=== PATIENT | male | born 1965 | race Caucasian/White ===

== ENCOUNTER 2023-02-08 09:32 | Outpatient (OUT) | payer OTHER, SELFPAY ==
[2023-02-08 10:13] LABS: Basophils Absolute Auto 0.1 10^3/uL (0.0-0.1); Basophils Percent Auto 1.1 % (0.2-2.0); Eosinophils Absolute Auto 0.4 10^3/uL (0.0-0.7); Eosinophils Percent Auto 5.1 % (0.9-7.0); Hematocrit 48.2 % (42.0-54.0); Hemoglobin 16.1 g/dL (14.0-18.0); Immature Granulocytes Abs Auto 0.03 10^3/uL (0.00-0.03); Immature Granulocytes Pct Auto 0.4 % (0.0-0.5); Lymphocytes Absolute Auto 1.8 10^3/uL (1.2-3.8); Lymphocytes Percent Auto 22.8 % (20.5-60.0); Mean Corpuscular HGB Conc 33.4 g/dL (29.9-35.2); Mean Corpuscular Hemoglobin 29.5 pg (25.9-34.0); Mean Corpuscular Volume 88.3 fL (80.0-94.0); Mean Platelet Volume 8.8 fL (9.5-13.5); Monocytes Absolute Auto 0.6 10^3/uL (0.3-0.8); Monocytes Percent Auto 7.8 % (1.7-12.0); Neutrophils Absolute Auto 5.1 10^3/uL (1.4-6.5); Neutrophils Percent Auto 62.8 % (43.0-75.0); Platelet Count 269 10^3/uL (150-450); Red Blood Count 5.46 10^6/uL (4.70-6.10); Red Cell Distribution Width 13.2 % (11.0-15.0)
[2023-02-08 10:45] LABS: Estimated Average Glucose 174 mg/dL; Glycohemoglobin A1C 7.7 % (4.5-6.2)
[2023-02-08 11:35] LABS: Alanine Aminotransferase 37 U/L (16-63); Albumin Level 3.7 g/dL (3.4-5.0); Alkaline Phosphatase 51 U/L (46-116); Anion Gap 13.5; Aspartate Amino Transferase 14 U/L (15-37); BUN Creatinine Ratio 25.3; Bilirubin Total 0.7 mg/dL (0.2-1.0); Calcium 9.2 mg/dL (8.5-10.1); Carbon Dioxide 26.9 mmol/L (21.0-32.0); Chloride 103 mmol/L (98-107); Estimated GFR (African America >60 (>=60); Estimated GFR (Non-African Ame >60 (>=60); Globulin 3.7 g/dL; Glucose 172 mg/dL (74-106); Potassium 4.4 mmol/L (3.5-5.1); Sodium 139 mmol/L (136-145); Total Protein 7.4 g/dL (6.4-8.2)
== END 2023-02-08 09:33 ==
LOC: LAB 09:36
PROVIDERS: PCP Family Medicine; Visit Provider Family Medicine
DX: R42 Dizziness and giddiness (principal); R11.0 Nausea; E11.9 Type 2 diabetes mellitus without complications
CPT/HCPCS: 36415; 80053; 83036; 85025

== ENCOUNTER 2023-03-06 14:02 | Outpatient (OUT) | payer OTHER, SELFPAY ==
--- NOTE | 2023-03-06 14:45 | CT_ITS ---
[address] [address] Patient Name: EVARISTO LOWERY MRN: [id number] date: 1965 Sex: M Assigned Patient Location: CT Current Patient Location: Accession/Order Number: [id number] Exam Date: 03/06/2023 14:20 Report Date: 03/07/2023 07:54 At the request of: JOSEPH JNAG Procedure: CT abdomen pelvis wo/w con EXAMINATION: CT abdomen pelvis wo/w con HISTORY: Kidney Mass N28.89 COMPARISON: 10/01/2022 TECHNIQUE: Axial, Coronal, and Sagittal images were created without and with non-ionic intravenous contrast material. Dose reduction techniques were achieved by using automated exposure control and/or adjustment of mA and/or kV according to patient size and/or use of iterative reconstruction technique. FINDINGS: LUNG BASES: No visible pulmonary or pleural disease. LIVER: No enlargement, atrophy, abnormal density, or significant focal lesion. BILIARY: No dilatation or calcification. PANCREAS: No lesion, fluid collection, ductal dilatation, or atrophy. SPLEEN: No enlargement or focal lesion. ADRENALS: No mass or enlargement. KIDNEYS: Normal right. Left parapelvic and cortical hypodensities measuring up to 3.9 cm inferior e pole, all of the lesions demonstrate fluid density without postcontrast enhancement with the exception of a upper pole lesion with peripheral calcification measuring 3.3 x 2.4 cm axial image #41 with a density of 24-27 Hounsfield units on pre and postcontrast imaging BOWEL/MESENTERY: Colonic diverticulosis without evidence of acute diverticulitis. Nonobstructive bowel gas pattern AORTA/VASCULAR: No aortic aneurysm. Atherosclerosis RETROPERITONEUM: No mass or adenopathy. LYMPH NODES: No adenopathy. URINARY BLADDER: No visible focal wall thickening, lesion, or calculus. PELVIC ORGANS: No visible mass. Pelvic organs appropriate for patient age. ABDOMINAL WALL: No mass or hernia. BONES: No bony lesion or fracture. OTHER: Negative. CT/CT abdomen pelvis wo/w con IMPRESSION: Stable nonenhancing hyperdense 3.3 cm left renal lesion with peripheral calcification. I favor hyperdense or proteinaceous cyst Electronically authenticated by: BHASKAR ANTUNEZ Date: 03/07/2023 07:54
== END 2023-03-06 14:03 | disposition home or self-care (01) ==
LOC: CT 14:05
PROVIDERS: PCP Family Medicine; Visit Provider Urology
DX: N28.89 Other specified disorders of kidney and ureter (principal)
CPT/HCPCS: 74178; Q9967

== ENCOUNTER 2023-05-27 09:54 | Outpatient (OUT) | payer OTHER, SELFPAY ==
[2023-05-27 10:29] LABS: Basophils Absolute Auto 0.1 10^3/uL (0.0-0.1); Basophils Percent Auto 1.2 % (0.2-2.0); Eosinophils Absolute Auto 0.3 10^3/uL (0.0-0.7); Eosinophils Percent Auto 3.2 % (0.9-7.0); Hematocrit 48.7 % (42.0-54.0); Hemoglobin 15.9 g/dL (14.0-18.0); Immature Granulocytes Abs Auto 0.02 10^3/uL (0.00-0.03); Immature Granulocytes Pct Auto 0.2 % (0.0-0.5); Lymphocytes Percent Auto 24.7 % (20.5-60.0); Mean Corpuscular HGB Conc 32.6 g/dL (29.9-35.2); Mean Corpuscular Hemoglobin 29.1 pg (25.9-34.0); Mean Corpuscular Volume 89.2 fL (80.0-94.0); Monocytes Absolute Auto 0.6 10^3/uL (0.3-0.8); Monocytes Percent Auto 7.9 % (1.7-12.0); Neutrophils Percent Auto 62.8 % (43.0-75.0); Platelet Count 267 10^3/uL (150-450); Red Blood Count 5.46 10^6/uL (4.70-6.10); Red Cell Distribution Width 12.8 % (11.0-15.0)
[2023-05-27 10:36] LABS: Estimated Average Glucose 203 mg/dL; Glycohemoglobin A1C 8.7 % (4.5-6.2)
[2023-05-27 10:40] LABS: Alanine Aminotransferase 36 U/L (16-63); Albumin Globulin Ratio 1.2; Albumin Level 4.1 g/dL (3.4-5.0); Alkaline Phosphatase 39 U/L (46-116); Anion Gap 13.2; Aspartate Amino Transferase 16 U/L (15-37); BUN Creatinine Ratio 29.3; Bilirubin Total 0.7 mg/dL (0.2-1.0); Calcium 9.8 mg/dL (8.5-10.1); Carbon Dioxide 28.5 mmol/L (21.0-32.0); Chloride 101 mmol/L (98-107); Chol HDL Ratio 2.9; Cholesterol 111 mg/dL (<=200); Estimated GFR (African America >60 (>=60); Estimated GFR (Non-African Ame >60 (>=60); Globulin 3.5 g/dL; Glucose 152 mg/dL (74-106); HDL Cholesterol 38 mg/dL (40-60); Potassium 4.7 mmol/L (3.5-5.1); Sodium 138 mmol/L (136-145); Total Protein 7.6 g/dL (6.4-8.2); Triglycerides 110 mg/dL (<=150)
== END 2023-05-27 09:55 | disposition home or self-care (01) ==
PROVIDERS: PCP Internal Medicine; Visit Provider Internal Medicine
DX: E11.9 Type 2 diabetes mellitus without complications (principal); E78.5 Hyperlipidemia, unspecified
CPT/HCPCS: 36415; 80053; 80061; 83036; 85025

== ENCOUNTER 2023-07-03 16:33 | Outpatient (OUT) | payer OTHER, SELFPAY ==
--- NOTE | 2023-07-03 | XR_ITS ---
The [address] [address] Patient Name: EVARISTO LOWERY MRN: [id number] date: 1965 Sex: M Assigned Patient Location: [facility] Current Patient Location: [facility] Accession/Order Number: [id number] Exam Date: 07/03/2023 17:05 Report Date: 07/03/2023 17:44 At the request of: SHAIKH MARY ALICE Procedure: XR chest 2V EXAM: XR chest 2V HISTORY: respiratory illness COMPARISON: 06/23/2022 TECHNIQUE: Upright PA and lateral chest x-ray FINDINGS: The heart is not enlarged and the vasculature is not distended. A left-sided pacemaker remains in place. No acute infiltrate, effusion or pneumothorax is identified. Mild flattening of the hemidiaphragms suggest COPD. The osseous structures are grossly intact. XR/XR chest 2V IMPRESSION: No acute infiltrate or evidence of cardiac decompensation. Mild chronic changes are present, and the overall appearance of the chest is unchanged. Electronically authenticated by: TYREE DARNELL Date: 07/03/2023 17:44
== END 2023-07-03 16:34 | disposition home or self-care (01) ==
PROVIDERS: PCP Internal Medicine; Visit Provider Internal Medicine
DX: J98.9 Respiratory disorder, unspecified (principal)
CPT/HCPCS: 71046

== ENCOUNTER 2023-09-23 10:41 | Outpatient (OUT) | payer OTHER, SELFPAY ==
--- OUTSIDE RECORDS SUMMARY | 2023-09-23 10:44 | XMS_ITS | CCD ---
Author Name Unknown Address [address] [place] [address] Organization [facility] Care Team Providers Care Oim Consultant Name Role Phone Justin Smallwood Attending Unavailab kendra Smallwood, Justin Quiroz Admitting Unavailab kendra Wilson, Tony Ponce Primary Care Physician [phone] NEWCASTLE, DR MACDONALD Attending Unavailable NEWCASTLE, DR MACDONALD Consulting Unavailable NEWCASTLE, DR MACDONALD Primary Care Unavailable NEWCASTLE, DR MACDONALD Admitting Unavailable LARRY, ISIAH Consulting Unavailable NEWCASTLE, DR MACDONALD Primary Care Unavailable [facility] [place] PATRICK Admitting Unavailable MISC, DR PATRICK Attending Unavailable MISC, DR PATRICK Consulting Unavailable NEWCASTLE, DR MACDONALD Primary Care Unavailable QUINTON, SAIMA Admitting Unavailable QUINTON, SAIMA Attending Unavailable QUINTON, SAIMA Consulting Unavailable TELEPHONE, DR BHASKAR Zarate Consulting Unavailable NADERER, DR RUBEN Schwarz Admitting Unavailable NEWCASTLE, DR MACDONALD Primary Care Unavailable NADERER, DR RUBEN Schwarz Attending Unavailable SRIEREWilton, DR RUBEN Schwarz Consulting Unavailable SHANNY ., ROQUE AYALA Consulting UnavailJT Galvez Consulting Unavailable NEWCASTLE, DR MACDONALD Consulting Unavailable NEWCASTLE, DR MACDONALD Primary Care Unavailable NEWCASTLE, DR MACDONALD Admitting Unavailable NEWCASTLE, DR MACDONALD Attending Unavailable NEWCASTLE, DR MACDONALD Attending Unavailable NEWCASTLE, DR MACDONALD Consulting Unavailable NEWCASTLE, DR MACDONALD Primary Care Unavailable NEWCASTLE, DR MACDONALD Admitting Unavailable CHUYEBER, DR BLAYNE Núñez Consulting Unavailable MERRY LAIRD Attending Unavailable AHSAN NEWMAN Referring Unavailable MARCY, DARIAN Attending Unavailable PATYAHSAN BOBO Referring Unavailable OJEDA, Cabrera Núñez Attending Unavailable OJEDA, Cabrera Núñez Attending Unavailable House, Tony Ponce Referring Unavailable Allergies Allergy Classification Reported Allergen(s) Allergy Type Date of Onset Reaction(s) Facility (1 source) No Known Medication Allergies; 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: [No Known Medication Allergies] Propensity to adverse reactions (disorder) [facility] Repository Medications Current Medications Medication Drug Class(es) Dates Sig (Normalized) Sig (Original) Aspirin (1 source) Platelet Aggregation Inhibitor, Nonsteroidal Anti-inflammatory Drug Start: 11-14-2022 aspirin Refills(s) 0 Start Date: 11/14/22 Status: Ordered atorvastatin 80 mg oral tablet (1 source) HMG-CoA Reductase Inhibitor Start: 11-14-2022 atorvastatin 80 mg Tab Refills(s) 0 Start Date: 11/14/22 Status: Ordered carvedilol 25 mg oral tablet (1 source) alpha-Adrenergic Sada, beta-Adrenergic Sada Start: 11-14-2022 carvedilol 25 mg Tab Refills(s) 0 Start Date: 11/14/22 Status: Ordered empagliflozin 10 mg oral tablet (1 source) Sodium-Glucose Cotransporter 2 Inhibitor Start: 11-14-2022 Jardiance 10 mg oral tablet Refills(s) 0 Start Date: 11/14/22 Status: Ordered ezetimibe 10 mg oral tablet (1 source) Dietary Cholesterol Absorption Inhibitor Start: 11-14-2022 ezetimibe 10 mg Tab Refills(s) 0 Start Date: 11/14/22 Status: Ordered metFORMIN hydrochloride 500 mg oral tablet (1 source) Biguanide Start: 11-14-2022 metformin 500 mg Tab Refills(s) 0 Start Date: 11/14/22 Status: Ordered sacubitril 24 mg / valsartan 26 mg oral tablet (1 source) Angiotensin 2 Receptor Sada Start: 11-14-2022 take 1 tablet by mouth twice daily Entresto 24 mg-26 mg oral tablet tab(s), Oral, BID, Refill(s) 0 Start Date: 11/14/22 Status: Ordered spironolactone 25 mg oral tablet (1 source) Aldosterone Antagonist Start: 11-14-2022 spironolactone 25 mg Tab Refills(s) 0 Start Date: 11/14/22 Status: Ordered Problems Active Problems Problem Classification Problem Date Documented Date Episodic/Chronic Conduction disorders (2 sources) Encounter for adjustment and management of automatic implantable cardiac defibrillator; 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: [Encounter for adjustment and management of automatic implantable cardiac defibrillator] Onset: 09-20-2022 Chronic Congestive heart failure; nonhypertensive (2 sources) Chronic systolic (congestive) heart failure; 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: [Chronic systolic (congestive) heart failure] Onset: 07-27-2022 Chronic Coronary atherosclerosis and other heart disease (8 sources) Atherosclerotic heart disease of [place] coronary artery without angina pectoris; 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: [Old myocardial infarction] Onset: 02-16-2022 Chronic Diabetes mellitus with complications (1 source) Type 2 diabetes mellitus with hyperglycemia; 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: [TYPE 2 DM W/HYPERGLYCEMIA] Onset: 07-04-2022 Chronic Diabetes mellitus without complication (5 sources) Type 2 diabetes mellitus; 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: [Type 2 diabetes mellitus without complications] Onset: 03-21-2022 11-10-2022 Chronic Disorders of lipid metabolism (3 sources) Mixed hyperlipidemia; 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: [Mixed hyperlipidemia] Onset: 07-26-2022 11-10-2022 Chronic Diverticulosis and diverticulitis (1 source) Diverticulosis of large intestine without perforation or abscess without bleeding; 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: [DVRTCLOS LG INT NO PERF/ABSC W/O BL] Onset: 10-07-2022 Chronic Essential hypertension (4 sources) Essential hypertension; 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: [Essential (primary) hypertension] Onset: 03-25-2022 11-10-2022 Chronic Headache; including migraine (1 source) Headache; including migraine; 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: [HEADACHE UNSPECIFIED] Onset: 07-04-2022 Hyperplasia of prostate (2 sources) Benign prostatic hyperplasia; 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: [Benign prostatic hyperplasia without lower urinary tract symptoms] Onset: 03-25-2022 11-10-2022 Chronic Other diseases of kidney and ureters (1 source) Disorder of kidney and/or ureter; 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: [Other specified disorders of kidney and ureter] Onset: 11-14-2022 Chronic Other diseases of kidney and ureters (1 source) Renal mass 11-14-2022 Chronic Other diseases of kidney and ureters (4 sources) Other specified disorders of kidney and ureter; 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: [OTHER SPEC DISORDERS KIDNEY URETER] Onset: 10-01-2022 Chronic Other diseases of kidney and ureters (1 source) Cyst of kidney, acquired; 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: [CYST OF KIDNEY ACQUIRED] Onset: 10-07-2022 Episodic Other liver diseases (1 source) Other specified diseases of liver; 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: [OTHER SPECIFIED DISEASES OF LIVER] Onset: 10-07-2022 Chronic Other screening for suspected conditions (not mental disorders or infectious disease) (1 source) Encounter for screening for malignant neoplasm of prostate; 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: [Screening for malignant neoplasm done] Onset: 11-14-2022 Episodic Madelyn-; endo-; and myocarditis; cardiomyopathy (except that caused by tuberculosis or sexually transmitted disease) (3 sources) Cardiomyopathy; 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: [Cardiomyopathy, unspecified] Onset: 07-26-2022 11-10-2022 Chronic Unclassified (1 source) Patient encounter status 11-14-2022 Unclassified (1 source) CONTACT W/AND (SUSP) EXPOS COVID-19; 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: [CONTACT W/AND (SUSP) EXPOS COVID-19] Onset: 07-04-2022 Past or Other Problems Problem Classification Problem Date Documented Da te Episodic/Chronic Abdominal pain (4 sources) Unspecified abdominal pain; 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: [UNSPECIFIED ABDOMINAL PAIN] Onset: 09-14-2022 Episodic Conditions associated with dizziness or vertigo (1 source) Dizziness and giddiness; 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: [DIZZINESS AND GIDDINESS] Onset: 07-04-2022 Episodic Coronary atherosclerosis and other heart disease (1 source) Presence of coronary angioplasty implant and graft; 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: [PRESENCE COR ANGPLSTY IMPLANT AND GRAFT] Onset: 07-04-2022 Episodic Fluid and electrolyte disorders (1 source) Dehydration; 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: [DEHYDRATION] Onset: 07-04-2022 Episodic Nonspecific chest pain (4 sources) Chest pain, unspecified; 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: [CHEST PAIN UNSPECIFIED] Onset: 06-23-2022 Episodic Other aftercare (1 source) [employer] (current) use of aspirin; 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: [JEWELRY APPRAISER CURRENT USE OF ASPIRIN] Onset: 07-04-2022 Episodic Other aftercare (1 source) jail (current) use of oral hypoglycemic drugs; 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: [JEWELRY APPRAISER USE ORAL HYPOGLYCEMIC DX] Onset: 07-04-2022 Episodic Other aftercare (1 source) Other skilled nursing (current) drug therapy; 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: [OTH JEWELRY APPRAISER CURRENT DRUG THERAPY] Onset: 07-04-2022 Episodic Other upper respiratory infections (1 source) Acute sinusitis, unspecified; 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: [ACUTE SINUSITIS UNSPECIFIED] Onset: 07-04-2022 Episodic Screening and history of mental health and substance abuse codes (1 source) Personal history of nicotine dependence; 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: [PERSONAL HISTORY OF NICOTINE DEPEND] Onset: 07-04-2022 Episodic Results Test Name Value Interpretation Reference Range Facility Pre-Certification Formon Pre-Certification Form [id number] .00CD:127 Normal [facility] RAD - CT Reporton 03-07-2023 RAD - CT Report [id number] .[id number]:127 Normal [facility] Telephoneon 01-05-2023 Telephone [id number] Evaristo Lowery 1965 M Date Provider Department Center 01/05/2023 ValentínMIRTHA ORR CARD [facility] Family History Problem Relation Age of Onset Diabetes Maternal Grandmother Heart attack Maternal Grandfather Diabetes Paternal Grandmother Heart disease Paternal Grandfather Family Status - Relation Status Age at Maternal Grandmother Maternal Grandfather Paternal Grandmother Paternal Grandfather Normal [facility] ECHOCARDIO M/2D COMPLETEon 0 01-03-2023 ECHOCARDIO M/2D COMPLETE Patient: EVARISTO LOWERY. 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 DESCRIPTION: COMPLETE ECHOCARDIOGRAM Real-time transthoracic echocardiography with 2D, M-mode, spectral and color flow Doppler performed. QUALITY: Technical quality was good. LEFT VENTRICLE: Mild dilatation. Normal left ventricular wall thickness. Left ventricular systolic function is severely reduced with segmental wall motion abnormalities. There is thinning and akinesis of the anterior septum, mid and distal anterior wall and apex. LV EF: Visual estimation of left ventricular ejection fraction is 25%. DIASTOLIC: ATRIAL SEPTUM: LEFT ATRIUM: Mild dilatation. RIGHT ATRIUM: Normal chamber size. RIGHT VENTRICLE: Normal chamber size. Normal right ventricular systolic function. Pacer wire present. TRICUSPID VALVE: Normal mobility and thickness. No stenosis with trivial regurgitation. Unable to assess right-sided pressures due to lack of measurable tricuspid regurgitation. MITRAL VALVE: Normal mobility and thickness. No evidence of mitral valve stenosis. There is no mitral annular calcification. Trivial mitral regurgitation. AORTIC VALVE: Normal trileaflet appearance. No visible sclerosis. Normal leaflet mobility. No evidence of aortic valve stenosis. No aortic regurgitation. AORTIC ROOT: Normal diameter and appearance. PULMONIC VALVE: Normal thickness and mobility. No stenosis. No regurgitation. PERICARDIUM: No evidence of pericardial effusion. IVC: Collapses with inspirations. Normal size PLEURA: CONCLUSION: 1. Ventricle is mildly dilated with severely reduced systolic function. Segmental wall motion abnormalities present. LVEF is 25%. 2. Normal right ventricular size and systolic function. 3. No significant valvular dysfunction. 4. Unable to assess right-sided pressures due to lack of measurable tricuspid regurgitation. 5. No pericardial effusion. Adult Echocardiography Procedure Report Left Ventricle LVEDD (3.7 - 5.6 cm): 5.47 cm LVESD (2.2 - 4.0 cm): 4.68 cm LVIVS thickness (0.6 - 1.2 cm): 0.85 cm LVPW thickness (0.5 - 1.0 cm): 0.93 cm e': 0.07 m/s E - e': 10.31 LVOT Max Gradient: 2.99 mm[Hg] Peak Velocity (LVOT): 0.86 m/s Mean Velocity (LVOT): 0.66 m/s LVOT Diameter 2.33 cm Left Ventricular Ejection Fraction: 25 % Left Atrium LA Volume Index (2D A2C): 66.41 ml, 66.41 ml Left Atrium Systolic Dimension: 3.41 cm Mitral Valve MV E to A Ratio: 0.75 Mitral Valve A-Wave Peak Velocity: 0.90 m/s Mitral Valve E-Wave Peak Velocity: 0.68 m/s Right Ventricle RV Internal Diastolic Dimension: 3.47 cm Aorta AO Root Diam: 3.23 cm Ascending Ao Diam: 2.93 cm Aortic Valve AoV Area (Peak Allan): 3.11 cm2, 3.17 cm2 AoV Area (VTI): 2.95 cm2, 3.01 cm2 Peak Velocity(Antegrade Flow): 1.17 m/s, 1.21 m/s Peak Gradient(Antegrade Flow): 5.44 mm[Hg], 5.86 mm[Hg] Mean Velocity(Antegrade Flow): 0.85 m/s, 0.89 m/s Mean Gradient(Antegrade Flow): 3.26 mm[Hg], 3.50 mm[Hg] Velocity Time Integral: 24.68 cm, 25.79 cm Tricuspid Valve Peak Velocity (Regurgitant Flow): 2.16 m/s, 1.81 m/s, 1.84 m/s Peak Velocity: 0.56 m/s Pulmonic Valve Mean Gradient: 1.83 mm[Hg], 1.84 mm[Hg], 1.94 mm[Hg], 2.09 mm[Hg] Mean Velocity: 0.63 m/s, 0.63 m/s, 0.65 m/s, 0.67 m/s Peak Velocity: 0.90 m/s, 0.90 m/s, 1.01 m/s, 1.01 m/s Peak Gradient: 3.21 mm[Hg], 3.21 mm[Hg], 4.10 mm[Hg], 4.10 mm[Hg] Right Atrium Right Atrium Systolic Pressure: 28.32 ml, 28.32 ml Dictated by: Foreign Rodriguez M.D. on 01/03/2023 at 20:26 Approved by: Foreign Rodriguez M.D. on 01/03/2023 at 20:32 Normal [facility] Office Visiton 12-19-2022 Follow-up visit [id number] Evaristo Lowery 1965 [facility] Department [place] 12/19/2022 [id number] LAIRD [facility] Family History Problem Relation Age of Onset Diabetes Maternal Grandmother Heart attack Maternal Grandfather Diabetes Paternal Grandmother Heart disease Paternal Grandfather Family Status - Relation Status Age at Maternal Grandmother Maternal Grandfather Paternal Grandmother Paternal Grandfather Level of Service:60788 UT OFFICE/OUTPATIENT ESTABLISHED MOD MDM 30-39 MIN Reason for Visit and Comments: Follow-up [932410] - 3 month follow up Normal [facility] Physician Referralon 023 Physician Referral [id number] .[id number]:127 Normal [facility] Physician Referral [id number] .[id number]:127 Normal [facility] Ambulatory Visit Summaryon 0 11-14-2022 Ambulatory Visit Summary EVARISTO LOWERY :1965 Visit Date:11/14/2022 Ambulatory Visit Instructions Your Diagnosis Kidney mass Prostate cancer screening Tests Performed Urnls Dip Stick Auto w/o Microscopy POC 280[address] CT Abdomen/Pelvis w/ + w/o Contrast -- Results Pending -- Please visit your patient portal for your results or contact your primary care physician. Your Care Team Attending Physician - Cabrera OJEDA MD Primary Care Physician - Tony Wilson DO Referring Physician - Tony Wilson DO This Is Your Medications List Contact prescribing physician if questions or concerns aspirin atorvastatin (atorvastatin 80 mg Tab) carvedilol (carvedilol 25 mg Tab) empagliflozin (Jardiance 10 mg oral tablet) ezetimibe (ezetimibe 10 mg Tab) metformin (metformin 500 mg Tab) sacubitril-valsartan (Entresto 24 mg-26 mg oral tablet) spironolactone (spironolactone 25 mg Tab) Procedures Performed Aortic stent, Defibrillator, Knee, Shoulder. Discharge Vitals Height 159 cm Height 63 in Weight 95 kg Weight 209 lb BMI 37.58 What to do next Scheduled Follow-Up Appointments Monday 2:30 PM EDT With: Cabrera OJEDA MD Where: [facility] Patient Educationon 11-15-19 23 Patient Education Urology Renal Mass A renal mass is a growth in the kidney. A renal mass may be found while performing an MRI, CT scan, or ultrasound for other problems of the abdomen. Certain types of cancers, infections, or injuries can cause a renal mass. A renal mass that is cancerous (malignant) may grow or spread quickly. Others are harmless (benign). What are common types of renal masses? Renal masses include: ? Tumors. These may be cancerous (malignant) or noncancerous (benign). ? The most common type of kidney cancer is renal cell carcinoma. ? The most common benign tumors of the kidney include renal adenomas, oncocytomas, and angiomyolipoma (AML). ? Cysts. These are fluid-filled sacs that form on or in the kidney. ? It is not always known what causes a cyst to develop in or on the kidney. ? Most kidney cysts do not cause symptoms and do not need to be treated. What type of testing might I need? Your health care provider may recommend that you have tests to diagnose the cause of your renal mass. The following tests may be done if a renal mass is found: ? Physical exam. ? Blood tests. ? Urine tests. ? Imaging tests, such as ultrasound, CT scan, or MRI. ? Biopsy. This is a small sample that is removed from the renal mass and tested in a lab. The exact tests and how often they are done will depend on: ? The size and appearance of the renal mass. ? Risk factors or medical conditions that increase your risk for problems. ? Any symptoms associated with the renal mass, or concerns that you have about it. Tests and physical exams may be done once, or they may be done regularly for a period of time. Tests and exams that are done regularly will help monitor whether the mass is growing and beginning to cause problems. What are common treatments for renal masses? Treatment is not always needed for this condition. Your health care provider may recommend careful monitoring (watchful waiting) and regular tests and exams. Treatment will depend on the cause of the mass. Follow these instructions at home: What you need to do at home will depend on the cause of the mass. Follow the instructions that your health care provider gives to you. In general: ? Take tlei-itt-cjohipz and prescription medicines only as told by your health care provider. ? If you are prescribed an antibiotic medicine, take it as told by your health care provider. Do not stop taking the antibiotic even if you start to feel better. ? Follow any restrictions that are given to you by your health care provider. ? Keep all follow-up visits as told by your health care provider. This is important. ? You may need to see your health care provider once or twice a year to have CT scans and ultrasounds done. These tests will show if your renal mass has changed or grown bigger. Contact a health care provider if you: ? Have pain in the side or back (flank pain). ? Have a fever. ? Feel full soon after eating. ? Have pain or swelling in the abdomen. ? Lose weight. Get help right away if: ? Your pain gets worse. ? There is blood in your urine. ? You cannot urinate. ? You have chest pain. ? You have trouble breathing. Summary ? A renal mass is a growth in the kidney. It may be cancerous (malignant) and grow or spread quickly, or it may be harmless (benign). ? Renal masses may be found while performing an MRI, CT scan, or ultrasound for other problems of the abdomen. ? Your health care provider may recommend that you have tests to diagnose the cause of your renal mass. This may include a physical exam, blood tests, urine tests, imaging, or a biopsy. ? Treatment is not always needed for this condition. Careful monitoring (watchful waiting) may be recommended. This information is not intended to replace advice given to you by your health care provider. Make sure you discuss any questions you have with your health care provider. Document Released: 03/04/2015 Document Revised: 09/13/2018 Document Reviewed: 09/13/2018 [email or web address] Patient Education ? 2019 [employer]. [facility] XR knee LT 4V*on 10-19-2022 XR knee LT 4V* [facility] [place] [address] [place] [address] XRay Report Signed Patient: Evaristo Lowery MR#: [id number] : 1965 Acct:[id number] Age/Sex: 57 / M ADM Date: 10/19/22 Loc: XDCLY Room: Type: [facility] Attending Dr: Justin Smallwood PHOTOLETTERING MACHINE OPERATOR-C Copies to: Justin Smallwood CNP Ordering Provider: Justin Smallwood CNP Date of Service: 10/19/22 XR/XR knee LT 4V*: LEFT KNEE PAIN ([id number]) XR/XR elbow LT min 3V*: LEFT ELBOW PAIN CLINICAL HISTORY: Patient slipped and fell at work yesterday. Pain at the posterior left knee and posterior elbow radiating up the arm. LEFT ELBOW - 4 VIEWS COMPARISON: None AP, lateral and both oblique views were obtained. There is no evidence of fracture or dislocation. There is a small enthesophyte at the insertion of the triceps tendon. There are no significant soft tissue abnormalities. There is no elbow effusion. XR/XR elbow LT min 3V* IMPRESSION: NO ACUTE BONY INJURY. LEFT KNEE - 4 views COMPARISON: None AP, lateral and both oblique views were obtained. There is no acute fracture or dislocation. There is mild narrowing of the medial tibiofemoral joint compartment. There is tricompartment marginal spurring. A knee effusion is present. IMPRESSION: DEGENERATIVE CHANGES. NO ACUTE BONY INJURY. Impression dictated by: Cheri Castaneda M.D.10/19/2022 10:21 AM Dictation Location: [place] [address] Transcribed By: [facility] 10/19/22 1021 Dictated By: Cheri Castaneda MD 10/19/22 1012 Signed By: 10/19/22 1021 [facility] CREATININEon 10-01-2022 Creatinine [Mass/Vol] 0.75 mg/dL Normal 0.70-1.30 [facility] Comment on above: Performed By: #### C MP #### [facility] [address] [place] [address] Dr. Mily Parra EGFR-AF BRITISH >60 Normal >=60 [facility] Comment on above: Performed By: #### C MP #### [facility] [address] [place] [address] Dr. Mily Parra EGFR-NON AF BRITISH >60 Normal >=60 [facility] Comment on above: Performed By: #### C MP #### [facility] [address] [place] [address] ABDOMEN WO/W CONon 2022 CT ABDOMEN WO/W CON CLINICAL HISTORY: Disorder of kidney and/or ureter. EXAMINATION: Unenhanced, enhanced CT scan of the abdomen: 10/01/2022. COMPARISON: Unenhanced CT scan of the abdomen and pelvis: 09/14/2022. TECHNIQUE: 3 mm axial images from lung bases through iliac crests without and following administration of intravenous contrast were obtained. Postcontrast images were performed in the hepatic venous phase of contrast administration. No oral contrast was utilized. Sagittal and coronal reconstructions were performed. Dose reduction techniques were achieved by using automated exposure control and/or adjustment of mA and/or kV according to patient size and/or use of iterative reconstruction technique. FINDINGS: There is a pacemaker lead in the right ventricle. The heart size seems normal without filling defects in the cardiac chambers postcontrast. The lung bases otherwise are normal. CT ABDOMEN: There is a tiny low-density lesion in the periphery of the right hepatic lobe in the hepatic dome measuring 6 mm without postcontrast enhancement. The liver overall has density suggestive of at least mild fatty infiltration. There are no other lesions in the liver. The gallbladder, adrenal glands, pancreas, spleen appears normal with a few punctate calcified granulomas within the spleen. RIGHT KIDNEY: On the noncontrast images there is no hydronephrosis, nephro or ureterolithiasis of the visualized right ureter. Postcontrast there are no suspiciously enhancing lesions in the right kidney. LEFT KIDNEY: The lesion in question in the upper pole posterolaterally which has thick calcification in its posterior wall, has isointensity with respect to the renal parenchyma or slightly hyperintense, with precontrast Hounsfield units of 35. Postcontrast the Hounsfield units for this lesion are approximately 37 therefore no significant enhancement. The lesion overall measures approximately 1.9 x 2.3 cm. On the noncontrast images there is another lobulated, low-density lesion in the lower pole partially parapelvic, image 57 sequence 3 measures approximately 2.7 x 3.6 cm, precontrast Hounsfield units of 3. This has some septations which are seen on the postcontrast images without significant enhancement. These septations are less than 3 mm. Postcontrast the Hounsfield units for this lesion are 6. On the precontrast images there is no hydronephrosis or nephrolithiasis or ureterolithiasis. The abdominal aorta has normal caliber. There is no retroperitoneal or mesenteric adenopathy. The bowel loops are of normal caliber with a normal-appearing appendix which is partially visualized. There is no retroperitoneal adenopathy. No discrete focal fluid collections are seen. The visualized osseous structures seem normal. IMPRESSION: 1. Lesion in question in the upper pole lateral aspect of the left kidney partially exophytic has calcification in its lower aspect however there is no significant enhancement of this lesion. This could be secondary to a proteinaceous cyst or hemorrhagic cyst however papillary type of renal cell carcinoma would be difficult to exclude. This will not resolve with respect to papillary cell tumor on the MRI examination as well. 2. There is a Bosniak type II cyst in the lower pole of the left kidney. 3. No definite nephrolithiasis or ureterolithiasis of the visualized kidneys or the ureters on the noncontrast phase of this study. 4. Tiny cyst in the liver, which does not demonstrate enhancement. 5. Mild diverticulosis of the visualized colon without diverticulitis. 6. Normal appendix. Electronically authenticated by: ISIAH JUAREZ Date: 2022-10-01 11:[address] [facility] [address] ABD/PELVIS WO CONon 09-14 CT ABD/PELVIS WO CON EXAMINATION: CT ABD/PELVIS WO CON HISTORY: Right flank pain COMPARISON: CT abdomen pelvis 11/11/2016 TECHNIQUE: Axial, Coronal, and Sagittal images were obtained without and/or with IV contrast as indicated by examination type. Dose reduction techniques were achieved by using automated exposure control and/or adjustment of mA and/or kV according to patient size and/or use of iterative reconstruction technique. FINDINGS: LUNG BASES: No visible pulmonary or pleural disease. LIVER: No enlargement, atrophy, suspicious density, or significant focal lesion. BILIARY: No dilatation or calcification. PANCREAS: No lesion, fluid collection, or abnormal duct dilatation. SPLEEN: No enlargement or focal lesion. ADRENALS: No mass or enlargement. KIDNEYS: 2.7 cm complex cyst versus mass with rim calcification projecting from superior pole of left kidney; benign-appearing cysts within lower pole. Unremarkable right kidney and bilateral ureters. BOWEL/MESENTERY: No visible mass, obstruction, or bowel wall thickening. Normal appendix. AORTA/VASCULAR: No aneurysm or dissection. RETROPERITONEUM: No mass or adenopathy. LYMPH NODES: No adenopathy. URINARY BLADDER: No visible focal wall thickening, lesion, or calculus. PELVIC ORGANS: No visible mass. Pelvic organs appropriate for patient age. ABDOMINAL WALL: No mass or hernia. BONES: L5-S1 degenerative disc disease. No bone lesion or fracture. OTHER: Negative. IMPRESSION: 1. No abnormal or suspicious findings to account for patient's right flank pain. 2.Complex cyst versus mass projecting from superior pole of left kidney. Follow-up CT abdomen without and with IV contrast is recommended to evaluate enhancement characteristics. Electronically authenticated by: BLAYNE CHEN Date: 2022-09-14 15:18 Normal [facility] Office Visiton 07-27-2022 Follow-up visit [id number] Evaristo Lowery 1965 M Date Provider Department Center 07/27/2022 DARIAN LAWRENCE [facility] Family History Problem Relation Age of Onset Diabetes Maternal Grandmother Heart attack Maternal Grandfather Diabetes Paternal Grandmother Heart disease Paternal Grandfather Family Status - Relation Status Age at Maternal Grandmother Maternal Grandfather Paternal Grandmother Paternal Grandfather Level of Service:11098 [place] OFFICE/OUTPATIENT ESTABLISHED MOD MDM 30-39 MIN Normal [facility] CBC AUTO DIFFon 06-24-2022 BASO # 0.1 103/ul Normal 0.0-0.1 [facility] Comment on above: Performed By: #### C BC #### [facility] [address] [address] [address] Mily Parra Basophils/100 WBC (Bld) 0.9 % Normal 0.2-2.0 [facility] Comment on above: Performed By: #### C BC #### [facility] [address] [address] [address] Mily Parra EO # 0.6 103/ul Normal 0.0-0.7 [facility] Comment on above: Performed By: #### C BC #### [facility] [address] [address] [address] Mily Parra Eosinophils/100 WBC (Bld) 6.0 % Normal 0.9-7.0 [facility] Comment on above: Performed By: #### C BC #### [facility] [address] [address] [address] Mily Parra Erythrocyte distribution width (RBC) [Ratio] 13.4 % Normal 11.0-15.0 [facility] Comment on above: Performed By: #### C BC #### [facility] [address] [place] [address] Dr. Mily Parra Hematocrit (Bld) [Volume fraction] 46.7 % Normal 42.0-54.0 [facility] Comment on above: Performed By: #### C BC #### [facility] [address] [address] [address] Mily Parra Hemoglobin (Bld) [Mass/Vol] 15.6 g/dL Normal 14.0-18.0 [facility] Comment on above: Performed By: #### C BC #### [facility] [address] [place] [address] Dr. Mily Parra IG # 0.03 10e3/ul Normal 0.00-0.03 [facility] Comment on above: Performed By: #### C BC #### [facility] [address] [place] [address] Dr. Mily Parra IG % 0.3 % Normal 0.0-0.5 [facility] Comment on above: Performed By: #### C BC #### [facility] [address] [place] [address] Dr. Mily Parra LYMPH # 3.0 103/ul Normal 1.2-3.8 [facility] Comment on above: Performed By: #### C BC #### [facility] [address] [place] [address] Dr. Mily Parra Lymphocytes/100 WBC (Bld) 28.1 % Normal 20.5-60.0 [facility] Comment on above: Performed By: #### C BC #### [facility] [address] [place] [address] Dr. Mily Parra MANUAL DIFF REQ NO Normal [facility] Comment on above: Performed By: #### C BC #### [facility] [address] [place] [address] Dr. Mily Parra MCH (RBC) [Entitic mass] 29.5 pg Normal 25.9-34.0 [facility] Comment on above: Performed By: #### C BC #### [facility] [address] [place] [address] Dr. Mily Parra MCHC (RBC) [Mass/Vol] 33.4 g/dL Normal 29.9-35.2 [facility] Comment on above: Performed By: #### C BC #### [facility] [address] [place] [address] Dr. Mily Parra MCV (RBC) [Entitic vol] 88.4 fL Normal 80.0-94.0 [facility] Comment on above: Performed By: #### C BC #### [facility] [address] [place] [address] Dr. Mily Parra MONO # 0.8 103/ul Normal 0.3-0.8 [facility] Comment on above: Performed By: #### C BC #### [facility] [address] [place] [address] Dr. Mily Parra Monocytes/100 WBC (Bld) 7.8 % Normal 1.7-12.0 [facility] Comment on above: Performed By: #### C BC #### [facility] [address] [place] [address] Dr. Mily Parra NEUT # 6.0 103/ul Normal 1.4-6.5 [facility] Comment on above: Performed By: #### C BC #### [facility] [address] [place] [address] Dr. Mily Parra Neutrophils/100 WBC (Bld) 56.9 % Normal 43.0-75.0 [facility] Comment on above: Performed By: #### C BC #### [facility] [address] [place] [address] Dr. Mily Parra Platelet mean volume (Bld) [Entitic vol] 8.8 fL Critically low 9.5-13.5 [facility] Comment on above: Performed By: #### C BC #### [facility] [address] [place] [address] Dr. Mily Parra PLT 233 103/ul Normal 150-450 [facility] Comment on above: Performed By: #### C BC #### [facility] [address] [place] [address] Dr. Mily Parra RBC 5.28 106/ul Normal 4.70-6.10 [facility] Comment on above: Performed By: #### C BC #### [facility] [address] [place] [address] Dr. Mily Parra WBC 10.5 103/ul Normal 4.0-11.0 [facility] Comment on above: Performed By: #### C BC #### [facility] [address] [place] [address] Dr. Mily Parra PROF CHEM 8 (BAS METB)on Anion gap [Moles/Vol] 8.9 mmol/L Normal [facility] Comment on above: Performed By: #### L IPID #### [facility] [address] [place] [address] Dr. Mily Parra Calcium [Mass/Vol] 8.6 mg/dL Normal 8.5-10.1 [facility] Comment on above: Performed By: #### L IPID #### [facility] [address] [address] [address] Mily Parra Chloride [Moles/Vol] 107 mmol/L Normal 98-107 [facility] Comment on above: Performed By: #### L IPID #### [facility] [address] [place] [address] Dr. Mily Parra CO2 [Moles/Vol] 27.2 mmol/L Normal 21.0-32.0 [facility] Comment on above: Performed By: #### L IPID #### [facility] [address] [place] [address] Dr. Mily Parra Creatinine [Mass/Vol] 0.76 mg/dL Normal 0.70-1.30 [facility] Comment on above: Performed By: #### L IPID #### [facility] [address] [place] [address] Dr. Mily Parra EGFR-AF BRITISH >60 Normal >=60 [facility] Comment on above: Performed By: #### L IPID #### [facility] [address] [place] [address] Dr. Mily Parra EGFR-NON AF BRITISH >60 Normal >=60 [facility] Comment on above: Performed By: #### L IPID #### [facility] [address] [place] [address] Dr. Mily Parra Glucose [Mass/Vol] 118 mg/dL Critically high 74-106 [facility] Comment on above: Performed By: #### L IPID #### [facility] [address] [place] [address] Dr. Mily Parra Potassium [Moles/Vol] 4.1 mmol/L Normal 3.5-5.1 [facility] Comment on above: Performed By: #### L IPID #### [facility] [address] [address] [address] Mily Parra Sodium [Moles/Vol] 139 mmol/L Normal 136-145 [facility] Comment on above: Performed By: #### L IPID #### [facility] [address] [place] [address] Dr. Mily Parra Urea nitrogen [Mass/Vol] 20.0 mg/dL Critically high 7.0-18.0 [facility] Comment on above: Performed By: #### L IPID #### [facility] [address] [place] [address] Dr. Mily Parra Urea nitrogen/Creatinine [Mass ratio] 26.3 mg/mg Normal [facility] Comment on above: Performed By: #### L IPID #### [facility] [address] [place] [address] Dr. Mily Parra ACETONE SERUMon 06-23-2022 ACETONE Negative Normal NEGATIVE [facility] Comment on above: Performed By: #### A CETON #### [facility] [address] [place] [address] Dr. Mily Parra BNPon 06-23-2022 Natriuretic peptide B (Bld) [Mass/Vol] 129.0 pg/mL Normal <=900.0 [facility] Comment on above: Performed By: #### L IPID #### [facility] [address] [place] [address] Dr. Mily Parra CARDIAC CARLOS 3-6on 2 CK [Catalytic activity/Vol] 52 U/L Normal 39-308 [facility] Comment on above: Performed By: #### C MREP #### [facility] [address] [place] [address] Dr. Mily Parra CK.MB [Mass/Vol] 0.69 ng/mL Normal <=3.60 [facility] Comment on above: Performed By: #### C MREP #### [facility] [address] [place] [address] Dr. Mily Parra HSTROP 11.6 pg/mL Normal 4.0-76.1 [facility] Comment on above: Result Comment: CUT- OFF POINTS HAVE BEEN ESTABLISHED BASED ON THE FOURTH UNIVERSAL DEFINITIONS OF MYOCARDIAL INFARCTION. THE UPPER REFERENCE LIMIT (URL) OF TROPONIN, DEFINED THE 99TH PERCENTILE OF cTnI DISTRIBUTION IN A REFERENCE POPULATION, HAS BEEN CONFIRMED THE DECISION THRESHOLD FOR IN DIAGNOSIS. Performed By: #### C MREP #### [facility] [address] [place] [address] Dr. Mily Parra CK [Catalytic activity/Vol] 48 U/L Normal 39-308 [facility] Comment on above: Performed By: #### C MREP #### [facility] [address] [place] [address] Dr. Mily Parra CK.MB [Mass/Vol] 0.58 ng/mL Normal <=3.60 [facility] Comment on above: Performed By: #### C MREP #### [facility] [address] [place] [address] Dr. Mily Parra HSTROP 6.1 pg/mL Normal 4.0-76.1 [facility] Comment on above: Result Comment: CUT- OFF POINTS HAVE BEEN ESTABLISHED BASED ON THE FOURTH UNIVERSAL DEFINITIONS OF MYOCARDIAL INFARCTION. THE UPPER REFERENCE LIMIT (URL) OF TROPONIN, DEFINED THE 99TH PERCENTILE OF cTnI DISTRIBUTION IN A REFERENCE POPULATION, HAS BEEN CONFIRMED THE DECISION THRESHOLD FOR IN DIAGNOSIS. Performed By: #### C MREP #### [facility] [address] [place] [address] Dr. Mily Parra CBC AUTO DIFFon 06-23-2022 BASO # 0.1 103/ul Normal 0.0-0.1 [facility] Comment on above: Performed By: #### C BC #### [facility] [address] [place] [address] Dr. Mily Parra Basophils/100 WBC (Bld) 0.7 % Normal 0.2-2.0 [facility] Comment on above: Performed By: #### C BC #### [facility] [address] [place] [address] Dr. Mily Parra EO # 0.5 103/ul Normal 0.0-0.7 [facility] Comment on above: Performed By: #### C BC #### [facility] [address] [place] [address] Dr. iMly Parra Eosinophils/100 WBC (Bld) 3.6 % Normal 0.9-7.0 [facility] Comment on above: Performed By: #### C BC #### [facility] [address] [place] [address] Dr. Mily Parra Erythrocyte distribution width (RBC) [Ratio] 13.4 % Normal 11.0-15.0 [facility] Comment on above: Performed By: #### C BC #### [facility] [address] [place] [address] Dr. Mily Parra Hematocrit (Bld) [Volume fraction] 51.6 % Normal 42.0-54.0 [facility] Comment on above: Performed By: #### C BC #### [facility] [address] [place] [address] Dr. Mily Parra Hemoglobin (Bld) [Mass/Vol] 17.4 g/dL Normal 14.0-18.0 [facility] Comment on above: Performed By: #### C BC #### [facility] [address] [place] [address] Dr. Mily Parra IG # 0.06 10e3/ul Critically high 0.00-0.03 [facility] Comment on above: Performed By: #### C BC #### [facility] [address] [place] [address] Dr. Mily Parra IG % 0.4 % Normal 0.0-0.5 [facility] Comment on above: Performed By: #### C BC #### [facility] [address] [place] [address] Dr. Mily Parra LYMPH # 2.7 103/ul Normal 1.2-3.8 [facility] Comment on above: Performed By: #### C BC #### [facility] [address] [place] [address] Dr. Mily Parra Lymphocytes/100 WBC (Bld) 18.3 % Critically low 20.5-60.0 [facility] Comment on above: Performed By: #### C BC #### [facility] [address] [place] [address] Dr. Mily Parra MANUAL DIFF REQ NO Normal [facility] Comment on above: Performed By: #### C BC #### [facility] [address] [place] [address] Dr. Mily Parra MCH (RBC) [Entitic mass] 29.7 pg Normal 25.9-34.0 [facility] Comment on above: Performed By: #### C BC #### [facility] [address] [place] [address] Dr. Mily Parra MCHC (RBC) [Mass/Vol] 33.7 g/dL Normal 29.9-35.2 [facility] Comment on above: Performed By: #### C BC #### [facility] [address] [place] [address] Dr. Mily Parra MCV (RBC) [Entitic vol] 88.1 fL Normal 80.0-94.0 [facility] Comment on above: Performed By: #### C BC #### [facility] [address] [place] [address] Dr. Mily Parra MONO # 0.9 103/ul Critically high 0.3-0.8 [facility] Comment on above: Performed By: #### C BC #### [facility] [address] [place] [address] Dr. Mily Parra Monocytes/100 WBC (Bld) 6.2 % Normal 1.7-12.0 [facility] Comment on above: Performed By: #### C BC #### [facility] [address] [place] [address] Dr. Mily Parra NEUT # 10.3 103/ul Critically high 1.4-6.5 [facility] Comment on above: Performed By: #### C BC #### [facility] [address] [place] [address] Dr. Mily Parra Neutrophils/100 WBC (Bld) 70.8 % Normal 43.0-75.0 [facility] Comment on above: Performed By: #### C BC #### [facility] [address] [address] [address] Mily Parra Platelet mean volume (Bld) [Entitic vol] 9.0 fL Critically low 9.5-13.5 [facility] Comment on above: Performed By: #### C BC #### [facility] [address] [address] [address] Mily Parra PLT 278 103/ul Normal 150-450 [facility] Comment on above: Performed By: #### C BC #### [facility] [address] [address] [address] Mily Parra RBC 5.86 106/ul Normal 4.70-6.10 [facility] Comment on above: Performed By: #### C BC #### [facility] [address] [place] [address] Dr. Mily Parra WBC 14.6 103/ul Critically high 4.0-11.0 [facility] Comment on above: Performed By: #### C BC #### [facility] [address] [place] [address] HEAD WO CONon 06-23-2022 CT HEAD WO CON EXAMINATION: CT HEAD WO CON, 06/23/2022 1:34 PM EDT HISTORY: BENIGN PAROXYSMAL VERTIGO, UNSPECIFIED EAR COMPARISON: None. TECHNIQUE: CT scan of the head was performed without IV contrast. CT dose reduction technique was used, including Automated Exposure Control. FINDINGS: BRAIN: No edema, hemorrhage, mass, acute infarction, or inappropriate atrophy. CSF SPACES: 4.4 mm hyperdensity is identified at the foramen of Monro axial image 21 no ventricular enlargement or intraventricular hemorrhage. Choroid plexus calcifications. Pineal calcifications. SKULL: No fracture, mass, or other significant visible lesion. SINUSES: No significant mucosal thickening or fluid on the limited views. ORBITS: No appreciable abnormality on the limited views. OTHER: Negative IMPRESSION: 4.2 mm hyperdensity at the foramen of [place]. The differential diagnosis includes aneurysm versus cyst versus malignancy. Consider CT exam with contrast for further evaluation Electronically authenticated by: BHASKAR ANTUNEZ Date: 2022-06-23 14:21 Normal [facility] CTA NECK WO W CONon 06-23-20 22 CTA NECK WO W CON CTA HEAD/NECK. HISTORY: Radiology result abnormal COMPARISON: None. TECHNIQUE: CT angiogram of the head and neck obtained after administration of 75 mL of nonionic intravenous contrast material, Isovue-300. Multiplanar and volume rendered 3-D reformats were created. NASCET criteria was used for evaluation of luminal stenosis. Approximately 100 ml Omnipaque 350 was administered intravenously. 3-D vascular images were constructed on a separate workstation. FINDINGS: THORACIC AORTA: Normal. There is a normal anatomy at the origin of the great vessels. RIGHT COMMON CAROTID ARTERY: No significant stenosis. RIGHT EXTERNAL CAROTID ARTERY: No significant stenosis. RIGHT INTERNAL CAROTID ARTERY: No significant stenosis. LEFT COMMON CAROTID ARTERY: No significant stenosis. LEFT EXTERNAL CAROTID ARTERY: No significant stenosis. LEFT INTERNAL CAROTID ARTERY: No significant stenosis. There is approximately 5% stenosis of the origin of the ICA secondary to calcified atherosclerotic plaque. RIGHT VERTEBRAL ARTERY: No significant stenosis. LEFT VERTEBRAL ARTERY: No significant stenosis. [place]I [place]: The bilateral intracranial internal carotid arteries, anterior cerebral arteries, middle cerebral arteries and anterior and posterior communicating arteries are normal. POSTERIOR INTRACRANIAL CIRCULATION: The basilar artery and posterior cerebral arteries are patent, without stenosis or occlusion. DURAL SINUSES: Patent. No intracranial aneurysm measuring least 2 mm identified. No intracranial AVM. LUNG APICES: The lung apices are clear. SOFT TISSUES: The prevertebral soft tissues are normal. No soft tissue inflammation. There is a 1.4 x 1.3 x 1.5 cm solid nodule arising from the superior aspect of the left lower lobe with peripheral calcification. OSSEOUS STRUCTURES: No acute osseous abnormality throughout the imaged axial skeleton and skull base. IMPRESSION: 1. No high-grade or hemodynamically flow-limiting stenosis of the major arteries of the head and neck. 2. No evidence of intracranial aneurysm. 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 No hydrocephalus. Recommend MRI brain with and without IV contrast for further evaluation. 3. Solid 1.5 cm nodule arising from the superior aspect of the left thyroid gland. Recommend thyroid ultrasound correlation. Electronically authenticated by: JT MIMS Date: 2022-06-23 15:58 Normal [facility] CULTURE BLOODon 06-23-2022 Microscopic examination of blood, culture Culture Observations: NO GROWTH AT 5 DAYS. Normal [facility] Comment on above: Performed By: #### C BC #### [facility] [address] [place] [address] Dr. Mily Parra Microscopic examination of blood, culture Culture Observations: NO GROWTH AT 5 DAYS. Normal [facility] Comment on above: Performed By: #### C BC #### [facility] [address] [place] [address] Dr. Mily Parra Covid-19 PCR ([facility])on SARS-CoV-2 (COVID-19) RNA RUBY+probe Ql (Unsp spec) Not detected Normal NOT DETECTED [facility] Comment on above: Result Comment: When diagnostic testing is negative, the possibility of a false negative should be considered in the context of a patient's recent exposures and the presence of clinical signs and symptoms consistent with SARS-CoV-2. This test is not yet approved or cleared by the [place] FDA. When there are no FDA-approved or cleared tests available, and other criteria are met, FDA can make tests available under an emergency access mechanism called an Emergency Use Authorization (EUA). The EUA for this test is supported by the [place] of Health and Human Service's declaration that circumstances exist to justify the emergency use of in vitro diagnostics for the detection and/or diagnosis of the virus that causes COVID-19. This EUA will remain in effect for the duration of the COVID-19 declaration justifying emergency of IVDs, unless it is terminated or revoked by the FDA (after which the test may no longer be used). Performed By: #### C BC #### [facility] [address] [place] [id number] Mily Parra D-DIMERon 06-23-2022 D-DIMER 0.31 mg/L FEU Normal <=0.59 [facility] Comment on above: Performed By: #### C MP #### [facility] [address] [place] [id number] Mily Parra D-DIMER COMMENTS SEE BELOW Normal [facility] Comment on above: Result Comment: Incr eases in D-Dimer concentration observed with thromboembolic events can be variable due to localization, size, and age of the thrombus. Therefore, a thromboembolic event cannot be diagnosed with certainty on the basis of the reference range. D-Dimers may also be elevated for a variety of disorders including: advanced age, , coronary disease, cancer, liver disease, infection, inflammation, hematoma, DIC, trauma, post-surgery, diabetes, thrombolytic or anticoagulant therapy, stress, and generalized hospitalization. Performed By: #### C MP #### [facility] [address] [place] [address] Dr. Mily Parra ER URINE PROFILEon 2 Bilirubin Ql (U) Negative Normal NEGATIVE [facility] Comment on above: Performed By: #### E RUR #### [facility] [address] [place] [address] Dr. Mily Parra Clarity (U) CLEAR Normal CLEAR [facility] Comment on above: Performed By: #### E RUR #### [facility] [address] [place] [address] Dr. Mily Parra Color (U) LT. YELLOW Normal YELLOW [facility] Comment on above: Performed By: #### E RUR #### [facility] [address] [place] [address] Dr. Mily MENON A micrscopic examination will be performed if indicated. Normal [facility] Comment on above: Performed By: #### E RUR #### [facility] [address] [place] [address] Dr. Mily Parra Glucose Ql (U) >1000 Abnormal NEGATIVE [facility] Comment on above: Performed By: #### E RUR #### [facility] [address] [place] [address] Dr. Mily Parra Hemoglobin Ql (U) Negative Normal NEGATIVE [facility] Comment on above: Performed By: #### E RUR #### [facility] [address] [place] [address] Dr. Mily Parra Ketones Ql (U) TRACE Abnormal NEGATIVE [facility] Comment on above: Performed By: #### E RUR #### [facility] [address] [place] [address] Dr. Mily Parra LEUKOCYTES Negative Normal NEGATIVE [facility] Comment on above: Performed By: #### E RUR #### [facility] [address] [place] [address] Dr. Mily Parra Nitrite Ql (U) Negative Normal NEGATIVE [facility] Comment on above: Performed By: #### E RUR #### [facility] [address] [place] [address] Dr. Mily Parra pH (U) 6.0 [pH] Normal 5-9 [facility] Comment on above: Performed By: #### E RUR #### [facility] [address] [place] [address] Dr. Mily Parra SPEC GRAVITY 1.020 Normal 1.005-<=1.025 [facility] Comment on above: Performed By: #### E RUR #### [facility] [address] [place] [address] Dr. Mily Parra UA PROTEIN Negative Normal NEGATIVE/ TRACE [facility] Comment on above: Performed By: #### E RUR #### [facility] [address] [place] [address] Dr. Mily Parra UR MICRO IND NOT INDICATED Normal [facility] Comment on above: Performed By: #### E RUR #### [facility] [address] [place] [address] Dr. Mily Parra Urobilinogen Qn (U) 0.2 {[place]'U}/dL Normal 0.2 - 1. 0 [facility] Comment on above: Performed By: #### E RUR #### [facility] [address] [place] [address] Dr. Mily Parra LACTATE/LACTIC ACIDon 2021 Lactate [Moles/Vol] 1.2 mmol/L Normal 0.4-1.9 [facility] Comment on above: Performed By: #### C BC #### [facility] [address] [place] [address] Dr. Mily Parra Lactate [Moles/Vol] 2.9 mmol/L Critically high 0.4-1.9 [facility] Comment on above: Performed By: #### C MP #### [facility] [address] [address] [address] Mily Parra PH VENOUS BLOODon 06-23-2022 PCO2 VENOUS 36.9 mmHg Critically low 40.0-52.0 [facility] Comment on above: Performed By: #### C MP #### [facility] [address] [address] [address] Mily Parra pH VENOUS 7.399 Normal 7.330-7.430 [facility] Comment on above: Performed By: #### C MP #### [facility] [address] [address] [address] Mily Parra PROF 14(COMP METB)on 022 Albumin [Mass/Vol] 4.1 g/dL Normal 3.4-5.0 [facility] Comment on above: Performed By: #### C MP #### [facility] [address] [address] [address] Mily Parra Albumin/Globulin [Mass ratio] 1.1 {ratio} Normal [facility] Comment on above: Performed By: #### C MP #### [facility] [address] [place] [address] Dr. Mily Parra ALP [Catalytic activity/Vol] 56 U/L Normal 46-116 [facility] Comment on above: Performed By: #### C MP #### [facility] [address] [place] [address] Dr. Mily Parra ALT [Catalytic activity/Vol] 35 U/L Normal 16-63 [facility] Comment on above: Performed By: #### C MP #### [facility] [address] [address] [address] Mily Parra Anion gap [Moles/Vol] 11.1 mmol/L Normal [facility] Comment on above: Performed By: #### C MP #### [facility] [address] [place] [address] Dr. Mily Parra AST [Catalytic activity/Vol] 16 U/L Normal 15-37 [facility] Comment on above: Performed By: #### C MP #### [facility] [address] [address] [address] Mily Parra Bilirubin [Mass/Vol] 0.5 mg/dL Normal 0.2-1.0 [facility] Comment on above: Performed By: #### C MP #### [facility] [address] [address] [address] Mily Parra Calcium [Mass/Vol] 9.8 mg/dL Normal 8.5-10.1 [facility] Comment on above: Performed By: #### C MP #### [facility] [address] [address] [address] Mily Parra Chloride [Moles/Vol] 102 mmol/L Normal 98-107 [facility] Comment on above: Performed By: #### C MP #### [facility] [address] [place] [address] Dr. Mily Parra CO2 [Moles/Vol] 27.3 mmol/L Normal 21.0-32.0 [facility] Comment on above: Performed By: #### C MP #### [facility] [address] [address] [address] Mily Parra Creatinine [Mass/Vol] 0.86 mg/dL Normal 0.70-1.30 [facility] Comment on above: Performed By: #### C MP #### [facility] [address] [address] [address] Mily Parra EGFR-AF BRITISH >60 Normal >=60 [facility] Comment on above: Performed By: #### C MP #### [facility] [address] [address] [address] Mily Parra EGFR-NON AF BRITISH >60 Normal >=60 [facility] Comment on above: Performed By: #### C MP #### [facility] [address] [place] [address] Dr. Mily Parra Globulin (S) [Mass/Vol] 3.6 g/dL Normal [facility] Comment on above: Performed By: #### C MP #### [facility] [address] [address] [address] Mily Parra Glucose [Mass/Vol] 148 mg/dL Critically high 74-106 [facility] Comment on above: Performed By: #### C MP #### [facility] [address] [address] [address] Mily Parra Potassium [Moles/Vol] 4.4 mmol/L Normal 3.5-5.1 [facility] Comment on above: Performed By: #### C MP #### [facility] [address] [address] [address] Mily Parra Protein [Mass/Vol] 7.7 g/dL Normal 6.4-8.2 [facility] Comment on above: Performed By: #### C MP #### [facility] [address] [address] [address] Mily Parra Sodium [Moles/Vol] 136 mmol/L Normal 136-145 [facility] Comment on above: Performed By: #### C MP #### [facility] [address] [address] [address] Mily Parra Urea nitrogen [Mass/Vol] 25.0 mg/dL Critically high 7.0-18.0 [facility] Comment on above: Performed By: #### C MP #### [facility] [address] [address] [address] Mily Parra Urea nitrogen/Creatinine [Mass ratio] 29.1 mg/mg Normal [facility] Comment on above: Performed By: #### C MP #### [facility] [address] [address] [address] Mily Parra PROTIMEon 06-23-2022 INR Coag (PPP) [Relative time] 0.97 {INR} Normal [facility] Comment on above: Performed By: #### C MP #### [facility] [address] [address] [address] Mily Parra INR GUIDELINES SEE BELOW Normal [facility] Comment on above: Result Comment: MARIA RED INR: 2.0 - 3.0 CONDITIONS NOT LISTED BELOW 2.5 - 3.5 FOR PROSTHETIC HEART VALVE REPLACEMENT 2.5 - 3.5 RECURRENT THROMBOSIS Performed By: #### C MP #### [facility] [address] [address] [address] Mily Parra PT Coag (PPP) [Time] 10.5 s Normal 9.0-11.6 [facility] Comment on above: Performed By: #### C MP #### [facility] [address] [place] [address] Dr. Mily Parra PTTon 06-23-2022 aPTT Coag (Bld) [Time] 26.7 s Normal 22.3-36.2 [facility] Comment on above: Performed By: #### C MP #### [facility] [address] [place] [address] Dr. Mily Parra TROPONIN, HIGH SENSITIVITYon 06-23-2022 HSTROP 12.1 pg/mL Normal 4.0-76.1 [facility] Comment on above: Result Comment: CUT- OFF POINTS HAVE BEEN ESTABLISHED BASED ON THE FOURTH UNIVERSAL DEFINITIONS OF MYOCARDIAL INFARCTION. THE UPPER REFERENCE LIMIT (URL) OF TROPONIN, DEFINED THE 99TH PERCENTILE OF cTnI DISTRIBUTION IN A REFERENCE POPULATION, HAS BEEN CONFIRMED THE DECISION THRESHOLD FOR IN DIAGNOSIS. Performed By: #### C MP #### [facility] [address] [place] [address] Dr. Mily Parra HSTROP 5.5 pg/mL Normal 4.0-76.1 [facility] Comment on above: Result Comment: CUT- OFF POINTS HAVE BEEN ESTABLISHED BASED ON THE FOURTH UNIVERSAL DEFINITIONS OF MYOCARDIAL INFARCTION. THE UPPER REFERENCE LIMIT (URL) OF TROPONIN, DEFINED THE 99TH PERCENTILE OF cTnI DISTRIBUTION IN A REFERENCE POPULATION, HAS BEEN CONFIRMED THE DECISION THRESHOLD FOR IN DIAGNOSIS. Performed By: #### L IPID #### [facility] [address] [place] [address] Dr. Mily Parra TSHon 06-23-2022 TSH 0.875 uIU/mL Normal 0.358-3.740 [facility] [place] Comment on above: Performed By: #### L IPID #### [facility] [address] [place] [address] Dr. Mily Parra XR CHEST 1 Von 06-23-2022 XR CHEST 1 V EXAMINATION: XR CHES T 1 V HISTORY: CHEST PAIN, UNSPECIFIED COMPARISON: 05/25/2020 TECHNIQUE: AP portable FINDINGS: LUNGS: No significant pulmonary parenchymal abnormalities. VASCULATURE: No increased pulmonary vasculature. PLEURA: No pneumothorax, effusion, or pleural thickening. CARDIAC: No cardiomegaly or cardiac silhouette abnormality. MEDIASTINUM: No visible mass or adenopathy. Left pacemaker/AICD BONES: No fracture or visible bone lesion. OTHER: Negative. IMPRESSION: No acute disease. Electronically authenticated by: BHASKAR ANTUNEZ Date: 2022-06-23 14:07 Normal [facility] CBC AUTO DIFFon 03-21-2022 BASO # 0.1 103/ul Normal 0.0-0.1 [facility] Comment on above: Performed By: #### C BC #### [facility] [address] [place] [address] Dr. Mily Parra Basophils/100 WBC (Bld) 0.8 % Normal 0.2-2.0 [facility] Comment on above: Performed By: #### C BC #### [facility] [address] [place] [address] Dr. Mily Parra EO # 0.3 103/ul Normal 0.0-0.7 [facility] Comment on above: Performed By: #### C BC #### [facility] [address] [place] [address] Dr. Mily Parra Eosinophils/100 WBC (Bld) 2.8 % Normal 0.9-7.0 [facility] Comment on above: Performed By: #### C BC #### [facility] [address] [address] [address] Mily Parra Erythrocyte distribution width (RBC) [Ratio] 13.8 % Normal 11.0-15.0 [facility] Comment on above: Performed By: #### C BC #### [facility] [address] [place] [address] Dr. Mily Parra Hematocrit (Bld) [Volume fraction] 49.4 % Normal 42.0-54.0 [facility] Comment on above: Performed By: #### C BC #### [facility] [address] [place] [address] Dr. Mily Parra Hemoglobin (Bld) [Mass/Vol] 16.2 g/dL Normal 14.0-18.0 [facility] Comment on above: Performed By: #### C BC #### [facility] [address] [place] [address] Dr. Mily Parra IG # 0.03 10e3/ul Normal 0.00-0.03 [facility] Comment on above: Performed By: #### C BC #### [facility] [address] [place] [address] Dr. Mily Parra IG % 0.3 % Normal 0.0-0.5 [facility] Comment on above: Performed By: #### C BC #### [facility] [address] [place] [address] Dr. Mily Parra LYMPH # 2.0 103/ul Normal 1.2-3.8 [facility] Comment on above: Performed By: #### C BC #### [facility] [address] [place] [address] Dr. Mily Parra Lymphocytes/100 WBC (Bld) 20.3 % Critically low 20.5-60.0 [facility] Comment on above: Performed By: #### C BC #### [facility] [address] [place] [address] Dr. Mily Parra MANUAL DIFF REQ NO Normal [facility] Comment on above: Performed By: #### C BC #### [facility] [address] [place] [address] Dr. Mily Parra MCH (RBC) [Entitic mass] 29.0 pg Normal 25.9-34.0 [facility] Comment on above: Performed By: #### C BC #### [facility] [address] [place] [address] Dr. Mily Parra MCHC (RBC) [Mass/Vol] 32.8 g/dL Normal 29.9-35.2 [facility] Comment on above: Performed By: #### C BC #### [facility] [address] [place] [address] Dr. Mily Parra MCV (RBC) [Entitic vol] 88.4 fL Normal 80.0-94.0 [facility] Comment on above: Performed By: #### C BC #### [facility] [address] [address] [address] Mily Parra MONO # 0.7 103/ul Normal 0.3-0.8 [facility] Comment on above: Performed By: #### C BC #### [facility] [address] [place] [address] Dr. Mily Parra Monocytes/100 WBC (Bld) 7.2 % Normal 1.7-12.0 [facility] Comment on above: Performed By: #### C BC #### [facility] [address] [place] [address] Dr. Mily Parra NEUT # 6.6 103/ul Critically high 1.4-6.5 [facility] Comment on above: Performed By: #### C BC #### [facility] [address] [place] [address] Dr. Mily Parra Neutrophils/100 WBC (Bld) 68.6 % Normal 43.0-75.0 [facility] Comment on above: Performed By: #### C BC #### [facility] [address] [place] [address] Dr. Mily Parra Platelet mean volume (Bld) [Entitic vol] 8.6 fL Critically low 9.5-13.5 [facility] Comment on above: Performed By: #### C BC #### [facility] [address] [place] [address] Dr. Mily Parra PLT 289 103/ul Normal 150-450 [facility] Comment on above: Performed By: #### C BC #### [facility] [address] [place] [address] Dr. Mily Parra RBC 5.59 106/ul Normal 4.70-6.10 [facility] Comment on above: Performed By: #### C BC #### [facility] [address] [place] [address] Dr. Mily Parra WBC 9.6 103/ul Normal 4.0-11.0 [facility] Comment on above: Performed By: #### C BC #### [facility] [address] [place] [address] Dr. Mily Parra GLYCOHEMOGLOBIN A1Con 2021 ADA RECOMMENDATION SEE BELOW Normal [facility] Comment on above: Result Comment: ADA RECOMMENDED LIMIT 4.0 - 6.0 ADA THERAPEUTIC TARGET < 7.0 ACTION SUGGESTED > 7.0 Performed By: #### A 1C #### [facility] [address] [place] [address] Dr. Mily Parra Glucose [Mass/Vol] 171 mg/dL Normal [facility] Comment on above: Performed By: #### A 1C #### [facility] [address] [place] [address] Dr. Mily Parra HbA1c (Bld) [Mass fraction] 7.6 % Critically high 4.5-6.2 [facility] Comment on above: Performed By: #### A 1C #### [facility] [address] [place] [address] Dr. Mily Parra PROF 14(COMP METB)on 022 Albumin [Mass/Vol] 4.0 g/dL Normal 3.4-5.0 [facility] Comment on above: Performed By: #### C MP #### [facility] [address] [place] [address] Dr. Mily Parra Albumin/Globulin [Mass ratio] 1.1 {ratio} Normal [facility] Comment on above: Performed By: #### C MP #### [facility] [address] [place] [address] Dr. Mily Parra ALP [Catalytic activity/Vol] 53 U/L Normal 46-116 [facility] Comment on above: Performed By: #### C MP #### [facility] [address] [place] [address] Dr. Mily Parra ALT [Catalytic activity/Vol] 32 U/L Normal 16-63 [facility] Comment on above: Performed By: #### C MP #### [facility] [address] [place] [address] Dr. Mily Parra Anion gap [Moles/Vol] 16.4 mmol/L Normal [facility] Comment on above: Performed By: #### C MP #### [facility] [address] [address] [address] Mily Parra AST [Catalytic activity/Vol] 21 U/L Normal 15-37 [facility] Comment on above: Performed By: #### C MP #### [facility] [address] [address] [address] Mily Parra Bilirubin [Mass/Vol] 0.9 mg/dL Normal 0.2-1.0 [facility] Comment on above: Performed By: #### C MP #### [facility] [address] [address] [address] Mily Parra Calcium [Mass/Vol] 9.2 mg/dL Normal 8.5-10.1 [facility] Comment on above: Performed By: #### C MP #### [facility] [address] [address] [address] Mily Parra Chloride [Moles/Vol] 101 mmol/L Normal 98-107 [facility] Comment on above: Performed By: #### C MP #### [facility] [address] [address] [address] Mily Parra CO2 [Moles/Vol] 26.2 mmol/L Normal 21.0-32.0 [facility] Comment on above: Performed By: #### C MP #### [facility] [address] [address] [address] Mily Parra Creatinine [Mass/Vol] 0.74 mg/dL Normal 0.70-1.30 [facility] Comment on above: Performed By: #### C MP #### [facility] [address] [address] [address] Mily Parra EGFR-AF BRITISH >60 Normal >=60 [facility] Comment on above: Performed By: #### C MP #### [facility] [address] [address] [address] Mily Parra EGFR-NON AF BRITISH >60 Normal >=60 [facility] Comment on above: Performed By: #### C MP #### [facility] [address] [address] [address] Mily Parra Globulin (S) [Mass/Vol] 3.5 g/dL Normal [facility] Comment on above: Performed By: #### C MP #### [facility] [address] [address] [address] Mily Parra Glucose [Mass/Vol] 135 mg/dL Critically high 74-106 [facility] Comment on above: Performed By: #### C MP #### [facility] [address] [address] [address] Mily Parra Potassium [Moles/Vol] 4.6 mmol/L Normal 3.5-5.1 [facility] Comment on above: Performed By: #### C MP #### [facility] [address] [address] [address] Mily Parra Protein [Mass/Vol] 7.5 g/dL Normal 6.4-8.2 [facility] Comment on above: Performed By: #### C MP #### [facility] [address] [address] [address] Mily Parra Sodium [Moles/Vol] 139 mmol/L Normal 136-145 [facility] Comment on above: Performed By: #### C MP #### [facility] [address] [address] [address] Mily Parra Urea nitrogen [Mass/Vol] 16.0 mg/dL Normal 7.0-18.0 [facility] Comment on above: Performed By: #### C MP #### [facility] [address] [address] [address] Mily Parra Urea nitrogen/Creatinine [Mass ratio] 21.6 mg/mg Normal [facility] Comment on above: Performed By: #### C MP #### [facility] [address] [address] [address] Mily Parra LIPID PROFILEon 02-16-2022 CHOL-HDL RATIO NORM SEE BELOW Normal [facility] Comment on above: Result Comment: 3.3 - 4.4 LOW RISK 4.4 - 7.1 AVERAGE RISK 7.1 - 11.0 MODERATE RISK >11.0 HIGH RISK Performed By: #### L IPID #### [facility] [address] [address] [address] Mily Parra Cholesterol [Mass/Vol] 91 mg/dL Normal <=200 [facility] Comment on above: Performed By: #### L IPID #### [facility] [address] [address] [address] Mily Parra Cholesterol in HDL [Mass/Vol] 27 mg/dL Critically low 40-60 [facility] Comment on above: Performed By: #### L IPID #### [facility] [address] [place] [address] Dr. Mily Parra Cholesterol in LDL [Mass/Vol] 40.6 mg/dL Normal [facility] Comment on above: Performed By: #### L IPID #### [facility] [address] [address] [address] Mily Parra Cholesterol.total/Ch olesterol in HDL [Mass ratio] 3.4 {ratio} Normal [facility] Comment on above: Performed By: #### L IPID #### [facility] [address] [place] [address] Dr. Mily Parra HDL NORMAL > or = 60 mg/dl - LO W CARDIOVASCULAR RISK <40 mg/dl - HIGH CARDIOVASCULAR RISK Normal [facility] Comment on above: Performed By: #### L IPID #### [facility] [address] [place] [address] Dr. Mily Parra LDL CALC NORMAL SEE BELOW Normal [facility] Comment on above: Result Comment: <100 mg/dl OPTIMAL 100 - 129 mg/dl NEAR OR ABOVE OPTIMAL 130 - 159 mg/dl BORDERLINE HIGH 160 - 189 mg/dl HIGH >190 mg/dl VERY HIGH Performed By: #### L IPID #### [facility] [address] [place] [address] Dr. Mily Parra Triglyceride [Mass/Vol] 117 mg/dL Normal <=150 [facility] Comment on above: Performed By: #### L IPID #### [facility] [address] [address] [address] Mily Parra VLDL CALC 23.4 mg/dL Normal [facility] Comment on above: Performed By: #### L IPID #### [facility] [address] [place], [place] [address] Dr. Mily Parra Encounters Encounter Date Encounter Type Care Provider Facility Start: 03-13-2023 ambulatory Cabrera OJEDA Facili ty:[facility] [place] Start: 02-22-2023 End: 02-22-2023 ambulatory [facility] Start: 01-03-2023 End: 01-04-[address] TONY WILSON Facility:[facility] Start: 12-19-2022 End: 12-19-2022 ambulatory [facility] Start: 11-14-2022 End: 11-15-2022 ambulatory Cabrera OJEDA Facility:[facility] Start: 11-14-2022 End: 11-14-2022 Patient encounter procedure Cabrera OJEDA [facility] Start: 10-19-2022 End: 10-19-2022 ambulatory Justin Smallwood Facility:[facility] Start: 10-11-2022 ambulatory Cabrera OJEDA Facility :[facility] Start: 10-01-2022 End: 10-02-[address] TONY WILSON Facility:[facility] Start: 09-20-2022 End: 09[facility]20[facility] Start: 09-14-2022 End: 09-15-[address] TONY WILSON Facility:[facility] Start: 07-27-2022 End: 07-27-2022 ambulatory DARIAN VIDAL [facility] Start: 06-23-2022 End: 06-24-[address] BHASKAR ANTUNEZ Facility:[facility] Start: 03-21-2022 End: 03-22-[address] TONY WILSON Facility:[facility] Start: 02-16-2022 End: 02-17-[address] TONY WILSON Facility:[facility] Procedures Date Procedure Procedure Detail Performing Clinician Start: 03-21-[address] EDNA WILSON Comment on above: Performed By: #### C #### [facility] [address] [place] [address] Dr. Mily Parra Aortic stent (physic al object) Cabrera OJEDA Defibrillator, devic e (physical object) Cabrera OJEDA Knee region structur e (body structure) Cabrera OJEDA Shoulder region stru cture (body structure) Cabrera OJEDA Immunizations Immunization Date Immunization Notes Care Provider [facility] 06-02-2021 SARS-CoV-2 (COVID-19 ) mRNA BNT-162b2 vax Cabrera OJEDA [facility] 05-12-2021 SARS-CoV-2 (COVID-19 ) mRNA BNT-162b2 vax Cabrera OJEDA [facility] 01-27-2016 tetanus toxoid, redu cedric diphtheria toxoid, and acellular pertussis vaccine, adsorbed Cabrera OJEDA [facility] Payers Date Payer Category Payer Self-pay 1965 Unknown [id number] [id number] [id number] 1965 Unknown [id number] 2.16.84 [id number] 1966 Unknown [id number] 2.16.84 [id number] 1966 Unknown [id number] 2.16.84 [id number] 1966 Unknown [id number] 2.16.84 [id number] 1966 Unknown [id number] 2.16.84 [id number] 1966 Unknown [id number] 2.16.8 [id number] 1966 Unknown [id number] 1958 Unknown [id number] 1958 Unknown [id number] Unknown [id number] Social History Date Type Detail Facility Start: 11-14-2022 Tobacco smoking status Heavy t obacco smoker (finding) [facility] Sex Assigned At Male [facility] Functional Status Date Assessment Result Facility 11-14-2022 Functional Status N/A [facility] Clinical Notes 07-27-2022 to 12-19-2022 Note Date & Type Note Facility 12-19-2022 Note Pt is here today for a 3 month follow up Review of Systems All other systems reviewed and are negative. [facility] 12-19-2022 Note Cardiology Clinic No te Subjective Evaristo Lowery is a 57 y.o. year old male with coronary artery disease status post PCI in 2004, heart failure reduced ejection fraction status post single chamber Medtronic ICD replaced 02/01/2015, and hypertension seen in follow-up. Reports he has been doing fairly well without concerns from a cardiac standpoint. Patient Active Problem List Diagnosis Bronchitis Chest pain Chronic systolic heart failure (CMS/HCC) Coronary atherosclerosis Diabetes mellitus (CMS/HCC) Disorder of lipid metabolism Dizziness Dyspnea Essential hypertension Hyperhidrosis Hyperlipidemia Implantable cardioverter-defibrillator (ICD) in situ Primary cardiomyopathy (CMS/HCC) Well adult health check Family History Problem Relation Name Age of Onset Diabetes Maternal Grandmother Heart attack Maternal Grandfather Diabetes Paternal Grandmother Heart disease Paternal Grandfather Social History Tobacco Use Smoking status: Former Types: Cigarettes Smokeless tobacco: Never HPI Update: 07/27/2022 Evaristo Lowery is a 57 y.o. male here for hospital f/U after recent evaluation at [facility] for chest pain. States they checked everything and found no acute concerns and was DC to home. States CP has resolved he just continues to have some congestion in my chest. States he has lost weight- about 3 pounds since last visit, states that he is not exercising, but he has been dieting- by limiting amount of calories/day intake. He typically drinks about 1 pot of coffee/day and a couple glasses of skim milk- no other liquids in a day. Review of Systems Cardiovascular: Positive for dyspnea on exertion. Negative for chest pain, irregular heartbeat, leg swelling, near-syncope, orthopnea, palpitations and syncope. Objective Visit Vitals BP 120/75 (BP Location: Left arm, Patient Position: Sitting, BP Cuff Size: Adult) Pulse 95 Ht 1.6 m (5' 3 ) Wt 99.1 kg (218 lb 6.4 oz) SpO2 95% BMI 38.69 kg/m??? Smoking Status Former BSA 2.1 m??? Physical Exam General: Awake, alert, good spirits. NAD Pulm: Breath sounds clear to ascultation bilaterally with no wheeze, crackles or rhonchi Cards: Regular rate and rhythm, S1, S2. No S3 or S4 gallop. Murmur: none Abd: Soft, Nontender, physiologic bowel sounds are present Extr: Lower extremity edema: trace. Skin: warm, dry, well perfused Neuro: A&Ox3, No gross deficits Allergies No Known Allergies Medications Current Outpatient Medications: aspirin 81 mg EC tablet, in the morning., Disp: , Rfl: atorvastatin (Lipitor) 80 mg tablet, atorvastatin 80 mg tablet TAKE 1 TABLET BY MOUTH EVERY DAY, Disp: , Rfl: carvedilol (Coreg) 25 mg tablet, carvedilol 25 mg tablet TAKE 1 TABLET BY MOUTH TWICE DAILY, Disp: , Rfl: empagliflozin (Jardiance) 10 mg, Jardiance 10 mg tablet TAKE 1 TABLET BY MOUTH EVERY DAY, Disp: 90 tablet, Rfl: 3 ezetimibe (Zetia) 10 mg tablet, ezetimibe 10 mg tablet, Disp: 90 tablet, Rfl: 3 metFORMIN (Glucophage) 500 mg tablet, metformin 500 mg tablet, Disp: , Rfl: pioglitazone (Actos) 30 mg tablet, pioglitazone 30 mg tablet TAKE 1 TABLET BY MOUTH EVERY DAY, Disp: , Rfl: sacubitriL-valsartan (Entresto) 49-51 mg tablet, Take 1 tablet by mouth in the morning and at bedtime., Disp: , Rfl: spironolactone (Aldactone) 25 mg tablet, spironolactone 25 mg tablet TAKE 1/2 TABLET BY MOUTH EVERY DAY, Disp: 45 tablet, Rfl: 3 Recent Labs 10/01/2022 Scr 0.75, GFR >60% 06/24/22 CBC normal K+ 4.1, BUN 20, CR 0.76- normal HS trop negative x3 Pro BNP 129 02/16/2022 C 91, HDL 27, LDL 40.6, Trig 117 Imaging and other tests Echo: 11/16/2020 Global left ventricular systolic function is severely reduced; ejection fraction is visually estimated to be 25 to 30%. Significant wall motion abnormalities are seen. Left ventricle is mildly dilated. Grade 2 diastolic dysfunction. Left atrium appears mildly dilated. The right ventricle is normal in size and systolic function. Mild tricuspid regurgitation. Mild mitral regurgitation. Assessment Diagnoses and all orders for this visit: Chronic systolic heart failure (CMS/HCC) - Basic metabolic panel; Future - Transthoracic echo (TTE) complete; Future Atherosclerosis of [place] coronary artery of [place] heart without angina pectoris Essential hypertension Benign hypertensive kidney disease with chronic kidney disease stage I through stage IV, or unspecified Plan 1. CAD: Status post IN and stenting in 2004. -Denies angina or worsening dyspnea -Continue aspirin 81 mg daily, Zetia 10 mg daily, atorvastatin 80mg daily, carvedilol 25mg BID. 2. Chronic systolic heart failure, status post AICD -NYHA II -Currently compensated/euvolemic on exam -GDMT: continue carvedilol 25mg BID, spironolactone 25mg daily, and Jardiance 10 mg daily. Will increase Entresto to 49/51 mg and obtain BMP in 1 week. -No recent echo, will obtain one to reevaluate LV functio (more content not included)... [facility] 11-14-2022 Note Chief Complaint Referral *Kidney Mass HPI Staff Evaluation requested by Dr Tony Wilson due to Kidney Mass. Pt is a new pt, never before seen in our office. CT a/p 10/01/22 & 09/14/22 PSA done 03/21/22- 0.97 Has been having Pain in Lower Rt abdomen. CT was ordered. Pain has subsided. Denies Hx of Kidney Stones. Denies Family Hx of Kidney/Bladder Cancer. Denies visible blood in urine. Denies flank pain. Denies all other urinary complaints at this time. History of Present Illness Tests reviewed: reviewed UA, referral records. I have reviewed the previous health record information and history for this patient from _. I have reviewed and verified the staff HPI to be accurate for this encounter. There have been no associated fever, chills, flank pain, or blood in the urine. Denies any urinary infections since last encounter. Review of Systems PHQ Score Initial Depression Screen Score: 0 ROS - Provider Constitutional: denies weight loss, denies hot flashes. Eyes: denies eye problems. Gastrointestinal: denies nausea, denies vomiting. Cardiovascular: denies chest pain or angina. Integumentary: no dryness Musculoskeletal: denies musculoskeletal symptoms. ENMT: denies otolaryngeal symptoms. Respiratory: no shortness of breath. Heme/Lymph: denies easy bleeding tendency, denies easy bruising tendency. Psychiatric: no confusion, no anxiety. Genitourinary: See HPI. Physical Exam Vitals & Measurements HT: 63 in HT: 159 cm WT: 95 kg WT: 209 lb BMI: 37.58 General Appearance: alert, no distress, well nourished, well developed male. Head: normocephalic . Eyes: normal orbit and globe. ENMT: normal examination of external ears. Chest: Lungs CTA, respirations non labored. Cardiovascular: regular rate and rhythm. Abdomen: soft, non distended, no tenderness, no mass or organomegaly, no hernia. Genitourinary: normal scrotum, normal testes, normal urethra, normal epididymis, normal vas deferens/spermatic cord. Flank Pain: none. Bladder: nonpalpable. Penis: normal shaft, normal glans. Prostate: normal prostate, estimated weight 40 gms, no hard nodule observed. Lymph Nodes: unremarkable palpation of the cervical area. Skin: warm, dry, no bruising. Psychiatric: cooperative, affect appropriate for age, normal judgement, euthymic mood. Assessment/Plan Evaristo is a 57 yo male new pt referred by Dr. Wilson due to renal mass. Pt was having lower right abdominal pain so PCP ordered CT. 1. Kidney mass (N28.89: Other specified disorders of kidney and ureter) CT AP wo con 09/14/22 - 2.7 cm complex cyst vs mass with rim calcification projecting from superior pole of L kidney; benign-appearing cysts w/in lower pole. Unremarkable R kidney and bilat ureters. CT AP 10/01/22 - L kidney lesion upper pole posterolaterally has thick calcification in its posterior wall. No significant enhancement. Measures 1.9 x 2.3 cm. Another lobulated, low-density lesion in the LP partially parapelvic measures 2.7 x 3.6 cm. Has some septations, w/o significant enhancement. Septations are less than 3 mm. Bosniak type II cyst. UA today negative for blood and infection. Abdominal pain has since subsided. Denies family hx of kidney or bladder cancer. Reviewed results of CT scans with pt, not very concerning, nonenhancing. Likely cystic, will continue to monitor. Follow up 4-[address] AP w/wo con or sooner if needed. Pt understands and agrees with plan. -If no change, stretch monitoring to 8 mos, if it grows, consider removal. 2. Prostate cancer screening (Z12.5: Encounter for screening for malignant neoplasm of prostate) PSA 03/21/22 - 0.97. Denies any urinary habit complaints, family hx of prostate cancer. Follow-up With When Contact Information SUHAIL NOLASCO, Cabrera Núñez, URL [facility] [address], [place] [address]- Additional Instructions: 4-[address] AP w/wo con Patient Education Renal Mass I, Maranda Barton, personally scribed for Dr. Ojeda on 11/14/2022 14:55:32. . Documentation recorded by the scribe, Maranda Barton, accurately reflects the services(s) I performed and decisions made by me. Authenticated by Dr. Ojeda on 11/14/2022 15:00:16. Problem List/Past Medical History Ongoing BPH (benign prostatic hyperplasia) Cardiomyopathy, unspecified Essential hypertension Kidney mass Mixed hyperlipidemia Prostate cancer screening Type 2 diabetes mellitus Historical No qualifying data Procedure/Surgical History Aortic stent, Defibrillator, Knee, Shoulder. Medications aspirin atorvastatin 80 mg Tab carvedilol 25 mg Tab Entresto 24 mg-26 mg oral tablet, Oral, BID ezetimibe 10 mg Tab Jardiance 10 mg oral tablet metformin 500 mg Tab spironolactone 25 mg Tab Allergies No Known Medication Allergies Social History Tobacco 10 or more cigarettes (1/2 pack or more)/day in last 30 days Tobacco Use:. Cigarettes, 11/14/2022 F (more content not included)... [facility] Comment on above: Result Comment: Elec tronically Signed By: Cabrera OJEDA MD\.br\Date and Time Signed: 11/14/22 15:00 EDT\.br\Electronically Co-Signed By: Maranda Barton\.br\Date and Time Co-Signed: 11/14/22 14:56 EDT 11-14-2022 Hospital Discharge instructions Patient Education 11/14/2022 08:38:21 Renal Mass Renal Mass A renal mass is a growth in the kidney. A renal mass may be found while performing an MRI, CT scan, or ultrasound for other problems of the abdomen. Certain types of cancers, infections, or injuries can cause a renal mass. A renal mass that is cancerous (malignant) may grow or spread quickly. Others are harmless (benign). What are common types of renal masses? Renal masses include: Tumors. These may be cancerous (malignant) or noncancerous (benign). ?The most common type of kidney cancer is renal cell carcinoma. ?The most common benign tumors of the kidney include renal adenomas, oncocytomas, and angiomyolipoma (AML). Cysts. These are fluid-filled sacs that form on or in the kidney. ?It is not always known what causes a cyst to develop in or on the kidney. ?Most kidney cysts do not cause symptoms and do not need to be treated. What type of testing might I need? Your health care provider may recommend that you have tests to diagnose the cause of your renal mass. The following tests may be done if a renal mass is found: Physical exam. Blood tests. Urine tests. Imaging tests, such as ultrasound, CT scan, or MRI. Biopsy. This is a small sample that is removed from the renal mass and tested in a lab. The exact tests and how often they are done will depend on: The size and appearance of the renal mass. Risk factors or medical conditions that increase your risk for problems. Any symptoms associated with the renal mass, or concerns that you have about it. Tests and physical exams may be done once, or they may be done regularly for a period of time. Tests and exams that are done regularly will help monitor whether the mass is growing and beginning to cause problems. What are common treatments for renal masses? Treatment is not always needed for this condition. Your health care provider may recommend careful monitoring (watchful waiting) and regular tests and exams. Treatment will depend on the cause of the mass. Follow these instructions at home: What you need to do at home will depend on the cause of the mass. Follow the instructions that your health care provider gives to you. In general: Take [id number] and prescription medicines only as told by your health care provider. If you are prescribed an antibiotic medicine, take it as told by your health care provider. Do not stop taking the antibiotic even if you start to feel better. Follow any restrictions that are given to you by your health care provider. Keep all follow-up visits as told by your health care provider. This is important. ?You may need to see your health care provider once or twice a year to have CT scans and ultrasounds done. These tests will show if your renal mass has changed or grown bigger. Contact a health care provider if you: Have pain in the side or back (flank pain). Have a fever. Feel full soon after eating. Have pain or swelling in the abdomen. Lose weight. Get help right away if: Your pain gets worse. There is blood in your urine. You cannot urinate. You have chest pain. You have trouble breathing. Summary A renal mass is a growth in the kidney. It may be cancerous (malignant) and grow or spread quickly, or it may be harmless (benign). Renal masses may be found while performing an MRI, CT scan, or ultrasound for other problems of the abdomen. Your health care provider may recommend that you have tests to diagnose the cause of your renal mass. This may include a physical exam, blood tests, urine tests, imaging, or a biopsy. Treatment is not always needed for this condition. Careful monitoring (watchful waiting) may be recommended. This information is not intended to replace advice given to you by your health care provider. Make sure you discuss any questions you have with your health care provider. Document Released: 03/04/2015 Document Revised: 09/13/2018 Document Reviewed: 09/13/2018 [employer] Patient Education 2020 [employer]. Follow Up Care 10/11/2022 10:10:39 With:SUHAIL NOLASCO, Cabrera Núñez, URL Address: [facility] [address], [place] [address]- When: Unknown [facility] Note Pt here today for fo llow up from [facility] was in there for SOB and chest pain. Feels 99% better he wonders if he has something in his lungs, they did blood work CT ect and kept overnight in the ICU Review of Systems All other systems reviewed and are negative. [facility] 07-27-2022 Note [facility] CARDIOLOGY PROGR ESS NOTE HPI: Evaristo Lowery is a 57 y.o. male here for hospital f/U after recent evaluation at [facility] for chest pain. States they checked everything and found no acute concerns and was DC to home. States CP has resolved he just continues to have some congestion in my chest. States he has lost weight- about 3 pounds since last visit, states that he is not exercising, but he has been dieting- by limiting amount of calories/day intake. He typically drinks about 1 pot of coffee/day and a couple glasses of skim milk- no other liquids in a day. CAD: Status post IN and stenting in 2004. Chronic systolic heart failure, status post AICD Review of Systems Respiratory: Negative for chest tightness and shortness of breath. Admits feeling chest congestion All other systems reviewed and are negative. Visit Vitals BP 123/80 (BP Location: Left arm, Patient Position: Sitting) Pulse 86 Wt 93.9 kg (207 lb) SpO2 93% BMI 36.67 kg/m??? Smoking Status Former BSA 2.04 m??? No Known Allergies Medications: Current Outpatient Medications on File Prior to Visit Medication Sig Dispense Refill aspirin 81 mg EC tablet in the morning. atorvastatin (Lipitor) 80 mg tablet atorvastatin 80 mg tablet TAKE 1 TABLET BY MOUTH EVERY DAY carvedilol (Coreg) 25 mg tablet carvedilol 25 mg tablet TAKE 1 TABLET BY MOUTH TWICE DAILY empagliflozin (Jardiance) 10 mg Jardiance 10 mg tablet TAKE 1 TABLET BY MOUTH EVERY DAY ezetimibe (Zetia) 10 mg tablet ezetimibe 10 mg tablet metFORMIN (Glucophage) 500 mg tablet metformin 500 mg tablet pioglitazone (Actos) 30 mg tablet pioglitazone 30 mg tablet TAKE 1 TABLET BY MOUTH EVERY DAY sacubitriL-valsartan (Entresto) 24-26 mg tablet every 12 (twelve) hours. spironolactone (Aldactone) 25 mg tablet spironolactone 25 mg tablet TAKE 1/2 TABLET BY MOUTH EVERY DAY [DISCONTINUED] clopidogrel (Plavix) 75 mg tablet clopidogrel 75 mg tablet TAKE 1 TABLET BY MOUTH EVERY DAY No current facility-administered medications on file prior to visit. Physical Exam: Constitutional: Appearance: Normal appearance. Without apparent distress, obese, chronically ill HENT: Head: Normocephalic and atraumatic. Nose: Nose normal. Mouth/Throat: Mouth: Mucous membranes are moist. Eyes: Extraocular Movements: Extraocular movements intact. Conjunctiva/sclera: Conjunctivae normal. Neck: Vascular: No JVD. Cardiovascular: Rate and Rhythm: Normal rate and regular rhythm. Pulses: Dorsalis pedis pulses are 3 on the right side and 3on the left side. Posterior tibial pulses are 3 on the right side and 3 on the left side. Heart sounds: Normal heart sounds, S1 normal and S2 normal. Pulmonary: Effort: Pulmonary effort is normal. Breath sounds: Normal breath sounds. Abdominal: General: Bowel sounds are normal. Palpations: Abdomen is soft. Musculoskeletal: General: Normal range of motion. Cervical back: Normal range of motion. Right lower leg: No edema. Left lower leg: No edema. Skin: General: Skin is warm and dry. Capillary Refill: Capillary refill takes less than 2 seconds. Neurological: General: No focal deficit present. Mental Status: She is alert and oriented to person, place, and time. Psychiatric: Mood and Affect: Mood normal. Behavior: Behavior normal. Thought Content: Thought content normal. Judgment: Judgment normal. Labs: 06/24/22 CBC normal K+ 4.1, BUN 20, CR 0.76- normal HS trop negative x3 Pro BNP 129 Last lab values have been reviewed CV Testin11/16/2020 Echo Assessment/Plan: Chronic systolic heart failure (CMS/HCC) [facility] II Euvolemic without exacerbation I feel pt is chronically slightly dehydrated with caffiene intake without adequate fluid intake- d/w pt to have 1.5-2L/day of fluid and decrease amount of coffee each day. Continue to monitor weight daily and to call office for any further concerns Continue GDMT- ASA, lipitor, zetia, jardiance, entresto and aldactone Diuretic therapy- currently euvolemic with aldactone and jardiance Monitor daily weights, I&O, fluid restriction 1.5-2L/day, renal function and electrolytes- Coronary atherosclerosis Coronary artery disease is Continue GDMT- ASA, lipitor and zetia continue risk factor modifications- heart healthy diet, regular exercise as tolerated and continue all medications. Essential hypertension Hypertension is well controlled 123/80 Continue all meds Hyperlipidemia Continue lipitor Primary cardiomyopathy (CMS/HCC) As above RTC [address] [facility] 07-27-2022 Note As above [facility] 07-27-2022 Note Continue lipitor [facility] 07-27-2022 Note Hypertension is well controlled 123/80 Continue all meds [facility] 07-27-2022 Note Coronary artery dise ase is Continue GDMT- ASA, lipitor and zetia continue risk factor modifications- heart healthy diet, regular exercise as tolerated and continue all medications. [facility] 07-27-2022 Note [facility] II Euvolemic without exacerbation I feel pt is chronically slightly dehydrated with caffiene intake without adequate fluid intake- d/w pt to have 1.5-2L/day of fluid and decrease amount of coffee each day. Continue to monitor weight daily and to call office for any further concerns Continue GDMT- ASA, lipitor, zetia, jardiance, entresto and aldactone Diuretic therapy- currently euvolemic with aldactone and jardiance Monitor daily weights, I&O, fluid restriction 1.5-2L/day, renal function and electrolytes- [facility] Evaluation + Plan note Future Appointments Appointment Date:03/13/2023 02:30:00 PM Scheduled Provider:Cabrera OJEDA MD Location:[facility] Appointment Type:URO Office Visit [facility] Hospital course Narrative No data available for this section [facility] Progress note No data available for this section [facility] Summary Purpose Family History No Family History Records FoundNo Family History Records FoundNo Family History Records FoundNo Family History Records Found Advance Directives No Advanced Directives Records FoundNo Advanced Directives Records FoundNo Advanced Directives Records FoundNo Advanced Directives Records Found Additional Source Comments (unrecognized sect ion and content) No Status Records FoundNo Status Records FoundNo Status Records FoundNo Status Records Found INFORMATION SOURCE (unrecogn ized section and content) DATE CREATED AUTHOR 10/20/2022 [facility] DATE CREATED AUTHOR AUTHOR'S ORGANIZ ATION 01/04/2023 [facility] [place] [facility] DATE CREATED AUTHOR AUTHOR'S ORGANIZ ATION 02/22/2023 [facility] DATE CREATED AUTHOR AUTHOR'S ORGANIZ ATION 03/11/2023 [facility] Patient Care team informatio n (unrecognized section and content) Personnel Name: oTny Wilson DO Address: Address: [address] [place] [address] FOR RECORDS PERTAINING TO PATIENTS WHO ARE OR HAVE BEEN ENROLLED IN A CHEMICAL DEPENDENCY/SUBSTANCEABUSE PROGRAM, SOME INFORMATION MAY BE OMITTED. This clinical summary was aggregated from multiple sources. Caution should be exercised in using it in the provision of clinical care. This summary normalizes information from multiple sources, and as a consequence, information in this document may materially change the coding, format and clinical context of patient data. In addition, data may be omitted in some cases. CLINICAL DECISIONS SHOULD BE BASED ON THE PRIMARY CLINICAL RECORDS. [facility] [employer] [facility]. provides no warranty or guarantee of the accuracy or completeness of information in this document.
[2023-09-23 11:19] LABS: Microalbum Creatinine Ratio Ur 16.1 mg/g (0.0-29.9); Microalbumin Urine Random <1.3 mg/dL (<=30.0)
[2023-09-23 11:20] LABS: Estimated Average Glucose 180 mg/dL; Glycohemoglobin A1C 7.9 % (4.5-6.2)
== END 2023-09-23 10:42 | disposition home or self-care (01) ==
LOC: LAB 10:42
PROVIDERS: PCP Internal Medicine; Visit Provider Internal Medicine
DX: E11.9 Type 2 diabetes mellitus without complications (principal)
CPT/HCPCS: 36415; 82043; 82570; 83036

== ENCOUNTER 2024-02-03 08:20 | Outpatient (OUT) | payer OTHER, SELFPAY ==
--- OUTSIDE RECORDS SUMMARY | 2024-02-03 08:23 | XMS_ITS ---
Patient Summarization (C-CDA 2.1 CCD) Created on: February 03, 2024 EVARISTO LOWERY~SEBASTIÁN HAIR : 1965 Sex: Male Author Organization Sample organization Care Team Providers Care Advanced Manufacturing Consultant Name Role Phone Justin Smallwood Attending Unavailab Justin Redmond Admitting Unavailab Tony Malave Primary Care Physician [phone] KATIE, DR MACDONALD Attending Unavailable TICKFAW, DR MACDONALD Consulting Unavailable TICKFAW, DR MACDONALD Primary Care Unavailable TICKFAW, DR MACDONALD Admitting Unavailable LARRY, ISIAH Consulting Unavailable TICKFAW, DR MACDONALD Primary Care Unavailable MISC, DR PATRICK Admitting Unavailable MISC, DR PATRICK Attending Unavailable MISC, DR PATRICK Consulting Unavailable TICKFAW, DR MACDONALD Primary Care Unavailable QUINTON, SAIMA Admitting Unavailable QUINTON, SAIMA Attending Unavailable QUINTON, SAIMA Consulting Unavailable NOTTINGHAM, DR BHASKAR Zarate Consulting Unavailable NADERER, DR RUBEN Schwarz Admitting Unavailable HOUSE, DR MACDONALD Primary Care Unavailable NADERER, DR RUBEN Schwarz Attending Unavailable NADERER, DR RUBEN Schwarz Consulting Unavailable GRECHNY ., ROQUE AYALA Consulting Unavailjuan a e MIMS, JT Consulting Unavailable TICKFAW, DR MACDONALD Consulting Unavailable TICKFAW, DR MACDONALD Primary Care Unavailable TICKFAW, DR MACDONALD Admitting Unavailable TICKFAW, DR MACDONALD Attending Unavailable TICKFAW, DR MACDONALD Attending Unavailable TICKFAW, DR TONY Milton Unavailable TICKFAW, DR MACDONALD Primary Care Unavailable TICKFAW, DR MACDONALD Admitting Unavailable ZIEBER, DR BLAYNE Núñez Consulting Unavailable Brad NOLASCO, Primary Care Provider CHACHO SMITH Attending Unavailable AHSAN NEWMAN Referring Unavailable MERRY LAIRD Attending Unavailable AHSAN NEWMAN Referring Unavailable Cabrera OJEDA Attending Unavailable Cabrera OJEDA Attending Unavailable SHAIKH SALINAS Attending Unavailable SHAIKH SALINAS Attending Unavailable SHAIKH SALINAS Attending Unavailable Allergies Allergy Classification Reported Allergen(s) Allergy Type Date of Onset Reaction(s) Facility (1 source) No Known Medication Allergies; 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: [No Known Medication Allergies] Propensity to adverse reactions (disorder) [facility] Repository Encounters Encounter Date Encounter Type Care Provider Facility Start: 03-18-2024 ambulatory Cabrera R LYNETTE Bowman ty:[facility] Start: 12-20-2023 End: 12-20-2023 ambulatory SHAIKH BRAD Not Available Start: 11-07-2023 End: 11-07-2023 ambulatory SHAIKH BRAD Not Available Start: 10-03-2023 End: 10-03-2023 ambulatory [facility] Start: 09-27-2023 End: 09-27-2023 ambulatory SHAIKH BRAD Not Available Start: 09-27-2023 End: 09-27-2023 Periodic preventive med est patient 40-64yrs Shaikh Brad NOLASCO Work Phone: [facility] Comment on above: Essential hypertensi on (CMS/HCC) (Primary Dx); Chronic systolic heart failure (CMS/HCC); Type 2 diabetes mellitus without complication, without long-term current use of insulin (CMS/HCC); Hyperlipidemia, unspecified hyperlipidemia type (CMS/HCC); Wellness examination Start: 09-27-2023 Chart abstracting Shaikh Precious kessler MD Work Phone: [facility] Start: 09-27-2023 End: 09-27-2023 Patient encounter status Shaikh Brad NOLASCO Work Phone: [facility] Start: 09-23-2023 Clinisync Result Encounter Shaikh Brad NOLASCO Work Phone: [facility] External Department Unsolicited Start: 09-23-2023 Clinisync Result Encounter Shaikh Brad NOLASCO Work Phone: [facility] External Department Unsolicited Start: 08-01-2023 End: 08-01-2023 ambulatory [facility] Start: 03-13-2023 End: 03-14-2023 ambulatory Cabrera OJEDA Facility:[facility] Start: 02-22-2023 End: 02-22-2023 ambulatory AHSAN NEWMAN [facility] Start: 01-03-2023 End: 01-04-[address] TONY WILSON Facility:[facility] Start: 12-19-2022 End: 12-19-2022 ambulatory MERRY LAIRD [facility] Start: 11-14-2022 End: 11-14-2022 Patient encounter procedure Cabrera OJEDA [facility] Start: 10-19-2022 End: 10-19-2022 ambulatory Justin Smallwood Facility:[facility] Start: 10-01-2022 End: 10-02-[address] TONY WILSON Facility:[facility] Start: 09-14-2022 End: 09-15-[address] TONY WILSON Facility:[facility] Start: 06-23-2022 End: 06-24-[address] BHASKAR ANTUNEZ Facility:[facility] Start: 03-21-2022 End: 03-22-[address] TONY WILSON Facility:[facility] Start: 02-16-2022 End: 02-17-[address] TONY WILSON Facility:[facility] Medical Equipment Procedure Code Equipment Code Equipment Origin al Text Equipment Identifier Dates 1 each by Other route every 12 (twelve) hours Twice a day - whatever brand is covered under patients insurance. [id number] Start: 09-27-2023 End: 04-19-2027 1 each every 12 (twelve) hours [id number] Start: 09-27-2023 End: 12-26-2023 Immunizations Immunization Date Immunization Notes Care Provider Fa cili 06-02-2021 SARS-CoV-2 (COVID-19 ) mRNA BNT-162b2 vax Cabrera OJEDA [facility] 05-12-2021 SARS-CoV-2 (COVID-19 ) mRNA BNT-162b2 vax Cabrera OJEDA [facility] 01-27-2016 tetanus toxoid, redu cedric diphtheria toxoid, and acellular pertussis vaccine, adsorbed Cabrera OJEDA [facility] Medications Current Medications Medication Drug Class(es) Dates Sig (Normalized) Sig (Original) ascorbic acid 1000 mg oral tablet (4 sources) Vitamin C take 1 tablet by mouth in the morning Ascorbic Acid (vitamin C) 1000 MG tablet Take 1,000 mg by mouth in the morning. 0 Active Aspirin (5 sources) Platelet Aggregation Inhibitor, Nonsteroidal Anti-inflammatory Drug Start: 11-14-2022 aspirin Refills(s) 0 Start Date: 11/14/22 Status: Ordered take 1 tablet by mouth in the mo rning aspirin 81 MG EC tablet Take 81 mg by mouth in the morning. 0 Active atorvastatin 80 mg oral tablet (5 sources) HMG-CoA Reductase Inhibitor Start: 11-14-2022 atorvastatin 80 mg Tab Refills(s) 0 Start Date: 11/14/22 Status: Ordered carvedilol 25 mg oral tablet (5 sources) alpha-Adrenergic Sada, beta-Adrenergic Sada Start: 11-14-2022 carvedilol 25 mg Tab Refills(s) 0 Start Date: 11/14/22 Status: Ordered cholecalciferol 0.025 mg oral tablet (4 sources) Vitamin D take 1 tablet by mouth in the morning cholecalciferol (Vitamin D3) 25 MCG (1000 UT) tablet Take 1,000 Units by mouth in the morning. 0 Active empagliflozin 25 mg oral tablet (5 sources) Sodium-Glucose Cotransporter 2 Inhibitor Start: 08-22-2023 End: 11-20-2023 take 1 tablet by mouth in the morning empagliflozin (Jardiance) 25 MG Indications: Type 2 diabetes mellitus without complication, without long-term current use of insulin (CMS/HCC) Take 1 tablet (25 mg) by mouth in the morning. 90 tablet 0 08/22/2023 11/20/2023 Active Start: 11-14-2022 Jardiance 10 m g oral tablet Refills(s) 0 Start Date: 11/14/22 Status: Ordered ezetimibe 10 mg oral tablet (5 sources) Dietary Cholesterol Absorption Inhibitor Start: 11-14-2022 ezetimibe 10 mg Tab Refills(s) 0 Start Date: 11/14/22 Status: Ordered glipiZIDE 5 mg oral tablet (4 sources) Sulfonylurea Start: 09-04-2023 End: 12-03-2023 take 1 tablet by mouth in the morning glipiZIDE (Glucotrol) 5 MG tablet Indications: Type 2 diabetes mellitus without complication, without long-term current use of insulin ([facility]) Take 1 tablet (5 mg) by mouth in the morning. 90 tablet 0 09/04/2023 12/03/2023 Active metFORMIN hydrochloride 500 mg oral tablet (5 sources) Biguanide Start: 11-14-2022 metformin 500 mg Tab Refills(s) 0 Start Date: 11/14/22 Status: Ordered take 1 tablet by alba th in the morning, then take 1 tablet by mouth every twenty-four hours at mealtime metFORMIN, OSM, (Fortamet) 1000 MG 24 hr tablet Take 1,000 mg by mouth in the morning and 1,000 mg in the evening. Take with meals. Do not crush, chew, or split.. 0 Active MULTIPLE VITAMINS PO (4 sources) MULTIPLE VITAMIN S PO Take by mouth 0 Active sacubitril 24 mg / valsartan 26 mg oral tablet (5 sources) Angiotensin 2 Receptor Sada Start: 11-14-2022 take 1 tablet by mouth twice daily Entresto 24 mg-26 mg oral tablet tab(s), Oral, BID, Refill(s) 0 Start Date: 11/14/22 Status: Ordered take 1 tablet by alba th in the morning sacubitril-valsartan (Entresto) 24-26 MG tablet Take 1 tablet by mouth in the morning and 1 tablet before bedtime. 0 Active spironolactone 25 mg oral tablet (5 sources) Aldosterone Antagonist Start: 11-14-2022 spironolactone 25 mg Tab Refills(s) 0 Start Date: 11/14/22 Status: Ordered spironolactone ( Aldactone) 25 MG tablet Take 12.5 mg by mouth in the morning. 0 Active Payers Date Payer Category Payer Self-pay 2022 Unknown [employer] [id number] 2022-Present [phone] [address] [address] [place] [address] [id number] 1965 Unknown [id number] 3 1965 Unknown [id number] 3 1965 Unknown [id number] 3 1965 Unknown [id number] 3 1965 Unknown [id number] 3 1966 Unknown [id number] 3 1965 Unknown [id number] 7 1965 Unknown [id number] 7 1965 Unknown [id number] 59 1965 Unknown [id number] [id number] 59 1966 Unknown [id number] 59 1959 Unknown [id number] 1959 Unknown [id number] Unknown [id number] 1 Plan of Treatment Date Care Activity Detail Author Start: 09-25-2024 Urine screening for protein Diabetes: Urine Protein Screening [facility] Start: 08-21-2024 Glaucoma screening Diabetes: R etinopathy Screening [facility] Start: 02-18-2024 Influenza vaccination Influenza Vacc ine (#1) [facility] Comment on above: Postponed from 04/21 (Patient Refused) Start: 12-24-2023 Hemoglobin A1c measurement Diabetes: Hemoglobin A1C [facility] Start: 10-30-2023 End: 10-30-2023 Patient encounter procedure 10/30/2023 2:45 PM EDT Office Visit [facility] [address] [place] [address] Shaikh Salinas MD [address] [place] [id number] [facility] Start: 09-27-2023 End: 09-27-2023 Patient encounter procedure 09/27/2023 2:15 PM EST Office Visit [facility] [address] [place] [address] Shaikh Salinas MD [address] [place] [id number] [facility] Start: 08-27-2023 Hemoglobin A1c measurement Diabetes: Hemoglobin A1C [facility] Start: 1985 Urine screening for protein Diabetes: Urine Protein Screening [facility] Start: 1965 Screening for malign ant neoplasm of colon 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; 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: [Old myocardial infarction] Onset: 07-17-2012 Chronic Diabetes mellitus with complications (1 source) Type 2 diabetes mellitus with hyperglycemia; 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: [TYPE 2 DM W/HYPERGLYCEMIA] Onset: 07-04-2022 Chronic Diabetes mellitus without complication (13 sources) Type 2 diabetes mellitus; 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: [Type 2 diabetes mellitus without complications] Onset: 03-21-2022 11-10-2022 Chronic Disorders of lipid metabolism (5 sources) Mixed hyperlipidemia; 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: [Hyperlipidemia] Onset: 07-18-2012 11-10-2022 Chronic Diverticulosis and diverticulitis (1 source) Diverticulosis of large intestine without perforation or abscess without bleeding; 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: [DVRTCLOS LG INT NO PERF/ABSC W/O BL] Onset: 10-07-2022 Chronic Essential hypertension (8 sources) Essential hypertension; 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: [Essential (primary) hypertension] Onset: 07-17-2012 11-10-2022 Chronic Headache; including migraine (1 source) Headache; including migraine; 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: [HEADACHE UNSPECIFIED] Onset: 07-04-2022 Hyperplasia of prostate (4 sources) Benign prostatic hyperplasia; 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: [Benign prostatic hyperplasia without lower urinary tract symptoms] Onset: 03-25-2022 11-10-2022 Chronic Other diseases of kidney and ureters (1 source) Disorder of kidney and/or ureter; 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: [Other specified disorders of kidney and ureter] Onset: 11-14-2022 Chronic Other diseases of kidney and ureters (3 sources) Renal mass; 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: [Other specified disorders of kidney and ureter] Onset: 08-01-2023 11-14-2022 Chronic Other diseases of kidney and [...] conditions (not mental disorders or infectious disease) (7 sources) Encounter for screening for malignant neoplasm of prostate; 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: [Screening for malignant neoplasm done] Onset: 11-14-2022 Episodic Madelyn-; endo-; and myocarditis; cardiomyopathy (except that caused by tuberculosis or sexually transmitted disease) (3 sources) Cardiomyopathy; 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: [Primary cardiomyopathy] Onset: 05-19-2014 11-10-2022 Chronic Unclassified (1 source) Patient encounter [...] Onset: 06-23-2022 Episodic Other aftercare (1 source) boiling off winder (current) use of aspirin; 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: [SPECIAL CLASS WELDER CURRENT USE OF ASPIRIN] Onset: 07-04-2022 Episodic Other aftercare (1 source) boiling off winder (current) use of oral hypoglycemic drugs; 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: [GROUP HOME USE ORAL HYPOGLYCEMIC DX] Onset: 07-04-2022 Episodic Other aftercare (1 source) Other senior care (current) drug therapy; 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: [OTH GROUP HOME CURRENT DRUG THERAPY] Onset: 07-04-2022 Episodic Other upper respiratory infections (1 source) Acute sinusitis, unspecified; 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: [ACUTE SINUSITIS UNSPECIFIED] Onset: 07-04-2022 Episodic Screening and history of mental health and substance abuse codes (1 source) Personal history of nicotine dependence; 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: [PERSONAL HISTORY OF NICOTINE DEPEND] Onset: 07-04-2022 Episodic Procedures Date Procedure Procedure Detail Performing Clinician Start: 09-23-2023 MLR HEMOGLOBIN A1C Ga Salinas MD Work Phone: Start: 09-23-2023 [facility] MICROALB ASHWIN Salinas MD Work Phone: Start: 03-21-[address] EDNA WILSON Comment on above: Performed By: #### C MP #### [facility] [address] [address] [address] Mily Parra Aortic stent (physic al object) Cabrera OJEDA Defibrillator, devic e (physical object) Cabrera OJEDA Knee region structur e (body structure) Cabrera OJEDA Shoulder region stru cture (body structure) Cabrera OJEDA Results Test Name Value Interpretation Reference Range Facility MLR HEMOGLOBIN A1Con 024 Glucose [Mass/Vol] 180 mg/dL [facility] HbA1c (Bld) [Mass fraction] 7.9 % High 4.5 - 6.2 % [facility] Comment on above: ADA RECOMMENDED LIMI T 4.0 - 6.0 ADA THERAPEUTIC TARGET < 7.0 ACTION SUGGESTED > 7.0 Interpretation and review of laboratory results Abnormal [facility] No Panel Informationon 09-23 CLINISYNC [facility] TBH MICROALB CREAT RATIO RAN DOMon 09-23-2023 CREATININE URINE RANDOM 80.70 mg/dL 20.00 - 300.00 mg/dL [facility] MICROALBUM CREATININE RATIO UR 16.1 mg/g 0.0 - 29.9 mg/g [facility] Comment on above: NO MICROALBUMINURIA 0-29 MG/G CLINICAL MICROALBUMINURIA 30-300 MG/G MACROALBUMINURIA >300 MG/G MICROALBUMIN URINE RANDOM <1.3 NINF - 30.0 mg/dL [facility] Office Visiton 08-01-2023 Follow-up visit [id number] Evaristo Lowery 1965 M Date Provider Department Center 08/01/[address] [facility] Family History Problem Relation Age of Onset Diabetes Maternal Grandmother Heart attack Maternal Grandfather Diabetes Paternal Grandmother Heart disease Paternal Grandfather Family Status - Relation Status Age at Maternal Grandmother Maternal Grandfather Paternal Grandmother Paternal Grandfather Level of Service:24811 [place] OFFICE/OUTPATIENT ESTABLISHED LOW MDM 20-29 MIN Normal [facility] Ambulatory Visit Summaryon 0 03-13-2023 Ambulatory Visit Summary EVARISTO LOWERY :1965 Visit Date:03/13/2023 Ambulatory Visit Instructions Your Diagnosis Kidney mass Prostate cancer screening Tests Performed Urnls Dip Stick Auto w/o Microscopy POC [address] CT Abdomen/Pelvis w/ + w/o Contrast -- Results Pending -- Please visit your patient portal for your results or contact your primary care physician. Your Care Team Attending Physician - Cabrera OJEDA MD Primary Care Physician - Tony Wilson DO This Is Your Medications List Contact prescribing physician if questions or concerns aspirin (aspirin 81 mg Oral EC Tab) atorvastatin (atorvastatin 80 mg Tab) carvedilol (carvedilol 25 mg Tab) empagliflozin (Jardiance 10 mg oral tablet) ezetimibe (ezetimibe 10 mg Tab) metformin (metformin 500 mg Tab) sacubitril-valsartan (Entresto 24 mg-26 mg oral tablet) spironolactone (spironolactone 25 mg Tab) Procedures Performed Aortic stent, Defibrillator, Knee, Shoulder. Discharge Vitals Heart Rate (Peripheral) 91 Respiratory Rate 16 Blood Pressure 134/80 Height 159 cm Height 63 in Weight 95.2 kg Weight 209.44 lb BMI 37.66 What to do next Scheduled Follow-Up Appointments Monday 2:30 PM EDT With: Cabrera OJEDA MD Where: [facility] Patient Educationon 03-13-20 23 Patient Education Urology Renal Mass A renal mass is an abnormal growth in the kidney. It may be found while performing an MRI, CT scan, or ultrasound to evaluate other problems of the abdomen. A renal mass that is cancerous (malignant) may grow or spread quickly. Others are not cancerous (benign). Renal masses include: ? Tumors. These may be malignant or benign. ? The most common type of kidney cancer in adults is renal cell carcinoma. In children, the most common type of kidney cancer is Wilms tumor. ? The most common benign tumors of the kidney include renal adenomas, oncocytomas, and angiomyolipoma (AML). ? Cysts. These are fluid-filled sacs that form on or in the kidney. What are the causes? Certain types of cancers, infections, or injuries can cause a renal mass. It is not always known what causes a cyst to develop in or on the kidney. What are the signs or symptoms? Often, a renal mass does not cause any signs or symptoms; most kidney cysts do not cause symptoms. How is this diagnosed? Your health care provider may recommend tests to diagnose the cause of your renal mass. These tests may be done if a renal [...] is growing and beginning to cause problems. How is this treated? Treatment is not always needed for this condition. Your health care provider may recommend careful monitoring and regular tests and exams. Treatment will depend on the cause of the mass. Treatment for a cancerous renal mass may include surgical removal, chemotherapy, radiation, or immunotherapy. Most kidney cysts do not need to be treated. Follow these instructions at home: What you need to do at home will depend on the cause of the mass. Follow the instructions that your health care provider gives to you. In general: ? Take tmys-hje-cfofugv and prescription medicines only as told by your health care provider. ? If you were prescribed an antibiotic medicine, take it as told by your health care provider. Do not stop taking the antibiotic even if you start to feel better. ? Follow any restrictions that are given to you by your health care provider. ? Keep all follow-up visits. This is important. ? You may need to see your health care provider once or twice a year to have CT scans and ultrasounds. These tests will show if your renal mass has changed or grown. Contact a health care provider if you: ? Have pain in your side or back (flank pain). ? Have a fever. ? Feel full soon after eating. ? Have pain or swelling in the abdomen. ? Lose weight. Get help right away if: ? Your pain gets worse. ? There is blood in your urine. ? You cannot urinate. ? You have chest pain. ? You have trouble breathing. These symptoms may represent a serious problem that is an emergency. Do not wait to see if the symptoms will go away. Get medical help right away. Call your local emergency services (911 in the [place] Summary ? A renal mass is an abnormal growth in the kidney. It may be cancerous (malignant) and grow or spread quickly, or it may not be cancerous (benign). Renal masses often do not have any signs or symptoms. ? Renal masses may be found while performing an MRI, CT scan, or ultrasound for other problems of the abdomen. ? Your health care provider may recommend that you have tests to diagnose the cause of your renal mass. These may include a physical exam, blood tests, urine tests, imaging, or a biopsy. ? Treatment is not always needed for this condition. Careful monitoring may be recommended. This information is not intended to replace advice given to you by your health care provider. Make sure you discuss any questions you have with your health care provider. Document Revised: 02/01/2021 Document Reviewed: 02/01/2021 [facility] Patient Education ? 2022 [email or web address]. [facility] Reminderson 03-13-2023 Reminders - From: Lea Honeycutt To: KENDRA - [employer] Lynette; Sent: 03/13/2023 16:51:05 EDT Show up: 01/20/2024 16:50:00 EDT Subject: Ct scan Due Date/Time: 02/05/2024 16:51:00 EDT Reminder/Recall Patient needs Ct scan Abd/Pelvis with contrast prior to March 11, 2024 appt. Pt wants [facility] Urology Office/Clinic Noteon 03-13-2023 Urology Office/Clinic Note Chief Complaint kidney mass HPI Staff 4 month f/u with CT. Previous dx of kidney mass. Dysuria: no Incomplete bladder emptying: no Hematuria: no Frequency: no Urgency: no Nocturia: 1x Stream: good no straining or intermittency Leaking: no Post void dripping: no Wearing pads/ Depends: no Urge incontinence: no Stress incontinence: no Incontinence without Sensory Awareness: no Abdominal pain: no Flank pain: no Sexual complaints: no History of Present Illness Tests reviewed: reviewed UA, CT scan I have reviewed the previous health record information and history for this patient from Dr. Ojeda. I have reviewed and verified the staff [...] See HPI. Physical Exam Vitals & Measurements HR: 91(Peripheral) RR: 16 BP: 134/80 HT: 63 in HT: 159 cm WT: 95.2 kg WT: 209.44 lb BMI: 37.66 General Appearance: alert, no distress, well nourished, well developed male. Genitourinary: normal scrotum, normal testes, normal urethra, normal epididymis, normal vas deferens/spermatic cord. Flank Pain: none. Bladder: nonpalpable. Assessment/Plan 1. Kidney mass (N28.89: Other specified disorders [...] UA today negative for blood and infection. Denies family hx of kidney or bladder cancer. CT AP w/wo con done 03/06/23 showed stable nonenhancing hyperdense 3.3cm left renal lesion with peripheral calcification measuring 3.3 x 2.4 cm. Explained to pt results are not worrisome at this time. Will continue to monitor in [address] AP w/wo con. 2. Prostate cancer screening (Z12.5: Encounter for screening for malignant neoplasm of prostate) PSA 03/21/22 - 0.97. Denies any urinary habit complaints, family hx of prostate cancer. [1] Follow-up With When Contact Information LYNETTE NOLASCO, Cabrera Núñez, URL [facility] [address], [place] [address] [phone] Additional Instructions: 1 yr w/ CT scan Patient Education Renal Mass I, Katherine Bear, personally scribed for Dr. Ojeda on 03/13/2023 16:46:39. . Documentation recorded by the scribe, Katherine Bear, accurately reflects the services(s) I performed and decisions made by me. Authenticated by Dr. Ojeda on 03/13/2023 16:48:27. Problem List/Past Medical History Ongoing BPH (benign prostatic hyperplasia) Cardiomyopathy, unspecified Essential hypertension Kidney mass Mixed hyperlipidemia Prostate cancer screening Type 2 diabetes mellitus Historical No qualifying data Procedure/Surgical History Aortic stent, Defibrillator, Knee, Shoulder. Medications aspirin 81 mg Oral EC Tab, Oral, Daily atorvastatin 80 mg Tab carvedilol 25 mg Tab Entresto 24 mg-26 mg oral tablet, Oral, BID ezetimibe 10 mg Tab Jardiance 10 mg oral tablet metformin 500 mg Tab spironolactone 25 mg Tab Allergies No Known Medication Allergies Social History Tobacco 10 or more cigarettes (1/2 pack or more)/day in last 30 days Tobacco Use:. Cigarettes, 11/14/2022 Family History Family history is negative Immunizations Vaccine Date Status SARS-CoV-2 (COVID-19) mRNA BNT-162b2 vax 06/02/2021 Recorded SARS-CoV-2 (COVID-19) mRNA BNT-162b2 vax 05/12/2021 Recorded diphtheria/pertussis, acel/tetanus adult 01/27/2016 Recorded Lab Results Ambulatory Point of Care Results Bilirubin Urine Dipstick: Negative (03/13/23 15:35:00) Blood Urine Dipstick: Negative (03/13/23 15:35:00) Glucose Urine Dipstick: 2+ 500 mg/dl (03/13/23 15:35:00) Ketones Urine Dipstick: Negative (03/13/23 15:35:00) Leukocytes Urine Dipstick: Negative (03/13/23 15:35:00) Nitrite Urine Dipstick: Negative (03/13/23 15:35:00) Protein Urine Dipstick: Negative (03/13 (more content not included)... Normal [facility] Comment on above: Result Comment: Elec tronically Signed By: LYNETTE NOLASCO, Cabrera Núñez\.br\Date and Time Signed: 03/13/23 16:48 EDT\.br\Electronically Co-Signed By: Katherine Bear\.br\Date and Time Co-Signed: 03/13/23 16:46 EDT Pre-Certification Formon Pre-Certification Form [id number] .[id number]:127 [facility] RAD - CT Reporton 03-07-2023 RAD - CT Report [id number]:127 [facility] Telephoneon 01-05-2023 Telephone [id number] Evaristo Lowery 1965 M Date Provider Department Center 01/05/2023 MIRTHA SEBASTIAN CARD [facility] Family History Problem Relation Age of Onset Diabetes Maternal Grandmother Heart attack Maternal Grandfather Diabetes Paternal Grandmother Heart disease Paternal Grandfather Family Status - Relation Status Age at Maternal Grandmother Maternal Grandfather Paternal Grandmother Paternal Grandfather Normal [facility] ECHOCARDIO M/2D COMPLETEon 0 01-03-2023 ECHOCARDIO M/2D COMPLETE Patient: EVARISTO LOWERY. 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 MERRY PAULINOLIZZETH AIR BATTLE MANAGER Admission #: [id number] Family : Order #: [id number] CLICK HERE TO VIEW EXAM ECHOCARDIOGRAM REPORT [...] Pressure: 28.32 ml, 28.32 ml Dictated by: Chacho Smith M.D. on 01/03/2023 at 20:26 Approved by: Chacho Smith M.D. on 01/03/2023 at 20:32 Normal [facility] Office Visiton 12-19-2022 Follow-up visit [id number] Evaristo Lowery 1965 [facility] Provider Department Center 12/19/2022 [id number] LIM [facility] Family History Problem Relation Age of Onset Diabetes Maternal Grandmother Heart attack Maternal Grandfather Diabetes Paternal Grandmother Heart disease Paternal Grandfather Family Status - Relation Status Age at Maternal Grandmother Maternal Grandfather Paternal Grandmother Paternal Grandfather Level of Service:66539 [place] OFFICE/OUTPATIENT ESTABLISHED MOD [facility] 30-39 MIN Reason for Visit and Comments: Follow-up [441582] - 3 month follow up Normal [facility] XR knee LT 4V*on 10-19-2022 XR knee LT 4V* [facility] [place] [address] [place] [address] XRay Report Signed Patient: Evaristo Lowery MR#: [id number] : 1965 Acct:[id number] Age/Sex: 57 / M ADM Date: 10/19/22 Loc: XDCLY Room: Type: [facility] Attending Dr: Justin Smallwood AIR BATTLE MANAGER-C Copies to: Justin Smallwood CNP Ordering Provider: Justin Smallwood CNP Date of Service: 10/19/22 XR/XR knee LT 4V*: LEFT KNEE PAIN ([id number]) XR/XR elbow LT min 3V*: LEFT ELBOW [...] Cheri Castaneda M.D.10/19/2022 10:21 AM Dictation Location: [place] [address] Transcribed By: ALICIA 10/19/22 1021 Dictated By: Cheri Castaneda MD 10/19/22 1012 Signed By: 10/19/22 1021 [facility] CREATININEon 10-01-2022 Creatinine [Mass/Vol] 0.75 mg/dL Normal 0.70-1.30 [facility] Comment on above: Performed By: #### C MP #### [facility] [address] [address] [address] Mily Parra EGFR-AF BOLIVIAN >60 Normal >=60 [facility] Comment on above: Performed By: #### C MP #### [facility] [address] [place] [address] [address] Mily Parra EGFR-NON AF BOLIVIAN >60 Normal >=60 [facility] Comment on above: Performed By: #### C MP #### [facility] [address] ABDOMEN WO/W CONon [...] by: ISIAH JUAREZ Date: 2022-10-01 11:[address] [facility] [address] ABD/PELVIS WO CONon 09-14 CT ABD/PELVIS [...] by: BLAYNE CHEN Date: 2022-09-14 15:18 Normal [facility] CBC AUTO DIFFon 06-24-2022 BASO # 0.1 103/ul Normal 0.0-0.1 [facility] Comment on above: Performed By: #### C BC #### [facility] [address] [place], [place] [address] Dr. Mily Parra Basophils/100 WBC (Bld) 0.9 % Normal 0.2-2.0 [facility] Comment on above: Performed By: #### C BC #### [facility] [address] [place], [place] [address] Dr. Mily Parra EO # 0.6 103/ul Normal 0.0-0.7 [facility] Comment on above: Performed By: #### C BC #### [facility] [address] [place] [address] Dr. Mily Parra Eosinophils/100 WBC (Bld) 6.0 % Normal 0.9-7.0 [facility] Comment on above: Performed By: #### C BC #### [facility] [address] [place] [address] Dr. Mily Parra Erythrocyte distribution width (RBC) [Ratio] 13.4 % Normal 11.0-15.0 [facility] Comment on above: Performed By: #### C BC #### [facility] [address] [place] [address] Dr. Mily Parra Hematocrit (Bld) [Volume fraction] 46.7 % Normal 42.0-54.0 [facility] Comment on above: Performed By: #### C BC #### [facility] [address] [place] [address] Dr. Mily Parra Hemoglobin (Bld) [Mass/Vol] 15.6 g/dL Normal 14.0-18.0 [facility] Comment on above: Performed By: #### C BC #### [facility] [address] [place] [address] Dr. Mily Parra IG # 0.03 10e3/ul Normal 0.00-0.03 [facility] Comment on above: Performed By: #### C BC #### [facility] [address] [place] [address] Dr. Mily Parra IG % 0.3 % Normal 0.0-0.5 [facility] Comment on above: Performed By: #### C BC #### [facility] [address] [place] [address] Dr. Mily Parra LYMPH # 3.0 103/ul Normal 1.2-3.8 [facility] Comment on above: Performed By: #### C BC #### [facility] [address] [place] [address] Dr. Mily Parra Lymphocytes/100 WBC (Bld) 28.1 % Normal 20.5-60.0 [facility] Comment on above: Performed By: #### C BC #### [facility] [address] [place] [address] Dr. Mily Parra MANUAL DIFF REQ NO Normal [facility] Comment on above: Performed By: #### C BC #### [facility] [address] [place] [address] Dr. Mily Parra MCH (RBC) [Entitic mass] 29.5 pg Normal 25.9-34.0 [facility] Comment on above: Performed By: #### C BC #### [facility] [address] [place] [address] Dr. Mily Parra MCHC (RBC) [Mass/Vol] 33.4 g/dL Normal 29.9-35.2 [facility] Comment on above: Performed By: #### C BC #### [facility] [address] [place] [address] Dr. Mily Parra MCV (RBC) [Entitic vol] 88.4 fL Normal 80.0-94.0 [facility] Comment on above: Performed By: #### C BC #### [facility] [address] [place] [address] Dr. Mily Parra MONO # 0.8 103/ul Normal 0.3-0.8 [facility] Comment on above: Performed By: #### C BC #### [facility] [address] [place] [address] Dr. Mily Parra Monocytes/100 WBC (Bld) 7.8 % Normal 1.7-12.0 [facility] Comment on above: Performed By: #### C BC #### [facility] [address] [place] [address] Dr. Mily Parra NEUT # 6.0 103/ul Normal 1.4-6.5 [facility] Comment on above: Performed By: #### C BC #### [facility] [address] [place] [address] Dr. Mily Parra Neutrophils/100 WBC (Bld) 56.9 % Normal 43.0-75.0 [facility] Comment on above: Performed By: #### C BC #### [facility] [address] [address] [address] Mily Parra Platelet mean volume (Bld) [Entitic vol] 8.8 fL Critically low 9.5-13.5 [facility] Comment on above: Performed By: #### C BC #### [facility] [address] [address] [address] Mily Parra PLT 233 103/ul Normal 150-450 [facility] Comment on above: Performed By: #### C BC #### [facility] [address] [place] [address] Dr. Mily Parra RBC 5.28 106/ul Normal 4.70-6.10 [facility] Comment on above: Performed By: #### C BC #### [facility] [address] [place] [address] Dr. Mily Parra WBC 10.5 103/ul Normal 4.0-11.0 [facility] Comment on above: Performed By: #### C BC #### [facility] [address] [place] [address] Dr. Mily Parra PROF CHEM 8 (BAS METB)on Anion gap [Moles/Vol] 8.9 mmol/L Normal [facility] Comment on above: Performed By: #### L IPID #### [facility] [address] [place] [address] Dr. Mily Parra Calcium [Mass/Vol] 8.6 mg/dL Normal 8.5-10.1 [facility] Comment on above: Performed By: #### L IPID #### [facility] [address] [place] [address] Dr. Mily Parra Chloride [Moles/Vol] 107 mmol/L Normal 98-107 [facility] Comment on above: Performed By: #### L IPID #### [facility] [address] [place] [address] Dr. Mily Parra CO2 [Moles/Vol] 27.2 mmol/L Normal 21.0-32.0 [facility] Comment on above: Performed By: #### L IPID #### [facility] [address] [address] [address] Mily Parar Creatinine [Mass/Vol] 0.76 mg/dL Normal 0.70-1.30 [facility] Comment on above: Performed By: #### L IPID #### [facility] [address] [address] [address] Mily Parra EGFR-AF BOLIVIAN >60 Normal >=60 [facility] Comment on above: Performed By: #### L IPID #### [facility] [address] [address] [address] Mily Parra EGFR-NON AF BOLIVIAN >60 Normal >=60 [facility] Comment on above: Performed By: #### L IPID #### [facility] [address] [place] [address] [address] Mily Parra Glucose [Mass/Vol] 118 mg/dL Critically high 74-[address] [facility] Comment on above: Performed By: #### L IPID #### [facility] [address] [address] [address] Mily Parra Potassium [Moles/Vol] 4.1 mmol/L Normal 3.5-5.1 [facility] Comment on above: Performed By: #### L IPID #### [facility] [address] [place] [address] Dr. Mily Parra Sodium [Moles/Vol] 139 mmol/L Normal 136-145 [facility] Comment on above: Performed By: #### L IPID #### [facility] [address] [place] [address] [address] Mily Parra Urea nitrogen [Mass/Vol] 20.0 mg/dL Critically high 7.0-18.0 [facility] Comment on above: Performed By: #### L IPID #### [facility] [address] [place] [address] [address] Mily Parra Urea nitrogen/Creatinine [Mass ratio] 26.3 mg/mg Normal [facility] Comment on above: Performed By: #### L IPID #### [facility] [address] [place] [address] Dr. Mily Parra ACETONE SERUMon 06-23-2022 ACETONE Negative Normal NEGATIVE [facility] Comment on above: Performed By: #### A CETON #### [facility] [address] [place] [address] Dr. Mily Parra BNPon 06-23-2022 Natriuretic peptide B (Bld) [Mass/Vol] 129.0 pg/mL Normal <=900.0 [facility] Comment on above: Performed By: #### L IPID #### [facility] [address] [place] [address] Dr. Mily Parra CARDIAC CARLOS 3-6on 2 CK [Catalytic activity/Vol] 48 U/L Normal 39-308 [facility] Comment on above: Performed By: #### C MREP #### [facility] [address] [place] [address] Dr. Mily Parra CK [Catalytic activity/Vol] 52 U/L Normal 39-308 [facility] Comment on above: Performed By: #### C MREP #### [facility] [address] [place] [address] Dr. Mily Parra CK.MB [Mass/Vol] 0.58 ng/mL Normal <=3.60 [facility] Comment on above: Performed By: #### C MREP #### [facility] [address] [place] [address] Dr. Mily Parra CK.MB [Mass/Vol] 0.69 ng/mL Normal <=3.60 [facility] Comment on above: Performed By: #### C MREP #### [facility] [address] [place] [address] Dr. Mily Parra HSTROP 6.1 pg/mL Normal 4.0-76.1 [facility] Comment on above: Result Comment: CUT- OFF POINTS HAVE BEEN ESTABLISHED BASED ON THE FOURTH UNIVERSAL DEFINITIONS OF MYOCARDIAL INFARCTION. THE UPPER REFERENCE LIMIT (URL) OF TROPONIN, DEFINED THE 99TH PERCENTILE OF cTnI DISTRIBUTION IN A REFERENCE POPULATION, HAS BEEN CONFIRMED THE DECISION THRESHOLD FOR PR DIAGNOSIS. Performed By: #### C MREP #### [facility] [address] [place] [address] Dr. Mily Parra HSTROP 11.6 pg/mL Normal 4.0-76.1 [facility] Comment on above: Result Comment: CUT- OFF POINTS HAVE BEEN ESTABLISHED BASED ON THE FOURTH UNIVERSAL DEFINITIONS OF MYOCARDIAL INFARCTION. THE UPPER REFERENCE LIMIT (URL) OF TROPONIN, DEFINED THE 99TH PERCENTILE OF cTnI DISTRIBUTION IN A REFERENCE POPULATION, HAS BEEN CONFIRMED THE DECISION THRESHOLD FOR PR DIAGNOSIS. Performed By: #### C MREP #### [facility] [address] [place] [address] Dr. Mily Parra CBC AUTO DIFFon 06-23-2022 BASO # 0.1 103/ul Normal 0.0-0.1 [facility] Comment on above: Performed By: #### C BC #### [facility] [address] [place] [address] Dr. Mily Parra Basophils/100 WBC (Bld) 0.7 % Normal 0.2-2.0 [facility] Comment on above: Performed By: #### C BC #### [facility] [address] [place] [address] Dr. Mily Parra EO # 0.5 103/ul Normal 0.0-0.7 [facility] Comment on above: Performed By: #### C BC #### [facility] [address] [place] [address] Dr. Mily Parra Eosinophils/100 WBC (Bld) 3.6 % Normal 0.9-7.0 [facility] Comment on above: Performed By: #### C BC #### [facility] [address] [place] [address] Dr. Mily Parra Erythrocyte distribution width (RBC) [Ratio] 13.4 % Normal 11.0-15.0 [facility] Comment on above: Performed By: #### C BC #### [facility] [address] [place] [address] Dr. Mily Parra Hematocrit (Bld) [Volume fraction] 51.6 % Normal 42.0-54.0 [facility] Comment on above: Performed By: #### C BC #### [facility] [address] [address] [address] Mily Parra Hemoglobin (Bld) [Mass/Vol] 17.4 g/dL Normal 14.0-18.0 [facility] Comment on above: Performed By: #### C BC #### [facility] [address] [address] [address] Mily Parra IG # 0.06 10e3/ul Critically high 0.00-0.03 [facility] Comment on above: Performed By: #### C BC #### [facility] [address] [address] [address] Mily Parra IG % 0.4 % Normal 0.0-0.5 [facility] Comment on above: Performed By: #### C BC #### [facility] [address] [place] [address] Dr. Mily Parra LYMPH # 2.7 103/ul Normal 1.2-3.8 [facility] Comment on above: Performed By: #### C BC #### [facility] [address] [place] [address] Dr. Mily Parra Lymphocytes/100 WBC (Bld) 18.3 % Critically low 20.5-60.0 [facility] Comment on above: Performed By: #### C BC #### [facility] [address] [place] [address] Dr. Mily Parra MANUAL DIFF REQ NO Normal [facility] Comment on above: Performed By: #### C BC #### [facility] [address] [place] [address] Dr. Mily Parra MCH (RBC) [Entitic mass] 29.7 pg Normal 25.9-34.0 [facility] Comment on above: Performed By: #### C BC #### [facility] [address] [place] [address] Dr. Mily Parra MCHC (RBC) [Mass/Vol] 33.7 g/dL Normal 29.9-35.2 [facility] Comment on above: Performed By: #### C BC #### [facility] [address] [address] [address] Mily Parra MCV (RBC) [Entitic vol] 88.1 fL Normal 80.0-94.0 [facility] Comment on above: Performed By: #### C BC #### [facility] [address] [address] [address] Mily Parra MONO # 0.9 103/ul Critically high 0.3-0.[address] [facility] Comment on above: Performed By: #### C BC #### [facility] [address] [address] [address] Mily Parra Monocytes/100 WBC (Bld) 6.2 % Normal 1.7-12.0 [facility] Comment on above: Performed By: #### C BC #### [facility] [address] [place] [address] Dr. Mily Parra NEUT # 10.3 103/ul Critically high 1.4-6.5 [facility] Comment on above: Performed By: #### C BC #### [facility] [address] [place] [address] Dr. Mily Parra Neutrophils/100 WBC (Bld) 70.8 % Normal 43.0-75.0 [facility] Comment on above: Performed By: #### C BC #### [facility] [address] [place] [address] Dr. Mily Parra Platelet mean volume (Bld) [Entitic vol] 9.0 fL Critically low 9.5-13.5 [facility] Comment on above: Performed By: #### C BC #### [facility] [address] [place] [address] Dr. Mily Parra PLT 278 103/ul Normal 150-450 [facility] Comment on above: Performed By: #### C BC #### [facility] [address] [place] [address] Dr. Mily Parra RBC 5.86 106/ul Normal 4.70-6.10 [facility] Comment on above: Performed By: #### C BC #### [facility] [address] [place] [address] Dr. Mily Parra WBC 14.6 103/ul Critically high 4.0-11.0 [facility] Comment on above: Performed By: #### C #### [facility] [id number] Mily Parra CT HEAD WO CONon [...] BHASKAR ANTUNEZ Date: 2022-06-23 14:21 Normal [facility] CTA NECK WO W CONon 06-23-20 [...] stenosis. LEFT VERTEBRAL ARTERY: No significant stenosis. [place] OF [place]: The bilateral intracranial internal carotid [...] Recommend thyroid ultrasound correlation. Electronically authenticated by: TJ MIMS Date: 2022-06-23 15:58 Normal [facility] CULTURE BLOODon 06-23-2022 Microscopic examination of blood, culture Culture Observations: NO GROWTH AT 5 DAYS. Normal [facility] Comment on above: Performed By: #### C BC #### [facility] [address] [place] [address] Dr. Mily Parra [facility]on SARS-CoV-2 (COVID-19) RNA RUBY+probe Ql (Unsp spec) Not detected Normal NOT DETECTED [facility] Comment on above: Result Comment: When [...] for this test is supported by the [employer] of Health and Human Service's declaration that [...] used). Performed By: #### C BC #### [facility] [address] [place] [address] Dr. Mily Parra D-DIMERon 06-23-2022 D-DIMER 0.31 mg/L FEU Normal <=0.59 [facility] Comment on above: Performed By: #### C MP #### [facility] [address] [place] [address] Dr. Mily Parra D-DIMER COMMENTS SEE BELOW Normal [facility] Comment on above: Result Comment: Incr [...] hospitalization. Performed By: #### C MP #### [facility] [address] [place] [address] Dr. Mily Parra ER URINE PROFILEon 2 Bilirubin Ql (U) Negative Normal NEGATIVE [facility] Comment on above: Performed By: #### E RUR #### [facility] [address] [place] [address] Dr. Mily Parra Clarity (U) CLEAR Normal CLEAR [facility] Comment on above: Performed By: #### E RUR #### [facility] [address] [place] [address] Dr. Mily Parra Color (U) LT. YELLOW Normal YELLOW [facility] Comment on above: Performed By: #### E RUR #### [facility] [address] [place] [address] Dr. Mily MENON A micrscopic examination will be performed if indicated. Normal [facility] Comment on above: Performed By: #### E RUR #### [facility] [address] [place] [address] Dr. Mily Parra Glucose Ql (U) >1000 Abnormal NEGATIVE [facility] Comment on above: Performed By: #### E RUR #### [facility] [address] [place] [address] Dr. Mily Parra Hemoglobin Ql (U) Negative Normal NEGATIVE [facility] Comment on above: Performed By: #### E RUR #### [facility] [address] [place] [address] Dr. Mily Parra Ketones Ql (U) TRACE Abnormal NEGATIVE [facility] Comment on above: Performed By: #### E RUR #### [facility] [address] [place] [address] Dr. Mily Parra LEUKOCYTES Negative Normal NEGATIVE [facility] Comment on above: Performed By: #### E RUR #### [facility] [address] [place] [address] Dr. Mily Parra Nitrite Ql (U) Negative Normal NEGATIVE [facility] Comment on above: Performed By: #### E RUR #### [facility] [address] [place] [address] Dr. Mily Parra pH (U) 6.0 [pH] Normal 5-9 [facility] Comment on above: Performed By: #### E RUR #### [facility] [address] [place] [address] Dr. Mily Parra SPEC GRAVITY 1.020 Normal 1.005-<=1.[address] [facility] Comment on above: Performed By: #### E RUR #### [facility] [address] [place] [address] Dr. Mily Parra UA PROTEIN Negative Normal NEGATIVE/ TRACE [facility] Comment on above: Performed By: #### E RUR #### [facility] [address] [place] [address] Dr. Mily Parra UR MICRO IND NOT INDICATED Normal [facility] Comment on above: Performed By: #### E RUR #### [facility] [address] [place] [address] Dr. Mily Parra Urobilinogen Qn (U) 0.2 {[place]'U}/dL Normal 0.2 - 1. 0 [facility] Comment on above: Performed By: #### E RUR #### [facility] [address] [place] [address] Dr. Mily Parra LACTATE/LACTIC ACIDon 2021 Lactate [Moles/Vol] 2.9 mmol/L Critically high 0.4-1.9 [facility] Comment on above: Performed By: #### C MP #### [facility] Laboratory [address] [place] [address] Dr. Mily Parra Lactate [Moles/Vol] 1.2 mmol/L Normal 0.4-1.9 [facility] Comment on above: Performed By: #### C BC #### [facility] [address] [place] [address] Dr. Mily Parra PH VENOUS BLOODon 06-23-2022 PCO2 VENOUS 36.9 mmHg Critically low 40.0-52.0 [facility] Comment on above: Performed By: #### C MP #### [facility] [address] [place] [address] Dr. Mily Parra pH VENOUS 7.399 Normal 7.330-7.430 [facility] Comment on above: Performed By: #### C MP #### [facility] [address] [place] [address] Dr. Mily Parra PROF 14(COMP METB)on 022 Albumin [Mass/Vol] 4.1 g/dL Normal 3.4-5.0 [facility] Comment on above: Performed By: #### C MP #### [facility] [address] [place] [address] Dr. Mily Parra Albumin/Globulin [Mass ratio] 1.1 {ratio} Normal [facility] Comment on above: Performed By: #### C MP #### [facility] [address] [address] [address] Mily Parra ALP [Catalytic activity/Vol] 56 U/L Normal 46-116 [facility] Comment on above: Performed By: #### C MP #### [facility] [address] [address] [address] Mily Parra ALT [Catalytic activity/Vol] 35 U/L Normal 16-63 [facility] Comment on above: Performed By: #### C MP #### [facility] [address] [place] [address] Dr. Mily Parra Anion gap [Moles/Vol] 11.1 mmol/L Normal [facility] Comment on above: Performed By: #### C MP #### [facility] [address] [place] [address] Dr. Mily Parra AST [Catalytic activity/Vol] 16 U/L Normal 15-37 [facility] Comment on above: Performed By: #### C MP #### [facility] [address] [place] [address] Dr. Mily Parra Bilirubin [Mass/Vol] 0.5 mg/dL Normal 0.2-1.0 [facility] Comment on above: Performed By: #### C MP #### [facility] [address] [place] [address] Dr. Mily Parra Calcium [Mass/Vol] 9.8 mg/dL Normal 8.5-10.1 [facility] Comment on above: Performed By: #### C MP #### [facility] [address] [place] [address] Dr. Mily Parra Chloride [Moles/Vol] 102 mmol/L Normal 98-107 [facility] Comment on above: Performed By: #### C MP #### [facility] [address] [place] [address] Dr. Mily Parra CO2 [Moles/Vol] 27.3 mmol/L Normal 21.0-32.0 [facility] Comment on above: Performed By: #### C MP #### [facility] [address] [place] [address] Dr. Mily Parra Creatinine [Mass/Vol] 0.86 mg/dL Normal 0.70-1.30 [facility] Comment on above: Performed By: #### C MP #### [facility] [address] [address] [address] Mily Parra EGFR-AF BOLIVIAN >60 Normal >=60 [facility] Comment on above: Performed By: #### C MP #### [facility] [address] [address] [address] Mily Parra EGFR-NON AF BOLIVIAN >60 Normal >=60 [facility] Comment on above: Performed By: #### C MP #### [facility] [address] [address] [address] Mily Parra Globulin (S) [Mass/Vol] 3.6 g/dL Normal [facility] Comment on above: Performed By: #### C MP #### [facility] [address] [place] [address] Dr. Mily Parra Glucose [Mass/Vol] 148 mg/dL Critically high 74-[address] [facility] Comment on above: Performed By: #### C MP #### [facility] [address] [address] [address] Mily Parra Potassium [Moles/Vol] 4.4 mmol/L Normal 3.5-5.1 [facility] Comment on above: Performed By: #### C MP #### [facility] [address] [place] [address] Dr. Mily Parra Protein [Mass/Vol] 7.7 g/dL Normal 6.4-8.2 [facility] Comment on above: Performed By: #### C MP #### [facility] [address] [address] [address] Mily Parra Sodium [Moles/Vol] 136 mmol/L Normal 136-145 [facility] Comment on above: Performed By: #### C MP #### [facility] [address] [place] [address] Dr. Mily Parra Urea nitrogen [Mass/Vol] 25.0 mg/dL Critically high 7.0-18.0 [facility] Comment on above: Performed By: #### C MP #### [facility] [address] [place] [address] Dr. Mily Parra Urea nitrogen/Creatinine [Mass ratio] 29.1 mg/mg Normal [facility] Comment on above: Performed By: #### C MP #### [facility] [address] [place] [address] Dr. Mily Parra PROTIMEon 06-23-2022 INR Coag (PPP) [Relative time] 0.97 {INR} Normal [facility] Comment on above: Performed By: #### C MP #### [facility] [address] [place] [address] Dr. Mily Parra INR GUIDELINES SEE BELOW Normal [facility] Comment on above: Result Comment: MARIA RED INR: 2.0 - 3.0 CONDITIONS NOT LISTED BELOW 2.5 - 3.5 FOR PROSTHETIC HEART VALVE REPLACEMENT 2.5 - 3.5 RECURRENT THROMBOSIS Performed By: #### C MP #### [facility] [address] [place] [address] Dr. Mily Parra PT Coag (PPP) [Time] 10.5 s Normal 9.0-11.6 [facility] Comment on above: Performed By: #### C MP #### [facility] [address] [place] [address] Dr. Mily Parra PTTon 06-23-2022 aPTT Coag (Bld) [Time] 26.7 s Normal 22.3-36.2 [facility] Comment on above: Performed By: #### C MP #### [facility] [address] [place] [address] Dr. Mily Parra TROPONIN, HIGH SENSITIVITYon 06-23-2022 HSTROP 5.5 pg/mL Normal 4.0-76.1 [facility] Comment on above: Result Comment: CUT- OFF POINTS HAVE BEEN ESTABLISHED BASED ON THE FOURTH UNIVERSAL DEFINITIONS OF MYOCARDIAL INFARCTION. THE UPPER REFERENCE LIMIT (URL) OF TROPONIN, DEFINED THE 99TH PERCENTILE OF cTnI DISTRIBUTION IN A REFERENCE POPULATION, HAS BEEN CONFIRMED THE DECISION THRESHOLD FOR PR DIAGNOSIS. Performed By: #### L IPID #### [facility] [address] [place] [address] Dr. Mily Parra HSTROP 12.1 pg/mL Normal 4.0-76.1 [facility] Comment on above: Result Comment: CUT- OFF POINTS HAVE BEEN ESTABLISHED BASED ON THE FOURTH UNIVERSAL DEFINITIONS OF MYOCARDIAL INFARCTION. THE UPPER REFERENCE LIMIT (URL) OF TROPONIN, DEFINED THE 99TH PERCENTILE OF cTnI DISTRIBUTION IN A REFERENCE POPULATION, HAS BEEN CONFIRMED THE DECISION THRESHOLD FOR PR DIAGNOSIS. Performed By: #### C MP #### [facility] [address] [place] [address] Dr. Mily Parra TSHon 06-23-2022 TSH 0.875 uIU/mL Normal 0.358-3.740 [facility] Comment on above: Performed By: #### L IPID #### [facility] [address] [place] [address] Dr. Mily Parra XR CHEST 1 Von [...] BHASKAR ANTUNEZ Date: 2022-06-23 14:07 Normal [facility] CBC AUTO DIFFon 03-21-2022 BASO # 0.1 103/ul Normal 0.0-0.1 [facility] Comment on above: Performed By: #### C BC #### [facility] [address] [place] [address] Dr. Mily Parra Basophils/100 WBC (Bld) 0.8 % Normal 0.2-2.0 [facility] Comment on above: Performed By: #### C BC #### [facility] [address] [place] [address] Dr. Mily Parra EO # 0.3 103/ul Normal 0.0-0.7 [facility] Comment on above: Performed By: #### C BC #### [facility] [address] [place] [address] Dr. Mily Parra Eosinophils/100 WBC (Bld) 2.8 % Normal 0.9-7.0 [facility] Comment on above: Performed By: #### C BC #### [facility] [address] [place] [address] Dr. Mily Parra Erythrocyte distribution width (RBC) [Ratio] 13.8 % Normal 11.0-15.0 [facility] Comment on above: Performed By: #### C BC #### [facility] [address] [place] [address] Dr. Mily Parra Hematocrit (Bld) [Volume fraction] 49.4 % Normal 42.0-54.0 [facility] Comment on above: Performed By: #### C BC #### [facility] [address] [place] [address] Dr. Mily Parra Hemoglobin (Bld) [Mass/Vol] 16.2 g/dL Normal 14.0-18.0 [facility] Comment on above: Performed By: #### C BC #### [facility] [address] [place] [address] Dr. Mily Parra IG # 0.03 10e3/ul Normal 0.00-0.03 [facility] Comment on above: Performed By: #### C BC #### [facility] [address] [place] [address] Dr. Mily Parra IG % 0.3 % Normal 0.0-0.5 [facility] Comment on above: Performed By: #### C BC #### [facility] [address] [place] [address] Dr. Mily Parra LYMPH # 2.0 103/ul Normal 1.2-3.8 [facility] Comment on above: Performed By: #### C BC #### [facility] [address] [place] [address] Dr. Mily Parra Lymphocytes/100 WBC (Bld) 20.3 % Critically low 20.5-60.0 [facility] Comment on above: Performed By: #### C BC #### [facility] [address] [place] [address] Dr. Mily Parra MANUAL DIFF REQ NO Normal [facility] Comment on above: Performed By: #### C BC #### [facility] [address] [place] [address] Dr. Mily Parra MCH (RBC) [Entitic mass] 29.0 pg Normal 25.9-34.0 [facility] Comment on above: Performed By: #### C BC #### [facility] [address] [place] [address] Dr. Mily Parra MCHC (RBC) [Mass/Vol] 32.8 g/dL Normal 29.9-35.2 [facility] Comment on above: Performed By: #### C BC #### [facility] [address] [place] [address] Dr. Mily Parra MCV (RBC) [Entitic vol] 88.4 fL Normal 80.0-94.0 [facility] Comment on above: Performed By: #### C BC #### [facility] [address] [place] [address] Dr. Mily Parra MONO # 0.7 103/ul Normal 0.3-0.8 [facility] Comment on above: Performed By: #### C BC #### [facility] [address] [place] [address] Dr. Mily Parra Monocytes/100 WBC (Bld) 7.2 % Normal 1.7-12.0 [facility] Comment on above: Performed By: #### C BC #### [facility] [address] [place] [address] Dr. Mily Parra NEUT # 6.6 103/ul Critically high 1.4-6.[address] [facility] Comment on above: Performed By: #### C BC #### [facility] [address] [place] [address] Dr. Mily Parra Neutrophils/100 WBC (Bld) 68.6 % Normal 43.0-75.0 [facility] Comment on above: Performed By: #### C BC #### [facility] [address] [address] [address] Mily Parra Platelet mean volume (Bld) [Entitic vol] 8.6 fL Critically low 9.5-13.5 [facility] Comment on above: Performed By: #### C BC #### [facility] [address] [address] [address] Mily Parra PLT 289 103/ul Normal 150-450 [facility] Comment on above: Performed By: #### C BC #### [facility] [address] [address] [address] Mily Parra RBC 5.59 106/ul Normal 4.70-6.10 [facility] Comment on above: Performed By: #### C BC #### [facility] [address] [place] [address] Dr. Mily Parra WBC 9.6 103/ul Normal 4.0-11.0 [facility] Comment on above: Performed By: #### C BC #### [facility] [address] [place] [address] Dr. Mily Parra GLYCOHEMOGLOBIN A1Con 2021 ADA RECOMMENDATION SEE BELOW Normal [facility] Comment on above: Result Comment: ADA RECOMMENDED LIMIT 4.0 - 6.0 ADA THERAPEUTIC TARGET < 7.0 ACTION SUGGESTED > 7.0 Performed By: #### A 1C #### [facility] [address] [place] [address] Dr. Mily Parra Glucose [Mass/Vol] 171 mg/dL Normal [facility] Comment on above: Performed By: #### A 1C #### [facility] [address] [place] [address] Dr. Mily Parra HbA1c (Bld) [Mass fraction] 7.6 % Critically high 4.5-6.2 [facility] Comment on above: Performed By: #### A 1C #### [facility] [address] [place] [address] Dr. Mily Parra PROF 14(COMP METB)on 08-01-2 022 Albumin [Mass/Vol] 4.0 g/dL Normal 3.4-5.0 [facility] Comment on above: Performed By: #### C MP #### [facility] [address] [place] [address] Dr. Mily Parra Albumin/Globulin [Mass ratio] 1.1 {ratio} Normal [facility] Comment on above: Performed By: #### C MP #### [facility] [address] [place] [address] Dr. Mily Parra ALP [Catalytic activity/Vol] 53 U/L Normal 46-116 [facility] Comment on above: Performed By: #### C MP #### [facility] [address] [place] [address] Dr. Mily Parra ALT [Catalytic activity/Vol] 32 U/L Normal 16-63 [facility] Comment on above: Performed By: #### C MP #### [facility] [address] [place] [address] Dr. Mily Parra Anion gap [Moles/Vol] 16.4 mmol/L Normal [facility] Comment on above: Performed By: #### C MP #### [facility] [address] [place] [address] Dr. Mily Parra AST [Catalytic activity/Vol] 21 U/L Normal 15-37 [facility] Comment on above: Performed By: #### C MP #### [facility] [address] [place] [address] Dr. Mily Parra Bilirubin [Mass/Vol] 0.9 mg/dL Normal 0.2-1.0 [facility] Comment on above: Performed By: #### C MP #### [facility] [address] [place] [address] Dr. Mily Parra Calcium [Mass/Vol] 9.2 mg/dL Normal 8.5-10.1 [facility] Comment on above: Performed By: #### C MP #### [facility] [address] [place] [address] Dr. Mily Parra Chloride [Moles/Vol] 101 mmol/L Normal 98-107 [facility] Comment on above: Performed By: #### C MP #### [facility] [address] [address] [address] Mily Parra CO2 [Moles/Vol] 26.2 mmol/L Normal 21.0-32.0 [facility] Comment on above: Performed By: #### C MP #### [facility] [address] [address] [address] Mily Parra Creatinine [Mass/Vol] 0.74 mg/dL Normal 0.70-1.30 [facility] Comment on above: Performed By: #### C MP #### [facility] [address] [address] [address] Mily Parra EGFR-AF BOLIVIAN >60 Normal >=60 [facility] Comment on above: Performed By: #### C MP #### [facility] [address] [address] [address] Mily Parra EGFR-NON AF BOLIVIAN >60 Normal >=60 [facility] Comment on above: Performed By: #### C MP #### [facility] [address] [address] [address] Mily Parra Globulin (S) [Mass/Vol] 3.5 g/dL Normal [facility] Comment on above: Performed By: #### C MP #### [facility] [address] [address] [address] Mily Parra Glucose [Mass/Vol] 135 mg/dL Critically high 74-[address] [facility] Comment on above: Performed By: #### C MP #### [facility] [address] [address] [address] Mily Parra Potassium [Moles/Vol] 4.6 mmol/L Normal 3.5-5.1 [facility] Comment on above: Performed By: #### C MP #### [facility] [address] [address] [address] Mily Parra Protein [Mass/Vol] 7.5 g/dL Normal 6.4-8.2 [facility] Comment on above: Performed By: #### C MP #### [facility] [address] [address] [address] Mily Parra Sodium [Moles/Vol] 139 mmol/L Normal 136-145 [facility] Comment on above: Performed By: #### C MP #### [facility] [address] [address] [address] Mily Parra Urea nitrogen [Mass/Vol] 16.0 mg/dL Normal 7.0-18.0 [facility] Comment on above: Performed By: #### C MP #### [facility] [address] [place] [address] Dr. Mily Parra Urea nitrogen/Creatinine [Mass ratio] 21.6 mg/mg Normal [facility] Comment on above: Performed By: #### C MP #### [facility] [address] [place] [address] Dr. Mily Parra LIPID PROFILEon 02-16-2022 CHOL-HDL RATIO NORM SEE BELOW Normal [facility] Comment on above: Result Comment: 3.3 - 4.4 LOW RISK 4.4 - 7.1 AVERAGE RISK 7.1 - 11.0 MODERATE RISK >11.0 HIGH RISK Performed By: #### L IPID #### [facility] [address] [place] [address] Dr. Mily Parra Cholesterol [Mass/Vol] 91 mg/dL Normal <=200 [facility] Comment on above: Performed By: #### L IPID #### [facility] [address] [place] [address] Dr. Mily Parra Cholesterol in HDL [Mass/Vol] 27 mg/dL Critically low 40-60 [facility] Comment on above: Performed By: #### L IPID #### [facility] [address] [address] [address] Mily Parra Cholesterol in LDL [Mass/Vol] 40.6 mg/dL Normal [facility] Comment on above: Performed By: #### L IPID #### [facility] [address] [place] [address] Dr. Mily Parra Cholesterol.total/Ch olesterol in HDL [Mass ratio] 3.4 {ratio} Normal [facility] Comment on above: Performed By: #### L IPID #### [facility] [address] [address] [address] Mily Parra HDL NORMAL > or = 60 mg/dl - LO W CARDIOVASCULAR RISK <40 mg/dl - HIGH CARDIOVASCULAR RISK Normal [facility] Comment on above: Performed By: #### L IPID #### [facility] [address] [address] [address] Mily Parra LDL CALC NORMAL SEE BELOW Normal [facility] Comment on above: Result Comment: <100 mg/dl OPTIMAL 100 - 129 mg/dl NEAR OR ABOVE OPTIMAL 130 - 159 mg/dl BORDERLINE HIGH 160 - 189 mg/dl HIGH >190 mg/dl VERY HIGH Performed By: #### L IPID #### [facility] [address] [address] [address] Mily Parra Triglyceride [Mass/Vol] 117 mg/dL Normal <=150 [facility] Comment on above: Performed By: #### L IPID #### [facility] [address] [address] [address] Mily Parra VLDL CALC 23.4 mg/dL Normal [facility] Comment on above: Performed By: #### L IPID #### [facility] [address] [address] [address] Mily Parra Social History Date Type Detail Facility Start: 09-27-2023 Alcohol intake Current drinker of alcohol (finding) [facility] Start: 09-27-2023 Alcohol Comment caffeine: more than 4 cups per day [facility] Start: 09-27-2023 Tobacco use and exposure Smokeless tobacco non-user [facility] Start: 09-08-2023 End: 09-27-2023 Sex Assigned At Male [facility] Start: 09-08-2023 End: 09-27-2023 Tobacco smoking status NHIS Ex-smoker [facility] Start: 09-08-2023 End: 09-27-2023 History of Social function [facility] Start: 08-31-2023 Sexual orientation Heterosexual (finding) [facility] Start: 08-31-2023 Gender identity Identifies as male gender (finding) [facility] Start: 11-14-2022 Tobacco smoking status Heavy tobacco smoker (finding) [facility] Start: 08-21-2009 History of tobacco use Current smoker [facility] Start: 08-21-2009 History of tobacco use Cigarette Smoker [facility] Start: 1965 Sex Assigned At Male [facility] History of tobacco use Passive smoker [facility] Vital Signs Date Time Vital Sign Value Performing Clinician Faci lity 09-27-2023 14:57-0500 Body height 162.6 cm Shaikh Brad NOLASCO Work Phone: [facility] 09-27-2023 14:57-0500 Body mass index (BMI) [Ratio] 40.34 kg/m2 Shaikh Brad NOLASCO Work Phone: [facility] 09-27-2023 14:57-0500 Body temperature 98.4 [degF] Shaikh Brad NOLASCO Work Phone: [facility] 09-27-2023 14:57-0500 Body weight 106.59 kg Shaikh Brad NOLASCO Work Phone: [facility] 09-27-2023 14:57-0500 Diastolic blood pressure 84 mm[Hg] Shaikh Brad NOLASCO Work Phone: [facility] 09-27-2023 14:57-0500 Heart rate 104 /min Shaikh Brad NOLASCO Work Phone: [facility] 09-27-2023 14:57-0500 SaO2% (BldA) [Mass fraction] 97 % Shaikh Brad NOLASCO Work Phone: [facility] 09-27-2023 14:57-0500 Systolic blood pressure 130 mm[Hg] Shaikh Brad NOLASCO Work Phone: [facility] Functional Status Date Assessment Result Facility 11-14-2022 Functional Status N/A [facility] History of Present illness Narrative 09-27-2023 Shaikh Brad MD - 09/27/2023 3:48 PM Checo Salinas MD - 09/27/2023 3:46 PM Checo Salinas MD - 09/27/2023 3:46 PM Checo Salinas MD - 09/27/2023 3:42 PM EST Note Date & Type Note Facility 09-27-2023 History of Presen t illness Narrative Associated Problem(s): Wellness examination Patient here for Annual Wellness Exam. Reviewed medical, surgical and social hx. Reviewed medication list. Health related questions and concerns addressed and answered. Patient provided appropriate education on chronic medical conditions and prescription medications. No active complaints to offer except for frequent hypoglycemic episodes on current regimen and this has been happening ever since he was started on glipizide Never had colon cancer screening - ordered cologuard for the patient. Associated Problem(s): Hyperlipidemia (CMS/HCC) On Lipitor and Zetia. Tolerating it well. No adverse effects. Associated Problem(s): Type 2 diabetes mellitus without complication, without long-term current use of insulin (CMS/HCC) Most recent labs: hemoglobin A1C 7.9 Average FSBS range from symptomatic hypoglycemia occurs 2-3 times per week. Frequent hypoglycemia ever since Glipizide was added. He uses it with meals. He usually experiences hypoglycemia in the evening towards the end of his shift. Its possible that his A1C will be much lower when its due for recheck or the mismatch is due to hyperglycemia at night after he eats his dinner. For now - decrease glipizide to 2.5 mg daily. C/w metformin and jardiance. Patient asked to maintain home blood glucose log and bring his readings next appointment in a month. Asked to reach out if continues to have hypoglycemia. Associated Problem(s): Chronic systolic heart failure (CMS/HCC) Stable, on GDMT. No evidence of fluid overload. Does not require Loop diuretic. No recent office/hospital visit for CHF exacerbation. Following [facility] cardiology. Associated Problem(s): Essential hypertension (CMS/HCC) BP well controlled. On average less than 130/90. Tolerating Anti hypertensive w/o adverse effects. Denies lightheadedness, dizziness, syncope, presyncope. Patient encouraged to continue with home BP monitoring and call office if he experiences orthostatic symptoms or persistently elevated BP. C/w Coreg, Entresto, Aldactone. Subjective Patient ID: Ron Lowery is a 58 y.o. male who presents for Annual Exam. Patient here for Annual Wellness Exam. Reviewed medical, surgical and social hx. Reviewed medication list. Health related questions and concerns addressed and answered. Patient provided appropriate education on chronic medical conditions and prescription medications. T2 DM: Labs discussed with patient. He reports intermittent hypoglycemia ever since he was started on Glipizide. Occurs 2-3 times per week. He has not passed out from it. However, he feels diaphoretic and confused and has to eat something for it. Lowest blood glucose levels he has measured are in 60s. Current Outpatient Medications on File Prior to Visit Medication Sig Dispense Refill [facility] Acid (vitamin C) 1000 MG tablet Take 1,000 mg by mouth in the morning. aspirin 81 MG EC tablet Take 81 mg by mouth in the morning. atorvastatin (Lipitor) 80 MG tablet Take 80 mg by mouth in the morning. carvedilol (Coreg) 25 MG tablet Take 25 mg by mouth in the morning and 25 mg in the evening. Take with meals. cholecalciferol (Vitamin D3) 25 MCG (1000 UT) tablet Take 1,000 Units by mouth in the morning. empagliflozin (Jardiance) 25 MG Take 1 tablet (25 mg) by mouth in the morning. 90 tablet 0 ezetimibe (Zetia) 10 MG tablet Take 10 mg by mouth in the morning. glipiZIDE (Glucotrol) 5 MG tablet Take 1 tablet (5 mg) by mouth in the morning. 90 tablet 0 metFORMIN, OSM, (Fortamet) 1000 MG 24 hr tablet Take 1,000 mg by mouth in the morning and 1,000 mg in the evening. Take with meals. Do not crush, chew, or split.. MULTIPLE VITAMINS PO Take by mouth sacubitril-valsartan (Entresto) 24-26 MG tablet Take 1 tablet by mouth in the morning and 1 tablet before bedtime. spironolactone (Aldactone) 25 MG tablet Take 12.5 mg by mouth in the morning. No current facility-administered medications on file prior to visit. No Known Allergies Review of System All systems negative except as mentioned in HPI. Visit Vitals BP 130/84 (BP Location: Left arm, Patient Position: Sitting, BP Cuff Size: Large adult) Pulse 104 Temp 98.4 F (Tympanic) Ht 5' 4 Wt 235 lb SpO2 97% BMI 40.34 kg/m Smoking Status Former BSA 2.2 m @LABRESULTS@ No images are attached to the encounter. Objective Doing well, reports hypoglycemic symptoms 2-3 times per week. No active complaints otherwise. Physical Exam General: Comfortable, NAD, obese. HEENT: AT/NC. Resp: Normal RR, CTA b/l CVS: Normal HR, No mumur noted. GI: soft, non tender, non distended. Neuro: AAOX 3, moving all extremities. Psych: Calm, co operative, no HI/SI. Assessment/Plan Problem List Items Addressed This Visit Type 2 diabetes mellitus without complication, without long-term current use of insulin ([facility]) Most recent labs: hemoglobin A1C 7.9 Average FSBS range from symptomatic hypoglycemia occurs 2-3 times per week. Frequent hypoglycemia ever since Glipizide was added. He uses it with meals. He usually experiences hypoglycemia in the evening towards the end of his shift. Its possible that his A1C will be much lower when its due for recheck or the mismatch is due to hyperglycemia at night after he eats his dinner. For now - decrease glipizide to 2.5 mg daily. C/w metformin and jardiance. Patient asked to maintain home blood glucose log and bring his readings next appointment in a month. Asked to reach out if continues to have hypoglycemia. Relevant Medications Lancets Ultra Thin 30G [facility] glucose blood test strip Chronic systolic heart failure (CMS/HCC) Stable, on GDMT. No evidence of fluid overload. Does not require Loop diuretic. No recent office/hospital visit for CHF exacerbation. Following [facility] cardiology. Essential hypertension (CMS/HCC) - Primary BP well controlled. On average less than 130/90. Tolerating Anti hypertensive w/o adverse effects. Denies lightheadedness, dizziness, syncope, presyncope. Patient encouraged to continue with home BP monitoring and call office if he experiences orthostatic symptoms or persistently elevated BP. C/w Coreg, Entresto, Aldactone. Hyperlipidemia (CMS/HCC) On Lipitor and Zetia. Tolerating it well. No adverse effects. Wellness examination Patient here for Annual Wellness Exam. Reviewed medical, surgical and social hx. Reviewed medication list. Health related questions and concerns addressed and answered. Patient provided appropriate education on chronic medical conditions and prescription medications. No active complaints to offer except for frequent hypoglycemic episodes on current regimen and this has been happening ever since he was started on glipizide Never had colon cancer screening - ordered cologuard for the patient. Follow up in about 4 weeks (around 10/25/2023). documented in this encounter [facility] Healthcare Progress note 08-01-2023 Note Date & Type Note Facility 08-01-2023 Note [place] [facility] Subjective Evaristo Lowery is a 58 y.o. year old male patient being seen for 6 mo follow up chronic systolic heart failure, CAD, and hypertension. Scheduled for routine device interrogation next month. Denies chest pain, SOB, and lightheadedness. Patient Active Problem List Diagnosis Bronchitis Chest pain Chronic systolic heart failure (CMS/HCC) Coronary atherosclerosis Diabetes mellitus (CMS/HCC) Disorder of lipid metabolism Dizziness Dyspnea Essential hypertension Hyperhidrosis Hyperlipidemia Implantable cardioverter-defibrillator (ICD) in situ Primary cardiomyopathy (CMS/HCC) Well adult health check BPH (benign prostatic hyperplasia) Kidney mass Family History Problem Relation Name Age of Onset Diabetes Maternal Grandmother Heart attack Maternal Grandfather Diabetes Paternal Grandmother Heart disease Paternal Grandfather Social History Tobacco Use Smoking status: Former Types: Cigarettes Smokeless tobacco: Never HPI Mr. Lowery is seen in follow-up. He is a 58-year-old man with prior history of CAD s/p stent 02/22/2005, HFrEF with hx of EF 25-30% s/p single chamber ICD replaced in 2015, ICM, HTN, HLD, DM. He has been doing well. He has no shortness of breath on exertion NYHA class I, and no angina. He has no lower extremity edema. He denies palpitations, lightheadedness or dizziness. Current medical therapy includes aspirin 81 mg daily, atorvastatin 80 mg daily, carvedilol 25 mg twice daily, ezetimibe 10 mg daily, Entresto 24-26 mg twice daily, spironolactone 12.5 mg daily, jardiance 10 mg daily, Metformin and glipizide. Review of Systems All other systems reviewed and are negative. Objective Visit Vitals BP 114/71 (BP Location: Right arm, Patient Position: Sitting) Pulse 94 Ht 1.6 m (5' 3 ) Wt 106 kg (234 lb) SpO2 97% BMI 41.45 kg/m??? Smoking Status Former BSA 2.17 m??? Physical Exam Constitutional: Appearance: He is well-developed. He is obese. He is not ill-appearing. HENT: Head: Normocephalic and atraumatic. Nose: Nose normal. Eyes: General: No scleral icterus. Pupils: Pupils are equal, round, and reactive to light. Neck: Thyroid: No thyromegaly. Vascular: No JVD. Cardiovascular: Rate and Rhythm: Normal rate and regular rhythm. Pulses: Radial pulses are 2+ on the right side and 2+ on the left side. Heart sounds: Normal heart sounds. No murmur heard. No friction rub. No gallop. Pulmonary: Effort: Pulmonary effort is normal. No respiratory distress. Breath sounds: Normal breath sounds. No wheezing or rales. Chest: Chest wall: No tenderness. Abdominal: General: Bowel sounds are normal. There is no distension. Palpations: Abdomen is soft. Tenderness: There is no abdominal tenderness. Musculoskeletal: General: No swelling. Cervical back: Neck supple. Skin: General: Skin is warm and dry. Neurological: General: No focal deficit present. Mental Status: He is alert and oriented to person, place, and time. Psychiatric: Mood and Affect: Mood normal. Behavior: Behavior is cooperative. Judgment: Judgment normal. Allergies No Known Allergies Medications Current Outpatient Medications: aspirin 81 mg EC tablet, in the morning., Disp: , Rfl: atorvastatin (Lipitor) 80 mg tablet, atorvastatin 80 mg tablet TAKE 1 TABLET BY MOUTH EVERY DAY, Disp: 90 tablet, Rfl: 3 carvedilol (Coreg) 25 mg tablet, carvedilol 25 mg tablet TAKE 1 TABLET BY MOUTH TWICE DAILY, Disp: , Rfl: ezetimibe (Zetia) 10 mg tablet, ezetimibe 10 mg tablet, Disp: 90 tablet, Rfl: 3 glipiZIDE XL (Glucotrol XL) 5 mg 24 hr tablet, Take 5 mg by mouth in the morning. Do not crush, chew, or split., Disp: , Rfl: metFORMIN (Glucophage) 500 mg tablet, metformin 500 mg tablet, Disp: , Rfl: sacubitriL-valsartan (Entresto) 49-51 mg tablet, Take 0.5 tablets by mouth in the morning and at bedtime., Disp: , Rfl: spironolactone (Aldactone) 25 mg tablet, spironolactone 25 mg tablet TAKE 1/2 TABLET BY MOUTH EVERY DAY, Disp: 45 tablet, Rfl: 3 empagliflozin (Jardiance) 10 mg, Jardiance 10 mg tablet TAKE 1 TABLET BY MOUTH EVERY DAY, Disp: 90 tablet, Rfl: 3 Recent Labs Blood testing 05/27/2023: Hemoglobin 15.9, platelets 267, potassium 4.7, BUN 22, creatinine 0.75, EGFR more than 60, hemoglobin A1c 8.7, LFTs normal, triglycerides 110, cholesterol 111, LDL 51, HDL 38 Blood testing 06/17/2021: BUN 24, creatinine 0.75, potassium 4.5. Labs 04/20/21: Cr. 0.91, BUN 18, K 4.2, GFR >60 Blood testing 05/16/2020: Cholesterol 135, HDL 33, LDL 83, triglycerides 96. Imaging and other tests Echocardiogram 01/03/2023: The left ventricle is mildly dilated with severely reduced systolic function. LVEF is 25% Normal right ventricular size and systolic function. No significant valvular dysfunction. Unable to assess right-sided pressures due to lack of measurable tricuspid regurgitation. No pericardial effus (more content not included)... [facility] Progress note 12-19-2022 Note Date & Type Note Facility 12-19-2022 Note Pt is here today for a 3 month follow up Review of Systems All other systems reviewed and are negative. [facility] Progress note 12-19-2022 Note Date & Type Note Facility 12-19-2022 Note Cardiology Clinic No te Subjective [...] for hospital f/U after recent evaluation at [facility] for chest pain. States they checked [...] Transthoracic echo (TTE) complete; Future Atherosclerosis of [place] coronary artery of [place] heart without angina pectoris Essential hypertension Benign hypertensive kidney disease with chronic kidney disease stage I through stage IV, or unspecified Plan 1. CAD: Status post PR and stenting in 2004. -Denies angina or [...] reevaluate LV functio (more content not included)... [facility] Hospital Discharge instructions 11-14-2022 Note Date & Type Note Facility 11-14-2022 Hospital Discharg e instructions Patient Education 11/14/2022 08:38:21 Renal Mass [...] provider gives to you. In general: Take ticc-fnf-xajvopl and prescription medicines only as told by [...] 03/04/2015 Document Revised: 09/13/2018 Document Reviewed: 09/13/2018 [facility] Patient Education 2020 [email or web address]. Follow Up Care 10/11/2022 10:10:39 With:Cabrera OJEDA MD, URL Address: [facility] [address], [place] [address]- When: Unknown [facility] Evaluation + Plan note Note Date & Type Note Facility Evaluation + Plan note Future Appointments Appointment Date:03/13/2023 02:30:00 PM Scheduled Provider:Cabrera OJEDA MD Location:[facility] Appointment Type:URO Office Visit [facility] Evaluation note Note Date & Type Note Facility Evaluation note Diagnosis Essential hypertension (CMS/HCC)- Primary Unspecified essential hypertension Chronic systolic heart failure (CMS/HCC) Chronic systolic heart failure Type 2 diabetes mellitus without complication, without long-term current use of insulin (CMS/HCC) Hyperlipidemia, unspecified hyperlipidemia type (CMS/HCC) Wellness examination documented in this encounter [facility] Hospital course Narrative Note Date & Type Note Facility Hospital course Narrative No data available for this section [facility] Progress note Note Date & Type Note Facility Progress note No data available for this section [facility] Summary Purpose Family History No Family History [...] section and content) DATE CREATED AUTHOR 10/20/2022 [facility] DATE CREATED AUTHOR AUTHOR'S ORGANIZ ATION 01/04/2023 [facility] DATE CREATED AUTHOR AUTHOR'S ORGANIZ ATION 10/04/2023 [facility] DATE CREATED AUTHOR AUTHOR'S ORGANIZ ATION 11/17/2023 Eyad Fuller [facility] DATE CREATED AUTHOR AUTHOR'S ORGANIZ ATION 12/22/2023 [facility] EPIC Patient Care team informatio n (unrecognized section and content) [employer] Consultant Relationship Specialty Start Date End Date Shaikh Salinas MD [address] [place] [id number] PCP - General Internal Medicine 09/08/23 [employer] Consultant Relationship Specialty Start Date End Date Shaikh Salinas MD [address] [place] [phone] PCP - General Internal Medicine 09/08/23 [employer] Consultant Relationship Specialty Start Date End Date Shaikh Salinas MD [address] [place] [phone] PCP - General Internal Medicine 09/08/23 Reason for Visit (unrecogniz ed section and content) Reason Comments Annual Exam FOR RECORDS PERTAINING TO PATIENTS WHO ARE [...] BE BASED ON THE PRIMARY CLINICAL RECORDS. [employer] [facility]. provides no warranty or guarantee of the accuracy or completeness of information in this document.
[2024-02-03 08:58] LABS: Basophils Absolute Auto 0.1 10^3/uL (0.0-0.1); Eosinophils Absolute Auto 0.3 10^3/uL (0.0-0.7); Eosinophils Percent Auto 2.9 % (0.9-7.0); Hematocrit 47.7 % (42.0-54.0); Hemoglobin 15.7 g/dL (14.0-18.0); Immature Granulocytes Abs Auto 0.03 10^3/uL (0.00-0.03); Immature Granulocytes Pct Auto 0.3 % (0.0-0.5); Lymphocytes Absolute Auto 1.8 10^3/uL (1.2-3.8); Lymphocytes Percent Auto 19.5 % (20.5-60.0); Mean Corpuscular HGB Conc 32.9 g/dL (29.9-35.2); Mean Corpuscular Hemoglobin 29.2 pg (25.9-34.0); Mean Corpuscular Volume 88.8 fL (80.0-94.0); Monocytes Absolute Auto 0.7 10^3/uL (0.3-0.8); Monocytes Percent Auto 7.7 % (1.7-12.0); Neutrophils Absolute Auto 6.4 10^3/uL (1.4-6.5); Neutrophils Percent Auto 68.6 % (43.0-75.0); Platelet Count 264 10^3/uL (150-450); Red Blood Count 5.37 10^6/uL (4.70-6.10); Red Cell Distribution Width 13.7 % (11.0-15.0); White Blood Count 9.3 10^3/uL (4.0-11.0)
[2024-02-03 09:07] LABS: Estimated Average Glucose 174 mg/dL; Glycohemoglobin A1C 7.7 % (4.5-6.2)
[2024-02-03 09:22] LABS: Alanine Aminotransferase 33 U/L (16-63); Albumin Level 3.6 g/dL (3.4-5.0); Alkaline Phosphatase 50 U/L (46-116); Anion Gap 12.3; Aspartate Amino Transferase 17 U/L (15-37); BUN Creatinine Ratio 30.1; Bilirubin Total 0.8 mg/dL (0.2-1.0); Calcium 8.7 mg/dL (8.5-10.1); Carbon Dioxide 28.5 mmol/L (21.0-32.0); Chloride 105 mmol/L (98-107); Chol HDL Ratio 2.9; Cholesterol 96 mg/dL (<=200); Estimated GFR (African America >60 (>=60); Estimated GFR (Non-African Ame >60 (>=60); Globulin 3.5 g/dL; Glucose 136 mg/dL (74-106); HDL Cholesterol 33 mg/dL (40-60); Potassium 4.8 mmol/L (3.5-5.1); Sodium 141 mmol/L (136-145); Total Protein 7.1 g/dL (6.4-8.2); Triglycerides 96 mg/dL (<=150); VLDL CHOLESTEROL 19.2 mg/dL
== END 2024-02-03 08:21 | disposition home or self-care (01) ==
LOC: LAB 08:20
PROVIDERS: PCP Internal Medicine; Visit Provider Internal Medicine
DX: E78.5 Hyperlipidemia, unspecified (principal); I10 Essential (primary) hypertension; E11.9 Type 2 diabetes mellitus without complications
CPT/HCPCS: 36415; 80053; 80061; 83036; 85025

== ENCOUNTER 2024-03-02 08:00 | Outpatient (OUT) | payer OTHER, SELFPAY ==
--- NOTE | 2024-03-02 | CT_ITS ---
The [address] [address] Patient Name: EVARISTO LOWERY MRN: [id number] date: 1965 Sex: M Assigned Patient Location: CT Current Patient Location: CT Accession/Order Number: [id number] Exam Date: 03/02/2024 08:23 Report Date: 03/03/2024 11:02 At the request of: JOSEPH JANG Procedure: CT abdomen pelvis wo/w con CLINICAL HISTORY: Renal MAss/Cyst. Follow-up evaluation. EXAMINATION: Unenhanced, enhanced scan of the abdomen and pelvis: 03/02/2024. COMPARISON: Unenhanced, enhanced CT scan of the abdomen and pelvis 03/06/2023. TECHNIQUE: 3 mm axial images from lung bases through ischial tuberosities without and following administration of intravenous contrast were obtained. Sagittal, coronal reconstructions were also performed. No oral contrast was utilized. FINDINGS: There is a single lead pacemaker device with electrode leads in the right ventricle. 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 The heart size otherwise seems normal. There are no filling defects in the cardiac chambers postcontrast. The visualized lung bases are normal. CT ABDOMEN: The liver, gallbladder, spleen appears normal. There are multiple punctate calcified granulomas within the spleen. The pancreas seems normal. The adrenal glands appear normal. The abdominal aorta has mild atherosclerotic changes. There is no aneurysm. There is no retroperitoneal or mesenteric adenopathy. The bowel loops are of normal caliber. Appendix appears normal. There are scattered diverticula in the colon with a diverticulitis of one of the diverticula of the proximal sigmoid colon with induration of surrounding fat, as well as thickening of the underlying colon but no perforation or abscess formation. Right kidney: There is no hydronephrosis, nephrolithiasis, perinephric fat stranding or ureterolithiasis. Postcontrast there are no suspiciously enhancing lesions in the right kidney. Left kidney: There is no hydronephrosis or nephrolithiasis. There is no perinephric fat stranding or ureterolithiasis. In the upper pole laterally there is a hyperdense nodule, which seem to have some calcifications within it. This nodule overall measures approximately 1.9 x 2.6 cm, and on the coronal reformatted images measures approximately 2.7 cm, with precontrast Hounsfield units of approximately 39 while on the postcontrast images the Hounsfield units for this lesion are approximately 39 therefore no significant enhancement. This seemed to have some calcifications. There is a small parapelvic cyst slightly inferiorly, which measures approximately 1.1 cm, precontrast Hounsfield units of 1. Postcontrast the Hounsfield units for this lesion are approximately 0. There is an additional partially exophytic lesion anteriorly, inferior pole of the kidney, measuring 3.7 cm in AP dimension with precontrast Hounsfield units of 9. Postcontrast the Hounsfield units for this lesion are approximately 7. The remaining left kidney is normal. CT PELVIS: The bladder, prostate, seminal vesicles appeared normal. There is no pelvic adenopathy. There are no focal fluid collections. Images on bone windows demonstrate no discrete lytic or sclerotic lesions except for vacuum disc phenomena and degenerative disc disease at L5-S1. CT/CT abdomen pelvis wo/w con IMPRESSION: 1. The hypodense nodule in the upper pole of the left kidney essentially unchanged to minimally smaller, however, there is no significant enhancement of this lesion. Most likely this represents a proteinaceous or hemorrhagic cyst however, low-grade papillary type renal cell carcinoma is in the differential consideration. Continued surveillance is advised if tissue biopsy is not considered. 2. No nephro or ureterolithiasis either on the right or the left side. 3. Several simple appearing cysts in the left kidney besides the above-mentioned lesion. 4. Normal appendix. 5. There is acute diverticulitis of the sigmoid colon without perforation or abscess formation. There is diverticular disease elsewhere in the colon. Electronically authenticated by: ISIAH JUAREZ Date: 03/03/2024 11:02
== END 2024-03-02 08:01 | disposition home or self-care (01) ==
LOC: CT 08:00
PROVIDERS: PCP Internal Medicine; Visit Provider Urology
DX: N28.89 Other specified disorders of kidney and ureter (principal)
CPT/HCPCS: 74178; Q9967

== ENCOUNTER 2024-03-05 16:49 | Observation (INO) | payer OTHER, SELFPAY ==
[2024-03-05] VITALS (27 sets, daily range): BP systolic 106–134; BP diastolic 69–85; PULSE 88–108; TEMP 36.8–37; O2SAT 93–97; BMI 39.3; BMI 39.2
--- NOTE | 2024-03-05 17:08 | ECG_ITS ---
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: : 1965 Requested By: SHAIKH MARY ALICE Order Number: [id number] Reading MD: ROZINA CHOI Measurements Intervals [place] Rate: 103 P: 61 MD: 182 QRS: -77 QRSD: 142 T: 94 QT: 360 QTc: 420 Interpretive Statements 1120 Sinus tachycardia 2330 Nonspecific intraventricular conduction block 3532 Lateral myocardial infarction, probably recent 9150 abnormal ECG Compared to ECG 06/23/2022 13:16:28 Left anterior fascicular block no longer present Left ventricular hypertrophy no longer present Early repolarization no longer present Myocardial infarct finding still present Electronically Signed On 03-06-2024 5:40:20 EDT by ROZINA CHOI
--- NOTE | 2024-03-05 17:17 | PC.NURSE ---
patient here with significant heart history, has pacemaker, on digoxin, previous CT. patient reports intermittent chest pain and dizziness over the past 2 days.
--- NOTE | 2024-03-05 17:33 | ED_ITS ---
HPI - Dizziness General Chief Complaint: Dizziness Stated Complaint: DIZZINESS Time Seen by Provider: 03/05/24 17:07 Source: patient Mode of arrival: walk-in Limitations: no limitations History of Present Illness HPI Narrative: Patient is coming to the ER with on and off chest pain that has been going on at least for the last few days, she mentioned that the pain is retrosternal radiating to the left arm mostly posteriorly to the elbow, when the pain comes is usually 5 out of 10 and it not associated with any sweating, although the patient have dizziness on exertion The patient also denies any room spinning sensation he denies any nausea vomiting fever chills or any difficulty breathing The patient mentioned that he was just 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 General: Well-appearing and in no apparent distress. Skin: Warm, dry, no pallor noted. No rash. Head: Normocephalic, atraumatic. Neck: Supple, non-tender. Eye: Pupils are equal, round and EOMI. No scleral icterus. Ears, Nose, Mouth, and Throat: TM are clear, no nasal mucosal hypertrophy. Oral mucosa is moist, no posterior oropharynx erythema, uvula is mid-line Cardiovascular: Regular Rate and Rhythm without murmur, gallop or rub. Respiratory: No accessory muscle use or respiratory distress. Lungs are clear to auscultation, no wheezing, rales or rhonchi Chest Wall: no tenderness Back: No midline thoracic or lumbar vertebral tenderness. No CVA tenderness Musculoskeletal: normal ROM, no calf or popliteal tenderness, no lower extremity edema/swelling GI: Abdomen is soft, non-distended. Normal bowel sounds. No masses appreciated. No tenderness to palpation. No rebound, guarding, or rigidity noted. Neurological: A&O x4. No cranial nerve dysfunction observed. No truncal ataxia. Moves all extremities. Sensation intact. Psychiatric: Cooperative and interactive. Normal mood and affect. Constitutional Vital Signs, click to edit/add: Last Vital Signs Temp 98.6 F 03/05/24 17:00 Pulse 108 H 03/05/24 17:00 Resp 14 03/05/24 17:00 BP 128/81 03/05/24 17:00 Pulse Ox 97 03/05/24 17:00 O2 Del Method Room Air 03/05/24 17:00 Course Vital Signs Vital signs: Vital Signs Temperature 98.6 F 03/05/24 17:00 Pulse Rate 108 H 03/05/24 17:00 Respiratory Rate 14 03/05/24 17:00 Blood Pressure 128/81 03/05/24 17:00 Pulse Oximetry 97 03/05/24 17:00 Oxygen Delivery Method Room Air 03/05/24 17:00 Temperature 98.6 F 03/05/24 17:00 Pulse Rate 108 H 03/05/24 17:00 Respiratory Rate 14 03/05/24 17:00 Blood Pressure 128/81 03/05/24 17:00 Pulse Oximetry 97 03/05/24 17:00 Oxygen Delivery Method Room Air 03/05/24 17:00 MDM - Dizziness MDM Narrative Medical decision making narrative: The patient EKG showing sinus tachycardia with a heart rate of 103 CBC and chemistry showed no acute pathology in the first troponin is negative The patient chest x-ray is pending as well as second troponin The patient is high risk and he will be admitted mostly for observation right now he was provided with aspirin 324 mg and he is pain-free at the moment pt care transferred to Dr Damian awaiting result of above work up Lab Data Labs: Lab Results 03/05/24 Range/Units 17:13 WBC 11.2 H (4.0-11.0) 10^3/uL RBC 5.93 (4.70-6.10) 10^6/uL Hgb 17.5 (14.0-18.0) g/dL Hct 53.1 (42.0-54.0) % MCV 89.5 (80.0-94.0) fL MCH 29.5 (25.9-34.0) pg MCHC 33.0 (29.9-35.2) g/dL RDW 13.4 (11.0-15.0) % Plt Count 341 (150-450) 10^3/uL MPV 9.3 L (9.5-13.5) fL Neut % (Auto) 66.2 (43.0-75.0) % Lymph % (Auto) 24.0 (20.5-60.0) % [place] % (Auto) 6.4 (1.7-12.0) % Eos % (Auto) 2.3 (0.9-7.0) % Baso % (Auto) 0.7 (0.2-2.0) % Neut # (Auto) 7.4 H (1.4-6.5) 10^3/uL Lymph # (Auto) 2.7 (1.2-3.8) 10^3/uL [place] # (Auto) 0.7 (0.3-0.8) 10^3/uL Eos # (Auto) 0.3 (0.0-0.7) 10^3/uL Baso # (Auto) 0.1 (0.0-0.1) 10^3/uL Abs Immat Gran (auto) 0.04 H (0.00-0.03) 10^3/uL Imm/Tot Granulo (auto) 0.4 (0.0-0.5) % PT 10.4 (9.0-11.6) sec INR 0.98 Sodium 135 L (136-145) mmol/L Potassium 3.8 (3.5-5.1) mmol/L Chloride 99 (98-107) mmol/L Carbon Dioxide 27.1 (21.0-32.0) mmol/L Anion Gap 12.7 BUN 33.0 H (7.0-18.0) mg/dL Creatinine 0.88 (0.70-1.30) mg/dL Est GFR ( Amer) >60 (>=60) Est GFR (Non-Af Amer) >60 (>=60) BUN/Creatinine Ratio 37.5 Glucose 112 H (74-106) mg/dL Calcium 9.6 (8.5-10.1) mg/dL Magnesium 2.0 (1.8-2.4) mg/dL Total Bilirubin 0.7 (0.2-1.0) mg/dL AST 16 (15-37) U/L ALT 28 (16-63) U/L Alkaline Phosphatase 67 (46-116) U/L Troponin I High Sens 5.0 (4.0-76.1) pg/mL Total Protein 8.4 H (6.4-8.2) g/dL Albumin 4.2 (3.4-5.0) g/dL Globulin 4.2 g/dL Albumin/Globulin Ratio 1.0 Digoxin 0.4 L (0.9-2.0) ng/mL Discharge Plan Discharge Patient Disposition: Still a Patient
[2024-03-05 17:36] LABS: Basophils Absolute Auto 0.1 10^3/uL (0.0-0.1); Basophils Percent Auto 0.7 % (0.2-2.0); Eosinophils Absolute Auto 0.3 10^3/uL (0.0-0.7); Eosinophils Percent Auto 2.3 % (0.9-7.0); Hematocrit 53.1 % (42.0-54.0); Hemoglobin 17.5 g/dL (14.0-18.0); Immature Granulocytes Abs Auto 0.04 10^3/uL (0.00-0.03); Immature Granulocytes Pct Auto 0.4 % (0.0-0.5); Lymphocytes Absolute Auto 2.7 10^3/uL (1.2-3.8); Mean Corpuscular Hemoglobin 29.5 pg (25.9-34.0); Mean Corpuscular Volume 89.5 fL (80.0-94.0); Mean Platelet Volume 9.3 fL (9.5-13.5); Monocytes Absolute Auto 0.7 10^3/uL (0.3-0.8); Monocytes Percent Auto 6.4 % (1.7-12.0); Neutrophils Absolute Auto 7.4 10^3/uL (1.4-6.5); Neutrophils Percent Auto 66.2 % (43.0-75.0); Platelet Count 341 10^3/uL (150-450); Red Blood Count 5.93 10^6/uL (4.70-6.10); Red Cell Distribution Width 13.4 % (11.0-15.0); White Blood Count 11.2 10^3/uL (4.0-11.0)
--- NOTE | 2024-03-05 17:36 | XR_ITS ---
[address] [address] Patient Name: EVARISTO LOWERY MRN: [id number] date: 1965 Sex: M Assigned Patient Location: ER Current Patient Location: ED.MAIN Accession/Order Number: [id number] Exam Date: 03/05/2024 17:40 Report Date: 03/05/2024 18:39 At the request of: JUDSON THOMAS Procedure: XR chest 1V EXAM: XR chest 1V HISTORY: cp COMPARISON: 07/03/2023 TECHNIQUE: Chest X-ray AP, 1 view FINDINGS: Support devices: Left-sided single lead AICD is unchanged in position. Lungs/pleura: No consolidation, effusion, or pneumothorax. Heart and mediastinum: Normal contours. Bones: No acute abnormality identified. XR/XR chest 1V Impression: No radiographic evidence of acute cardiopulmonary process. Electronically authenticated by: YISSEL HELTON Date: 03/05/2024 18:39
--- OUTSIDE RECORDS SUMMARY | 2024-03-05 17:37 | XMS_ITS | CCD ---
Author Organization [facility] Inform ion [facility] Care Team Providers Care Melt House Centrifugal Operator Name Role Phone Justin Smallwood Attending Unavailab kendra Smallwood, Justin Quiroz Admitting Unavailab Tony Malave Primary Care Physician KATIE, DR MACDONALD Attending Unavailable HOUSE, DR MACDONALD Consulting Unavailable [place], DR MACDONALD Primary Care Unavailable [place], DR MACDONALD Admitting Unavailable LARRY, ISIAH Consulting Unavailable [place], DR MACDONALD Primary Care Unavailable MISC, DR PATRICK Admitting Unavailable MISC, DR PATRICK Attending Unavailable MISC, DR PATRICK Consulting Unavailable [place], DR MACDONALD Primary Care Unavailable QUINTON, SAIMA Admitting Unavailable QUINTONSAIMA OBREGON Attending Unavailable QUINTON, SAIMA Consulting Unavailable HOWE, DR BAHSKAR Zarate Consulting Unavailable NADEREWilton, DR RUBEN Schwarz Admitting Unavailable HOUSE, DR MACDONALD Primary Care Unavailable NADERER, DR RUBEN Schwarz Attending Unavailable NADERER, DR RUBEN Schwarz Consulting Unavailable GRECHNY ., ROQUE AYALA Consulting Unavailabl e MIMS, JT Consulting Unavailable [place], DR MACDONALD Consulting Unavailable [place], DR MACDONALD Primary Care Unavailable [place], DR MACDONALD Admitting Unavailable HOUSE, DR MACDONALD Attending Unavailable HOUSE, DR MACDONALD Attending Unavailable HOUSE, DR TONY Milton Unavailable [place], DR MACDONALD Primary Care Unavailable [place], DR MACDONALD Admitting Unavailable ZIEBER, DR BLAYNE Núñez Consulting Unavailable Shaikh Salinas MD Primary Care Provider SHAIKH SALINAS Attending Unavailable SHAIKH SALINAS Attending Unavailable BRAD, Attending Unavailable SHAIKH SALINAS Attending Unavailable AHSAN NEWMAN Referring Unavailable AHSAN NEWMAN Referring Unavailable CHACHO SMITH Attending Unavailable AHSAN NEWMAN Referring Unavailable AHSAN NEWMAN Referring Unavailable Cabrera OJEDA Attending Unavailable Cabrera OJEDA Attending Unavailable Allergies Allergy Classification Reported Allergen(s) Allergy Type Date of Onset Reaction(s) Facility (1 source) No Known Medication Allergies; 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: [No Known Medication Allergies] Propensity to adverse reactions (disorder) [facility] Repository Medications Current Medications Medication Drug [...] complication, without long-term current use of insulin ([facility]) Take 1 tablet (25 mg) by mouth [...] use of insulin (CMS/HCC) Take 1 tablet (5 mg) by mouth [...] by mouth in the morning. 0 Active Problems Active Problems Problem Classification Problem Date Documented Date Episodic/Chronic Conduction disorders (6 sources) Automatic implantable cardiac defibrillator in situ; 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: [Presence of automatic (implantable) cardiac defibrillator] Onset: 07-31-2013 09-27-2023 Chronic Congestive heart failure; nonhypertensive (6 sources) Chronic systolic heart failure; 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: [Chronic systolic (congestive) heart failure] Onset: 04-28-2021 09-27-2023 Chronic Coronary atherosclerosis and other heart disease (12 sources) Atherosclerotic heart disease of [place] coronary artery without angina pectoris; 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: [Old [...] Onset: 06-23-2022 Episodic Other aftercare (1 source) terminal make up operator (current) use of aspirin; 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: [DETENTION CURRENT USE OF ASPIRIN] Onset: 07-04-2022 Episodic Other aftercare (1 source) terminal make up operator (current) use of oral hypoglycemic drugs; 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: [HR MANAGER USE ORAL HYPOGLYCEMIC DX] Onset: 07-04-2022 Episodic Other aftercare (1 source) Other termite technician (current) drug therapy; 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: [OTH HR MANAGER CURRENT DRUG THERAPY] Onset: 07-04-2022 Episodic Other upper respiratory infections (1 source) Acute sinusitis, unspecified; 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: [ACUTE SINUSITIS UNSPECIFIED] Onset: 07-04-2022 Episodic Screening and history of mental health and substance abuse codes (1 source) Personal history of nicotine dependence; 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: [PERSONAL HISTORY OF NICOTINE DEPEND] Onset: 07-04-2022 Episodic Results Test Name Value Interpretation Reference Range Facility Reminderson 02-15-2024 Reminders Reminders From: Lea Honeycutt To: EU - Recallyoshi Ojeda; Sent: 03/13/2023 16:51:05 EDT Show up: 01/20/2024 16:50:00 EDT Subject: Ct scan Due Date/Time: 02/05/2024 16:51:00 EDT Reminder/Recall Patient needs Ct scan Abd/Pelvis with contrast prior to March 11, 2024 appt. Pt wants [facility] CT order, demo's & H&P faxed to [facility]. Did call and LM on pt's VM notifying him that [facility] should be reaching out to him in the next 2wks to schedule. Normal [facility] MLR HEMOGLOBIN A1Con 024 Glucose [Mass/Vol] 180 mg/dL [facility] HbA1c (Bld) [Mass fraction] 7.9 % High 4.5 - 6.2 % [facility] Comment on above: ADA RECOMMENDED LIMI T 4.0 - 6.0 ADA THERAPEUTIC TARGET < 7.0 ACTION SUGGESTED > 7.0 Interpretation and review of laboratory results Abnormal [facility] CREAT RATIO RAN DOMon 09-23-2023 CREATININE URINE RANDOM 80.70 mg/dL 20.00 - 300.00 mg/dL [facility] MICROALBUM CREATININE RATIO UR 16.1 mg/g 0.0 - 29.9 mg/g [facility] Comment on above: NO MICROALBUMINURIA 0-29 MG/G CLINICAL MICROALBUMINURIA 30-300 MG/G MACROALBUMINURIA >300 MG/G MICROALBUMIN URINE RANDOM <1.3 NINF - 30.0 mg/dL [facility] Follow-up visit [id number] Evaristo Lowery 1965 M Date Provider Department Center 08/01/2023 CHACHO MALDONADO MARY Barajas Family History Problem Relation Age of Onset Diabetes Maternal Grandmother Heart attack Maternal Grandfather Diabetes Paternal Grandmother Heart disease Paternal Grandfather Family Status - Relation Status Age at Maternal Grandmother Maternal Grandfather Paternal Grandmother Paternal Grandfather Level of Service:14790 AR OFFICE/OUTPATIENT ESTABLISHED LOW MDM 20-29 MIN Normal [facility] Ambulatory Visit Summaryon 0 03-13-2023 Ambulatory Visit Summary EVARISTO LOWERY :1965 Visit Date:03/13/2023 Ambulatory Visit Instructions Your Diagnosis Kidney mass Prostate cancer screening Tests Performed Urnls Dip Stick Auto w/o Microscopy POC [address] CT Abdomen/Pelvis w/ + w/o Contrast -- [...] Cabrera OJEDA MD Where: [facility] Normal [facility] Patient Educationon 03-13-20 23 Patient Education [...] gives to you. In general: ? Take erjd-iii-[id number] and prescription medicines only as told by [...] provider. Document Revised: 02/01/2021 Document Reviewed: 02/01/2021 [employer] Patient Education ? 2022 [employer]. [facility] Urology Office/Clinic Noteon 03-13-2023 Urology Office/Clinic Note [...] cancer. [1] Follow-up With When Contact Information SUHAIL NOLASCO, Cabrera Núñez, URL [facility] [address] [place] [address] [phone] Additional Instructions: 1 yr w/ CT scan [...] Negative (03/13 (more content not included)... Normal [facility] Comment on above: Result Comment: Elec tronically Signed By: Cabrera OJEDA MD\.br\Date and Time Signed: 03/13/23 16:48 EDT\.br\Electronically Co-Signed By: Katherine Bear\.br\Date and Time Co-Signed: 03/13/23 16:46 EDT Pre-Certification Formon Pre-Certification Form [id number] .00CD:[address] [facility] RAD - CT Reporton 03-07-2023 RAD - CT Report [id number] .[id number]:[address] [facility] ECHOCARDIO M/2D COMPLETEon 0 01-03-2023 ECHOCARDIO M/2D COMPLETE Patient: EVARISTO LOWERY Exam Date: 01/03/2023 : 1965 Gender:M Ordering : MRS. MERRY LAIRD TANDEM OPERATOR Admission #: [id number] Family : Order #: [id number] CLICK HERE TO VIEW EXAM ECHOCARDIOGRAM REPORT [...] Smith M.D. on 01/03/2023 at 20:32 Normal [facility] XR knee LT 4V*on 10-19-2022 XR knee LT 4V* [facility] [place] [address] XRay Report Signed Patient: Evaristo Lowery MR#: [id number] : 1965 Acct:[id number] Age/Sex: 57 / M ADM Date: 10/19/22 Loc: XDCLY Room: Type: [facility] Attending Dr: Justin Smallwood TANDEM OPERATOR-C Copies to: Justin Smallwood CNP Ordering Provider: Justin Smallwood CNP Date of Service: 10/19/22 XR/XR knee LT 4V*: LEFT KNEE PAIN ([id number]) XR/XR elbow LT min 3V*: LEFT ELBOW [...] Cheri Castaneda M.D.10/19/2022 10:21 AM Dictation Location: [place] [address] Transcribed By: [facility] 10/19/22 1021 Dictated By: Cheri Castaneda MD 10/19/22 1012 Signed By: 10/19/22 1021 [facility] CREATININEon 10-01-2022 Creatinine [Mass/Vol] 0.75 mg/dL Normal 0.70-1.30 [facility] Comment on above: Performed By: #### C MP #### [facility] [address] [place] [address] Dr. Mily Parra EGFR-AF GREENLANDIC >60 Normal >=60 [facility] Comment on above: Performed By: #### C MP #### [facility] [address] [place] [address] Dr. Mily Parra EGFR-NON AF GREENLANDIC >60 Normal >=60 [facility] Comment on above: Performed By: #### C MP #### [facility] [address] [place] [address] ABDOMEN WO/W CONon [...] by: ISIAH JUAREZ Date: 2022-10-01 11:49 [address] [facility] CT ABD/PELVIS WO CONon 09-14 CT ABD/PELVIS [...] BLAYNE CHEN Date: 2022-09-14 15:18 Normal [facility] CBC AUTO DIFFon 06-24-2022 BASO # 0.1 103/ul Normal 0.0-0.1 [facility] Comment on above: Performed By: #### C BC #### [facility] [address] [address] [address] Mily Parra Basophils/100 WBC (Bld) 0.9 % Normal 0.2-2.0 [facility] Comment on above: Performed By: #### C BC #### [facility] [address] [place] [address] Dr. Mily Parra EO # 0.6 103/ul Normal 0.0-0.7 [facility] Comment on above: Performed By: #### C BC #### [facility] [address] [place] [address] Dr. Mily Parra Eosinophils/100 WBC (Bld) 6.0 % Normal 0.9-7.0 [facility] Comment on above: Performed By: #### C BC #### [facility] [address] [place] [address] Dr. Mily Parra Erythrocyte distribution width (RBC) [Ratio] 13.4 % Normal 11.0-15.0 [facility] Comment on above: Performed By: #### C BC #### [facility] [address] [place] [address] Dr. Mily Parra Hematocrit (Bld) [Volume fraction] 46.7 % Normal 42.0-54.0 [facility] Comment on above: Performed By: #### C BC #### [facility] [address] [place] [address] Dr. Mily Parra Hemoglobin (Bld) [Mass/Vol] 15.6 g/dL Normal 14.0-18.0 [facility] Comment on above: Performed By: #### C BC #### [facility] [address] [place] [address] Dr. Mily Parra IG # 0.03 10e3/ul Normal 0.00-0.03 [facility] Comment on above: Performed By: #### C BC #### [facility] [address] [place] [address] Dr. Mily Parra IG % 0.3 % Normal 0.0-0.5 [facility] Comment on above: Performed By: #### C BC #### [facility] [address] [place] [address] Dr. Mily Parra LYMPH # 3.0 103/ul Normal 1.2-3.8 [facility] Comment on above: Performed By: #### C BC #### [facility] [address] [place] [address] Dr. Mily Parra Lymphocytes/100 WBC (Bld) 28.1 % Normal 20.5-60.0 [facility] Comment on above: Performed By: #### C BC #### [facility] [address] [place] [address] Dr. Mily Parra MANUAL DIFF REQ NO Normal [facility] Comment on above: Performed By: #### C BC #### [facility] [address] [place] [address] Dr. Mily Parra MCH (RBC) [Entitic mass] 29.5 pg Normal 25.9-34.0 [facility] Comment on above: Performed By: #### C BC #### [facility] [address] [place] [address] Dr. Mily Parra MCHC (RBC) [Mass/Vol] 33.4 g/dL Normal 29.9-35.2 [facility] Comment on above: Performed By: #### C BC #### [facility] [address] [place] [address] Dr. Mily Parra MCV (RBC) [Entitic vol] 88.4 fL Normal 80.0-94.0 [facility] Comment on above: Performed By: #### C BC #### [facility] [address] [place] [address] Dr. Mily Parra MONO # 0.8 103/ul Normal 0.3-0.8 [facility] Comment on above: Performed By: #### C BC #### [facility] [address] [place] [address] Dr. Mily Parra Monocytes/100 WBC (Bld) 7.8 % Normal 1.7-12.0 [facility] Comment on above: Performed By: #### C BC #### [facility] [address] [place] [address] Dr. Mily Parra NEUT # 6.0 103/ul Normal 1.4-6.5 [facility] Comment on above: Performed By: #### C BC #### [facility] [address] [place] [address] Dr. Mily Parra Neutrophils/100 WBC (Bld) 56.9 % Normal 43.0-75.0 [facility] Comment on above: Performed By: #### C BC #### [facility] [address] [place] [address] Dr. Mily Parra Platelet mean volume (Bld) [Entitic vol] 8.8 fL Critically low 9.5-13.5 [facility] Comment on above: Performed By: #### C BC #### [facility] [address] [place] [address] Dr. Mily Parra PLT 233 103/ul Normal 150-450 [facility] Comment on above: Performed By: #### C BC #### [facility] [address] [place] [address] Dr. Mily Parra RBC 5.28 106/ul Normal 4.70-6.10 [facility] Comment on above: Performed By: #### C BC #### [facility] [address] [place] [address] Dr. Mily Parra WBC 10.5 103/ul Normal 4.0-11.0 [facility] Comment on above: Performed By: #### C BC #### [facility] [address] [place] [address] Dr. Mily Parra PROF CHEM 8 (BAS METB)on Anion gap [Moles/Vol] 8.9 mmol/L Normal [facility] Comment on above: Performed By: #### L IPID #### [facility] [address] [address] [address] Mily Parra Calcium [Mass/Vol] 8.6 mg/dL Normal 8.5-10.1 [facility] Comment on above: Performed By: #### L IPID #### [facility] [address] [place] [address] [address] Mily Parra Chloride [Moles/Vol] 107 mmol/L Normal 98-107 [facility] Comment on above: Performed By: #### L IPID #### [facility] [address] [address] [address] Mily Parra CO2 [Moles/Vol] 27.2 mmol/L Normal 21.0-32.0 [facility] Comment on above: Performed By: #### L IPID #### [facility] [address] [place] [address] Dr. Mily Parra Creatinine [Mass/Vol] 0.76 mg/dL Normal 0.70-1.30 [facility] Comment on above: Performed By: #### L IPID #### [facility] [address] [place] [address] Dr. Mily Parra EGFR-AF GREEN[place]IC >60 Normal >=60 [facility] Comment on above: Performed By: #### L IPID #### [facility] [address] [place] [address] Dr. Mily Parra EGFR-NON AF GRE[place]IC >60 Normal >=60 [facility] Comment on above: Performed By: #### L IPID #### [facility] [address] [place] [address] Dr. Mily Parra Glucose [Mass/Vol] 118 mg/dL Critically high 74-106 [facility] Comment on above: Performed By: #### L IPID #### [facility] [address] [place] [address] Dr. Mily Parra Potassium [Moles/Vol] 4.1 mmol/L Normal 3.5-5.1 [facility] Comment on above: Performed By: #### L IPID #### [facility] [address] [address] [address] Mily Parra Sodium [Moles/Vol] 139 mmol/L Normal 136-145 [facility] Comment on above: Performed By: #### L IPID #### [facility] [address] [place] [address] [address] Mily Parra Urea nitrogen [Mass/Vol] 20.0 mg/dL Critically high 7.0-18.0 [facility] Comment on above: Performed By: #### L IPID #### [facility] [address] [address] [address] Mily Parra Urea nitrogen/Creatinine [Mass ratio] 26.3 mg/mg Normal [facility] Comment on above: Performed By: #### L IPID #### [facility] [address] [place] [address] Dr. Mily Parra ACETONE SERUMon 06-23-2022 ACETONE Negative Normal NEGATIVE [facility] Comment on above: Performed By: #### A CETON #### [facility] [address] [place] [address] [address] Mily Parra BNPon 06-23-2022 Natriuretic peptide B (Bld) [Mass/Vol] 129.0 pg/mL Normal <=900.0 [facility] Comment on above: Performed By: #### L IPID #### [facility] [address] [place] [address] [address] Mily Parra CARDIAC CARLOS 3-6on 2 CK [Catalytic activity/Vol] 52 U/L Normal 39-308 [facility] Comment on above: Performed By: #### C MREP #### [facility] [address] [address] [address] Mily Parra CK.MB [Mass/Vol] 0.69 ng/mL Normal <=3.60 [facility] Comment on above: Performed By: #### C MREP #### [facility] [address] [place] [address] [address] Mily Parra HSTROP 11.6 pg/mL Normal 4.0-76.1 [facility] Comment on above: Result Comment: CUT- OFF POINTS HAVE BEEN ESTABLISHED BASED ON THE FOURTH UNIVERSAL DEFINITIONS OF MYOCARDIAL INFARCTION. THE UPPER REFERENCE LIMIT (URL) OF TROPONIN, DEFINED THE 99TH PERCENTILE OF cTnI DISTRIBUTION IN A REFERENCE POPULATION, HAS BEEN CONFIRMED THE DECISION THRESHOLD FOR MO DIAGNOSIS. Performed By: #### C MREP #### [facility] [address] [place] [address] Dr. Mily Parra CK [Catalytic activity/Vol] 48 U/L Normal 39-308 [facility] Comment on above: Performed By: #### C MREP #### [facility] [address] [place] [address] Dr. Mily Parra CK.MB [Mass/Vol] 0.58 ng/mL Normal <=3.60 [facility] Comment on above: Performed By: #### C MREP #### [facility] [address] [place] [address] Dr. Mily Parra HSTROP 6.1 pg/mL Normal 4.0-76.1 [facility] Comment on above: Result Comment: CUT- OFF POINTS HAVE BEEN ESTABLISHED BASED ON THE FOURTH UNIVERSAL DEFINITIONS OF MYOCARDIAL INFARCTION. THE UPPER REFERENCE LIMIT (URL) OF TROPONIN, DEFINED THE 99TH PERCENTILE OF cTnI DISTRIBUTION IN A REFERENCE POPULATION, HAS BEEN CONFIRMED THE DECISION THRESHOLD FOR MO DIAGNOSIS. Performed By: #### C MREP #### [facility] [address] [place] [address] Dr. Mily Parra CBC AUTO DIFFon 06-23-2022 BASO # 0.1 103/ul Normal 0.0-0.1 [facility] Comment on above: Performed By: #### C BC #### [facility] [address] [place] [address] Dr. Mily Parra Basophils/100 WBC (Bld) 0.7 % Normal 0.2-2.0 [facility] Comment on above: Performed By: #### C BC #### [facility] [address] [place] [address] Dr. Mily Parra EO # 0.5 103/ul Normal 0.0-0.7 [facility] Comment on above: Performed By: #### C BC #### [facility] [address] [place] [address] Dr. Mily Parra Eosinophils/100 WBC (Bld) 3.6 % Normal 0.9-7.0 [facility] Comment on above: Performed By: #### C BC #### [facility] [address] [place] [address] Dr. Mily Parra Erythrocyte distribution width (RBC) [Ratio] 13.4 % Normal 11.0-15.0 [facility] Comment on above: Performed By: #### C BC #### [facility] [address] [place] [address] Dr. Mily Parra Hematocrit (Bld) [Volume fraction] 51.6 % Normal 42.0-54.0 [facility] Comment on above: Performed By: #### C BC #### [facility] [address] [place] [address] Dr. Mily Parra Hemoglobin (Bld) [Mass/Vol] 17.4 g/dL Normal 14.0-18.0 [facility] Comment on above: Performed By: #### C BC #### [facility] [address] [place] [address] Dr. Mily Parra IG # 0.06 10e3/ul Critically high 0.00-0.03 [facility] Comment on above: Performed By: #### C BC #### [facility] [address] [place] [address] Dr. Mily Parra IG % 0.4 % Normal 0.0-0.5 [facility] Comment on above: Performed By: #### C BC #### [facility] [address] [place] [address] Dr. Mily Parra LYMPH # 2.7 103/ul Normal 1.2-3.8 [facility] Comment on above: Performed By: #### C BC #### [facility] [address] [place] [address] Dr. Mily Parra Lymphocytes/100 WBC (Bld) 18.3 % Critically low 20.5-60.0 [facility] Comment on above: Performed By: #### C BC #### [facility] [address] [place] [address] Dr. Mily Parra MANUAL DIFF REQ NO Normal [facility] Comment on above: Performed By: #### C BC #### [facility] [address] [place] [address] Dr. Mily Parra MCH (RBC) [Entitic mass] 29.7 pg Normal 25.9-34.0 [facility] Comment on above: Performed By: #### C BC #### [facility] [address] [place] [address] Dr. Mily Parra MCHC (RBC) [Mass/Vol] 33.7 g/dL Normal 29.9-35.2 [facility] Comment on above: Performed By: #### C BC #### [facility] [address] [place] [address] Dr. Mily Parra MCV (RBC) [Entitic vol] 88.1 fL Normal 80.0-94.0 [facility] Comment on above: Performed By: #### C BC #### [facility] [address] [place] [address] Dr. Mily Parra MONO # 0.9 103/ul Critically high 0.3-0.8 [facility] Comment on above: Performed By: #### C BC #### [facility] [address] [place] [address] Dr. Mily Parra Monocytes/100 WBC (Bld) 6.2 % Normal 1.7-12.0 [facility] Comment on above: Performed By: #### C BC #### [facility] [address] [place] [address] Dr. Mily Parra NEUT # 10.3 103/ul Critically high 1.4-6.5 [facility] Comment on above: Performed By: #### C BC #### [facility] [address] [place] [address] Dr. Mily Parra Neutrophils/100 WBC (Bld) 70.8 % Normal 43.0-75.0 [facility] Comment on above: Performed By: #### C BC #### [facility] [address] [place], [place] [address] Dr. Mily Parra Platelet mean volume (Bld) [Entitic vol] 9.0 fL Critically low 9.5-13.5 [facility] Comment on above: Performed By: #### C BC #### [facility] [address] [place], [place] [address] Dr. Mily Parra PLT 278 103/ul Normal 150-450 [facility] Comment on above: Performed By: #### C BC #### [facility] [address] [place] [address] [address] Mily Parra RBC 5.86 106/ul Normal 4.70-6.10 [facility] Comment on above: Performed By: #### C BC #### [facility] [address] [place] [address] [address] Mily Parra WBC 14.6 103/ul Critically high 4.0-11.0 [facility] Comment on above: Performed By: #### C BC #### [facility] [address] [place] [address] HEAD WO CONon [...] BHASKAR ANTUNEZ Date: 2022-06-23 14:21 Normal [facility] CTA NECK WO W CONon 06-23-20 22 [...] stenosis. LEFT VERTEBRAL ARTERY: No significant stenosis. [place]: The bilateral intracranial internal carotid [...] by: JT MIMS Date: 2022-06-23 15:58 Normal [facility] CULTURE BLOODon 06-23-2022 Microscopic examination of blood, culture Culture Observations: NO GROWTH AT 5 DAYS. Normal [facility] Comment on above: Performed By: #### C BC #### [facility] [address] [place] [address] [address] Mily Parra Microscopic examination of blood, culture Culture Observations: NO GROWTH AT 5 DAYS. Normal [facility] Comment on above: Performed By: #### C BC #### [facility] [address] [place] [address] [address] Mily Parra Covid-19 PCR ([facility])on SARS-CoV-2 (COVID-19) RNA RUBY+probe Ql (Unsp spec) Not detected Normal NOT DETECTED [facility] Comment on above: Result Comment: When diagnostic [...] for this test is supported by the [place] of [employer] and Human Service's declaration that [...] used). Performed By: #### C BC #### [facility] [address] [place] [address] [address] Mily Parra D-DIMERon 06-23-2022 D-DIMER 0.31 mg/L FEU Normal <=0.59 [facility] Comment on above: Performed By: #### C MP #### [facility] [address] [place] [address] [address] Mily Parra D-DIMER COMMENTS SEE BELOW Normal [facility] Comment on above: Result Comment: Incr [...] hospitalization. Performed By: #### C MP #### [facility] [address] [place] [address] Dr. Mily Parra ER URINE PROFILEon 2 Bilirubin Ql (U) Negative Normal NEGATIVE [facility] Comment on above: Performed By: #### E RUR #### [facility] [address] [place] [address] Dr. Mily Parra Clarity (U) CLEAR Normal CLEAR [facility] Comment on above: Performed By: #### E RUR #### [facility] [address] [place] [address] Dr. Mily Parra Color (U) LT. YELLOW Normal YELLOW [facility] Comment on above: Performed By: #### E RUR #### [facility] [address] [place] [address] Dr. Mily MENON A micrscopic examination will be performed if indicated. Normal [facility] Comment on above: Performed By: #### E RUR #### [facility] [address] [place] [address] Dr. Mily Parra Glucose Ql (U) >1000 Abnormal NEGATIVE [facility] Comment on above: Performed By: #### E RUR #### [facility] [address] [place] [address] Dr. Mily Parra Hemoglobin Ql (U) Negative Normal NEGATIVE [facility] Comment on above: Performed By: #### E RUR #### [facility] [address] [place] [address] Dr. Mily Parra Ketones Ql (U) TRACE Abnormal NEGATIVE [facility] Comment on above: Performed By: #### E RUR #### [facility] [address] [place] [address] Dr. Mily Parra LEUKOCYTES Negative Normal NEGATIVE [facility] Comment on above: Performed By: #### E RUR #### [facility] [address] [place] [address] Dr. Mily Parra Nitrite Ql (U) Negative Normal NEGATIVE [facility] Comment on above: Performed By: #### E RUR #### [facility] [address] [place] [address] Dr. Mily Parra pH (U) 6.0 [pH] Normal 5-9 [facility] Comment on above: Performed By: #### E RUR #### [facility] [address] [place] [address] Dr. Mily Parra SPEC GRAVITY 1.020 Normal 1.005-<=1.025 [facility] Comment on above: Performed By: #### E RUR #### [facility] [address] [place] [address] Dr. Mily aPrra UA PROTEIN Negative Normal NEGATIVE/ TRACE [facility] Comment on above: Performed By: #### E RUR #### [facility] [address] [place] [address] Dr. Mily Parra UR MICRO IND NOT INDICATED Normal [facility] Comment on above: Performed By: #### E RUR #### [facility] [address] [place] [address] Dr. Mily Parra Urobilinogen Qn (U) 0.2 {[place]'U}/dL Normal 0.2 - 1. 0 [facility] Comment on above: Performed By: #### E RUR #### [facility] [address] [place] [address] Dr. Mily Parra LACTATE/LACTIC ACIDon 2021 Lactate [Moles/Vol] 1.2 mmol/L Normal 0.4-1.9 [facility] Comment on above: Performed By: #### C BC #### [facility] [address] [place] [address] Dr. Mily Parra Lactate [Moles/Vol] 2.9 mmol/L Critically high 0.4-1.9 [facility] Comment on above: Performed By: #### C MP #### [facility] [address] [place] [address] [address] Mily Parra PH VENOUS BLOODon 06-23-2022 PCO2 VENOUS 36.9 mmHg Critically low 40.0-52.0 [facility] Comment on above: Performed By: #### C MP #### [facility] [address] [place] [address] [address] Mily Parra pH VENOUS 7.399 Normal 7.330-7.430 [facility] Comment on above: Performed By: #### C MP #### [facility] [address] [place] [address] Dr. Mily Parra PROF 14(COMP METB)on 022 Albumin [Mass/Vol] 4.1 g/dL Normal 3.4-5.0 [facility] Comment on above: Performed By: #### C MP #### [facility] [address] [place] [address] Dr. Mily Parra Albumin/Globulin [Mass ratio] 1.1 {ratio} Normal [facility] Comment on above: Performed By: #### C MP #### [facility] [address] [place] [address] Dr. Mily Parra ALP [Catalytic activity/Vol] 56 U/L Normal 46-116 [facility] Comment on above: Performed By: #### C MP #### [facility] [address] [place] [address] Dr. Mily Parra ALT [Catalytic activity/Vol] 35 U/L Normal 16-63 [facility] Comment on above: Performed By: #### C MP #### [facility] [address] [place] [address] Dr. Mily Parra Anion gap [Moles/Vol] 11.1 mmol/L Normal [facility] Comment on above: Performed By: #### C MP #### [facility] [address] [place] [address] Dr. Mily Parra AST [Catalytic activity/Vol] 16 U/L Normal 15-37 [facility] Comment on above: Performed By: #### C MP #### [facility] [address] [place] [address] [address] Mily Parra Bilirubin [Mass/Vol] 0.5 mg/dL Normal 0.2-1.0 [facility] Comment on above: Performed By: #### C MP #### [facility] [address] [place] [address] Dr. Mily Parra Calcium [Mass/Vol] 9.8 mg/dL Normal 8.5-10.1 [facility] Comment on above: Performed By: #### C MP #### [facility] [address] [place] [address] [address] Mily Parra Chloride [Moles/Vol] 102 mmol/L Normal 98-107 [facility] Comment on above: Performed By: #### C MP #### [facility] [address] [place] [address] Dr. Mily Parra CO2 [Moles/Vol] 27.3 mmol/L Normal 21.0-32.0 [facility] Comment on above: Performed By: #### C MP #### [facility] [address] [place] [address] Dr. Mily Parra Creatinine [Mass/Vol] 0.86 mg/dL Normal 0.70-1.30 [facility] Comment on above: Performed By: #### C MP #### [facility] [address] [place] [address] Dr. Mily Parra EGFR-AF [place] >60 Normal >=60 [facility] Comment on above: Performed By: #### C MP #### [facility] [address] [place] [address] [address] Mily Parra EGFR-NON AF [place] >60 Normal >=60 [facility] Comment on above: Performed By: #### C MP #### [facility] [address] [place] [address] Dr. Mily Parra Globulin (S) [Mass/Vol] 3.6 g/dL Normal [facility] Comment on above: Performed By: #### C MP #### [facility] [address] [place] [address] [address] Mily Parra Glucose [Mass/Vol] 148 mg/dL Critically high 74-106 [facility] Comment on above: Performed By: #### C MP #### [facility] [address] [place] [address] [address] Mily Parra Potassium [Moles/Vol] 4.4 mmol/L Normal 3.5-5.1 [facility] Comment on above: Performed By: #### C MP #### [facility] [address] [place] [address] [address] Mily Parra Protein [Mass/Vol] 7.7 g/dL Normal 6.4-8.2 [facility] Comment on above: Performed By: #### C MP #### [facility] [address] [place] [address] [address] Mily Parra Sodium [Moles/Vol] 136 mmol/L Normal 136-145 [facility] Comment on above: Performed By: #### C MP #### [facility] [address] [place] [address] [address] Mily Parra Urea nitrogen [Mass/Vol] 25.0 mg/dL Critically high 7.0-18.0 [facility] Comment on above: Performed By: #### C MP #### [facility] [address] [place] [address] [address] Mily Parra Urea nitrogen/Creatinine [Mass ratio] 29.1 mg/mg Normal [facility] Comment on above: Performed By: #### C MP #### [facility] [address] [place] [address] [address] Mily Parra PROTIMEon 06-23-2022 INR Coag (PPP) [Relative time] 0.97 {INR} Normal [facility] Comment on above: Performed By: #### C MP #### [facility] [address] [place] [address] [address] Mily Parra INR GUIDELINES SEE BELOW Normal [facility] Comment on above: Result Comment: MARIA RED INR: 2.0 - 3.0 CONDITIONS NOT LISTED BELOW 2.5 - 3.5 FOR PROSTHETIC HEART VALVE REPLACEMENT 2.5 - 3.5 RECURRENT THROMBOSIS Performed By: #### C MP #### [facility] [address] [place] [address] [address] Mily Parra PT Coag (PPP) [Time] 10.5 s Normal 9.0-11.6 [facility] Comment on above: Performed By: #### C MP #### [facility] [address] [place] [address] Dr. Mily Parra PTTon 06-23-2022 aPTT Coag (Bld) [Time] 26.7 s Normal 22.3-36.2 [facility] Comment on above: Performed By: #### C MP #### [facility] [address] [place] [address] Dr. Mily Parra TROPONIN, HIGH SENSITIVITYon 06-23-2022 HSTROP 12.1 pg/mL Normal 4.0-76.1 [facility] Comment on above: Result Comment: CUT- OFF POINTS HAVE BEEN ESTABLISHED BASED ON THE FOURTH UNIVERSAL DEFINITIONS OF MYOCARDIAL INFARCTION. THE UPPER REFERENCE LIMIT (URL) OF TROPONIN, DEFINED THE 99TH PERCENTILE OF cTnI DISTRIBUTION IN A REFERENCE POPULATION, HAS BEEN CONFIRMED THE DECISION THRESHOLD FOR MO DIAGNOSIS. Performed By: #### C MP #### [facility] [address] [place] [address] Dr. Mily Parra HSTROP 5.5 pg/mL Normal 4.0-76.1 [facility] Comment on above: Result Comment: CUT- OFF POINTS HAVE BEEN ESTABLISHED BASED ON THE FOURTH UNIVERSAL DEFINITIONS OF MYOCARDIAL INFARCTION. THE UPPER REFERENCE LIMIT (URL) OF TROPONIN, DEFINED THE 99TH PERCENTILE OF cTnI DISTRIBUTION IN A REFERENCE POPULATION, HAS BEEN CONFIRMED THE DECISION THRESHOLD FOR MO DIAGNOSIS. Performed By: #### L IPID #### [facility] [address] [place] [address] Dr. Mily Parra TSHon 06-23-2022 TSH 0.875 uIU/mL Normal 0.358-3.740 [facility] Comment on above: Performed By: #### L IPID #### [facility] [address] [place] [address] Dr. Mily Parra XR CHEST 1 Von [...] BHASKAR ANTUNEZ Date: 2022-06-23 14:07 Normal [facility] CBC AUTO DIFFon 03-21-2022 BASO # 0.1 103/ul Normal 0.0-0.1 [facility] Comment on above: Performed By: #### C BC #### [facility] [address] [place] [address] Dr. Mily Parra Basophils/100 WBC (Bld) 0.8 % Normal 0.2-2.0 [facility] Comment on above: Performed By: #### C BC #### [facility] [address] [place] [address] Dr. Mily Parra EO # 0.3 103/ul Normal 0.0-0.7 [facility] Comment on above: Performed By: #### C BC #### [facility] [address] [place] [address] Dr. Mily Parra Eosinophils/100 WBC (Bld) 2.8 % Normal 0.9-7.0 [facility] Comment on above: Performed By: #### C BC #### [facility] [address] [place] [address] Dr. Mily Parra Erythrocyte distribution width (RBC) [Ratio] 13.8 % Normal 11.0-15.0 [facility] Comment on above: Performed By: #### C BC #### [facility] [address] [place] [address] Dr. Mily Parra Hematocrit (Bld) [Volume fraction] 49.4 % Normal 42.0-54.0 [facility] Comment on above: Performed By: #### C BC #### [facility] [address] [place] [address] Dr. Mily Parra Hemoglobin (Bld) [Mass/Vol] 16.2 g/dL Normal 14.0-18.0 [facility] Comment on above: Performed By: #### C BC #### [facility] [address] [place] [address] Dr. Mily Parra IG # 0.03 10e3/ul Normal 0.00-0.03 [facility] Comment on above: Performed By: #### C BC #### [facility] [address] [place] [address] Dr. Mily Parra IG % 0.3 % Normal 0.0-0.5 [facility] Comment on above: Performed By: #### C BC #### [facility] [address] [place] [address] Dr. Mily Parra LYMPH # 2.0 103/ul Normal 1.2-3.8 [facility] Comment on above: Performed By: #### C BC #### [facility] [address] [place] [address] Dr. Mily Parra Lymphocytes/100 WBC (Bld) 20.3 % Critically low 20.5-60.0 [facility] Comment on above: Performed By: #### C BC #### [facility] [address] [place] [address] Dr. Mily Parra MANUAL DIFF REQ NO Normal [facility] Comment on above: Performed By: #### C BC #### [facility] [address] [place] [address] Dr. Mily Parra MCH (RBC) [Entitic mass] 29.0 pg Normal 25.9-34.0 [facility] Comment on above: Performed By: #### C BC #### [facility] [address] [place] [address] Dr. Mily Parra MCHC (RBC) [Mass/Vol] 32.8 g/dL Normal 29.9-35.2 [facility] Comment on above: Performed By: #### C BC #### [facility] [address] [place] [address] Dr. Mily Parra MCV (RBC) [Entitic vol] 88.4 fL Normal 80.0-94.0 [facility] Comment on above: Performed By: #### C BC #### [facility] [address] [place] [address] Dr. Mily Parra MONO # 0.7 103/ul Normal 0.3-0.8 [facility] Comment on above: Performed By: #### C BC #### [facility] [address] [place] [address] Dr. Mily Parra Monocytes/100 WBC (Bld) 7.2 % Normal 1.7-12.0 [facility] Comment on above: Performed By: #### C BC #### [facility] [address] [place] [address] Dr. Mily Parra NEUT # 6.6 103/ul Critically high 1.4-6.5 [facility] Comment on above: Performed By: #### C BC #### [facility] [address] [place] [address] Dr. Mily Parra Neutrophils/100 WBC (Bld) 68.6 % Normal 43.0-75.0 [facility] Comment on above: Performed By: #### C BC #### [facility] [address] [place] [address] Dr. Mily Parra Platelet mean volume (Bld) [Entitic vol] 8.6 fL Critically low 9.5-13.5 [facility] Comment on above: Performed By: #### C BC #### [facility] [address] [place] [address] Dr. Mily Parra PLT 289 103/ul Normal 150-450 [facility] Comment on above: Performed By: #### C BC #### [facility] [address] [place] [address] Dr. Mily Parra RBC 5.59 106/ul Normal 4.70-6.10 [facility] Comment on above: Performed By: #### C BC #### [facility] [address] [place] [address] Dr. Mily Parra WBC 9.6 103/ul Normal 4.0-11.0 [facility] Comment on above: Performed By: #### C BC #### [facility] [address] [place] [address] Dr. Mily Parra GLYCOHEMOGLOBIN A1Con 2021 ADA RECOMMENDATION SEE BELOW Normal [facility] Comment on above: Result Comment: ADA RECOMMENDED LIMIT 4.0 - 6.0 ADA THERAPEUTIC TARGET < 7.0 ACTION SUGGESTED > 7.0 Performed By: #### A 1C #### [facility] [address] [place] [address] Dr. Mily Parra Glucose [Mass/Vol] 171 mg/dL Normal [facility] Comment on above: Performed By: #### A 1C #### [facility] [address] [place] [address] Dr. Mily Parra HbA1c (Bld) [Mass fraction] 7.6 % Critically high 4.5-6.2 [facility] Comment on above: Performed By: #### A 1C #### [facility] [address] [place] [address] Dr. Mily Parra PROF 14(COMP METB)on 022 Albumin [Mass/Vol] 4.0 g/dL Normal 3.4-5.0 [facility] Comment on above: Performed By: #### C MP #### [facility] [address] [place] [address] Dr. Mily Parra Albumin/Globulin [Mass ratio] 1.1 {ratio} Normal [facility] Comment on above: Performed By: #### C MP #### [facility] [address] [place] [address] Dr. Mily Parra ALP [Catalytic activity/Vol] 53 U/L Normal 46-116 [facility] Comment on above: Performed By: #### C MP #### [facility] [address] [place] [address] Dr. Mily Parra ALT [Catalytic activity/Vol] 32 U/L Normal 16-63 [facility] Comment on above: Performed By: #### C MP #### [facility] [address] [place] [address] Dr. Mily Parra Anion gap [Moles/Vol] 16.4 mmol/L Normal [facility] Comment on above: Performed By: #### C MP #### [facility] [address] [address] [address] Mily Parra AST [Catalytic activity/Vol] 21 U/L Normal 15-37 [facility] Comment on above: Performed By: #### C MP #### [facility] [address] [address] [address] Mily Parra Bilirubin [Mass/Vol] 0.9 mg/dL Normal 0.2-1.0 [facility] Comment on above: Performed By: #### C MP #### [facility] [address] [address] [address] Mily Parra Calcium [Mass/Vol] 9.2 mg/dL Normal 8.5-10.1 [facility] Comment on above: Performed By: #### C MP #### [facility] [address] [address] [address] Mily Parra Chloride [Moles/Vol] 101 mmol/L Normal 98-107 [facility] Comment on above: Performed By: #### C MP #### [facility] [address] [address] [address] Mily Parra CO2 [Moles/Vol] 26.2 mmol/L Normal 21.0-32.0 [facility] Comment on above: Performed By: #### C MP #### [facility] [address] [address] [address] Mily Parra Creatinine [Mass/Vol] 0.74 mg/dL Normal 0.70-1.30 [facility] Comment on above: Performed By: #### C MP #### [facility] [address] [address] [address] Mily Parra EGFR-AF [place] >60 Normal >=60 [facility] Comment on above: Performed By: #### C MP #### [facility] [address] [address] [address] Mily Parra EGFR-NON AF [place] >60 Normal >=60 [facility] Comment on above: Performed By: #### C MP #### [facility] [address] [address] [address] Mily Parra Globulin (S) [Mass/Vol] 3.5 g/dL Normal [facility] Comment on above: Performed By: #### C MP #### [facility] [address] [address] [address] Mily Parra Glucose [Mass/Vol] 135 mg/dL Critically high 74-106 T [facility] Comment on above: Performed By: #### C MP #### [facility] [address] [address] [address] Mliy Parra Potassium [Moles/Vol] 4.6 mmol/L Normal 3.5-5.1 [facility] Comment on above: Performed By: #### C MP #### [facility] [address] [address] [address] Mily Parra Protein [Mass/Vol] 7.5 g/dL Normal 6.4-8.2 [facility] [facility] Comment on above: Performed By: #### C MP #### [facility] [address] [address] [address] Mily Parra Sodium [Moles/Vol] 139 mmol/L Normal 136-145 [facility] Comment on above: Performed By: #### C MP #### [facility] [address] [address] [address] Mily Parra Urea nitrogen [Mass/Vol] 16.0 mg/dL Normal 7.0-18.0 [facility] Comment on above: Performed By: #### C MP #### [facility] [address] [address] [address] Mily Parra Urea nitrogen/Creatinine [Mass ratio] 21.6 mg/mg Normal [facility] Comment on above: Performed By: #### C MP #### [facility] [address] [address] [address] Mily Parra LIPID PROFILEon 02-16-2022 CHOL-HDL RATIO NORM SEE BELOW Normal [facility] Comment on above: Result Comment: 3.3 - 4.4 LOW RISK 4.4 - 7.1 AVERAGE RISK 7.1 - 11.0 MODERATE RISK >11.0 HIGH RISK Performed By: #### L IPID #### [facility] [address] [address] [address] Mily Parra Cholesterol [Mass/Vol] 91 mg/dL Normal <=200 [facility] Comment on above: Performed By: #### L IPID #### [facility] [address] [address] [address] Mily Parra Cholesterol in HDL [Mass/Vol] 27 mg/dL Critically low 40-60 [facility] Comment on above: Performed By: #### L IPID #### [facility] [address] [address] [address] Mily Parra Cholesterol in LDL [Mass/Vol] 40.6 mg/dL Normal [facility] Comment on above: Performed By: #### L IPID #### [facility] [address] [place] [address] Dr. Mily Parra Cholesterol.total/Ch olesterol in HDL [Mass ratio] 3.4 {ratio} Normal [facility] Comment on above: Performed By: #### L IPID #### [facility] [address] [place] [address] Dr. Mily Parra HDL NORMAL > or = 60 mg/dl - LO W CARDIOVASCULAR RISK <40 mg/dl - HIGH CARDIOVASCULAR RISK Normal [facility] Comment on above: Performed By: #### L IPID #### [facility] [address] [place] [address] Dr. Mily Parra LDL CALC NORMAL SEE BELOW Normal [facility] Comment on above: Result Comment: <100 mg/dl OPTIMAL 100 - 129 mg/dl NEAR OR ABOVE OPTIMAL 130 - 159 mg/dl BORDERLINE HIGH 160 - 189 mg/dl HIGH >190 mg/dl VERY HIGH Performed By: #### L IPID #### [facility] [address] [place] [address] Dr. Mily Parra Triglyceride [Mass/Vol] 117 mg/dL Normal <=150 [facility] Comment on above: Performed By: #### L IPID #### [facility] [address] [address] [address] Mily Parra VLDL CALC 23.4 mg/dL Normal [facility] Comment on above: Performed By: #### L IPID #### [facility] [address] [place], [place] [id number] Dr. Mily Parra Vital Signs Date Time Vital Sign Value Performing Clinician Faci lity 09-27-2023 14:57-0500 Body height 162.6 cm Shaikh Brad NOLASCO Work Phone: [facility] 09-27-2023 14:57-0500 Body mass index (BMI) [Ratio] 40.34 kg/m2 Shaikh Brad NOLASCO Work Phone: [facility] 09-27-2023 14:57-0500 Body temperature 98.4 [degF] Shaikh Brad NOLASCO Work Phone: [facility] 09-27-2023 14:57-0500 Body weight 106.59 kg Shaikh Brad NOLASCO Work Phone: [facility] 09-27-2023 14:57-0500 Diastolic blood pressure 84 mm[Hg] Shaikh Brad NOLASCO Work Phone: [facility] 09-27-2023 14:57-0500 Heart rate 104 /min Shaikh Brad NOLASCO Work Phone: [facility] 09-27-2023 14:57-0500 SaO2% (BldA) [Mass fraction] 97 % Shaikh Brad NOLASCO Work Phone: [facility] 09-27-2023 14:57-0500 Systolic blood pressure 130 mm[Hg] Shaikh Brad NOLASCO Work Phone: [facility] Encounters Encounter Date Encounter Type Care Provider Facility Start: 03-18-2024 ambulatory Cabrera Bowman ty:KENDRA Espinoza Start: 02-07-[address] [facility] Start: 02-07-2024 Encounter for preprocedural cardiovascular examination [facility] Start: 02-05-2024 End: 02-05-2024 ambulatory SHAIKH LYNNEGeoffrey Not Available Start: 12-20-2023 End: 12-20-2023 ambulatory SHAIKH FARHADJONE Not Available Start: 11-07-2023 End: 11-07-2023 ambulatory SHAIKH TRUDIHILARY Not Available Start: 10-03-2023 End: 10-03-2023 ambulatory A[facility] Start: 09-27-2023 End: 09-27-2023 Periodic preventive med est patient 40-64yrs Shaikh Brad NOLASCO Work Phone: [facility] Comment on above: Essential hypertensi on (CMS/HCC) (Primary Dx); Chronic systolic heart failure (CMS/HCC); Type 2 diabetes mellitus without complication, without long-term current use of insulin (CMS/HCC); Hyperlipidemia, unspecified hyperlipidemia type (CMS/HCC); Wellness examination Start: 09-27-2023 End: 09-27-2023 ambulatory SHAIKH BRAD Not Available Start: 09-27-2023 Chart abstracting Shaikh Lynne kessler MD Work Phone: [facility] Start: 09-27-2023 End: 09-27-2023 Patient encounter status Shaikh Brad NOLASCO Work Phone: [facility] Start: 09-23-2023 Clinisync Result Encounter Shaikh Brad NOLASCO Work Phone: [facility] Unsolicited Start: 09-23-2023 Clinisync Result Encounter Shaikh Brad NOLASCO Work Phone: [facility] Unsolicited Start: 08-01-2023 End: 08-01-2023 ambulatory CHACHO [facility] Start: 03-13-2023 End: 03-13-2023 ambulatory Cabrera OJEDA Facility:[facility] Start: 02-22-2023 End: 02-22-2023 ambulatory [facility] Start: 01-03-2023 End: 01-04-[address] TONY WILSON Facility:[facility] Start: 11-14-2022 End: 11-14-2022 Patient encounter procedure Cabrera OJEDA [facility] Start: 10-19-2022 End: 10-19-2022 ambulatory Justin Smallwood Facility:[facility] Start: 10-01-2022 End: 10-02-[address] [...] Ga Salinas MD Work Phone: Start: 09-23-2023 [facility] MICROALB CREAT R ATIO RANDOM Shaikh Brad NOLASCO Work Phone: Start: 03-21-[address] EDNA WILSON Comment on above: Performed By: #### C MP #### [facility] [address] [place] [address] Dr. Mily Parra Aortic stent (physic al object) Cabrera OJEDA Defibrillator, devic e (physical object) Cabrera OJEDA Knee region structur e (body structure) Cabrera OJEDA Shoulder region stru cture (body structure) Cabrera OJEDA Plan of Treatment Date Care Activity Detail Author Start: 09-25-2024 Urine screening for protein Diabetes: Urine Protein Screening [facility] Start: 08-21-2024 Glaucoma screening Diabetes: R etinopathy Screening [facility] Start: 02-18-2024 Influenza vaccination Influenza Vacc ine (#1) [facility] Comment on above: Postponed from 04/21 (Patient Refused) Start: 12-24-2023 Hemoglobin A1c measurement Diabetes: Hemoglobin A1C [facility] Start: 10-30-2023 End: 10-30-2023 Patient encounter procedure 10/30/2023 2:45 PM EDT Office Visit [facility] [address] [place] [address] Shaikh Salinas MD [address] [place] [phone] [facility] Start: 09-27-2023 End: 09-27-2023 Patient encounter procedure 09/27/2023 2:15 PM EST Office Visit [facility] [address] [place] [phone] Shaikh Salinas MD [address] [place] [phone] [facility] Start: 08-27-2023 Hemoglobin A1c measurement Diabetes: Hemoglobin A1C [facility] Start: 1985 Urine screening for protein Diabetes: Urine Protein Screening [facility] Start: 1966 Screening for malign ant neoplasm of colon [facility] Immunizations Immunization Date Immunization Notes Care Provider Fa cili 06-02-2021 SARS-CoV-2 (COVID-19 ) mRNA BNT-162b2 vax Cabrera OJEDA [facility] 05-12-2021 SARS-CoV-2 (COVID-19 ) mRNA BNT-162b2 isabel OJEDA [facility] 01-27-2016 tetanus toxoid, redu cedric diphtheria toxoid, and acellular pertussis vaccine, adsorbed Cabrera OJEDA [facility] Olga Payers Date Payer Category Payer Self-pay 2022 Unknown [employer] [id number] 2022-Present [phone] [address] [address] [place] [address] [id number] 1966 Unknown [id number] 3 1966 Unknown [id number] [id number] 3 1966 Unknown [id number] [id number] 3 1966 Unknown [id number] [id number] 3 1966 Unknown [id number] [id number] 3 1966 Unknown [id number] 2.16.840.1.152344.3.579.2.59 3 1966 Unknown [id number] [id number] 59 1966 Unknown [id number] 2.16.840.1.658236.3.579.2.12 59 1966 Unknown [id number] 2.16.840.1.543878.3.579.2.12 59 1966 Unknown [id number] 2.16.840.1.099095.3.579.2.12 59 1966 Unknown [id number] 2.16.840.1.873114.3.579.2.72 7 1966 Unknown [id number] [id number] 7 1959 Unknown [id number] 1959 Unknown [id number] Unknown [id number] [id number] 1 Social History Date Type Detail Facility Start: 11-14-2022 Tobacco smoking status Heavy tobacco smoker (finding) [facility] Start: 09-08-2023 End: 09-27-[address] Male [facility] Start: 09-08-2023 End: 09-27-2023 Tobacco smoking status NHIS Ex-smoker [facility] Start: 08-21-2009 History of tobacco use Current smoker [facility] Start: 08-21-2009 History of tobacco use Cigarette Smoker [facility] Start: 09-08-2023 End: 09-27-2023 History of Social function [facility] Start: 1965 Sex Assigned At Male [facility] Start: 08-31-2023 Gender identity Identifies as male gender (finding) [facility] Start: 08-31-2023 Sexual orientation Heterosexual (finding) [facility] Start: 09-27-2023 Alcohol intake Current drinker of alcohol (finding) [facility] Start: 09-27-2023 Alcohol Comment caffeine: more than 4 cups per day [facility] History of tobacco use Passive smoker [facility] Start: 09-27-2023 Tobacco use and exposure Smokeless tobacco non-user [facility] Medical Equipment Procedure Code Equipment Code Equipment Origin al Text Equipment Identifier Dates 1 each by Other route every 12 (twelve) hours Twice a day - whatever brand is covered under patients insurance. [id number] Start: 09-27-2023 End: 04-19-2027 1 each every 12 (twelve) hours [id number] Start: 09-27-2023 End: 12-26-2023 Functional Status Date Assessment Result Facility 11-14-2022 Functional Status N/A [facility] History of Present illness Narrative 09-27-2023 Shaikh [...] recent office/hospital visit for CHF exacerbation. Following [facility] cardiology. Associated Problem(s): Essential hypertension (CMS/HCC) BP [...] hypoglycemia. Relevant Medications [facility] test strip Chronic systolic heart failure (CMS/HCC) Stable, on GDMT. No evidence of fluid overload. Does not require Loop diuretic. No recent office/hospital visit for CHF exacerbation. Following [facility] cardiology. Essential hypertension (CMS/HCC) - Primary BP [...] weeks (around 10/25/2023). documented in this encounter [facility] Progress note 08-01-2023 Note Date & Type Note Facility 08-01-2023 Note [place] [facility] Subjective Evaristo Lowery is a [...] 25-30% s/p single chamber ICD replaced in 2014, ICM, HTN, HLD, DM. He has been [...] No pericardial effus (more content not included)... [facility] Discharge instructions 11-14-2022 Note Date [...] provider gives to you. In general: Take ltca-eiv-nvobnay and prescription medicines only as told by [...] 03/04/2015 Document Revised: 09/13/2018 Document Reviewed: 09/13/2018 [employer] Patient Education 2020 [employer]. Follow Up Care 10/11/2022 10:10:39 With:Cabrera OJEDA MD, URL Address: [facility] [address], [place] [address]- When: Unknown [facility] Evaluation + Plan note Note Date & Type Note Facility Evaluation + Plan note Future Appointments Appointment Date:03/13/2023 02:30:00 PM Scheduled Provider:Cabrera OJEDA MD Location:[facility] Appointment Type:URO Office Visit [facility] Evaluation note Note Date & Type Note Facility Evaluation note Diagnosis Essential hypertension (CMS/HCC)- Primary Unspecified essential hypertension Chronic systolic heart failure (CMS/HCC) Chronic systolic heart failure Type 2 diabetes mellitus without complication, without long-term current use of insulin (CMS/HCC) Hyperlipidemia, unspecified hyperlipidemia type (CMS/HCC) Wellness examination documented in this encounter [facility] course Narrative Note Date & Type Note Facility Hospital course Narrative No data available for this section [facility] Progress note Note Date & Type Note Facility Progress note No data available for this section [facility] Summary Purpose Family History No Family History [...] section and content) DATE CREATED AUTHOR 10/20/2022 [facility] DATE CREATED AUTHOR AUTHOR'S ORGANIZ ATION 01/04/2023 [facility] DATE CREATED AUTHOR AUTHOR'S ORGANIZ ATION 02/06/2024 [facility] EPIC DATE CREATED AUTHOR AUTHOR'S ORGANIZ ATION 02/08/2024 [facility] DATE CREATED AUTHOR AUTHOR'S ORGANIZ ATION 02/17/2024 [facility] Patient Care team informatio n (unrecognized section and content) [employer] Relationship Specialty Start Date End Date Shaikh Salinas MD [address] [place] [phone] PCP - General Internal Medicine 09/08/23 [employer] Relationship Specialty Start Date End Date Shaikh Salinas MD [address] [place] [phone] PCP - General Internal Medicine 09/08/23 [employer] Relationship Specialty Start Date End Date Shaikh Salinas MD [address] [place] [address] PCP - General Internal Medicine 09/08/23 Reason [...] BE BASED ON THE PRIMARY CLINICAL RECORDS. [employer] provides no warranty or guarantee of the accuracy or completeness of information in this document.
[2024-03-05 17:38] LABS: Alanine Aminotransferase 28 U/L (16-63); Albumin Level 4.2 g/dL (3.4-5.0); Alkaline Phosphatase 67 U/L (46-116); Anion Gap 12.7; Aspartate Amino Transferase 16 U/L (15-37); BUN Creatinine Ratio 37.5; Bilirubin Total 0.7 mg/dL (0.2-1.0); Calcium 9.6 mg/dL (8.5-10.1); Carbon Dioxide 27.1 mmol/L (21.0-32.0); Chloride 99 mmol/L (98-107); Estimated GFR (African America >60 (>=60); Estimated GFR (Non-African Ame >60 (>=60); Globulin 4.2 g/dL; Glucose 112 mg/dL (74-106); Potassium 3.8 mmol/L (3.5-5.1); Sodium 135 mmol/L (136-145); Total Protein 8.4 g/dL (6.4-8.2)
[2024-03-05 17:42] LABS: INR 0.98; Prothrombin Time 10.4 sec (9.0-11.6)
[2024-03-05 17:43] LABS: Digoxin 0.4 ng/mL (0.9-2.0)
[2024-03-05] MEDS: ASPIRIN 81 MG TAB.CHEW 324 MG PO (18:34)
[2024-03-05 18:59] LABS: Troponin I High Sensitivity 4.9 pg/mL (4.0-76.1)
--- OUTSIDE RECORDS SUMMARY | 2024-03-05 20:47 | XMS_ITS | CCD ---
Author Organization [facility] Inform ion [facility] Care Team Providers Care Tube Maker Name Role Phone Justin Smallwood Attending Unavailab kendra Smallwood, Justin Quiroz Admitting Unavailab Tony Malave Primary Care Physician KATIE, DR MACDONALD Attending Unavailable HOUSE, DR MACDONALD Consulting Unavailable SPRINGFIELD, DR MACDONALD Primary Care Unavailable SPRINGFIELD, DR MACDONALD Admitting Unavailable LARRY, ISIAH Consulting Unavailable SPRINGFIELD, DR MACDONALD Primary Care Unavailable MISC, DR PATRICK Admitting Unavailable MISC, DR PATRICK Attending Unavailable MISC, DR PATRICK Consulting Unavailable SPRINGFIELD, DR MACDONALD Primary Care Unavailable QUINTON, SAIMA Admitting Unavailable UQINTONSAIMA OBREGON Attending Unavailable QUINTON, SAIMA Consulting Unavailable POINT ROBERTS, DR BHASKAR Zarate Consulting Unavailable NADEREWilton, DR RUBEN Schwarz Admitting Unavailable HOUSE, DR MACDONALD Primary Care Unavailable NADERER, DR RUBEN Schwarz Attending Unavailable NADERER, DR RUBEN Schwarz Consulting Unavailable GRECHNY ., ROQUE AYALA Consulting Unavailabl e MIMS, JT Consulting Unavailable SPRINGFIELD, DR MACDONALD Consulting Unavailable SPRINGFIELD, DR MACDONALD Primary Care Unavailable SPRINGFIELD, DR MACDONALD Admitting Unavailable HOUSE, DR MACDONALD Attending Unavailable HOUSE, DR MACDONALD Attending Unavailable HOUSE, DR TONY Milton Unavailable SPRINGFIELD, DR MACDONALD Primary Care Unavailable SPRINGFIELD, DR MACDONALD Admitting Unavailable ZIEBER, DR BLAYNE [...] Allergies] Propensity to adverse reactions (disorder) [facility] Repository Medications Current Medications Medication Drug Class(es) [...] complication, without long-term current use of insulin ([facility]) Take 1 tablet (25 mg) by mouth [...] disease (12 sources) Atherosclerotic heart disease of [place] coronary artery without angina pectoris; 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: [Old [...] 06-23-2022 Episodic Other aftercare (1 source) terminal 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 Did call and LM on pt's VM notifying him that [facility] should be reaching out to him in the next 2wks to schedule. Normal [facility] MLR HEMOGLOBIN A1Con 024 Glucose [Mass/Vol] 180 mg/dL [facility] HbA1c (Bld) [Mass fraction] 7.9 % High 4.5 - 6.2 % [facility] Comment on above: ADA RECOMMENDED LIMI T 4.0 - 6.0 ADA THERAPEUTIC TARGET < 7.0 ACTION SUGGESTED > 7.0 Interpretation and review of laboratory results Abnormal [facility] CREAT RATIO RAN DOMon 09-23-2023 CREATININE URINE RANDOM 80.70 mg/dL 20.00 - 300.00 mg/dL [facility] MICROALBUM CREATININE RATIO UR 16.1 mg/g 0.0 - 29.9 mg/g [facility] Comment on above: NO MICROALBUMINURIA 0-29 MG/G CLINICAL MICROALBUMINURIA 30-300 MG/G MACROALBUMINURIA >300 MG/G MICROALBUMIN URINE RANDOM <1.3 NINF - 30.0 mg/dL [facility] Follow-up visit [id number] Evaristo Lowery 1965 M Date Provider Department Center 08/01/2023 CHACHO MALDONADO MARY Barajas Family History Problem Relation Age of Onset Diabetes Maternal Grandmother Heart attack Maternal Grandfather Diabetes Paternal Grandmother Heart disease Paternal Grandfather Family Status - Relation Status Age at Maternal Grandmother Maternal Grandfather Paternal Grandmother Paternal Grandfather Level of Service:53445 DC OFFICE/OUTPATIENT ESTABLISHED LOW MDM 20-29 MIN Normal [facility] Ambulatory Visit Summaryon 0 03-13-2023 Ambulatory Visit Summary EVARISTO LOWERY :1965 Visit Date:03/13/2023 Ambulatory Visit Instructions Your Diagnosis Kidney mass Prostate cancer screening Tests Performed Urnls Dip Stick Auto w/o Microscopy POC [address]29 CT Abdomen/Pelvis w/ + w/o Contrast -- [...] Cabrera OJEDA MD Where: [facility] Normal [facility] Patient Educationon 03-13-20 23 Patient Education Urology [...] gives to you. In general: ? Take erkt-fhd-kixrtso and prescription medicines only as told by [...] provider. Document Revised: 02/01/2021 Document Reviewed: 02/01/2021 [employer] Patient Education ? 2022 [employer]. [facility] Urology Office/Clinic Noteon 03-13-2023 Urology Office/Clinic [...] URL [facility] [address] [place] [address] [phone] Additional Instructions: 1 yr w/ CT scan [...] (03/13 (more content not included)... Normal [facility] Comment on above: Result Comment: Elec tronically Signed By: Cabrera OJEDA MD\.br\Date and Time Signed: 03/13/23 16:48 EDT\.br\Electronically Co-Signed By: Katherine Bear\.br\Date and Time Co-Signed: 03/13/23 16:46 EDT Pre-Certification Formon Pre-Certification Form [id number] .00CD:127 Normal [facility] RAD - CT Reporton 03-07-2023 RAD - CT Report [id number] .[id number]:127 Normal [facility] ECHOCARDIO M/2D COMPLETEon 0 01-03-2023 ECHOCARDIO M/2D COMPLETE Patient: EVARISTO LWOERY Exam Date: 01/03/2023 : 1965 Gender:M Ordering : MRS. MERRY LAIRD NETWORK OPERATIONS ANALYST Admission #: [id number] Family : Order #: [id number] CLICK HERE TO VIEW EXAM ECHOCARDIOGRAM REPORT [...] Smith M.D. on 01/03/2023 at 20:32 Normal [facility] XR knee LT 4V*on 10-19-2022 XR knee LT 4V* [facility] [place] [address] XRay Report Signed Patient: Evaristo Lowery MR#: [id number] : 1965 Acct:[id number] Age/Sex: 57 / M ADM Date: 10/19/22 Loc: XDCLY Room: Type: [facility] Attending Dr: Justin Smallwood NETWORK OPERATIONS ANALYST-C Copies to: Justin Smallwood CNP Ordering Provider: Justin Smallwood CNP Date of Service: 10/19/22 XR/XR knee LT 4V*: LEFT KNEE PAIN ([id number]) XR/XR elbow LT min 3V*: LEFT ELBOW [...] Cheri Castaneda M.D.10/19/2022 10:21 AM Dictation Location: [place] [address] Transcribed By: [facility] 10/19/22 1021 Dictated By: Cheri Castaneda MD 10/19/22 1012 Signed By: 10/19/22 1021 [facility] CREATININEon 10-01-2022 Creatinine [Mass/Vol] 0.75 mg/dL Normal 0.70-1.30 [facility] Comment on above: Performed By: #### C MP #### [facility] [address] [place] [address] Dr. Mily Parra EGFR-AF GAMBIAN >60 Normal >=60 [facility] Comment on above: Performed By: #### C MP #### [facility] [address] [place] [address] Dr. Mily Parra EGFR-NON AF GAMBIAN >60 Normal >=60 [facility] Comment on above: Performed By: #### C MP #### [facility] [address] [place] [address] ABDOMEN WO/W CONon [...] by: ISIAH JUAREZ Date: 2022-10-01 11:49 Normal [facility] CT ABD/PELVIS WO CONon 09-14 CT [...] BLAYNE CHEN Date: 2022-09-14 15:18 Normal [facility] CBC AUTO DIFFon 06-24-2022 BASO # 0.1 103/ul Normal 0.0-0.1 [facility] Comment on above: Performed By: #### C BC #### [facility] [address] [address] [address] Mily Parra Basophils/100 WBC (Bld) 0.9 % Normal 0.2-2.0 [facility] Comment on above: Performed By: #### C BC #### [facility] [address] [place] [address] Dr. Mily Parra EO # 0.6 103/ul Normal 0.0-0.7 [facility] Comment on above: Performed By: #### C BC #### [facility] [address] [place] [address] Dr. Mily Parra Eosinophils/100 WBC (Bld) 6.0 % Normal 0.9-7.0 [facility] Comment on above: Performed By: #### C BC #### [facility] [address] [place] [address] Dr. Mily Parra Erythrocyte distribution width (RBC) [Ratio] 13.4 % Normal 11.0-15.0 [facility] Comment on above: Performed By: #### C BC #### [facility] [address] [place] [address] Dr. Mily Parra Hematocrit (Bld) [Volume fraction] 46.7 % Normal 42.0-54.0 [facility] Comment on above: Performed By: #### C BC #### [facility] [address] [place] [address] Dr. Mily Parra Hemoglobin (Bld) [Mass/Vol] 15.6 g/dL Normal 14.0-18.0 [facility] Comment on above: Performed By: #### C BC #### [facility] [address] [place] [address] Dr. Mily Parra IG # 0.03 10e3/ul Normal 0.00-0.03 [facility] Comment on above: Performed By: #### C BC #### [facility] [address] [place] [address] Dr. Mily Parra IG % 0.3 % Normal 0.0-0.5 [facility] Comment on above: Performed By: #### C BC #### [facility] [address] [place] [address] Dr. Mily Parra LYMPH # 3.0 103/ul Normal 1.2-3.8 [facility] Comment on above: Performed By: #### C BC #### [facility] [address] [place] [address] Dr. Mily Parra Lymphocytes/100 WBC (Bld) 28.1 % Normal 20.5-60.0 [facility] Comment on above: Performed By: #### C BC #### [facility] [address] [place] [address] Dr. Mily Parra MANUAL DIFF REQ NO Normal [facility] Comment on above: Performed By: #### C BC #### [facility] [address] [place] [address] Dr. Mily Parra MCH (RBC) [Entitic mass] 29.5 pg Normal 25.9-34.0 [facility] Comment on above: Performed By: #### C BC #### [facility] [address] [place] [address] Dr. Mily Parra MCHC (RBC) [Mass/Vol] 33.4 g/dL Normal 29.9-35.2 [facility] Comment on above: Performed By: #### C BC #### [facility] [address] [place] [address] Dr. Mily Parra MCV (RBC) [Entitic vol] 88.4 fL Normal 80.0-94.0 [facility] Comment on above: Performed By: #### C BC #### [facility] [address] [place] [address] Dr. Mily Parra MONO # 0.8 103/ul Normal 0.3-0.8 [facility] Comment on above: Performed By: #### C BC #### [facility] [address] [place] [address] Dr. Mily Parra Monocytes/100 WBC (Bld) 7.8 % Normal 1.7-12.0 [facility] Comment on above: Performed By: #### C BC #### [facility] [address] [place] [address] Dr. Mily Parra NEUT # 6.0 103/ul Normal 1.4-6.5 [facility] Comment on above: Performed By: #### C BC #### [facility] [address] [place] [address] Dr. Mily Parra Neutrophils/100 WBC (Bld) 56.9 % Normal 43.0-75.0 [facility] Comment on above: Performed By: #### C BC #### [facility] [address] [place] [address] Dr. iMly Parra Platelet mean volume (Bld) [Entitic vol] 8.8 fL Critically low 9.5-13.5 [facility] Comment on above: Performed By: #### C BC #### [facility] [address] [place] [address] Dr. Mily Parra PLT 233 103/ul Normal 150-450 [facility] Comment on above: Performed By: #### C BC #### [facility] [address] [place] [address] Dr. Mily Parra RBC 5.28 106/ul Normal 4.70-6.10 [facility] Comment on above: Performed By: #### C BC #### [facility] [address] [place] [address] Dr. Mily Parra WBC 10.5 103/ul Normal 4.0-11.0 [facility] Comment on above: Performed By: #### C BC #### [facility] [address] [place] [address] Dr. Mily Parra PROF CHEM 8 (BAS METB)on Anion gap [Moles/Vol] 8.9 mmol/L Normal [facility] Comment on above: Performed By: #### L IPID #### [facility] [address] [address] [address] Mily Parra Calcium [Mass/Vol] 8.6 mg/dL Normal 8.5-10.1 [facility] Comment on above: Performed By: #### L IPID #### [facility] [address] [place] [address] [address] Mily Parra Chloride [Moles/Vol] 107 mmol/L Normal 98-107 [facility] Comment on above: Performed By: #### L IPID #### [facility] [address] [address] [address] Mily Parra CO2 [Moles/Vol] 27.2 mmol/L Normal 21.0-32.0 [facility] Comment on above: Performed By: #### L IPID #### [facility] [address] [place] [address] Dr. Mily Parra Creatinine [Mass/Vol] 0.76 mg/dL Normal 0.70-1.30 [facility] Comment on above: Performed By: #### L IPID #### [facility] [address] [place] [address] Dr. Mily Parra EGFR-AF GAMBIAN >60 Normal >=60 [facility] Comment on above: Performed By: #### L IPID #### [facility] [address] [place] [address] Dr. Mily Parra EGFR-NON AF GAMBIAN >60 Normal >=60 [facility] Comment on above: Performed By: #### L IPID #### [facility] [address] [place] [address] Dr. Mily Parra Glucose [Mass/Vol] 118 mg/dL Critically high 74-106 [facility] Comment on above: Performed By: #### L IPID #### [facility] [address] [place] [address] Dr. Mily Parra Potassium [Moles/Vol] 4.1 mmol/L Normal 3.5-5.1 [facility] Comment on above: Performed By: #### L IPID #### [facility] [address] [address] [address] Mily Parra Sodium [Moles/Vol] 139 mmol/L Normal 136-145 [facility] Comment on above: Performed By: #### L IPID #### [facility] [address] [address] [address] Mily Parra Urea nitrogen [Mass/Vol] 20.0 mg/dL Critically high 7.0-18.0 [facility] Comment on above: Performed By: #### L IPID #### [facility] [address] [place] [address] [address] Mily Parra Urea nitrogen/Creatinine [Mass ratio] 26.3 mg/mg Normal [facility] Comment on above: Performed By: #### L IPID #### [facility] [address] [place] [address] Dr. Mily Parra ACETONE SERUMon 06-23-2022 ACETONE Negative Normal NEGATIVE [facility] Comment on above: Performed By: #### A CETON #### [facility] [address] [address] [address] Mily Parra BNPon 06-23-2022 Natriuretic peptide B (Bld) [Mass/Vol] 129.0 pg/mL Normal <=900.0 [facility] Comment on above: Performed By: #### L IPID #### [facility] [address] [address] [address] Mily Parra CARDIAC CARLOS 3-6on 2 CK [Catalytic activity/Vol] 52 U/L Normal 39-308 [facility] Comment on above: Performed By: #### C MREP #### [facility] [address] [address] [address] Mily Parra CK.MB [Mass/Vol] 0.69 ng/mL Normal <=3.60 [facility] Comment on above: Performed By: #### C MREP #### [facility] [address] [address] [address] Mily Parra HSTROP 11.6 pg/mL Normal 4.0-76.1 [facility] Comment on above: Result Comment: CUT- OFF POINTS HAVE BEEN ESTABLISHED BASED ON THE FOURTH UNIVERSAL DEFINITIONS OF MYOCARDIAL INFARCTION. THE UPPER REFERENCE LIMIT (URL) OF TROPONIN, DEFINED THE 99TH PERCENTILE OF cTnI DISTRIBUTION IN A REFERENCE POPULATION, HAS BEEN CONFIRMED THE DECISION THRESHOLD FOR RI DIAGNOSIS. Performed By: #### C MREP #### [facility] [address] [place] [address] Dr. Mily Parra CK [Catalytic activity/Vol] 48 U/L Normal 39-308 [facility] Comment on above: Performed By: #### C MREP #### [facility] [address] [place] [address] Dr. Mily Parra CK.MB [Mass/Vol] 0.58 ng/mL Normal <=3.60 [facility] Comment on above: Performed By: #### C MREP #### [facility] [address] [place] [address] Dr. Mily Parra HSTROP 6.1 pg/mL Normal 4.0-76.1 [facility] Comment on above: Result Comment: CUT- OFF POINTS HAVE BEEN ESTABLISHED BASED ON THE FOURTH UNIVERSAL DEFINITIONS OF MYOCARDIAL INFARCTION. THE UPPER REFERENCE LIMIT (URL) OF TROPONIN, DEFINED THE 99TH PERCENTILE OF cTnI DISTRIBUTION IN A REFERENCE POPULATION, HAS BEEN CONFIRMED THE DECISION THRESHOLD FOR RI DIAGNOSIS. Performed By: #### C MREP #### [facility] [address] [place] [address] Dr. Mily Parar CBC AUTO DIFFon 06-23-2022 BASO # 0.1 103/ul Normal 0.0-0.1 [facility] Comment on above: Performed By: #### C BC #### [facility] [address] [place] [address] Dr. Mily Parra Basophils/100 WBC (Bld) 0.7 % Normal 0.2-2.0 [facility] Comment on above: Performed By: #### C BC #### [facility] [address] [place] [address] Dr. Mily Parra EO # 0.5 103/ul Normal 0.0-0.7 [facility] Comment on above: Performed By: #### C BC #### [facility] [address] [place] [address] Dr. Mily Parra Eosinophils/100 WBC (Bld) 3.6 % Normal 0.9-7.0 [facility] Comment on above: Performed By: #### C BC #### [facility] [address] [place] [address] Dr. Mily Parra Erythrocyte distribution width (RBC) [Ratio] 13.4 % Normal 11.0-15.0 [facility] Comment on above: Performed By: #### C BC #### [facility] [address] [place] [address] Dr. Mily Prara Hematocrit (Bld) [Volume fraction] 51.6 % Normal 42.0-54.0 [facility] Comment on above: Performed By: #### C BC #### [facility] [address] [place] [address] Dr. Mily Parra Hemoglobin (Bld) [Mass/Vol] 17.4 g/dL Normal 14.0-18.0 [facility] Comment on above: Performed By: #### C BC #### [facility] [address] [place] [address] Dr. Mily Parra IG # 0.06 10e3/ul Critically high 0.00-0.03 [facility] Comment on above: Performed By: #### C BC #### [facility] [address] [place] [address] Dr. Mily Parra IG % 0.4 % Normal 0.0-0.5 [facility] Comment on above: Performed By: #### C BC #### [facility] [address] [place] [address] Dr. Mily Parra LYMPH # 2.7 103/ul Normal 1.2-3.8 [facility] Comment on above: Performed By: #### C BC #### [facility] [address] [place] [address] Dr. Mily Parra Lymphocytes/100 WBC (Bld) 18.3 % Critically low 20.5-60.0 [facility] Comment on above: Performed By: #### C BC #### [facility] [address] [place] [address] Dr. Mily Parra MANUAL DIFF REQ NO Normal [facility] Comment on above: Performed By: #### C BC #### [facility] [address] [place] [address] Dr. Mily Parra MCH (RBC) [Entitic mass] 29.7 pg Normal 25.9-34.0 [facility] Comment on above: Performed By: #### C BC #### [facility] [address] [place] [address] Dr. Mily Parra MCHC (RBC) [Mass/Vol] 33.7 g/dL Normal 29.9-35.2 [facility] Comment on above: Performed By: #### C BC #### [facility] [address] [place] [address] Dr. Mily Parra MCV (RBC) [Entitic vol] 88.1 fL Normal 80.0-94.0 [facility] Comment on above: Performed By: #### C BC #### [facility] [address] [place] [address] Dr. Mily Parra MONO # 0.9 103/ul Critically high 0.3-0.8 [facility] Comment on above: Performed By: #### C BC #### [facility] [address] [place] [address] Dr. Mily Parra Monocytes/100 WBC (Bld) 6.2 % Normal 1.7-12.0 [facility] Comment on above: Performed By: #### C BC #### [facility] [address] [place] [address] Dr. Mily Parra NEUT # 10.3 103/ul Critically high 1.4-6.5 [facility] Comment on above: Performed By: #### C BC #### [facility] [address] [place] [address] Dr. Mily Parra Neutrophils/100 WBC (Bld) 70.8 % Normal 43.0-75.0 [facility] Comment on above: Performed By: #### C BC #### [facility] [address] [place], [place] [address] Dr. Mily Parra Platelet mean volume (Bld) [Entitic vol] 9.0 fL Critically low 9.5-13.5 [facility] Comment on above: Performed By: #### C BC #### [facility] [address] [place], [place] [address] Dr. Mily Parra PLT 278 103/ul Normal 150-450 [facility] Comment on above: Performed By: #### C BC #### [facility] [address] [address] [address] Mily Parra RBC 5.86 106/ul Normal 4.70-6.10 [facility] Comment on above: Performed By: #### C BC #### [facility] [address] [address] [address] Mily Parra WBC 14.6 103/ul Critically high 4.0-11.0 [facility] Comment on above: Performed By: #### C BC #### [facility] [address] [place] [address] HEAD WO CONon [...] BHASKAR ANTUNEZ Date: 2022-06-23 14:21 Normal [facility] CTA NECK WO W CONon 06-23-20 [...] stenosis. LEFT VERTEBRAL ARTERY: No significant stenosis. NENANA OF [place]: The bilateral intracranial internal carotid [...] JT MIMS Date: 2022-06-23 15:58 Normal [facility] CULTURE BLOODon 06-23-2022 Microscopic examination of blood, culture Culture Observations: NO GROWTH AT 5 DAYS. Normal [facility] Comment on above: Performed By: #### C BC #### [facility] [address] [address] [address] Mily Parra Microscopic examination of blood, culture Culture Observations: NO GROWTH AT 5 DAYS. Normal [facility] Comment on above: Performed By: #### C BC #### [facility] [address] [address] [address] Mily Parra Covid-19 PCR ([facility])on SARS-CoV-2 (COVID-19) RNA RUBY+probe Ql (Unsp spec) Not detected Normal NOT DETECTED [facility] Comment on above: Result Comment: When [...] for this test is supported by the [place] of [employer] and Human Service's declaration that [...] used). Performed By: #### C BC #### [facility] [address] [address] [address] Mily Parra D-DIMERon 06-23-2022 D-DIMER 0.31 mg/L FEU Normal <=0.[address] [facility] Comment on above: Performed By: #### C MP #### [facility] [address] [address] [address] Mily Parra D-DIMER COMMENTS SEE BELOW Normal [facility] Comment on above: Result Comment: Incr [...] hospitalization. Performed By: #### C MP #### [facility] [address] [place] [address] Dr. Mily Parra ER URINE PROFILEon 2 Bilirubin Ql (U) Negative Normal NEGATIVE [facility] Comment on above: Performed By: #### E RUR #### [facility] [address] [place] [address] Dr. Mily Parra Clarity (U) CLEAR Normal CLEAR [facility] Comment on above: Performed By: #### E RUR #### [facility] [address] [place] [address] Dr. Mily Parra Color (U) LT. YELLOW Normal YELLOW [facility] Comment on above: Performed By: #### E RUR #### [facility] [address] [place] [address] Dr. Mily MENON A micrscopic examination will be performed if indicated. Normal [facility] Comment on above: Performed By: #### E RUR #### [facility] [address] [place] [address] Dr. Mily Parra Glucose Ql (U) >1000 Abnormal NEGATIVE [facility] Comment on above: Performed By: #### E RUR #### [facility] [address] [place] [address] Dr. Mily Parra Hemoglobin Ql (U) Negative Normal NEGATIVE [facility] Comment on above: Performed By: #### E RUR #### [facility] [address] [place] [address] Dr. Mliy Parra Ketones Ql (U) TRACE Abnormal NEGATIVE [facility] Comment on above: Performed By: #### E RUR #### [facility] [address] [place] [address] Dr. Mily Parra LEUKOCYTES Negative Normal NEGATIVE [facility] Comment on above: Performed By: #### E RUR #### [facility] [address] [place] [address] Dr. Mily Parra Nitrite Ql (U) Negative Normal NEGATIVE [facility] Comment on above: Performed By: #### E RUR #### [facility] [address] [place] [address] Dr. Mily Parra pH (U) 6.0 [pH] Normal 5-9 [facility] Comment on above: Performed By: #### E RUR #### [facility] [address] [place] [address] Dr. Miyl Parra SPEC GRAVITY 1.020 Normal 1.005-<=1.025 [facility] Comment on above: Performed By: #### E RUR #### [facility] [address] [place] [address] Dr. Mily Parra UA PROTEIN Negative Normal NEGATIVE/ TRACE [facility] Comment on above: Performed By: #### E RUR #### [facility] [address] [place] [address] Dr. Mily Parra UR MICRO IND NOT INDICATED Normal [facility] Comment on above: Performed By: #### E RUR #### [facility] [address] [place] [address] Dr. Mily Parra Urobilinogen Qn (U) 0.2 {[place]'U}/dL Normal 0.2 - 1. 0 [facility] Comment on above: Performed By: #### E RUR #### [facility] [address] [place] [address] Dr. Mily Parra LACTATE/LACTIC ACIDon 2021 Lactate [Moles/Vol] 1.2 mmol/L Normal 0.4-1.9 [facility] Comment on above: Performed By: #### C BC #### [facility] [address] [place] [address] Dr. Mily Parra Lactate [Moles/Vol] 2.9 mmol/L Critically high 0.4-1.9 [facility] Comment on above: Performed By: #### C MP #### [facility] [address] [address] [address] Mily Parra PH VENOUS BLOODon 06-23-2022 PCO2 VENOUS 36.9 mmHg Critically low 40.0-52.0 [facility] Comment on above: Performed By: #### C MP #### [facility] [address] [address] [address] Mily Parra pH VENOUS 7.399 Normal 7.330-7.430 [facility] Comment on above: Performed By: #### C MP #### [facility] [address] [place] [address] Dr. Mily Parra PROF 14(COMP METB)on 022 Albumin [Mass/Vol] 4.1 g/dL Normal 3.4-5.0 [facility] Comment on above: Performed By: #### C MP #### [facility] [address] [place] [address] Dr. Mily Parra Albumin/Globulin [Mass ratio] 1.1 {ratio} Normal [facility] Comment on above: Performed By: #### C MP #### [facility] [address] [place] [address] Dr. Mily Parra ALP [Catalytic activity/Vol] 56 U/L Normal 46-116 [facility] Comment on above: Performed By: #### C MP #### [facility] [address] [place] [address] Dr. Mily Parra ALT [Catalytic activity/Vol] 35 U/L Normal 16-63 [facility] Comment on above: Performed By: #### C MP #### [facility] [address] [place] [address] Dr. Mily Parra Anion gap [Moles/Vol] 11.1 mmol/L Normal [facility] Comment on above: Performed By: #### C MP #### [facility] [address] [place] [address] Dr. Mily Parra AST [Catalytic activity/Vol] 16 U/L Normal 15-37 [facility] Comment on above: Performed By: #### C MP #### [facility] [address] [address] [address] Mily Parra Bilirubin [Mass/Vol] 0.5 mg/dL Normal 0.2-1.0 [facility] Comment on above: Performed By: #### C MP #### [facility] [address] [place] [address] Dr. Mily Parra Calcium [Mass/Vol] 9.8 mg/dL Normal 8.5-10.1 [facility] Comment on above: Performed By: #### C MP #### [facility] [address] [address] [address] Mily Parra Chloride [Moles/Vol] 102 mmol/L Normal 98-107 [facility] Comment on above: Performed By: #### C MP #### [facility] [address] [place] [address] Dr. Mily Parra CO2 [Moles/Vol] 27.3 mmol/L Normal 21.0-32.0 [facility] Comment on above: Performed By: #### C MP #### [facility] [address] [place] [address] Dr. Mily Parra Creatinine [Mass/Vol] 0.86 mg/dL Normal 0.70-1.30 [facility] Comment on above: Performed By: #### C MP #### [facility] [address] [place] [address] Dr. Mily Parra EGFR-AF GAMBIAN >60 Normal >=60 [facility] Comment on above: Performed By: #### C MP #### [facility] [address] [address] [address] Mily Parra EGFR-NON AF GAMBIAN >60 Normal >=60 [facility] Comment on above: Performed By: #### C MP #### [facility] [address] [place] [address] Dr. Mily Parra Globulin (S) [Mass/Vol] 3.6 g/dL Normal [facility] Comment on above: Performed By: #### C MP #### [facility] [address] [address] [address] Mily Parra Glucose [Mass/Vol] 148 mg/dL Critically high 74-106 [facility] Comment on above: Performed By: #### C MP #### [facility] [address] [address] [address] Mily Parra Potassium [Moles/Vol] 4.4 mmol/L Normal 3.5-5.1 [facility] Comment on above: Performed By: #### C MP #### [facility] [address] [address] [address] Mily Parra Protein [Mass/Vol] 7.7 g/dL Normal 6.4-8.2 [facility] Comment on above: Performed By: #### C MP #### [facility] [address] [address] [address] Mily Parra Sodium [Moles/Vol] 136 mmol/L Normal 136-145 [facility] Comment on above: Performed By: #### C MP #### [facility] [address] [address] [address] Mily Parra Urea nitrogen [Mass/Vol] 25.0 mg/dL Critically high 7.0-18.0 [facility] Comment on above: Performed By: #### C MP #### [facility] [address] [address] [address] Mily Parra Urea nitrogen/Creatinine [Mass ratio] 29.1 mg/mg Normal [facility] Comment on above: Performed By: #### C MP #### [facility] [address] [address] [address] Mily Parra PROTIMEon 06-23-2022 INR Coag (PPP) [Relative time] 0.97 {INR} Normal [facility] Comment on above: Performed By: #### C MP #### [facility] [address] [address] [address] Mily Parra INR GUIDELINES SEE BELOW Normal [facility] Comment on above: Result Comment: MARIA RED INR: 2.0 - 3.0 CONDITIONS NOT LISTED BELOW 2.5 - 3.5 FOR PROSTHETIC HEART VALVE REPLACEMENT 2.5 - 3.5 RECURRENT THROMBOSIS Performed By: #### C MP #### [facility] [address] [address] [address] Mily Parra PT Coag (PPP) [Time] 10.5 s Normal 9.0-11.6 [facility] Comment on above: Performed By: #### C MP #### [facility] [address] [place] [address] Dr. Mily Parra PTTon 06-23-2022 aPTT Coag (Bld) [Time] 26.7 s Normal 22.3-36.2 [facility] Comment on above: Performed By: #### C MP #### [facility] [address] [place] [address] Dr. Mily Parra TROPONIN, HIGH SENSITIVITYon 06-23-2022 HSTROP 12.1 pg/mL Normal 4.0-76.1 [facility] Comment on above: Result Comment: CUT- OFF POINTS HAVE BEEN ESTABLISHED BASED ON THE FOURTH UNIVERSAL DEFINITIONS OF MYOCARDIAL INFARCTION. THE UPPER REFERENCE LIMIT (URL) OF TROPONIN, DEFINED THE 99TH PERCENTILE OF cTnI DISTRIBUTION IN A REFERENCE POPULATION, HAS BEEN CONFIRMED THE DECISION THRESHOLD FOR RI DIAGNOSIS. Performed By: #### C MP #### [facility] [address] [place] [address] Dr. Mily Parra HSTROP 5.5 pg/mL Normal 4.0-76.1 [facility] Comment on above: Result Comment: CUT- OFF POINTS HAVE BEEN ESTABLISHED BASED ON THE FOURTH UNIVERSAL DEFINITIONS OF MYOCARDIAL INFARCTION. THE UPPER REFERENCE LIMIT (URL) OF TROPONIN, DEFINED THE 99TH PERCENTILE OF cTnI DISTRIBUTION IN A REFERENCE POPULATION, HAS BEEN CONFIRMED THE DECISION THRESHOLD FOR RI DIAGNOSIS. Performed By: #### L IPID #### [facility] [address] [place] [address] Dr. Mily Parra TSHon 06-23-2022 TSH 0.875 uIU/mL Normal 0.358-3.[address] [facility] Comment on above: Performed By: #### L IPID #### [facility] [address] [place] [address] Dr. Mily Parra XR CHEST 1 Von [...] BHASKAR ANTUNEZ Date: 2022-06-23 14:07 Normal [facility] CBC AUTO DIFFon 03-21-2022 BASO # 0.1 103/ul Normal 0.0-0.1 [facility] Comment on above: Performed By: #### C BC #### [facility] [address] [place] [address] Dr. Mily Parra Basophils/100 WBC (Bld) 0.8 % Normal 0.2-2.0 [facility] Comment on above: Performed By: #### C BC #### [facility] [address] [place] [address] Dr. Mily Parra EO # 0.3 103/ul Normal 0.0-0.7 [facility] Comment on above: Performed By: #### C BC #### [facility] [address] [place] [address] Dr. Mily Parra Eosinophils/100 WBC (Bld) 2.8 % Normal 0.9-7.0 [facility] Comment on above: Performed By: #### C BC #### [facility] [address] [place] [address] Dr. Mily Parra Erythrocyte distribution width (RBC) [Ratio] 13.8 % Normal 11.0-15.0 [facility] Comment on above: Performed By: #### C BC #### [facility] [address] [place] [address] Dr. Mily Parra Hematocrit (Bld) [Volume fraction] 49.4 % Normal 42.0-54.0 [facility] Comment on above: Performed By: #### C BC #### [facility] [address] [place] [address] Dr. Mily Parra Hemoglobin (Bld) [Mass/Vol] 16.2 g/dL Normal 14.0-18.0 [facility] Comment on above: Performed By: #### C BC #### [facility] [address] [place] [address] Dr. Mily Parra IG # 0.03 10e3/ul Normal 0.00-0.03 [facility] Comment on above: Performed By: #### C BC #### [facility] [address] [place] [address] Dr. Mily Parra IG % 0.3 % Normal 0.0-0.5 [facility] Comment on above: Performed By: #### C BC #### [facility] [address] [place] [address] Dr. Mily Parra LYMPH # 2.0 103/ul Normal 1.2-3.8 [facility] Comment on above: Performed By: #### C BC #### [facility] [address] [place] [address] Dr. Mily Parra Lymphocytes/100 WBC (Bld) 20.3 % Critically low 20.5-60.0 [facility] Comment on above: Performed By: #### C BC #### [facility] [address] [place] [address] Dr. Mily Parra MANUAL DIFF REQ NO Normal [facility] Comment on above: Performed By: #### C BC #### [facility] [address] [place] [address] Dr. Mily Parra MCH (RBC) [Entitic mass] 29.0 pg Normal 25.9-34.0 [facility] Comment on above: Performed By: #### C BC #### [facility] [address] [place] [address] Dr. Mily Parra MCHC (RBC) [Mass/Vol] 32.8 g/dL Normal 29.9-35.2 [facility] Comment on above: Performed By: #### C BC #### [facility] [address] [place] [address] Dr. Mily Parra MCV (RBC) [Entitic vol] 88.4 fL Normal 80.0-94.0 [facility] Comment on above: Performed By: #### C BC #### [facility] [address] [place] [address] Dr. Mily Parra MONO # 0.7 103/ul Normal 0.3-0.8 [facility] Comment on above: Performed By: #### C BC #### [facility] [address] [place] [address] Dr. Mily Parra Monocytes/100 WBC (Bld) 7.2 % Normal 1.7-12.0 [facility] Comment on above: Performed By: #### C BC #### [facility] [address] [place] [address] Dr. Mily Parra NEUT # 6.6 103/ul Critically high 1.4-6.5 [facility] Comment on above: Performed By: #### C BC #### [facility] [address] [place] [address] Dr. Mily Parra Neutrophils/100 WBC (Bld) 68.6 % Normal 43.0-75.0 [facility] Comment on above: Performed By: #### C BC #### [facility] [address] [place] [address] Dr. Mily Parra Platelet mean volume (Bld) [Entitic vol] 8.6 fL Critically low 9.5-13.5 [facility] Comment on above: Performed By: #### C BC #### [facility] [address] [place] [address] Dr. Mliy Parra PLT 289 103/ul Normal 150-450 [facility] Comment on above: Performed By: #### C BC #### [facility] [address] [place] [address] Dr. Mily Parra RBC 5.59 106/ul Normal 4.70-6.10 [facility] Comment on above: Performed By: #### C BC #### [facility] [address] [place] [address] Dr. Mily Parra WBC 9.6 103/ul Normal 4.0-11.0 [facility] Comment on above: Performed By: #### C BC #### [facility] [address] [place] [address] Dr. Mily Parra GLYCOHEMOGLOBIN A1Con 2021 ADA RECOMMENDATION SEE BELOW Normal [facility] Comment on above: Result Comment: ADA RECOMMENDED LIMIT 4.0 - 6.0 ADA THERAPEUTIC TARGET < 7.0 ACTION SUGGESTED > 7.0 Performed By: #### A 1C #### [facility] [address] [place] [address] Dr. Mily Parra Glucose [Mass/Vol] 171 mg/dL Normal [facility] Comment on above: Performed By: #### A 1C #### [facility] [address] [place] [address] Dr. Mily Parra HbA1c (Bld) [Mass fraction] 7.6 % Critically high 4.5-6.2 [facility] Comment on above: Performed By: #### A 1C #### [facility] [address] [place] [address] Dr. Mily Parra PROF 14(COMP METB)on 022 Albumin [Mass/Vol] 4.0 g/dL Normal 3.4-5.0 [facility] Comment on above: Performed By: #### C MP #### [facility] [address] [place] [address] Dr. Mily Parra Albumin/Globulin [Mass ratio] 1.1 {ratio} Normal [facility] Comment on above: Performed By: #### C MP #### [facility] [address] [place] [address] Dr. Mily Parra ALP [Catalytic activity/Vol] 53 U/L Normal 46-116 [facility] Comment on above: Performed By: #### C MP #### [facility] [address] [place] [address] Dr. Mily Parra ALT [Catalytic activity/Vol] 32 U/L Normal 16-63 [facility] Comment on above: Performed By: #### C MP #### [facility] [address] [place] [address] Dr. Mily Parra Anion gap [Moles/Vol] 16.4 mmol/L Normal [facility] Comment on above: Performed By: #### C MP #### [facility] [address] [address] [address] Mily Parra AST [Catalytic activity/Vol] 21 U/L Normal 15-37 [facility] Comment on above: Performed By: #### C MP #### [facility] [address] [address] [address] Mily Parra Bilirubin [Mass/Vol] 0.9 mg/dL Normal 0.2-1.0 [facility] Comment on above: Performed By: #### C MP #### [facility] [address] [address] [address] Mily Parra Calcium [Mass/Vol] 9.2 mg/dL Normal 8.5-10.1 [facility] Comment on above: Performed By: #### C MP #### [facility] [address] [address] [address] Mily Parra Chloride [Moles/Vol] 101 mmol/L Normal 98-107 [facility] Comment on above: Performed By: #### C MP #### [facility] [address] [address] [address] Mily Parra CO2 [Moles/Vol] 26.2 mmol/L Normal 21.0-32.0 [facility] Comment on above: Performed By: #### C MP #### [facility] [address] [address] [address] Mily Parra Creatinine [Mass/Vol] 0.74 mg/dL Normal 0.70-1.30 [facility] Comment on above: Performed By: #### C MP #### [facility] [address] [address] [address] Mily Parra EGFR-AF GAMBIAN >60 Normal >=60 [facility] Comment on above: Performed By: #### C MP #### [facility] [address] [address] [address] Mily Parra EGFR-NON AF GAMBIAN >60 Normal >=60 [facility] Comment on above: Performed By: #### C MP #### [facility] [address] [address] [address] Mily Parra Globulin (S) [Mass/Vol] 3.5 g/dL Normal [facility] Comment on above: Performed By: #### C MP #### [facility] [address] [address] [address] Mily Parra Glucose [Mass/Vol] 135 mg/dL Critically high 74-106 [facility] Comment on above: Performed By: #### C MP #### [facility] [address] [address] [address] Mily Parra Potassium [Moles/Vol] 4.6 mmol/L Normal 3.5-5.1 [facility] Comment on above: Performed By: #### C MP #### [facility] [address] [address] [address] Mily Parra Protein [Mass/Vol] 7.5 g/dL Normal 6.4-8.2 [facility] [place] Comment on above: Performed By: #### C MP #### [facility] [address] [address] [address] Mily Parra Sodium [Moles/Vol] 139 mmol/L Normal 136-145 [facility] Comment on above: Performed By: #### C MP #### [facility] [address] [address] [address] Mily Parra Urea nitrogen [Mass/Vol] 16.0 mg/dL Normal 7.0-18.0 [facility] Comment on above: Performed By: #### C MP #### [facility] [address] [address] [address] Mily Parra Urea nitrogen/Creatinine [Mass ratio] 21.6 mg/mg Normal [facility] Comment on above: Performed By: #### C MP #### [facility] [address] [address] [address] Mily Parra LIPID PROFILEon 02-16-2022 CHOL-HDL RATIO NORM SEE BELOW Normal [facility] Comment on above: Result Comment: 3.3 - 4.4 LOW RISK 4.4 - 7.1 AVERAGE RISK 7.1 - 11.0 MODERATE RISK >11.0 HIGH RISK Performed By: #### L IPID #### [facility] [address] [address] [address] Mily Parra Cholesterol [Mass/Vol] 91 mg/dL Normal <=200 [facility] Comment on above: Performed By: #### L IPID #### [facility] [address] [address] [address] Mily Parra Cholesterol in HDL [Mass/Vol] 27 mg/dL Critically low 40-60 [facility] Comment on above: Performed By: #### L IPID #### [facility] [address] [address] [address] Mily Parra Cholesterol in LDL [Mass/Vol] 40.6 mg/dL Normal [facility] Comment on above: Performed By: #### L IPID #### [facility] [address] [place] [address] Dr. Mily Parra Cholesterol.total/Ch olesterol in HDL [Mass ratio] 3.4 {ratio} Normal [facility] Comment on above: Performed By: #### L IPID #### [facility] [address] [place] [address] Dr. Mily Parra HDL NORMAL > or = 60 mg/dl - LO W CARDIOVASCULAR RISK <40 mg/dl - HIGH CARDIOVASCULAR RISK Normal [facility] Comment on above: Performed By: #### L IPID #### [facility] [address] [place] [address] Dr. Mily Parra LDL CALC NORMAL SEE BELOW Normal [facility] Comment on above: Result Comment: <100 mg/dl OPTIMAL 100 - 129 mg/dl NEAR OR ABOVE OPTIMAL 130 - 159 mg/dl BORDERLINE HIGH 160 - 189 mg/dl HIGH >190 mg/dl VERY HIGH Performed By: #### L IPID #### [facility] [address] [place] [address] Dr. Mily Parra Triglyceride [Mass/Vol] 117 mg/dL Normal <=150 [facility] Comment on above: Performed By: #### L IPID #### [facility] [address] [address] [address] Mily Parra VLDL CALC 23.4 mg/dL Normal [facility] Comment on above: Performed By: #### L IPID #### [facility] [address] [place], [place] [id number] Dr. Mily Parra Vital Signs Date Time Vital Sign Value Performing Clinician Faci lity 09-27-2023 14:57-0500 Body height 162.6 cm Shaikh Brad NOLASCO Work Phone: [facility] 09-27-2023 14:57-0500 Body mass index (BMI) [Ratio] 40.34 kg/m2 Shaikh Brad NOLASCO Work Phone: [facility] 09-27-2023 14:57-0500 Body temperature 98.4 [degF] Shaikh Brad NOLASCO Work Phone: [facility] 09-27-2023 14:57-0500 Body weight 106.59 kg Shaikh Brad NOLASCO Work Phone: [facility] 09-27-2023 14:57-0500 Diastolic blood pressure 84 mm[Hg] Shaikh Brad NOLASCO Work Phone: [facility] 09-27-2023 14:57-0500 Heart rate 104 /min Shaikh Brad NOLASCO Work Phone: [facility] 09-27-2023 14:57-0500 SaO2% (BldA) [Mass fraction] 97 % Shaikh Brad NOLASCO Work Phone: [facility] 09-27-2023 14:57-0500 Systolic blood pressure 130 mm[Hg] Shaikh Brad NOLASCO Work Phone: [facility] Encounters Encounter Date Encounter Type Care Provider Facility Start: 03-18-2024 ambulatory Cabrera Bowman ty:KENDRA Espinoza Start: 02-07-2024 ambulatory [facility] Start: 02-07-2024 Encounter for preprocedural cardiovascular examination [facility] Start: 02-05-2024 End: 02-05-2024 ambulatory SHAIKH LYNNEGeoffrey Not Available Start: 12-20-2023 End: 12-20-2023 ambulatory SHAIKH FARHADJONE Not Available Start: 11-07-2023 End: 11-07-2023 ambulatory SHAIKH TRUDIHILARY Not Available Start: 10-03-2023 End: 10-03-2023 ambulatory [facility] Start: 09-27-2023 End: 09-27-2023 Periodic preventive [...] Unsolicited Start: 08-01-2023 End: 08-01-2023 ambulatory CHACHO [facility] Start: 03-13-2023 End: 03-13-2023 ambulatory Cabrera OJEDA Facility:[facility] Start: 02-22-2023 End: 02-22-2023 ambulatory [facility] Start: 01-03-2023 End: 01-04-[address] TONY WILSON Facility:[facility] Start: 11-14-2022 End: 11-14-2022 Patient encounter procedure Cabrera OJEDA [facility] Start: 10-19-2022 End: 10-19-2022 ambulatory Justin Smallwood Facility:[facility] Start: 10-01-2022 End: 10-02-[address] TONY [...] Ga Salinas MD Work Phone: Start: 09-23-2023 [facility] R ATIO RANDOM Shaikh Brad NOLASCO Work Phone: Start: 03-21-[address] EDNA WILSON Comment on above: Performed By: #### C MP #### [facility] [address] [place] [address] Dr. Mily Parra Aortic stent (physic al object) Cabrera OJEDA Defibrillator, devic e (physical object) Cabrera OJEDA Knee region structur e (body structure) Cabrera OJEDA Shoulder region stru cture (body structure) Cabrera OJEDA Plan of Treatment Date Care Activity Detail Author Start: 09-25-2024 Urine screening for protein Diabetes: Urine Protein Screening [facility] Start: 08-21-2024 Glaucoma screening Diabetes: R etinopathy Screening [facility] Start: 02-18-2024 Influenza vaccination Influenza Vacc ine (#1) [facility] Comment on above: Postponed from 04/21 (Patient Refused) Start: 12-24-2023 Hemoglobin A1c measurement Diabetes: Hemoglobin A1C [facility] Start: 10-30-2023 End: 10-30-2023 Patient encounter procedure 10/30/2023 2:45 PM EDT Office Visit [facility] [address] [place] [address] Shaikh Salinas MD [address] [place] [phone] [facility] Start: 09-27-2023 End: 09-27-2023 Patient encounter procedure 09/27/2023 2:15 PM EST Office Visit [facility] [address] [place] [phone] Shaikh Salinas MD [address] [place] [phone] [facility] Start: 08-27-2023 Hemoglobin A1c measurement Diabetes: Hemoglobin A1C [facility] Start: 1985 Urine screening for protein Diabetes: Urine Protein Screening [facility] Start: 1965 Screening for malign ant neoplasm of colon [facility] Immunizations Immunization Date Immunization Notes Care Provider Fa cili 06-02-2021 SARS-CoV-2 (COVID-19 ) mRNA BNT-162b2 vax Cabrera OJEDA [facility] 05-12-2021 SARS-CoV-2 (COVID-19 ) mRNA BNT-162b2 isabel OJEDA [facility] 01-27-2016 tetanus toxoid, redu cedric diphtheria toxoid, and acellular pertussis vaccine, adsorbed Cabrera OJEDA [facility] Olga Payers Date Payer Category Payer Self-pay 2022 Unknown [employer] [id number] 2022-Present [phone] [address] [address] [place] [address] [id number] 1966 Unknown [id number] 3 1966 Unknown [id number] 3 1966 Unknown [id number] [id number] 3 1966 Unknown [id number] [id number] 3 1966 Unknown [id number] [id number] 3 1966 Unknown [id number] 3 1966 Unknown [id number] [id number] 59 1966 Unknown [id number] [id number] 59 1966 Unknown [id number] 2.16.840.1.552892.3.579.2.12 59 1966 Unknown [id number] 2.16.840.1.902317.3.579.2.12 59 1966 Unknown [id number] 2.16.840.1.954831.3.579.2.72 7 1966 Unknown [id number] [id number] 7 1959 Unknown [id number] 1959 Unknown [id number] Unknown [id number] 1 Social History Date Type Detail Facility Start: 11-14-2022 Tobacco smoking status Heavy tobacco smoker (finding) [facility] Start: 09-08-2023 End: 09-27-2023 Sex Assigned At Male [facility] Start: 09-08-2023 End: 09-27-2023 Tobacco smoking status NHIS Ex-smoker [facility] Start: 08-21-2009 History of tobacco use Current smoker [facility] Start: 08-21-2009 History of tobacco use Cigarette Smoker [facility] Start: 09-08-2023 End: 09-27-2023 History of Social function [facility] Start: 1965 Sex Assigned At Male [facility] Start: 08-31-2023 Gender identity Identifies as male gender (finding) [facility] Start: 08-31-2023 Sexual orientation Heterosexual (finding) [facility] Start: 09-27-2023 Alcohol intake Current drinker of alcohol (finding) [facility] Start: 09-27-2023 Alcohol Comment caffeine: more than 4 cups per day [facility] History of tobacco use Passive smoker [facility] Start: 09-27-2023 Tobacco use and exposure Smokeless tobacco non-user [facility] Medical Equipment Procedure Code Equipment Code Equipment Origin al Text Equipment Identifier Dates 1 each by Other route every 12 (twelve) hours Twice a day - whatever brand is covered under patients insurance. [id number] Start: 09-27-2023 End: 04-19-2027 1 each every 12 (twelve) hours [id number] Start: 09-27-2023 End: 12-26-2023 Functional Status Date Assessment Result Facility 11-14-2022 Functional Status N/A [facility] History of Present illness Narrative [...] recent office/hospital visit for CHF exacerbation. Following [facility] cardiology. Associated Problem(s): Essential hypertension (CMS/HCC) [...] hypoglycemia. Relevant Medications Lancets Ultra Thin [facility]G [facility] glucose blood test strip Chronic systolic heart failure (CMS/HCC) Stable, on GDMT. No evidence of fluid overload. Does not require Loop diuretic. No recent office/hospital visit for CHF exacerbation. Following [facility] cardiology. Essential hypertension (CMS/HCC) - Primary [...] weeks (around 10/25/2023). documented in this encounter [facility] Progress note 08-01-2023 Note Date & Type Note Facility 08-01-2023 Note [place] [facility] Subjective Evaristo Lowery is a 58 [...] No pericardial effus (more content not included)... [facility] Discharge instructions 11-14-2022 Note Date [...] provider gives to you. In general: Take iqyx-[id number] and prescription medicines only as told by [...] 03/04/2015 Document Revised: 09/13/2018 Document Reviewed: 09/13/2018 [employer] Patient Education 2020 [employer]. Follow Up Care 10/11/2022 10:10:39 With:Cabrera OJEDA MD, URL Address: [facility] [address], [place] [address]- When: Unknown [facility] Evaluation + Plan note Note Date & Type Note Facility Evaluation + Plan note Future Appointments Appointment Date:03/13/2023 02:30:00 PM Scheduled Provider:Cabrera OJEDA MD Location:[facility] Appointment Type:URO Office Visit [facility] Evaluation note Note Date & Type Note Facility Evaluation note Diagnosis Essential hypertension (CMS/HCC)- Primary Unspecified essential hypertension Chronic systolic heart failure (CMS/HCC) Chronic systolic heart failure Type 2 diabetes mellitus without complication, without long-term current use of insulin (CMS/HCC) Hyperlipidemia, unspecified hyperlipidemia type (CMS/HCC) Wellness examination documented in this encounter [facility] Hospital course Narrative Note Date & Type Note Facility Hospital course Narrative No data available for this section [facility] Progress note Note Date & Type Note Facility Progress note No data available for this section [facility] Summary Purpose Family History No [...] section and content) DATE CREATED AUTHOR 10/20/2022 [facility] DATE CREATED AUTHOR AUTHOR'S ORGANIZ ATION 01/04/2023 [facility] DATE CREATED AUTHOR AUTHOR'S ORGANIZ ATION 02/06/2024 [facility] EPIC DATE CREATED AUTHOR AUTHOR'S ORGANIZ ATION 02/08/[address] [facility] DATE CREATED AUTHOR AUTHOR'S ORGANIZ ATION 02/17/2024 [facility] Patient Care team informatio n (unrecognized section and content) Tube Maker Relationship Specialty Start Date End Date Shaikh Salinas MD [address] [place] [phone] PCP - General Internal Medicine 09/08/23 Tube Maker Relationship Specialty Start Date End Date Shaikh Salinas MD [address] [place] [phone] PCP - General Internal Medicine 09/08/23 Tube Maker Relationship Specialty Start Date End Date Shaikh Salinas MD [address] [place] [address] PCP - General Internal Medicine [...] BE BASED ON THE PRIMARY CLINICAL RECORDS. [employer] provides no warranty or guarantee of the accuracy or completeness of information in this document.
[2024-03-05 20:58] LABS: Troponin I High Sensitivity <4.0 pg/mL (4.0-76.1)
[2024-03-05 23:46] LABS: Troponin I High Sensitivity <4.0 pg/mL (4.0-76.1)
[2024-03-06] VITALS (17 sets, daily range): BP systolic 107–119; BP diastolic 70–71; PULSE 74–90; TEMP 36.8–37; O2SAT 94–98
[2024-03-06 05:37] LABS: Basophils Absolute Auto 0.1 10^3/uL (0.0-0.1); Basophils Percent Auto 0.9 % (0.2-2.0); Eosinophils Absolute Auto 0.2 10^3/uL (0.0-0.7); Eosinophils Percent Auto 2.6 % (0.9-7.0); Hematocrit 48.7 % (42.0-54.0); Hemoglobin 15.9 g/dL (14.0-18.0); Immature Granulocytes Abs Auto 0.05 10^3/uL (0.00-0.03); Immature Granulocytes Pct Auto 0.5 % (0.0-0.5); Lymphocytes Absolute Auto 2.4 10^3/uL (1.2-3.8); Lymphocytes Percent Auto 26.2 % (20.5-60.0); Mean Corpuscular HGB Conc 32.6 g/dL (29.9-35.2); Mean Corpuscular Hemoglobin 29.3 pg (25.9-34.0); Mean Corpuscular Volume 89.9 fL (80.0-94.0); Mean Platelet Volume 9.1 fL (9.5-13.5); Monocytes Absolute Auto 0.8 10^3/uL (0.3-0.8); Neutrophils Absolute Auto 5.6 10^3/uL (1.4-6.5); Neutrophils Percent Auto 60.8 % (43.0-75.0); Platelet Count 274 10^3/uL (150-450); Red Blood Count 5.42 10^6/uL (4.70-6.10); Red Cell Distribution Width 13.4 % (11.0-15.0); White Blood Count 9.2 10^3/uL (4.0-11.0)
--- NOTE | 2024-03-06 06:08 | CA_ITS ---
Patient Name: EVARISTO LOWERY MR#: [id number] : 1965 Exam Date: 03/06/2024 Ordering Doctor: DR Juan David Mtz . ECHOCARDIOGRAM REPORT PROCEDURE: CA ECHO DOPPLER COMPLETE INDICATIONS: Dyspnea COMPARISON: None. DESCRIPTION: COMPLETE ECHOCARDIOGRAM Real-time transthoracic echocardiography with 2D, M-mode, spectral and color flow Doppler performed. QUALITY: Technical quality was good. LEFT VENTRICLE: Normal chamber size. Normal left ventricular wall thickness. Global left ventricular systolic function is moderately to severely decreased. There is akinesis of the anterior septum, mid and distal anterior wall and apex. No evidence of intracavitary thrombus. LV EF: Estimated left ventricular ejection fraction is 30%. DIASTOLIC: ATRIAL SEPTUM: LEFT ATRIUM: Mild dilatation. RIGHT ATRIUM: Normal chamber size. RIGHT VENTRICLE: Normal chamber size. Normal right ventricular systolic function. Pacer wire present. TRICUSPID VALVE: Normal mobility and thickness. No stenosis with trivial regurgitation. No evidence of pulmonary hypertension. RVSP 24 mmHg MITRAL VALVE: Normal mobility and thickness. No evidence of mitral valve stenosis. There is no mitral annular calcification. Trivial mitral regurgitation. AORTIC VALVE: Normal trileaflet appearance. No visible sclerosis. Normal leaflet mobility. No evidence of aortic valve stenosis. No aortic regurgitation. AORTIC ROOT: Normal diameter and appearance. PULMONIC VALVE: Normal thickness and mobility. No stenosis. Trivial regurgitation. PERICARDIUM: No evidence of pericardial effusion. IVC: Collapses with inspirations. Normal size. PLEURA: CONCLUSION: 1. The left ventricle exhibits moderately to severely reduced systolic function with wall motion abnormalities in the LAD territory. LVEF is estimated at 30%. 2. Normal right ventricular size and systolic function. 3. No significant valvular dysfunction. 4. Normal right-sided pressures. 5. No pericardial effusion. Adult Echocardiography Procedure Report Left Ventricle LVEDD (3.7 - 5.6 cm): 5.44 cm LVESD (2.2 - 4.0 cm): 4.78 cm LVIVS thickness (0.6 - 1.2 cm): 0.67 cm LVPW thickness (0.5 - 1.0 cm): 1.02 cm e': 0.09 m/s E - e': 8.40 LVOT Max Gradient: 3.86 mm[Hg], 3.97 mm[Hg] LVOT Area (cm2): 0.99 m/s Peak Velocity (LVOT): 0.98 m/s, 1.00 m/s Mean Velocity (LVOT): 0.71 m/s LVOT Diameter 2.06 cm Left Ventricular Ejection Fraction: 30 % Left Atrium LA Volume Index (2D A2C): 30.43 ml/m2 Left Atrium Systolic Dimension: 3.85 cm Mitral Valve MV E to A Ratio: 0.91, 0.97 Mitral Valve A-Wave Peak Velocity: 0.85 m/s Mitral Valve E-Wave Peak Velocity: 0.80 m/s Right Ventricle RV Internal Diastolic Dimension: 3.84 cm Aorta AO Root Diam: 3.36 cm Ascending Ao Diam: 2.57 cm Aortic Valve AoV Area (Peak Allan): 2.73 cm2, 2.67 cm2, 2.78 cm2 AoV Area (VTI): 2.54 cm2, 2.47 cm2, 2.61 cm2 Peak Velocity(Antegrade Flow): 1.23 m/s, 1.19 m/s Peak Gradient(Antegrade Flow): 6.00 mm[Hg], 5.69 mm[Hg] Mean Velocity(Antegrade Flow): 0.88 m/s, 0.87 m/s Mean Gradient(Antegrade Flow): 3.51 mm[Hg], 3.42 mm[Hg] Velocity Time Integral: 25.65 cm, 25.60 cm Tricuspid Valve Peak Velocity (Regurgitant Flow): 2.38 m/s, 2.29 m/s, 2.20 m/s Pulmonic Valve Mean Gradient: 1.88 mm[Hg], 1.74 mm[Hg], 1.94 mm[Hg], 1.79 mm[Hg] Mean Velocity: 0.64 m/s, 0.61 m/s, 0.64 m/s, 0.62 m/s Peak Velocity: 0.94 m/s Peak Gradient: 3.31 mm[Hg], 3.31 mm[Hg], 3.86 mm[Hg], 3.55 mm[Hg] Right Atrium Right Atrium Systolic Pressure: 49.74 ml, 49.74 ml Dictated by: Foreign Rodriguez M.D. on 03/06/2024 at 17:47 Approved by: Foreign Rodriguez M.D. on 03/06/2024 at 17:50
[2024-03-06 06:26] LABS: Anion Gap 13.2; Calcium 9.1 mg/dL (8.5-10.1); Carbon Dioxide 24.6 mmol/L (21.0-32.0); Chloride 103 mmol/L (98-107); Chol HDL Ratio 3.1; Cholesterol 92 mg/dL (<=200); Estimated GFR (African America >60 (>=60); Estimated GFR (Non-African Ame >60 (>=60); Glucose 121 mg/dL (74-106); HDL Cholesterol 30 mg/dL (40-60); Magnesium 1.9 mg/dL (1.8-2.4); Phosphorus 4.6 mg/dL (2.6-4.7); Potassium 3.8 mmol/L (3.5-5.1); Sodium 137 mmol/L (136-145); Triglycerides 166 mg/dL (<=150); VLDL CHOLESTEROL 33.2 mg/dL
[2024-03-06 08:03] LABS: Glucometer 96 mg/dL (74-106)
--- NOTE | 2024-03-06 08:22 | P.HP_ITS ---
HPI H&P: HPI History of Present Illness Chief complaint: DIZZINESS CHEST PAIN Narrative: Patient with acute onset of dizziness, some of vertigo somewhat were presyncopal, also had chest pain radiating to the left side and this was occurring at rest. Presented to the emergency room is admitted for workup and treatment of same I saw patient up in the intensive care unit, he was resting comfortably in bed denied chest pain, fatigued but not short of breath, just sleepy. Opioid HPI Opioid Management Most Recent Pain and Opioid Data: Last Pain Assessment 03/06/24 07:00 Last ORT Total Score 1 03/05/24 21:07 Last ORT Risk Category Low Risk 03/05/24 21:07 Review of Systems ROS Status of ROS 10 or more systems reviewed and unremark able except as noted in history and below PFSH PFSH Social History Highest level of school completed/degree received: high school graduate Meds Home Medications and Allergies Home Medications ?Medication ?Instructions ?Recorded ?Confirmed ?Type atorvastatin 80 mg tablet 80 mg PO DAILY 03/05/24 03/06/24 History carvedilol 25 mg tablet 25 mg PO BID 03/05/24 03/06/24 History digoxin 125 mcg (0.125 mg) tablet 0.125 mg PO DAILY 03/05/24 03/06/24 History empagliflozin 25 mg tablet 25 mg PO DAILY 03/05/24 03/06/24 History (Jardiance) ezetimibe 10 mg tablet 10 mg PO DAILY 03/05/24 03/06/24 History glipizide 5 mg tablet 5 mg PO DAILY 03/05/24 03/06/24 History metformin 1,000 mg tablet 1,000 mg PO BID 03/05/24 03/06/24 History spironolactone 25 mg tablet 12.5 mg PO DAILY 03/05/24 03/06/24 History aspirin 81 mg capsule 81 mg PO DAILY #30 caps 03/06/24 Rx semaglutide 0.25 mg or 0.5 mg (2 0.5 mg subcut QWEEK 03/06/24 03/06/24 History mg/3 mL) subcutaneous pen injector (Ozempic) Allergies Allergy/AdvReac Type Severity Reaction Status Date / Time No Known Drug Allergies Allergy Verified 03/05/24 16:58 Exam Constitutional Vital Signs, click to edit/add: Last Vital Signs Temp 98.2 F 03/06/24 04:27 Pulse 75 03/06/24 07:00 Resp 16 03/06/24 07:00 BP 107/70 03/06/24 04:27 Pulse Ox 94 L 03/06/24 04:27 O2 Del Method Room Air 03/05/24 21:07 Documenting provider has reviewed patient's vital signs: yes Common normals: no apparent distress Chest Common normals: inspection of chest normal Respiratory Common normals: normal respiratory effort and no retractions Cardio Common normals: regular rate and regular rhythm GI Common normals: Normal to inspection, nondistended, normoactive bowel sounds present, soft to palpation and non-tender Extremity Common normals: normal to inspection and full ROM Neuro Common normals: oriented x3, CN's II-XII intact bilaterally and moves all extremities Results Labs Labs: Short CBC 03/05/24 03/06/24 Range/Units 17:13 05:25 WBC 11.2 H 9.2 (4.0-11.0) 10^3/uL Hgb 17.5 15.9 (14.0-18.0) g/dL Hct 53.1 48.7 (42.0-54.0) % Plt Count 341 274 (150-450) 10^3/uL BMP 03/05/24 03/06/24 17:13 05:25 Sodium 135 L 137 Potassium 3.8 3.8 Chloride 99 103 Carbon Dioxide 27.1 24.6 BUN 33.0 H 28.0 H Creatinine 0.88 0.70 Glucose 112 H 121 H Calcium 9.6 9.1 Liver Function 03/05/24 Range/Units 17:13 Total Bilirubin 0.7 (0.2-1.0) mg/dL AST 16 (15-37) U/L ALT 28 (16-63) U/L Alkaline Phosphatase 67 (46-116) U/L Albumin 4.2 (3.4-5.0) g/dL Assessment and Plan Assessment and Plan (1) Chest pain: Plan Sinus tachycardia, respiratory distress secondary to chest pain-check e chocardiogram, consult to cardiology, he does have known coronary artery disease. Symptoms were occurring at rest. Mild leukocytosis and hyponatremia consistent with dehydration-improved todaypriyaue to monitor And IDDM-insulin sliding scale and home medicationsTry to obtain sputum culture. Admission: A patient with chest pain that is now resolved, cardiac markers are negative, consult cardiology, if stable later today will be discharged home, maintain observation status
--- NOTE | 2024-03-06 08:29 | CM.NOTE ---
Rounds made with Dr. Mtz. Potential discharge today after Echo. Understanding verbalized.
--- NOTE | 2024-03-06 09:42 | P.DS_ITS ---
DS: Providers Provider Date of admission: 03/05/24 20:42 Primary care physician: Shaikh Brad MD Consults: 03/06/24 06:07 Consult to Pharmacy Routine Consulting Provider: Reason for consultation: Please [place] me when Med Rec is Updated Has provider been notified: No 03/06/24 08:21 Consult to Cardiology Routine Reason for consultation: Pt known to them Has provider been notified: No DS: Diagnosis Discharge Diagnosis (1) Chest pain: Plan Sinus tachycardia, respiratory distress secondary to chest pain-check echocardiogram, consult to cardiology, he does have known coronary artery disease. Symptoms were occurring at rest. Mild leukocytosis and hyponatremia consistent with dehydration-improved today, continue to monitor And IDDM-insulin sliding scale and home medicationsTry to obtain sputum culture. Admission: A patient with chest pain that is now resolved, cardiac markers are negative, consult cardiology, if stable later today will be discharged home, maintain observation status ? DS: Summary Hospital Course Hospital Course: Patient admitted with an episode of chest pain, he has a history of known coronary artery disease status post stenting. This episode went into his left arm and occurred at rest. Cardiac markers were negative. No evidence for heart failure. Echocardiogram shows a good ejection fraction. Symptoms of resolved. Case discussed with cardiology, between the patient and outbound sales representative they are comfortable with patient being discharged home, started on aspirin a day, set up for stress testing as an outpatient. Again patient was stable at time of discharge with no further symptoms with ambulation or at rest. Medications see list. Follow-up with PCP and cardiology within the next week. Status at Discharge Overall status at discharge: patient is back to baseline Time Spent with Patient Time attestation: Total time spent providing and/or coordinating discharge services: Time spent: greater than 30 minutes Quality: Stroke Symptom Onset Unknown: No Exam Constitutional Vital Signs, click to edit/add: Last Vital Signs Temp 98.2 F 03/06/24 04:27 Pulse 75 03/06/24 07:00 Resp 16 03/06/24 07:00 BP 107/70 03/06/24 04:27 Pulse Ox 94 L 03/06/24 04:27 O2 Del Method Room Air 03/05/24 21:07 Documenting provider has reviewed patient's vital signs: yes Common normals: no apparent distress and oriented x3 HENMT Common normals: normocephalic and head/scalp atraumatic Eye Common normals: EOMs intact bilaterally and conjunctivae normal Neck & C-Spine Common normals: full ROM, supple and no JVD Chest Common normals: inspection of chest normal Respiratory Common normals: normal respiratory effort, no use of accessory muscles and clear to auscultation bilaterally Cardio Common normals: no JVD, regular rate, regular rhythm, S1 normal heart sound and S2 normal heart sound GI Common normals: Normal to inspection, nondistended, normoactive bowel sounds present Extremity Common normals: normal to inspection, full ROM and no pedal edema Neuro Common normals: oriented x3, moves all extremities and no focal motor deficits Psych Common normals: mental status grossly normal, thought process normal, cooperative and affect normal DS: Data Data Completed and Pending Labs on day of discharge: Labs from last 24 hours 03/06/24 03/06/24 03/05/24 08:02 05:25 21:15 WBC 9.2 RBC 5.42 Hgb 15.9 Hct 48.7 MCV 89.9 MCH 29.3 MCHC 32.6 RDW 13.4 Plt Count 274 MPV 9.1 L Neut % (Auto) 60.8 Lymph % (Auto) 26.2 Fisher % (Auto) 9.0 Eos % (Auto) 2.6 Baso % (Auto) 0.9 Neut # (Auto) 5.6 Lymph # (Auto) 2.4 Fisher # (Auto) 0.8 Eos # (Auto) 0.2 Baso # (Auto) 0.1 Abs Immat Gran (auto) 0.05 H Imm/Tot Granulo (auto) 0.5 PT INR Sodium 137 Potassium 3.8 Chloride 103 Carbon Dioxide 24.6 Anion Gap 13.2 BUN 28.0 H Creatinine 0.70 Est GFR ( Amer) >60 Est GFR (Non-Af Amer) >60 BUN/Creatinine Ratio 40.0 Glucose 121 H Calcium 9.1 Phosphorus 4.6 Magnesium 1.9 Total Bilirubin AST ALT Alkaline Phosphatase Troponin I High Sens <4.0 L NT-Pro-B Natriuret Pep 149.0 Total Protein Albumin Globulin Albumin/Globulin Ratio Triglycerides 166 H Cholesterol 92 LDL Cholesterol, Calc 29.0 VLDL Cholesterol 33.2 HDL Cholesterol 30 L Cholesterol/HDL Ratio 3.1 Digoxin POC Glucose 96 03/05/24 03/05/24 03/05/24 20:25 18:35 17:13 WBC 11.2 H RBC 5.93 Hgb 17.5 Hct 53.1 MCV 89.5 MCH 29.5 MCHC 33.0 RDW 13.4 Plt Count 341 MPV 9.3 L Neut % (Auto) 66.2 Lymph % (Auto) 24.0 Fisher % (Auto) 6.4 Eos % (Auto) 2.3 Baso % (Auto) 0.7 Neut # (Auto) 7.4 H Lymph # (Auto) 2.7 Fisher # (Auto) 0.7 Eos # (Auto) 0.3 Baso # (Auto) 0.1 Abs Immat Gran (auto) 0.04 H Imm/Tot Granulo (auto) 0.4 PT 10.4 INR 0.98 Sodium 135 L Potassium 3.8 Chloride 99 Carbon Dioxide 27.1 Anion Gap 12.7 BUN 33.0 H Creatinine 0.88 Est GFR ( Amer) >60 Est GFR (Non-Af Amer) >60 BUN/Creatinine Ratio 37.5 Glucose 112 H Calcium 9.6 Phosphorus Magnesium 2.0 Total Bilirubin 0.7 AST 16 ALT 28 Alkaline Phosphatase 67 Troponin I High Sens <4.0 L 4.9 5.0 NT-Pro-B Natriuret Pep Total Protein 8.4 H Albumin 4.2 Globulin 4.2 Albumin/Globulin Ratio 1.0 Triglycerides Cholesterol LDL Cholesterol, Calc VLDL Cholesterol HDL Cholesterol Cholesterol/HDL Ratio Digoxin 0.4 L POC Glucose Discharge Plan Discharge Disposition: Home, Self-Care Condition: Good Discharge Medications: New aspirin 81 mg capsule 81 mg PO DAILY Qty: 30 11RF Continued atorvastatin 80 mg tablet 80 mg PO DAILY carvedilol 25 mg tablet 25 mg PO BID digoxin 125 mcg (0.125 mg) tablet 0.125 mg PO DAILY Jardiance 25 mg tablet 25 mg PO DAILY ezetimibe 10 mg tablet 10 mg PO DAILY glipizide 5 mg tablet 5 mg PO DAILY metformin 1,000 mg tablet 1,000 mg PO BID spironolactone 25 mg tablet 12.5 mg PO DAILY Ozempic 0.25 mg or 0.5 mg (2 mg/3 mL) pen injector 0.5 mg SUBCUT QWEEK No Action Entresto 24-26 mg tablet 1 tab PO BID Activity: increase activity as tolerated Diet: advance to your usual diet Print Language: [place]dean Patient Instructions: Chest Pain (DC) Forms: Portal Instructions Follow Up Appointments: [facility] Olga office Mar.27@10:15 scheduling will you to set up a stress test. Discharge Date/Time: 03/06/24 12:10
[2024-03-06] MEDS: ATORVASTATIN CALCIUM 40 MG TABLET 80 MG PO (09:59)
[2024-03-06] MEDS: METFORMIN HCL 500 MG TABLET 1000 MG PO (09:59)
[2024-03-06] MEDS: DIGOXIN 125 MCG TABLET PO (09:59)
[2024-03-06] MEDS: EZETIMIBE 10 MG TABLET PO (10:00)
[2024-03-06] MEDS: SPIRONOLACTONE 25 MG TABLET 12.5 MG PO (10:01)
[2024-03-06] MEDS: GLIPIZIDE 5 MG TABLET PO (10:02)
[2024-03-06] MEDS: ENOXAPARIN SODIUM 40 MG/0.4 ML SYRINGE SUBQ (10:02)
[2024-03-06] MEDS: CARVEDILOL 25 MG TABLET PO (10:02)
[2024-03-06] MEDS: CANAGLIFLOZIN 100 MG TABLET 300 MG PO (10:18)
[2024-03-06] MEDS: SACUBITRIL/VALSARTAN 24 MG-26 MG TABLET 1 TAB PO (10:24)
[2024-03-06 11:55] LABS: Glucometer 128 mg/dL (74-106)
--- NOTE | 2024-03-06 12:39 | PM.CACN ---
History of Present Illness History of Present Illness Consult date: 03/06/24 Requesting physician: Juan David Mtz Consult reason: chest pain Chief complaint: DIZZINESS CHEST PAIN Narrative: Patient is a 58 y/o M with known hx of CAD s/p stenting 2004, HFrEF s/p ICD, HTN, HLD, DM who presented to [facility] with c/o intermittent chest pain. Pain started in the back of his left arm and radiated up to his left clavical. Pain occurred at rest, did not occur with exertion or worsen with exertion. Sx's would last for 5-10 minutes on and off for the past 2-3 days. He had accompanied dizziness. Dizziness was actually continuous for those 2-3 days. Since he has been at [facility], he has had no further episodes of pain. His troponin levels have been negative. No ischemic EKG changes. CXR unremarkable. ECHO to be done. He was recently started on digoxin for better HR control. Patient seen and examined at bedside. Today he states he feels well. Denies c/o CP, dyspnea, orthopnea, PND, LE edema, dizziness/LH, palpitation. He has been able to exert himself without any SOB or chest pain. He notes that prior to his stent in 2004, he felt very SOB and profusely sweating. Review of Systems ROS Status of ROS 10 or more systems reviewed and unremarkable except as noted in history and below Cardiovascular Reports: chest pain Neurological Reports: dizziness [facility] Social History Highest level of school completed/degree received: high school graduate Meds Home Medications and Allergies Home Medications ?Medication ?Instructions ?Recorded ?Confirmed ?Type atorvastatin 80 mg tablet 80 mg PO DAILY 03/05/24 03/06/24 History carvedilol 25 mg tablet 25 mg PO BID 03/05/24 03/06/24 History digoxin 125 mcg (0.125 mg) tablet 0.125 mg PO DAILY 03/05/24 03/06/24 History empagliflozin 25 mg tablet 25 mg PO DAILY 03/05/24 03/06/24 History (Jardiance) ezetimibe 10 mg tablet 10 mg PO DAILY 03/05/24 03/06/24 History glipizide 5 mg tablet 5 mg PO DAILY 03/05/24 03/06/24 History metformin 1,000 mg tablet 1,000 mg PO BID 03/05/24 03/06/24 History spironolactone 25 mg tablet 12.5 mg PO DAILY 03/05/24 03/06/24 History aspirin 81 mg capsule 81 mg PO DAILY #30 caps 03/06/24 Rx sacubitril 24 mg-valsartan 26 mg 1 tab PO BID 03/06/24 03/06/24 History tablet (Entresto) semaglutide 0.25 mg or 0.5 mg (2 0.5 mg subcut QWEEK 03/06/24 03/06/24 History mg/3 mL) subcutaneous pen injector (Ozempic) Allergies Allergy/AdvReac Type Severity Reaction Status Date / Time No Known Drug Allergies Allergy Verified 03/05/24 16:58 Exam Constitutional Vital Signs, click to edit/add: Last Vital Signs Temp 98.6 F 03/06/24 10:07 Pulse 86 03/06/24 12:00 Resp 26 H 03/06/24 10:00 BP 119/71 03/06/24 08:05 Pulse Ox 94 L 03/06/24 11:08 O2 Del Method Room Air 03/06/24 11:08 Documenting provider has reviewed patient's vital signs: yes Common normals: no apparent distress and oriented x3 HENMT Common normals: normocephalic and head/scalp atraumatic Eye Common normals: EOMs intact bilaterally and conjunctivae normal Neck & C-Spine Common normals: full ROM, supple and no JVD Chest Common normals: inspection of chest normal Respiratory Common normals: normal respiratory effort, no use of accessory muscles and clear to auscultation bilaterally Cardio Common normals: no JVD, regular rate, regular rhythm, S1 normal heart sound and S2 normal heart sound GI Common normals: Normal to inspection, nondistended, normoactive bowel sounds present Extremity Common normals: normal to inspection, full ROM and no pedal edema Neuro Common normals: oriented x3, moves all extremities and no focal motor deficits Psych Common normals: mental status grossly normal, thought process normal, cooperative and affect normal Results Labs and Meds Lab results: Cardiac Enzymes 03/05/24 Range/Units 17:13 AST 16 (15-37) U/L Coagulation 03/05/24 Range/Units 17:13 PT 10.4 (9.0-11.6) sec Lipids 03/06/24 Range/Units 05:25 Triglycerides 166 H (<=150) mg/dL Cholesterol 92 (<=200) mg/dL HDL Cholesterol 30 L (40-60) mg/dL Cholesterol/HDL Ratio 3.1 CBC 03/05/24 03/06/24 Range/Units 17:13 05:25 WBC 11.2 H 9.2 (4.0-11.0) 10^3/uL RBC 5.93 5.42 (4.70-6.10) 10^6/uL Hgb 17.5 15.9 (14.0-18.0) g/dL Hct 53.1 48.7 (42.0-54.0) % Plt Count 341 274 (150-450) 10^3/uL Neut # (Auto) 7.4 H 5.6 (1.4-6.5) 10^3/uL Lymph # (Auto) 2.7 2.4 (1.2-3.8) 10^3/uL [place] # (Auto) 0.7 0.8 (0.3-0.8) 10^3/uL Eos # (Auto) 0.3 0.2 (0.0-0.7) 10^3/uL Baso # (Auto) 0.1 0.1 (0.0-0.1) 10^3/uL Comprehensive Metabolic Panel 03/05/24 03/06/24 Range/Units 17:13 05:25 Sodium 135 L 137 (136-145) mmol/L Potassium 3.8 3.8 (3.5-5.1) mmol/L Chloride 99 103 (98-107) mmol/L Carbon Dioxide 27.1 24.6 (21.0-32.0) mmol/L BUN 33.0 H 28.0 H (7.0-18.0) mg/dL Creatinine 0.88 0.70 (0.70-1.30) mg/dL Glucose 112 H 121 H (74-106) mg/dL Calcium 9.6 9.1 (8.5-10.1) mg/dL AST 16 (15-37) U/L ALT 28 (16-63) U/L Alkaline Phosphatase 67 (46-116) U/L Total Protein 8.4 H (6.4-8.2) g/dL Albumin 4.2 (3.4-5.0) g/dL Intake and Output 03/05/24 03/06/24 03/06/24 23:59 07:59 15:59 Intake Total 480 / 480 Balance 480 / 480 Intake: Oral 480 / 480 Other: # Voids 1 3 Weight 97.3 kg Imaging and Cardiology Echo: pending ECG results: image reviewed EKG Interpretation EKG: normal ST/T (IVCD, lateral infarct, no ischemic changes) Assessment and Plan Assessment and Plan (1) Chest pain: (2) Coronary artery disease: (3) Systolic heart failure: (4) Stented coronary artery: (5) ICD (implantable cardioverter-defibrillator) in place: (6) DM type 2 (diabetes mellitus, type 2): (7) HLD (hyperlipidemia): (8) HTN (hypertension): (9) Dizziness: Plan -His c/o chest pain was atypical. -Patient is feeling better today, no further episodes of chest pain. Dizziness has also improved. -His cardiac markers including troponin and BNP have been unremarkable. EKG shows no ischemic changes. -He is pending an ECHO. -Discussed plan with Dr. Mtz - If ECHO is unremarkable, okay to discharge with plans for a stress test as an outpatient. Patient is agreeable with this plan. -Follow-up with cardiology after stress test. Please let us know if any further questions or concerns. Thank you! Anaya Jacques APRN-P[employer]UT [employer]NER OPERATOR
--- NOTE | 2024-03-07 14:10 | CM.DCFOLLOWU ---
Person spoke with: patient How are you feeling?well How is your pain? none Did you understand your discharge instructions? yes Do you have any questions about your discharge instructions? no Were you given any prescriptions at discharge? yes, aspirin, but he has been taking baby aspirin since 2004 Were you able to get your prescriptions filled? did not need to Do you understand how to take your medications as ordered? yes Do you have any questions about your follow up appointment and do you plan to keep your follow up appointment? no questions, follow up reviewed Is there anything else that you would like to discuss? no Questions/Comments/Concerns/Other: none
== END 2024-03-06 12:10 | disposition home or self-care (01) ==
LOC: ER 19:42 → ICU 20:45
PROVIDERS: Emergency Medicine; Registered Nurse; Admitting Provider Family Medicine; Emergency Provider Student in an Organized Health Care Education/Training Program; PCP Internal Medicine; Visit Provider Family Medicine
DX: R07.9 Chest pain, unspecified (principal); R00.0 Tachycardia, unspecified; R06.03 Acute respiratory distress; I25.10 Atherosclerotic heart disease of native coronary artery without angina pectoris; E87.1 Hypo-osmolality and hyponatremia; E86.0 Dehydration; D72.829 Elevated white blood cell count, unspecified; E11.9 Type 2 diabetes mellitus without complications; I10 Essential (primary) hypertension; I48.91 Unspecified atrial fibrillation; E78.5 Hyperlipidemia, unspecified; Z95.5 Presence of coronary angioplasty implant and graft
CPT/HCPCS: 36415; 71045; 80048; 80053; 80061; 80162; 82948; 83735; 83880; 84100; 84484; 85025; 85610; 93005; 93306; 93356; 94667; 94761; 96372; 99285; G0378; J1650

== ENCOUNTER 2024-03-20 07:19 | Outpatient (OUT) | payer OTHER, SELFPAY ==
--- NOTE | 2024-03-20 | PCN_ITS ---
CARDIAC STRESS TEST Requesting Physician: Procedure Date: 03/20/2024 This was a Lexiscan stress test with myocardial perfusion imaging performed at the [facility] on 03/20/2024 An informed consent was signed and intravenous line was secured. Baseline ECG and vital signs were obtained. Lexiscan 0.4 mg was infused intravenously, followed by administration of Cardiolite. The patient then went on to obtain myocardial perfusion imaging. Resting heart rate was 82 BPM and maximum heart rate was 110 BPM. Resting blood pressure was 112/74 and maximum blood pressure 118/68. Resting ECG showed sinus rhythm with left axis deviation and non-specific intraventricular conduction delay. There was evidence of a possible anteroseptal myocardial infarction that is old. ECG following infusion of Lexiscan showed evidence of sinus tachycardia with no ischemic ST changes. SUMMARY OF THE FINDINGS: 1. No evidence of ischemic EKG changes seen following infusion of Lexiscan. 2. Myocardial perfusion imaging will be reported separately. MTDD
--- NOTE | 2024-03-20 06:55 | NM_ITS ---
Patient Name: EVARISTO LOWERY MR#: [id number] : 1965 Exam Date: 03/20/2024 Ordering Doctor: SAIMA ALCANTARA CNP RADIOLOGY REPORT PROCEDURE: NM EZ PERF SPECT REST STR COMPARISON: None. INDICATIONS: CHEST PAIN TECHNIQUE: Exam Description: Stress/Rest one day protocol gated SPECT Rest Imagin.0 mCi Tc-99m Cardiolite IV on 03/20/2024 Stress Imaging 31.0 mCi Tc-99m Cardiolite IV on 03/20/2024 Exercise Protocol: 0.4 mg Lexiscan given IV Heart Rate (bpm): Rest: 82 Max: 110 PMHR: 67 Blood Pressure: Rest: 112/74 Max: 118/68 Symptoms: Rest and peak stress ECG findings were pending and the exercise portion of the study was pending per attending physician Dr. MERRILL . For more details please see separate cardiac stress test report. FINDINGS: QUALITY OF STUDY: Good. PERFUSION DEFECT: LOCATION: Basal anterior. Basal anterolateral. Mid-anterior. Mid-anteroseptal. Apical anterior. Lyman. SIZE: Large (5 or more segments). SEVERITY: Severe. TYPE: Persistent. WALL MOTION: Severe hypokinesis: LV SIZE: 215 mL. TID / TCD: None; 0.9 LVEF: Abnormal. Calculated EF 31%. SUMMARY: Myocardial perfusion imaging study has ABNORMAL findings. CONCLUSION: 1. Large transmural infarct in the anterior wall, LAD distribution 2. No reversible ischemia 3. Dilated left ventricle, end-diastolic volume 2 in 15 milliliters 4. Low left ventricular ejection fraction of 31% Dictated by: Castillo Ron MD on 03/20/2024 at 15:01 Approved by: Castillo Ron MD on 03/20/2024 at 15:03
--- OUTSIDE RECORDS SUMMARY | 2024-03-20 07:22 | XMS_ITS | CCD ---
Author Organization [facility] Inform ion [facility] Care Team Providers Care I&C Technician Name Role Phone Justin Smallwood Attending Unavailab kendra Smallwood, Justin Quiroz Admitting Unavailab Tony Malave Primary Care Physician KATIE, DR MACDONALD Attending Unavailable HOUSE, DR MACDONALD Consulting Unavailable PONTOTOC, DR MACDONALD Primary Care Unavailable PONTOTOC, DR MACDONALD Admitting Unavailable LARRY, ISIAH Consulting Unavailable PONTOTOC, DR MACDONALD Primary Care Unavailable MISC, DR PATRICK Admitting Unavailable MISC, DR PATRICK Attending Unavailable MISC, DR PATRICK Consulting Unavailable PONTOTOC, DR MACDONALD Primary Care Unavailable QUINTON, SAIMA Admitting Unavailable QUINTON, SAIMA Attending Unavailable QUINTON, SAIMA Consulting Unavailable GLENOMA, DR BHASKAR Zarate Consulting Unavailable NADEREWilton, DR RUBEN Schwarz Admitting Unavailable HOUSE, DR MACDONALD Primary Care Unavailable NADERER, DR RUBEN Schwarz Attending Unavailable NADERER, DR RUBEN Schwarz Consulting Unavailable GRECHNY ., ROQUE AYALA Consulting Unavailabl e MIMS, JT Consulting Unavailable PONTOTOC, DR MACDONALD Consulting Unavailable PONTOTOC, DR MACDONALD Primary Care Unavailable PONTOTOC, DR MACDONALD Admitting Unavailable HOUSE, DR MACDONALD Attending Unavailable HOUSE, DR MACDONALD Attending Unavailable HOUSE, DR MACDONALD Consulting Unavailable PONTOTOC, DR MACDONALD Primary Care Unavailable PONTOTOC, DR MACDONALD Admitting Unavailable ZIEBER, DR BLAYNE Núñez Consulting Unavailable Shaikh Salinas MD Primary Care Provider SHAIKH SALINAS Attending Unavailable SHAIKH SALINAS Attending Unavailable BRAD, Attending Unavailable SHAIKH SALINAS Attending Unavailable Cabrera OJEDA Attending Unavailable Cabrera OJEDA Attending Unavailable AHSAN NEWMAN Referring Unavailable DARIAN VIDAL Attending Unavailable CHACHO SMITH Attending Unavailable AHSAN NEWMAN Referring Unavailable AHSAN NEWMAN Referring Unavailable Allergies Allergy Classification Reported Allergen(s) Allergy Type Date of Onset Reaction(s) Facility (1 source) No Known Medication Allergies; 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: [No Known Medication Allergies] Propensity to adverse reactions (disorder) [facility] Repository Medications Current Medications Medication Drug [...] complication, without long-term current use of insulin ([facility]) Take 1 tablet (25 mg) by mouth [...] disease (12 sources) Atherosclerotic heart disease of kaibab coronary artery without angina pectoris; 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: [Old myocardial infarction] Onset: 07-17-2012 Chronic Diabetes mellitus with complications (1 source) Type 2 diabetes mellitus with hyperglycemia; 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: [TYPE 2 DM W/HYPERGLYCEMIA] Onset: 07-04-2022 Chronic Diabetes mellitus without complication (13 sources) Type 2 diabetes mellitus; 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: [Type 2 diabetes mellitus without complications] Onset: 03-21-2022 11-10-2022 Chronic Disorders of lipid metabolism (7 sources) Mixed hyperlipidemia; 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: [Hyperlipidemia] Onset: 07-18-2012 [...] urinary tract symptoms] Onset: 03-25-2022 11-10-2022 Chronic Hypertension with complications and secondary hypertension (2 sources) Hypertensive heart disease with heart failure; 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: [Hypertensive heart disease with heart failure] Onset: 02-27-2024 Chronic Other diseases of kidney and ureters [...] caused by tuberculosis or sexually transmitted disease) (7 sources) Cardiomyopathy; 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: [Primary cardiomyopathy] Onset: 05-19-2014 [...] Onset: 06-23-2022 Episodic Other aftercare (1 source) 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; 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: [USP CURRENT USE OF ASPIRIN] Onset: 07-04-2022 Episodic Other aftercare (1 source) ferry terminal agent (current) use of oral hypoglycemic drugs; 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: [USP USE ORAL HYPOGLYCEMIC DX] Onset: 07-04-2022 Episodic Other aftercare (1 source) Other ferry terminal agent (current) drug therapy; 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: [OTH USP CURRENT DRUG THERAPY] Onset: 07-04-2022 Episodic Other upper respiratory infections (1 source) Acute sinusitis, unspecified; 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: [ACUTE SINUSITIS UNSPECIFIED] Onset: 07-04-2022 Episodic Screening and history of mental health and substance abuse codes (1 source) Personal history of nicotine dependence; 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: [PERSONAL HISTORY OF NICOTINE DEPEND] Onset: 07-04-2022 Episodic Results Test Name Value Interpretation Reference Range Facility Orders Onlyon 03-06-2024 Orders Only [id number] Evaristo Lowery 1965 M Date Provider Department Center 03/06/2024 MIRTHA SEBASTIAN Family History Problem Relation Age of Onset Diabetes Maternal Grandmother Heart attack Maternal Grandfather Diabetes Paternal Grandmother Heart disease Paternal Grandfather Family Status - Relation Status Age at Maternal Grandmother Maternal Grandfather Paternal Grandmother Paternal Grandfather Normal [facility] Reminderson 03-04-2024 Reminders Reminders From: Lea Honeycutt To: KENDRA - Recallyoshi Ojeda; Sent: 03/13/2023 16:51:05 EDT Show up: 01/20/2024 16:50:00 EDT Subject: Ct scan Due Date/Time: 02/05/2024 16:51:00 EDT Reminder/Recall Patient needs Ct scan Abd/Pelvis with contrast prior to March 11, 2024 appt. Pt wants Rima Friedman CT order, demo's & H&P faxed to [facility]. Did call and LM on pt's VM notifying him that [facility] should be reaching out to him in the next 2wks to schedule. Spoke to [facility]. They are working on getting pt scheduled. CT report scanned into chart. Pt has f/u 03/18/24 to review Normal [facility] 37on 02-27-2024 37 Start digoxin 1 tab/ day Monitor heart rate- goal is between 60-80 HR Have labs/blood drawn in 1-2 weeks to check kidney function and digoxin level Call office for any concerns Normal [facility] Office Visiton 02-27-2024 Follow-up visit [id number] Evaristo Lowery 1965 M Date Provider Department Center 02/27/2024 120-MARCY, DARIAN BH CARD [facility] Family History Problem Relation Age of Onset Diabetes Maternal Grandmother Heart attack Maternal Grandfather Diabetes Paternal Grandmother Heart disease Paternal Grandfather Family Status - Relation Status Age at Maternal Grandmother Maternal Grandfather Paternal Grandmother Paternal Grandfather Level of Service:11462 MA OFFICE/OUTPATIENT ESTABLISHED MOD MDM 30 MIN Normal [facility] MLR HEMOGLOBIN A1Con 024 Glucose [Mass/Vol] 180 mg/dL [facility] HbA1c (Bld) [Mass fraction] 7.9 % High 4.5 - 6.2 % [facility] Comment on above: ADA RECOMMENDED LIMI T 4.0 - 6.0 ADA THERAPEUTIC TARGET < 7.0 ACTION SUGGESTED > 7.0 Interpretation and review of laboratory results Abnormal [facility] TB MICROALB CREAT RATIO RAN DOMon 09-23-2023 CREATININE URINE RANDOM 80.70 mg/dL 20.00 - 300.00 mg/dL [facility] MICROALBUM CREATININE RATIO UR 16.1 mg/g 0.0 - 29.9 mg/g [facility] Comment on above: NO MICROALBUMINURIA 0-29 MG/G CLINICAL MICROALBUMINURIA 30-300 MG/G MACROALBUMINURIA >300 MG/G MICROALBUMIN URINE RANDOM <1.3 NINF - 30.0 mg/dL [facility] Office Visiton 08-01-2023 Follow-up visit [id number] Evaristo Lowery 1965 M Date Provider Department Center 08/01/2023 CHACHO MALDONADO MARY Barajas Family History Problem Relation Age of Onset Diabetes Maternal Grandmother Heart attack Maternal Grandfather Diabetes Paternal Grandmother Heart disease Paternal Grandfather Family Status - Relation Status Age at Maternal Grandmother Maternal Grandfather Paternal Grandmother Paternal Grandfather Level of Service:20059 MA OFFICE/OUTPATIENT ESTABLISHED LOW MDM 20-29 MIN Normal [facility] Ambulatory Visit Summaryon 0 03-13-2023 Ambulatory Visit Summary EVARISTO LOWERY :1965 Visit Date:03/13/2023 Ambulatory Visit Instructions Your Diagnosis Kidney mass Prostate cancer screening Tests Performed Urnls Dip Stick Auto w/o Microscopy POC 49539 CT Abdomen/Pelvis w/ + w/o Contrast -- [...] Cabrera OJEDA MD Where: [facility] Patient Educationon 03-13-20 23 Patient Education [...] gives to you. In general: ? Take iize-uhc-ssvlwcp and prescription medicines only as told by [...] right away. Call your local emergency services (771 in the [place] Summary ? A renal [...] provider. Document Revised: 02/01/2021 Document Reviewed: 02/01/2021 [employer] Patient Education ? 2022 [employer]. [facility] Urology Office/Clinic Noteon 03-13-2023 Urology Office/Clinic [...] [facility] [address], [place] [address] [phone] Additional Instructions: 1 yr w/ CT scan [...] Negative (03/13 (more content not included)... Normal [facility] Comment on above: Result Comment: Elec tronically Signed By: Cabrera OJEDA MD\.br\Date and Time Signed: 03/13/23 16:48 EDT\.br\Electronically Co-Signed By: Katherine Bear.br\Date and Time Co-Signed: 03/13/23 16:46 EDT ECHOCARDIO M/2D COMPLETEon 0 01-03-2023 ECHOCARDIO M/2D COMPLETE Patient: EVARISTO LOWERY Exam Date: 01/03/2023 : 1965 Gender:M Ordering : MRS. MERRY LAIRD WHITESMITH Admission #: [id number] Family : Order #: [id number] CLICK HERE TO VIEW EXAM ECHOCARDIOGRAM REPORT [...] Smith M.D. on 01/03/2023 at 20:32 Normal [facility] XR knee LT 4V*on 10-19-2022 XR knee LT 4V* [facility] [place] [address] [place] [address] XRay Report Signed Patient: Evaristo Lowery MR#: [id number] : 1965 Acct:[id number] Age/Sex: 57 / M ADM Date: 10/19/22 Loc: XDCLY Room: Type: [facility] Attending Dr: Justin Smallwood WHITESMITH-C Copies to: Justin Smallwood CNP Ordering Provider: Justin Smallwood CNP Date of Service: 10/19/22 XR/XR knee LT 4V*: LEFT KNEE PAIN ([id number]) XR/XR elbow LT min 3V*: LEFT ELBOW [...] Cheri Castaneda M.D.10/19/2022 10:21 AM Dictation Location: [place] [address] Transcribed By: [facility] 10/19/22 1021 Dictated By: Cheri Castaneda MD 10/19/22 1012 Signed By: 10/19/22 1021 [facility] CREATININEon 10-01-2022 Creatinine [Mass/Vol] 0.75 mg/dL Normal 0.70-1.30 [facility] Comment on above: Performed By: #### C MP #### [facility] [address] [place] [address] [address] Mily Parra EGFR-AF LUXEMBOURGER >60 Normal >=60 [facility] Comment on above: Performed By: #### C MP #### [facility] [address] [place] [address] [address] Mily Parra EGFR-NON AF LUXEMBOURGER >60 Normal >=60 [facility] Comment on above: Performed By: #### C MP #### [facility] [address] ABDOMEN WO/W CONon [...] BLAYNE CHEN Date: 2022-09-14 15:18 Normal [facility] CBC AUTO DIFFon 06-24-2022 BASO # 0.1 103/ul Normal 0.0-0.1 [facility] Comment on above: Performed By: #### C BC #### [facility] [address] [place] [address] Dr. Mily Parra Basophils/100 WBC (Bld) 0.9 % Normal 0.2-2.0 [facility] Comment on above: Performed By: #### C BC #### [facility] [address] [place], [place] [address] Dr. Mily Parra EO # 0.6 103/ul Normal 0.0-0.7 [facility] Comment on above: Performed By: #### C BC #### [facility] [address] [place] [address] Dr. Mily Parra Eosinophils/100 WBC (Bld) 6.0 % Normal 0.9-7.0 [facility] Comment on above: Performed By: #### C BC #### [facility] [address] [place] [address] Dr. Mily Parra Erythrocyte distribution width (RBC) [Ratio] 13.4 % Normal 11.0-15.0 [facility] Comment on above: Performed By: #### C BC #### [facility] [address] [place] [address] Dr. Mily Parra Hematocrit (Bld) [Volume fraction] 46.7 % Normal 42.0-54.0 [facility] Comment on above: Performed By: #### C BC #### [facility] [address] [place] [address] Dr. Mily Parra Hemoglobin (Bld) [Mass/Vol] 15.6 g/dL Normal 14.0-18.0 [facility] Comment on above: Performed By: #### C BC #### [facility] [address] [place] [address] Dr. Mily Parra IG # 0.03 10e3/ul Normal 0.00-0.03 [facility] Comment on above: Performed By: #### C BC #### [facility] [address] [place] [address] Dr. Mily Parra IG % 0.3 % Normal 0.0-0.5 [facility] Comment on above: Performed By: #### C BC #### [facility] [address] [place] [address] Dr. Mily Parra LYMPH # 3.0 103/ul Normal 1.2-3.8 [facility] Comment on above: Performed By: #### C BC #### [facility] [address] [place] [address] Dr. Mily Parra Lymphocytes/100 WBC (Bld) 28.1 % Normal 20.5-60.0 [facility] Comment on above: Performed By: #### C BC #### [facility] [address] [place] [address] Dr. Mily Parra MANUAL DIFF REQ NO Normal [facility] Comment on above: Performed By: #### C BC #### [facility] [address] [place] [address] Dr. Mily Parra MCH (RBC) [Entitic mass] 29.5 pg Normal 25.9-34.0 [facility] Comment on above: Performed By: #### C BC #### [facility] [address] [place] [address] Dr. Mily Parra MCHC (RBC) [Mass/Vol] 33.4 g/dL Normal 29.9-35.2 [facility] Comment on above: Performed By: #### C BC #### [facility] [address] [place] [address] Dr. Mily Parra MCV (RBC) [Entitic vol] 88.4 fL Normal 80.0-94.0 [facility] Comment on above: Performed By: #### C BC #### [facility] [address] [place] [address] Dr. Mily Parra MONO # 0.8 103/ul Normal 0.3-0.8 [facility] Comment on above: Performed By: #### C BC #### [facility] [address] [place] [address] Dr. Mily Parra Monocytes/100 WBC (Bld) 7.8 % Normal 1.7-12.0 [facility] Comment on above: Performed By: #### C BC #### [facility] [address] [place] [address] Dr. Mily Parra NEUT # 6.0 103/ul Normal 1.4-6.5 [facility] Comment on above: Performed By: #### C BC #### [facility] [address] [place] [address] Dr. Mily Parra Neutrophils/100 WBC (Bld) 56.9 % Normal 43.0-75.0 [facility] Comment on above: Performed By: #### C BC #### [facility] [address] [place] [address] Dr. Mily Parra Platelet mean volume (Bld) [Entitic vol] 8.8 fL Critically low 9.5-13.5 [facility] Comment on above: Performed By: #### C BC #### [facility] [address] [place] [address] Dr. Mily Parra PLT 233 103/ul Normal 150-450 [facility] Comment on above: Performed By: #### C BC #### [facility] [address] [place] [address] Dr. Mily Parra RBC 5.28 106/ul Normal 4.70-6.10 [facility] Comment on above: Performed By: #### C BC #### [facility] [address] [place] [address] Dr. Mily Parra WBC 10.5 103/ul Normal 4.0-11.0 [facility] Comment on above: Performed By: #### C BC #### [facility] [address] [place] [address] Dr. Mily Parra PROF CHEM 8 (BAS METB)on Anion gap [Moles/Vol] 8.9 mmol/L Normal [facility] Comment on above: Performed By: #### L IPID #### [facility] [address] [place] [address] Dr. Mily Parra Calcium [Mass/Vol] 8.6 mg/dL Normal 8.5-10.1 [facility] Comment on above: Performed By: #### L IPID #### [facility] [address] [place] [address] Dr. Mily Parra Chloride [Moles/Vol] 107 mmol/L Normal 98-107 [facility] Comment on above: Performed By: #### L IPID #### [facility] [address] [place] [address] Dr. Mily Parra CO2 [Moles/Vol] 27.2 mmol/L Normal 21.0-32.0 [facility] Comment on above: Performed By: #### L IPID #### [facility] [address] [place] [address] Dr. Mily Parra Creatinine [Mass/Vol] 0.76 mg/dL Normal 0.70-1.30 [facility] Comment on above: Performed By: #### L IPID #### [facility] [address] [place] [address] [address] Mily Parra EGFR-AF LUXEMBOURGER >60 Normal >=60 [facility] Comment on above: Performed By: #### L IPID #### [facility] [address] [place] [address] [address] Mily Parra EGFR-NON AF LUXEMBOURGER >60 Normal >=60 [facility] Comment on above: Performed By: #### L IPID #### [facility] [address] [place] [address] [address] Mily Parra Glucose [Mass/Vol] 118 mg/dL Critically high 74-106 [facility] Comment on above: Performed By: #### L IPID #### [facility] [address] [place] [address] [address] Mily Parra Potassium [Moles/Vol] 4.1 mmol/L Normal 3.5-5.1 [facility] Comment on above: Performed By: #### L IPID #### [facility] [address] [place] [address] [address] Mily Parra Sodium [Moles/Vol] 139 mmol/L Normal 136-145 [facility] Comment on above: Performed By: #### L IPID #### [facility] [address] [place] [address] [address] Mily Parra Urea nitrogen [Mass/Vol] 20.0 mg/dL Critically high 7.0-18.0 [facility] Comment on above: Performed By: #### L IPID #### [facility] [address] [place] [address] [address] Mily Parra Urea nitrogen/Creatinine [Mass ratio] 26.3 mg/mg Normal [facility] Comment on above: Performed By: #### L IPID #### [facility] [address] [place] [address] [address] Mily Parra ACETONE SERUMon 06-23-2022 ACETONE Negative Normal NEGATIVE [facility] Comment on above: Performed By: #### A CETON #### [facility] [address] [place] [address] Dr. Mily Parra BNPon 06-23-2022 Natriuretic peptide B (Bld) [Mass/Vol] 129.0 pg/mL Normal <=900.0 [facility] Comment on above: Performed By: #### L IPID #### [facility] [address] [place] [address] Dr. Mily Parra CARDIAC CARLOS 3-6on 2 CK [Catalytic activity/Vol] 52 U/L Normal 39-308 [facility] Comment on above: Performed By: #### C MREP #### [facility] [address] [place] [address] Dr. Mily Parra CK.MB [Mass/Vol] 0.69 ng/mL Normal <=3.60 [facility] Comment on above: Performed By: #### C MREP #### [facility] [address] [place] [address] Dr. Mily Parra HSTROP 11.6 pg/mL Normal 4.0-76.1 [facility] Comment on above: Result Comment: CUT- OFF POINTS HAVE BEEN ESTABLISHED BASED ON THE FOURTH UNIVERSAL DEFINITIONS OF MYOCARDIAL INFARCTION. THE UPPER REFERENCE LIMIT (URL) OF TROPONIN, DEFINED THE 99TH PERCENTILE OF cTnI DISTRIBUTION IN A REFERENCE POPULATION, HAS BEEN CONFIRMED THE DECISION THRESHOLD FOR NE DIAGNOSIS. Performed By: #### C MREP #### [facility] [address] [place] [address] Dr. Mily Parra CK [Catalytic activity/Vol] 48 U/L Normal 39-308 [facility] Comment on above: Performed By: #### C MREP #### [facility] [address] [place] [address] Dr. Mily Parra CK.MB [Mass/Vol] 0.58 ng/mL Normal <=3.60 [facility] Comment on above: Performed By: #### C MREP #### [facility] [address] [place] [address] Dr. Mily Parra HSTROP 6.1 pg/mL Normal 4.0-76.1 [facility] Comment on above: Result Comment: CUT- OFF POINTS HAVE BEEN ESTABLISHED BASED ON THE FOURTH UNIVERSAL DEFINITIONS OF MYOCARDIAL INFARCTION. THE UPPER REFERENCE LIMIT (URL) OF TROPONIN, DEFINED THE 99TH PERCENTILE OF cTnI DISTRIBUTION IN A REFERENCE POPULATION, HAS BEEN CONFIRMED THE DECISION THRESHOLD FOR NE DIAGNOSIS. Performed By: #### C MREP #### [facility] [address] [place] [address] Dr. Mily Parra CBC AUTO DIFFon 06-23-2022 BASO # 0.1 103/ul Normal 0.0-0.1 [facility] Comment on above: Performed By: #### C BC #### [facility] [address] [place] [address] Dr. Mily Parra Basophils/100 WBC (Bld) 0.7 % Normal 0.2-2.0 [facility] Comment on above: Performed By: #### C BC #### [facility] [address] [place] [address] Dr. Mily Parra EO # 0.5 103/ul Normal 0.0-0.7 [facility] Comment on above: Performed By: #### C BC #### [facility] [address] [place] [address] Dr. Mily Parra Eosinophils/100 WBC (Bld) 3.6 % Normal 0.9-7.0 [facility] Comment on above: Performed By: #### C BC #### [facility] [address] [place] [address] Dr. Mily Parra Erythrocyte distribution width (RBC) [Ratio] 13.4 % Normal 11.0-15.0 [facility] Comment on above: Performed By: #### C BC #### [facility] [address] [place] [address] Dr. Mily Parra Hematocrit (Bld) [Volume fraction] 51.6 % Normal 42.0-54.0 [facility] Comment on above: Performed By: #### C BC #### [facility] [address] [place] [address] Dr. Mily Parra Hemoglobin (Bld) [Mass/Vol] 17.4 g/dL Normal 14.0-18.0 [facility] Comment on above: Performed By: #### C BC #### [facility] [address] [place] [address] Dr. Mily Parra IG # 0.06 10e3/ul Critically high 0.00-0.03 [facility] Comment on above: Performed By: #### C BC #### [facility] [address] [place] [address] Dr. Mily Parra IG % 0.4 % Normal 0.0-0.5 [facility] Comment on above: Performed By: #### C BC #### [facility] [address] [place] [address] Dr. Mily Parra LYMPH # 2.7 103/ul Normal 1.2-3.8 [facility] Comment on above: Performed By: #### C BC #### [facility] [address] [place] [address] Dr. Mily Parra Lymphocytes/100 WBC (Bld) 18.3 % Critically low 20.5-60.0 [facility] Comment on above: Performed By: #### C BC #### [facility] [address] [place] [address] Dr. Mily Parra MANUAL DIFF REQ NO Normal [facility] Comment on above: Performed By: #### C BC #### [facility] [address] [place] [address] Dr. Mily Parra MCH (RBC) [Entitic mass] 29.7 pg Normal 25.9-34.0 [facility] Comment on above: Performed By: #### C BC #### [facility] [address] [place] [address] Dr. Mily Parra MCHC (RBC) [Mass/Vol] 33.7 g/dL Normal 29.9-35.2 [facility] Comment on above: Performed By: #### C BC #### [facility] [address] [place] [address] Dr. Mily Parra MCV (RBC) [Entitic vol] 88.1 fL Normal 80.0-94.0 [facility] Comment on above: Performed By: #### C BC #### [facility] [address] [place] [address] [address] Mily Parra MONO # 0.9 103/ul Critically high 0.3-0.8 [facility] Comment on above: Performed By: #### C BC #### [facility] [address] [address] [address] Mily Parra Monocytes/100 WBC (Bld) 6.2 % Normal 1.7-12.0 [facility] Comment on above: Performed By: #### C BC #### [facility] [address] [address] [address] Mily Parra NEUT # 10.3 103/ul Critically high 1.4-6.5 [facility] Comment on above: Performed By: #### C BC #### [facility] [address] [place] [address] Dr. Mily Parra Neutrophils/100 WBC (Bld) 70.8 % Normal 43.0-75.0 [facility] Comment on above: Performed By: #### C BC #### [facility] [address] [address] [address] Mily Parra Platelet mean volume (Bld) [Entitic vol] 9.0 fL Critically low 9.5-13.5 [facility] Comment on above: Performed By: #### C BC #### [facility] [address] [place] [address] Dr. Mily Parra PLT 278 103/ul Normal 150-450 [facility] Comment on above: Performed By: #### C BC #### [facility] [address] [place] [address] [address] Mily Parra RBC 5.86 106/ul Normal 4.70-6.10 [facility] [facility] Comment on above: Performed By: #### C BC #### [facility] [address] [address] [address] Mily Parra WBC 14.6 103/ul Critically high 4.0-11.0 [facility] Comment on above: Performed By: #### C BC #### [facility] [address] HEAD WO CONon [...] BHASKAR ANTUNEZ Date: 2022-06-23 14:21 Normal [facility] CTA NECK WO W CONon 06-23-20 [...] stenosis. LEFT VERTEBRAL ARTERY: No significant stenosis. [place]: The bilateral intracranial internal carotid [...] JT MIMS Date: 2022-06-23 15:58 Normal [facility] CULTURE BLOODon 06-23-2022 Microscopic examination of blood, culture Culture Observations: NO GROWTH AT 5 DAYS. Normal [facility] Comment on above: Performed By: #### C BC #### [facility] [address] [place] [address] Dr. Mily Parra Microscopic examination of blood, culture Culture Observations: NO GROWTH AT 5 DAYS. Normal [facility] Comment on above: Performed By: #### C BC #### [facility] [address] [place] [address] Dr. Mily Parra [facility]on SARS-CoV-2 (COVID-19) RNA RUBY+probe Ql (Unsp spec) Not detected Normal NOT DETECTED [facility] Comment on above: Result Comment: When [...] for this test is supported by the [employer] and Human Service's declaration that [...] used). Performed By: #### C BC #### [facility] [address] [place] [address] Dr. Mily Parra D-DIMERon 06-23-2022 D-DIMER 0.31 mg/L FEU Normal <=0.59 [facility] Comment on above: Performed By: #### C MP #### [facility] [address] [place] [address] Dr. Mily Parra D-DIMER COMMENTS SEE BELOW Normal [facility] Comment on above: Result Comment: [...] hospitalization. Performed By: #### C MP #### [facility] [address] [place] [address] Dr. Mily Parra ER URINE PROFILEon 2 Bilirubin Ql (U) Negative Normal NEGATIVE [facility] Comment on above: Performed By: #### E RUR #### [facility] [address] [place] [address] Dr. Mily Parra Clarity (U) CLEAR Normal CLEAR [facility] Comment on above: Performed By: #### E RUR #### [facility] [address] [place] [address] Dr. Mily Parra Color (U) LT. YELLOW Normal YELLOW [facility] Comment on above: Performed By: #### E RUR #### [facility] [address] [address] [address] Mily MENON A micrscopic examination will be performed if indicated. Normal [facility] Comment on above: Performed By: #### E RUR #### [facility] [address] [place] [address] Dr. Mily Parra Glucose Ql (U) >1000 Abnormal NEGATIVE [facility] Comment on above: Performed By: #### E RUR #### [facility] [address] [place] [address] Dr. Mily Parra Hemoglobin Ql (U) Negative Normal NEGATIVE [facility] Comment on above: Performed By: #### E RUR #### [facility] [address] [place] [address] Dr. Mily Parra Ketones Ql (U) TRACE Abnormal NEGATIVE [facility] Comment on above: Performed By: #### E RUR #### [facility] [address] [place] [address] Dr. Mily Parra LEUKOCYTES Negative Normal NEGATIVE [facility] Comment on above: Performed By: #### E RUR #### [facility] [address] [place] [address] Dr. Mily Parra Nitrite Ql (U) Negative Normal NEGATIVE [facility] Comment on above: Performed By: #### E RUR #### [facility] [address] [place] [address] Dr. Mily Parra pH (U) 6.0 [pH] Normal 5-9 [facility] Comment on above: Performed By: #### E RUR #### [facility] [address] [place] [address] Dr. Mily Parra SPEC GRAVITY 1.020 Normal 1.005-<=1.025 [facility] Comment on above: Performed By: #### E RUR #### [facility] [address] [place] [address] Dr. Mily Parra UA PROTEIN Negative Normal NEGATIVE/ TRACE [facility] Comment on above: Performed By: #### E RUR #### [facility] [address] [place] [address] Dr. Mily Parra UR MICRO IND NOT INDICATED Normal [facility] Comment on above: Performed By: #### E RUR #### [facility] [address] [place] [address] Dr. Mily Parra Urobilinogen Qn (U) 0.2 {[place]'U}/dL Normal 0.2 - 1. 0 [facility] Comment on above: Performed By: #### E RUR #### [facility] [address] [place] [address] Dr. Mily Parra LACTATE/LACTIC ACIDon 2021 Lactate [Moles/Vol] 1.2 mmol/L Normal 0.4-1.9 [facility] Comment on above: Performed By: #### C BC #### [facility] [address] [place] [address] Dr. Mily Parra Lactate [Moles/Vol] 2.9 mmol/L Critically high 0.4-1.9 [facility] Comment on above: Performed By: #### C MP #### [facility] [address] [place] [address] Dr. Mily Parra PH VENOUS BLOODon 06-23-2022 PCO2 VENOUS 36.9 mmHg Critically low 40.0-52.0 [facility] Comment on above: Performed By: #### C MP #### [facility] [address] [place] [address] Dr. Mily Parra pH VENOUS 7.399 Normal 7.330-7.430 [facility] Comment on above: Performed By: #### C MP #### [facility] [address] [place] [address] Dr. Mily Parra PROF 14(COMP METB)on 022 Albumin [Mass/Vol] 4.1 g/dL Normal 3.4-5.0 [facility] Comment on above: Performed By: #### C MP #### [facility] [address] [place] [address] Dr. Mily Parra Albumin/Globulin [Mass ratio] 1.1 {ratio} Normal [facility] Comment on above: Performed By: #### C MP #### [facility] [address] [address] [address] Mily Parra ALP [Catalytic activity/Vol] 56 U/L Normal 46-116 [facility] Comment on above: Performed By: #### C MP #### [facility] [address] [address] [address] Mily Parra ALT [Catalytic activity/Vol] 35 U/L Normal 16-63 [facility] Comment on above: Performed By: #### C MP #### [facility] [address] [place] [address] Dr. Mily Parra Anion gap [Moles/Vol] 11.1 mmol/L Normal [facility] Comment on above: Performed By: #### C MP #### [facility] [address] [place] [address] Dr. Mily Parra AST [Catalytic activity/Vol] 16 U/L Normal 15-37 [facility] Comment on above: Performed By: #### C MP #### [facility] [address] [place] [address] Dr. Mily Parra Bilirubin [Mass/Vol] 0.5 mg/dL Normal 0.2-1.0 [facility] Comment on above: Performed By: #### C MP #### [facility] [address] [place] [address] Dr. Mily Parra Calcium [Mass/Vol] 9.8 mg/dL Normal 8.5-10.1 [facility] Comment on above: Performed By: #### C MP #### [facility] [address] [place] [address] Dr. Mily Parra Chloride [Moles/Vol] 102 mmol/L Normal 98-107 [facility] Comment on above: Performed By: #### C MP #### [facility] [address] [place] [address] Dr. Mily Parra CO2 [Moles/Vol] 27.3 mmol/L Normal 21.0-32.0 [facility] Comment on above: Performed By: #### C MP #### [facility] [address] [address] [address] Mily Parra Creatinine [Mass/Vol] 0.86 mg/dL Normal 0.70-1.30 [facility] Comment on above: Performed By: #### C MP #### [facility] [address] [address] [address] Mily Parra EGFR-AF LUXEMBOURGER >60 Normal >=60 [facility] Comment on above: Performed By: #### C MP #### [facility] [address] [address] [address] Mily Parra EGFR-NON AF LUXEMBOURGER >60 Normal >=60 [facility] Comment on above: Performed By: #### C MP #### [facility] [address] [place] [address] Dr. Mily Parra Globulin (S) [Mass/Vol] 3.6 g/dL Normal [facility] Comment on above: Performed By: #### C MP #### [facility] [address] [place] [address] Dr. Mily Parra Glucose [Mass/Vol] 148 mg/dL Critically high 74-106 [facility] Comment on above: Performed By: #### C MP #### [facility] [address] [place] [address] Dr. Mily Parra Potassium [Moles/Vol] 4.4 mmol/L Normal 3.5-5.1 [facility] Comment on above: Performed By: #### C MP #### [facility] [address] [place] [address] Dr. Mily Parra Protein [Mass/Vol] 7.7 g/dL Normal 6.4-8.2 [facility] Comment on above: Performed By: #### C MP #### [facility] [address] [place] [address] Dr. Mily Parra Sodium [Moles/Vol] 136 mmol/L Normal 136-145 [facility] Comment on above: Performed By: #### C MP #### [facility] [address] [place] [address] Dr. Mily Parra Urea nitrogen [Mass/Vol] 25.0 mg/dL Critically high 7.0-18.0 [facility] Comment on above: Performed By: #### C MP #### [facility] [address] [place] [address] Dr. Mily Parra Urea nitrogen/Creatinine [Mass ratio] 29.1 mg/mg Normal [facility] Comment on above: Performed By: #### C MP #### [facility] [address] [address] [address] Mily Parra PROTIMEon 06-23-2022 INR Coag (PPP) [Relative time] 0.97 {INR} Normal [facility] Comment on above: Performed By: #### C MP #### [facility] [address] [place] [address] Dr. Mily Parra INR GUIDELINES SEE BELOW Normal [facility] Comment on above: Result Comment: MARIA RED INR: 2.0 - 3.0 CONDITIONS NOT LISTED BELOW 2.5 - 3.5 FOR PROSTHETIC HEART VALVE REPLACEMENT 2.5 - 3.5 RECURRENT THROMBOSIS Performed By: #### C MP #### [facility] [address] [place] [address] Dr. Mily Parra PT Coag (PPP) [Time] 10.5 s Normal 9.0-11.6 [facility] Comment on above: Performed By: #### C MP #### [facility] [address] [place] [address] Dr. Mily Parra PTTon 06-23-2022 aPTT Coag (Bld) [Time] 26.7 s Normal 22.3-36.2 [facility] Comment on above: Performed By: #### C MP #### [facility] [address] [place] [address] Dr. Mily Parra TROPONIN, HIGH SENSITIVITYon 06-23-2022 HSTROP 12.1 pg/mL Normal 4.0-76.1 [facility] Comment on above: Result Comment: CUT- OFF POINTS HAVE BEEN ESTABLISHED BASED ON THE FOURTH UNIVERSAL DEFINITIONS OF MYOCARDIAL INFARCTION. THE UPPER REFERENCE LIMIT (URL) OF TROPONIN, DEFINED THE 99TH PERCENTILE OF cTnI DISTRIBUTION IN A REFERENCE POPULATION, HAS BEEN CONFIRMED THE DECISION THRESHOLD FOR NE DIAGNOSIS. Performed By: #### C MP #### [facility] [address] [place] [address] Dr. Mily Parra HSTROP 5.5 pg/mL Normal 4.0-76.1 [facility] Comment on above: Result Comment: CUT- OFF POINTS HAVE BEEN ESTABLISHED BASED ON THE FOURTH UNIVERSAL DEFINITIONS OF MYOCARDIAL INFARCTION. THE UPPER REFERENCE LIMIT (URL) OF TROPONIN, DEFINED THE 99TH PERCENTILE OF cTnI DISTRIBUTION IN A REFERENCE POPULATION, HAS BEEN CONFIRMED THE DECISION THRESHOLD FOR NE DIAGNOSIS. Performed By: #### L IPID #### [facility] [address] [place] [address] Dr. Mily Parra TSHon 06-23-2022 TSH 0.875 uIU/mL Normal 0.358-3.740 [facility] Comment on above: Performed By: #### L IPID #### [facility] [address] [place] [address] Dr. Mily Parra XR CHEST 1 Von [...] BHASKAR ANTUNEZ Date: 2022-06-23 14:07 Normal [facility] CBC AUTO DIFFon 03-21-2022 BASO # 0.1 103/ul Normal 0.0-0.1 [facility] Comment on above: Performed By: #### C BC #### [facility] [address] [place] [address] Dr. Mily Parra Basophils/100 WBC (Bld) 0.8 % Normal 0.2-2.0 [facility] Comment on above: Performed By: #### C BC #### [facility] [address] [place] [address] Dr. Mily Parra EO # 0.3 103/ul Normal 0.0-0.7 [facility] Comment on above: Performed By: #### C BC #### [facility] [address] [place] [address] Dr. Mily Parra Eosinophils/100 WBC (Bld) 2.8 % Normal 0.9-7.0 [facility] Comment on above: Performed By: #### C BC #### [facility] [address] [place] [address] Dr. Mily Parra Erythrocyte distribution width (RBC) [Ratio] 13.8 % Normal 11.0-15.0 [facility] Comment on above: Performed By: #### C BC #### [facility] [address] [place] [address] Dr. Mily Parra Hematocrit (Bld) [Volume fraction] 49.4 % Normal 42.0-54.0 [facility] Comment on above: Performed By: #### C BC #### [facility] [address] [place] [address] Dr. Mily Parra Hemoglobin (Bld) [Mass/Vol] 16.2 g/dL Normal 14.0-18.0 [facility] Comment on above: Performed By: #### C BC #### [facility] [address] [place] [address] Dr. Mily Parra IG # 0.03 10e3/ul Normal 0.00-0.03 [facility] Comment on above: Performed By: #### C BC #### [facility] [address] [place] [address] Dr. Mily Parra IG % 0.3 % Normal 0.0-0.5 [facility] Comment on above: Performed By: #### C BC #### [facility] [address] [place] [address] Dr. Mily Parra LYMPH # 2.0 103/ul Normal 1.2-3.8 [facility] Comment on above: Performed By: #### C BC #### [facility] [address] [place] [address] Dr. Mily Parra Lymphocytes/100 WBC (Bld) 20.3 % Critically low 20.5-60.0 [facility] Comment on above: Performed By: #### C BC #### [facility] [address] [place] [address] Dr. Mily Parra MANUAL DIFF REQ NO Normal [facility] Comment on above: Performed By: #### C BC #### [facility] [address] [place] [address] Dr. Mily Parra MCH (RBC) [Entitic mass] 29.0 pg Normal 25.9-34.0 [facility] Comment on above: Performed By: #### C BC #### [facility] [address] [place] [address] Dr. Mily Parra MCHC (RBC) [Mass/Vol] 32.8 g/dL Normal 29.9-35.2 [facility] Comment on above: Performed By: #### C BC #### [facility] [address] [place] [address] Dr. Mily Parra MCV (RBC) [Entitic vol] 88.4 fL Normal 80.0-94.0 [facility] Comment on above: Performed By: #### C BC #### [facility] [address] [place] [address] Dr. Miyl Parra MONO # 0.7 103/ul Normal 0.3-0.8 [facility] Comment on above: Performed By: #### C BC #### [facility] [address] [place] [address] Dr. Mily Parra Monocytes/100 WBC (Bld) 7.2 % Normal 1.7-12.0 [facility] Comment on above: Performed By: #### C BC #### [facility] [address] [place] [address] Dr. Mily Parra NEUT # 6.6 103/ul Critically high 1.4-6.5 [facility] Comment on above: Performed By: #### C BC #### [facility] [address] [place] [address] Dr. Mily Parra Neutrophils/100 WBC (Bld) 68.6 % Normal 43.0-75.0 [facility] Comment on above: Performed By: #### C BC #### [facility] [address] [place] [address] Dr. Mily Parra Platelet mean volume (Bld) [Entitic vol] 8.6 fL Critically low 9.5-13.5 [facility] Comment on above: Performed By: #### C BC #### [facility] [address] [address] [address] Mily Parra PLT 289 103/ul Normal 150-450 [facility] Comment on above: Performed By: #### C BC #### [facility] [address] [place] [address] Dr. Mily Parra RBC 5.59 106/ul Normal 4.70-6.10 [facility] Comment on above: Performed By: #### C BC #### [facility] [address] [place] [address] Dr. Mily Parra WBC 9.6 103/ul Normal 4.0-11.0 [facility] Comment on above: Performed By: #### C BC #### [facility] [address] [place] [address] Dr. Mily Parra GLYCOHEMOGLOBIN A1Con 2021 ADA RECOMMENDATION SEE BELOW Normal [facility] Comment on above: Result Comment: ADA RECOMMENDED LIMIT 4.0 - 6.0 ADA THERAPEUTIC TARGET < 7.0 ACTION SUGGESTED > 7.0 Performed By: #### A 1C #### [facility] [address] [place] [address] Dr. Mily Parra Glucose [Mass/Vol] 171 mg/dL Normal [facility] Comment on above: Performed By: #### A 1C #### [facility] [address] [place] [address] Dr. Mily Parra HbA1c (Bld) [Mass fraction] 7.6 % Critically high 4.5-6.2 [facility] Comment on above: Performed By: #### A 1C #### [facility] [address] [place] [address] Dr. Mily Parra PROF 14(COMP METB)on 022 Albumin [Mass/Vol] 4.0 g/dL Normal 3.4-5.0 [facility] Comment on above: Performed By: #### C MP #### [facility] [address] [place] [address] Dr. Mily Parra Albumin/Globulin [Mass ratio] 1.1 {ratio} Normal [facility] Comment on above: Performed By: #### C MP #### [facility] [address] [place] [address] Dr. Mily Parra ALP [Catalytic activity/Vol] 53 U/L Normal 46-116 [facility] Comment on above: Performed By: #### C MP #### [facility] [address] [place] [address] Dr. Mily Parra ALT [Catalytic activity/Vol] 32 U/L Normal 16-63 [facility] Comment on above: Performed By: #### C MP #### [facility] [address] [place] [address] Dr. Mily Parra Anion gap [Moles/Vol] 16.4 mmol/L Normal [facility] Comment on above: Performed By: #### C MP #### [facility] [address] [place] [address] Dr. Mily Parra AST [Catalytic activity/Vol] 21 U/L Normal 15-37 [facility] Comment on above: Performed By: #### C MP #### [facility] [address] [place] [address] Dr. Mily Parra Bilirubin [Mass/Vol] 0.9 mg/dL Normal 0.2-1.0 [facility] Comment on above: Performed By: #### C MP #### [facility] [address] [place] [address] Dr. Mily Parra Calcium [Mass/Vol] 9.2 mg/dL Normal 8.5-10.1 [facility] Comment on above: Performed By: #### C MP #### [facility] [address] [place] [address] Dr. Mily Parra Chloride [Moles/Vol] 101 mmol/L Normal 98-107 [facility] Comment on above: Performed By: #### C MP #### [facility] [address] [address] [address] Mily Parra CO2 [Moles/Vol] 26.2 mmol/L Normal 21.0-32.0 [facility] Comment on above: Performed By: #### C MP #### [facility] [address] [address] [address] Mily Parra Creatinine [Mass/Vol] 0.74 mg/dL Normal 0.70-1.30 [facility] Comment on above: Performed By: #### C MP #### [facility] [address] [place] [address] Dr. Mily Parra EGFR-AF LUXEMBOURGER >60 Normal >=60 [facility] Comment on above: Performed By: #### C MP #### [facility] [address] [address] [address] Mily Parra EGFR-NON AF [place]UX[place]OURGER >60 Normal >=60 [facility] Comment on above: Performed By: #### C MP #### [facility] [address] [address] [address] Mily Parra Globulin (S) [Mass/Vol] 3.5 g/dL Normal [facility] Comment on above: Performed By: #### C MP #### [facility] [address] [address] [address] Mily Parra Glucose [Mass/Vol] 135 mg/dL Critically high 74-106 [facility] Comment on above: Performed By: #### C MP #### [facility] [address] [place] [address] Dr. Mily Parra Potassium [Moles/Vol] 4.6 mmol/L Normal 3.5-5.1 [facility] Comment on above: Performed By: #### C MP #### [facility] [address] [address] [address] Mily Parra Protein [Mass/Vol] 7.5 g/dL Normal 6.4-8.2 [facility] Comment on above: Performed By: #### C MP #### [facility] [address] [address] [address] Mily Parra Sodium [Moles/Vol] 139 mmol/L Normal 136-145 [facility] Comment on above: Performed By: #### C MP #### [facility] [address] [address] [address] Mily Parra Urea nitrogen [Mass/Vol] 16.0 mg/dL Normal 7.0-18.0 [facility] Comment on above: Performed By: #### C MP #### [facility] [address] [address] [address] Mily Parra Urea nitrogen/Creatinine [Mass ratio] 21.6 mg/mg Normal [facility] Comment on above: Performed By: #### C MP #### [facility] [address] [place] [address] Dr. Mily Parra LIPID PROFILEon 02-16-2022 CHOL-HDL RATIO NORM SEE BELOW Normal [facility] Comment on above: Result Comment: 3.3 - 4.4 LOW RISK 4.4 - 7.1 AVERAGE RISK 7.1 - 11.0 MODERATE RISK >11.0 HIGH RISK Performed By: #### L IPID #### [facility] [address] [place] [address] Dr. Mily Parra Cholesterol [Mass/Vol] 91 mg/dL Normal <=200 [facility] Comment on above: Performed By: #### L IPID #### [facility] [address] [place] [address] Dr. Mily Parra Cholesterol in HDL [Mass/Vol] 27 mg/dL Critically low 40-60 [facility] Comment on above: Performed By: #### L IPID #### [facility] [address] [place] [address] Dr. Mily Parra Cholesterol in LDL [Mass/Vol] 40.6 mg/dL Normal [facility] Comment on above: Performed By: #### L IPID #### [facility] [address] [place] [address] Dr. Mily Parra Cholesterol.total/Ch olesterol in HDL [Mass ratio] 3.4 {ratio} Normal [facility] Comment on above: Performed By: #### L IPID #### [facility] [address] [address] [address] Mily Parra HDL NORMAL > or = 60 mg/dl - LO W CARDIOVASCULAR RISK <40 mg/dl - HIGH CARDIOVASCULAR RISK Normal [facility] Comment on above: Performed By: #### L IPID #### [facility] [address] [address] [address] Mily Parra LDL CALC NORMAL SEE BELOW Normal [facility] Comment on above: Result Comment: <100 mg/dl OPTIMAL 100 - 129 mg/dl NEAR OR ABOVE OPTIMAL 130 - 159 mg/dl BORDERLINE HIGH 160 - 189 mg/dl HIGH >190 mg/dl VERY HIGH Performed By: #### L IPID #### [facility] [address] [place] [address] Dr. Mily Parra Triglyceride [Mass/Vol] 117 mg/dL Normal <=150 [facility] Comment on above: Performed By: #### L IPID #### [facility] [address] [address] [address] Mily Parra VLDL CALC 23.4 mg/dL Normal [facility] Comment on above: Performed By: #### L IPID #### [facility] [address] [place] [address] Dr. Mily Parra Vital Signs Date Time Vital Sign Value Performing Clinician Faci lity 09-27-2023 14:57-0500 Body height 162.6 cm Shaikh Brad NOLASCO Work Phone: [facility] 09-27-2023 14:57-0500 Body mass index (BMI) [Ratio] 40.34 kg/m2 Shaikh Brad NOLASCO Work Phone: [facility] 09-27-2023 14:57-0500 Body temperature 98.4 [degF] Shaikh Brad NOLASCO Work Phone: [facility] 09-27-2023 14:57-0500 Body weight 106.59 kg Shaikh Brad NOLASCO Work Phone: [facility] 09-27-2023 14:57-0500 Diastolic blood pressure 84 mm[Hg] Shaikh Brad NOLASCO Work Phone: [facility] 09-27-2023 14:57-0500 Heart rate 104 /min Shaikh Brad NOLASCO Work Phone: [facility] 09-27-2023 14:57-0500 SaO2% (BldA) [Mass fraction] 97 % Shaikh Brad NOLASCO Work Phone: [facility] 09-27-2023 14:57-0500 Systolic blood pressure 130 mm[Hg] Shaikh Brad NOLASCO Work Phone: [facility] Healthcare Encounters Encounter Date Encounter Type Care Provider Facility Start: 06-17-2024 ambulatory Cabrera Bowman ty:KENDRA Espinoza Start: 02-27-2024 End: 02-27-2024 ambulatory DARIAN Mary Rutan [facility] Start: 02-07-2024 ambulatory [facility] Start: 02-07-2024 Encounter for preprocedural cardiovascular examination [facility] Start: 02-05-2024 End: 02-05-2024 ambulatory SHAIKH FARHADWAD Not Available Start: 12-20-2023 End: 12-20-2023 ambulatory WAGNER FAWWAD Not Available Start: 11-07-2023 End: 11-07-2023 ambulatory WAGNER FAWWAD Not Available Start: 10-03-2023 End: 10-03-2023 ambulatory [facility] Start: 09-27-2023 End: 09-27-2023 Periodic preventive med est patient 40-64yrs Shaikh Brad NOLASCO Work Phone: [facility] Comment on above: Essential hypertensi on (CMS/HCC) (Primary Dx); Chronic systolic heart failure (CMS/HCC); Type 2 diabetes mellitus without complication, without long-term current use of insulin (CMS/HCC); Hyperlipidemia, unspecified hyperlipidemia type (CMS/HCC); Wellness examination Start: 09-27-2023 End: 09-27-2023 ambulatory SHAIKH BRAD Not Available Start: 09-27-2023 Chart abstracting Shaikh Precious kessler MD Work Phone: [facility] Start: 09-27-2023 End: 09-27-2023 Patient encounter status Shaikh Brad NOLASCO Work Phone: [facility] Start: 09-23-2023 Clinisync Result Encounter Shaikh Brad NOLASCO Work Phone: [facility] Unsolicited Start: 09-23-2023 Clinisync Result Encounter Shaikh Brad NOLASCO Work Phone: [facility] Unsolicited Start: 08-01-2023 End: 08-01-2023 ambulatory [facility] Start: 03-13-2023 End: 03-13-2023 ambulatory Cabrera OJEDA Facility:[facility] Start: 01-03-2023 End: 01-04-[address] TONY WILSON Facility:[facility] Start: 11-14-2022 End: 11-14-2022 Patient encounter procedure Cabrera OJEDA [facility] Start: 10-19-2022 End: 10-19-2022 ambulatory Justin Smallwood Facility:[facility] Start: 10-01-2022 End: 10-02-2022 ambulatory [...] Ga Salinas MD Work Phone: Start: 09-23-2023 [facility] MICROALB CREAT R ATIO RANDOM Shaikh Brad NOLASCO Work Phone: Start: 03-21-[address] EDNA WILSON Comment on above: Performed By: #### C #### [facility] [address] [place] [address] Dr. Mily Parra Aortic stent (physic al object) Cabrera OJEDA Defibrillator, devic e (physical object) Cabrera CSID Knee region structur e (body structure) Cabrera CSID Shoulder region stru cture (body structure) Cabrera CSID Plan of Treatment Date Care Activity Detail Author Start: 09-25-2024 Urine screening for protein Diabetes: Urine Protein Screening [facility] Start: 08-21-2024 Glaucoma screening Diabetes: R etinopathy Screening [facility] Start: 02-18-2024 Influenza vaccination Influenza Vacc ine (#1) [facility] Comment on above: Postponed from 04/21 (Patient Refused) Start: 12-24-2023 Hemoglobin A1c measurement Diabetes: Hemoglobin A1C [facility] Start: 10-30-2023 End: 10-30-2023 Patient encounter procedure 10/30/2023 2:45 PM EDT Office Visit [facility] [address] [place] [phone] Shaikh Salinas MD [address] [place] [id number] [facility] Start: 09-27-2023 End: 09-27-2023 Patient encounter procedure 09/27/2023 2:15 PM EST Office Visit [facility] [address] [place] [phone] Shaikh Salinas MD [address] [place] [address] [facility] Start: 08-27-2023 Hemoglobin A1c measurement Diabetes: Hemoglobin A1C [facility] Start: 1985 Urine screening for protein Diabetes: Urine Protein Screening [facility] Start: 1966 Screening for malign ant neoplasm of colon [facility] Immunizations Immunization Date Immunization Notes Care Provider Fa cility 06-02-2021 SARS-CoV-2 (COVID-19 ) mRNA BNT-162b2 vax Cabrera OJEDA [facility] 05-12-2021 SARS-CoV-2 (COVID-19 ) mRNA BNT-162b2 vax Cabrera OJEDA [facility] 01-27-2016 tetanus toxoid, redu cedric diphtheria toxoid, and acellular pertussis vaccine, adsorbed Cabrera OJEDA [facility] Payers Date Payer Category Payer Self-pay 2022 Unknown [employer] [id number] 2022-Present [phone] [address] [address] [place] [address] [id number] 1966 Unknown [id number] 3 1966 Unknown [id number] 3 1966 Unknown [id number] [id number] 3 1966 Unknown [id number] [id number] 3 1966 Unknown [id number] [id number] 3 1966 Unknown [id number] [id number] 3 1966 Unknown [id number] [id number] 59 1966 Unknown [id number] [id number] 59 1966 Unknown [id number] 2.16.840.1.035519.3.579.2.12 59 1966 Unknown [id number] [id number] 59 1966 Unknown [id number] [id number] 7 1966 Unknown [id number] [id number] 7 1959 Unknown [id number] 1959 Unknown [id number] Unknown [id number] 1 Social History Date Type Detail Facility Start: 11-14-2022 Tobacco smoking status Heavy tobacco smoker (finding) [facility] Start: 09-08-2023 End: 09-27-2023 Sex Assigned At Male [facility] Start: 09-08-2023 End: 09-27-2023 Tobacco smoking status LAIS Ex-smoker [facility] Start: 08-21-2009 History of tobacco use Current smoker [facility] Start: 08-21-2009 History of tobacco use Cigarette Smoker [facility] Start: 09-08-2023 End: 09-27-2023 History of Social function [facility] Start: 1965 Sex Assigned At Male [facility] Start: 08-31-2023 Gender identity Identifies as male gender (finding) [facility] Start: 08-31-2023 Sexual orientation Heterosexual (finding) [facility] Start: 09-27-2023 Alcohol intake Current drinker of alcohol (finding) [facility] Start: 09-27-2023 Alcohol Comment caffeine: more than 4 cups per day [facility] History of tobacco use Passive smoker [facility] Start: 09-27-2023 Tobacco use and exposure Smokeless tobacco non-user [facility] Medical Equipment Procedure Code Equipment Code Equipment Origin al Text Equipment Identifier Dates 1 each by Other route every 12 (twelve) hours Twice a day - whatever brand is covered under patients insurance. [id number] Start: 09-27-2023 End: 04-19-2027 1 each every 12 (twelve) hours [id number] Start: 09-27-2023 End: 12-26-2023 Functional Status Date Assessment Result Facility 11-14-2022 Functional Status N/A [facility] Clinical Notes 11-14-2022 to 02-27-2024 Shaikh Brad MD - 09/27/2023 3:48 PM Checo Salinas MD - 09/27/2023 3:46 PM Checo Salinas MD - 09/27/2023 3:46 PM Checo Salinas MD - 09/27/2023 3:42 PM EST Note Date & Type Note Facility 02-27-2024 Note Q 6months device int errogation Battery life 2.2 years, device working appropriately, leads stable, 1 episode of Sinus tach 155 bpm. [facility] 02-27-2024 Note HTN currently well c ontrolled Continue all meds- coreg, entresto, aldactone [facility] 02-27-2024 Note Heart failure is unc hanged. NYHA Class II. Medication changes per orders. Heart failure will be reassessed in 6 months. Continue GDMT- ASA, lipitor, coreg, jardiance, zetia, entresto aldactone and will add digoxin for better heart rate management- Reviewed device interrogation from Sep 2023 and average heart rate ranged from 80-100 bpm Repeat BMP and digoxin level in 1-2 weeks [facility] 02-27-2024 Note [facility] CARDIOLOGY PROGR ESS NOTE HPI: Evaristo Lowery is a 58 y.o. male here for routine F/U HPI 58 yo male presents to clinic for 6 mo follow up chronic systolic heart failure, CAD, and hypertension. Patient here for 6 mo follow up chronic systolic heart failure, CAD, and hypertension. ICD was interrogated in Sep 2023. He had routine labs with lipid profile last month. Says his heart rate has been around 100 lately. He denies chest pain, SOB, palpitations, and lightheadedness/syncope. Review of Systems All other systems reviewed and are negative. Previous HPI per Dr Smith HPI Mr. Lowery is seen in follow-up. [...] jardiance 10 mg daily, Metformin and glipizide. Visit Vitals BP 126/75 (BP Location: Left arm, Patient Position: Sitting) Pulse 98 Ht 1.6 m (5' 3 ) Wt 99.3 kg (219 lb) SpO2 96% BMI 38.79 kg/m??? Smoking Status Former BSA 2.1 m??? No Known Allergies Medications: Current Outpatient Medications on File Prior to Visit Medication Sig Dispense Refill aspirin 81 mg EC tablet in the morning. atorvastatin (Lipitor) 80 mg tablet atorvastatin 80 mg tablet TAKE 1 TABLET BY MOUTH EVERY DAY 90 tablet 3 carvedilol (Coreg) 25 mg tablet carvedilol 25 mg tablet TAKE 1 TABLET BY MOUTH TWICE DAILY cholecalciferol (Vitamin D-3) 25 MCG (1000 units) tablet Take 1,000 Units by mouth in the morning. empagliflozin (Jardiance) 10 mg Jardiance 10 mg tablet TAKE 1 TABLET BY MOUTH EVERY DAY 90 tablet 3 ezetimibe (Zetia) 10 mg tablet TAKE 1 TABLET BY MOUTH EVERY DAY 90 tablet 3 glipiZIDE XL (Glucotrol XL) 5 mg 24 hr tablet Take 5 mg by mouth in the morning. Do not crush, chew, or split. metFORMIN (Glucophage) 500 mg tablet metformin 500 mg tablet sacubitriL-valsartan (Entresto) 49-51 mg tablet Take 0.5 tablets by mouth in the morning and at bedtime. semaglutide (Ozempic) 1 mg/dose (4 mg/3 mL) pen injector Inject 1 mg under the skin. spironolactone (Aldactone) 25 mg tablet TAKE 1/2 TABLET BY MOUTH EVERY DAY 45 tablet 3 No current facility-administered medications on file prior to visit. Physical Exam: Constitutional: Appearance: Normal appearance. Without apparent distress, obese HENT: Head: Normocephalic and atraumatic. Nose: Nose normal. Mouth/Throat: Mouth: Mucous membranes are moist. Eyes: Extraocular Movements: Extraocular movements intact. Conjunctiva/sclera: Conjunctivae normal. Neck: Vascular: No JVD. Cardiovascular: Rate and Rhythm: Normal rate and regular rhythm. Pulses: Radial and Posterior tibial pulses are 3 on the [...] General: No focal deficit present. Mental Status: Se is alert and oriented to person, place, and time. Psychiatric: Mood and Affect: Mood normal. Behavior: Behavior normal. Thought Content: Thought content normal. Judgment: Judgment normal. Labs: 02/03/24- reviewed with pt CBC normal NA and K+ normal BUN 22, CR 0.73 normal A1C 7.7 elevated Liver function normal Chol 96, Trig 96, LDL 44, HDL 33- well controlled lipids 05/27/2023: Hemoglobin 15.9, platelets 267, potassium 4.7, BUN 22, creatinine 0.75, EGFR more than 60, hemoglobin A1c 8.7, LFTs normal, triglycerides 110, cholesterol 111, LDL 51, HDL 38 Blood testing 06/17/2021: BUN 24, creatinine 0.75, potassium 4.5. Labs 04/20/21: Cr. 0.91, BUN 18, K 4.2, GFR >60 Blood testing 05/16/2020: Cholesterol 135, HDL 33, LDL 83, triglycerides 96. Imaging and other tests Device interrogation 10/03/23 Echocardiogram 01/03/2023: The left ventricle is mildly dilated with severely reduced systolic function. LVEF is 25% Normal right ventricular size and systolic function. No significant valvular dysfunction. Unable to assess right-sided pressures due to lack of measurable tricuspid regurgitation. No pericardial effusion. Device check 02/22/2023: For VT monitored episodes. Device check 02/24/21: 4 episodes of NSVT lasting 2 sec (more content not included)... [facility] 02-27-2024 Note Patient here for 6 m o follow up chronic systolic heart failure, CAD, and hypertension. ICD was interrogated in Sep 2023. He had routine labs with lipid profile last month. Says his heart rate has been around 100 lately. He denies chest pain, SOB, palpitations, and lightheadedness/syncope. Review of Systems All other systems reviewed and are negative. [facility] 02-27-2024 Note Lipid abnormalities are unchanged/ well controlled. Pharmacotherapy as ordered. Continue lipitor and zetia [facility] 02-27-2024 Note Coronary artery dise ase is stable Continue GDMT continue risk factor modifications- heart healthy diet, regular exercise as tolerated and continue all medications. [facility] 02-27-2024 Note NYHC II- currently e uvolemic without exacerbation Heart rate 80-100 bpm Continue GDMT- add digoxin for heart rate management and goal is 60-80 bom and he voiced understanding. Continue all meds Diuretic therapy- jardiance and aldactone Monitor daily weights, I&O, fluid restriction 1.5-2L/day, renal function and electrolytes [facility] 09-27-2023 History of Present illness Narrative Associated Problem(s): Wellness examination Patient [...] recent office/hospital visit for CHF exacerbation. Following [facility] cardiology. Associated Problem(s): Essential hypertension (CMS/HCC) [...] hypoglycemia. Relevant Medications Lancets Ultra Thin 30G misc glucose blood test strip Chronic systolic heart failure (CMS/HCC) Stable, on GDMT. No evidence of fluid overload. Does not require Loop diuretic. No recent office/hospital visit for CHF exacerbation. Following [facility] cardiology. Essential hypertension (CMS/HCC) - Primary [...] weeks (around 10/25/2023). documented in this encounter [facility] 08-01-2023 Note [place] [facility] Subjective Evaristo Lowery is [...] No pericardial effus (more content not included)... [facility] 11-14-2022 Hospital Discharge instructions Patient Education 11/14/2022 [...] provider gives to you. In general: Take uawj-vnv-nlnzmly and prescription medicines only as told by [...] 03/04/2015 Document Revised: 09/13/2018 Document Reviewed: 09/13/2018 [employer] Patient Education 2020 [employer]. Follow Up Care 10/11/2022 10:10:39 With:SUHAIL NOLASCO, Cabrera Núñez, URL Address: [facility] [address] , [place] [address]- When: Unknown [facility] Evaluation + Plan note Future Appointments Appointment Date:03/13/2023 02:30:00 PM Scheduled Provider:Cabrera OJEDA MD Location:[facility] Appointment Type:URO Office Visit [facility] Evaluation note Diagnosis Essential hypertension (CMS/HCC)- Primary Unspecified essential hypertension Chronic systolic heart failure (CMS/HCC) Chronic systolic heart failure Type 2 diabetes mellitus without complication, without long-term current use of insulin (CMS/HCC) Hyperlipidemia, unspecified hyperlipidemia type (CMS/HCC) Wellness examination [facility] N[facility] No data available for this section [facility] progress note No data available for this section [facility] Summary Purpose Family History No [...] section and content) DATE CREATED AUTHOR 10/20/2022 [facility] DATE CREATED AUTHOR AUTHOR'S ORGANIZ ATION 01/04/2023 [facility] [place] [facility] DATE CREATED AUTHOR AUTHOR'S ORGANIZ ATION 02/06/2024 [facility] DATE CREATED AUTHOR AUTHOR'S ORGANIZ ATION 03/12/2024 [facility] DATE CREATED AUTHOR AUTHOR'S ORGANIZ ATION 03/13/2024 [facility] Patient Care team informatio n (unrecognized section and content) I&C Technician Relationship Specialty Start Date End Date Shaikh Salinas MD [address] [place] [phone] PCP - General Internal Medicine 09/08/23 I&C Technician Relationship Specialty Start Date End Date Shaikh Salinas MD [address] [place] [phone] PCP - General Internal Medicine 09/08/23 I&C Technician Relationship Specialty Start Date End Date Shaikh Salinas MD [address] [place] [phone] PCP - General Internal Medicine 09/08/23 Reason [...] BE BASED ON THE PRIMARY CLINICAL RECORDS. [employer] [facility]. provides no warranty or guarantee of the accuracy or completeness of information in this document.
[2024-03-20] MEDS: REGADENOSON 0.4 MG/5 ML SYRINGE IV (08:51)
== END 2024-03-20 07:20 | disposition home or self-care (01) ==
LOC: NM 07:20
PROVIDERS: PCP Internal Medicine; Visit Provider Nurse Practitioner Family
DX: R07.89 Other chest pain (principal)
CPT/HCPCS: 78452; 93017; A9500; J2785

== ENCOUNTER 2024-06-10 14:04 | Outpatient (OUT) | payer OTHER, SELFPAY ==
[2024-06-10 14:21] LABS: Basophils Absolute Auto 0.1 10^3/uL (0.0-0.1); Basophils Percent Auto 0.6 % (0.2-2.0); Eosinophils Absolute Auto 0.2 10^3/uL (0.0-0.7); Hematocrit 46.1 % (42.0-54.0); Hemoglobin 15.2 g/dL (14.0-18.0); Immature Granulocytes Abs Auto 0.05 10^3/uL (0.00-0.03); Immature Granulocytes Pct Auto 0.5 % (0.0-0.5); Lymphocytes Absolute Auto 1.9 10^3/uL (1.2-3.8); Lymphocytes Percent Auto 20.5 % (20.5-60.0); Mean Corpuscular Hemoglobin 29.7 pg (25.9-34.0); Mean Platelet Volume 8.8 fL (9.5-13.5); Monocytes Percent Auto 10.8 % (1.7-12.0); Neutrophils Absolute Auto 6.1 10^3/uL (1.4-6.5); Neutrophils Percent Auto 65.6 % (43.0-75.0); Platelet Count 277 10^3/uL (150-450); Red Blood Count 5.12 10^6/uL (4.70-6.10); Red Cell Distribution Width 13.5 % (11.0-15.0); White Blood Count 9.3 10^3/uL (4.0-11.0)
--- OUTSIDE RECORDS SUMMARY | 2024-06-10 14:28 | XMS_ITS | CCD ---
Author Organization [facility] Inform ion [facility] Care Team Providers Care Set And Exhibit Designer Name Role Phone Justin Smallwood Attending Unavailab kendra Smallwood, Justin Quiroz Admitting Unavailab Tony Malave Primary Care Physician KATIE, DR MACDONALD Attending Unavailable VALDOSTA, DR MACDONALD Consulting Unavailable VALDOSTA, DR MACDONALD Primary Care Unavailable VALDOSTA, DR MACDONALD Admitting Unavailable LARRY, ISIAH Consulting Unavailable VALDOSTA, DR MACDONALD Primary Care Unavailable MISC, DR PATRICK Admitting Unavailable MISC, DR PATRICK Attending Unavailable MISC, DR PATRICK Consulting Unavailable VALDOSTA, DR MACDONALD Primary Care Unavailable QUINTON, SAIMA Admitting Unavailable QUINTON, SAIMA Attending Unavailable QUINTON, SAIMA Consulting Unavailable [place], DR BHASKAR Zarate Consulting Unavailable NADEREWilton, DR RUBEN Schwarz Admitting Unavailable HOUSE, DR MACDONALD Primary Care Unavailable NADERER, DR RUBEN Schwarz Attending Unavailable NADERER, DR RUBEN Schwarz Consulting Unavailable GRECHNY ., ROQUE AYALA Consulting Unavailabl e MIMS, JT Consulting Unavailable VALDOSTA, DR MACDONALD Consulting Unavailable VALDOSTA, DR MACDONALD Primary Care Unavailable VALDOSTA, DR MACDONALD Admitting Unavailable HOUSE, DR MACDONALD Attending Unavailable HOUSE, DR MACDONALD Attending Unavailable HOUSE, DR MACDONALD Consulting Unavailable VALDOSTA, DR MACDONALD Primary Care Unavailable VALDOSTA, DR MACDONALD Admitting Unavailable ZIEBER, DR BLAYNE Núñez Consulting Unavailable Brad NOLASCO, Primary Care Provider Cabrera JANG Attending Unavailable PATYAHSAN Caruso Referring Unavailable PATYAHSAN Referring Unavailable MOUKARBELCHACHO Attending Unavailable PATYAHSAN Referring Unavailable MOUKARBEL, CHACHO Attending Unavailable PATY, AHSAN Referring Unavailable MARCYDARIAN Attending Unavailable PATYAHSAN Caruso Referring Unavailable FAWJONE, Attending Unavailable FAWWASHAIKH Keslser Attending Unavailable SHAIKH SALINAS Attending Unavailable SHAIKH SALINAS Attending Unavailable RAYMOND SANDERS Attending Unavailabl e Allergies Allergy Classification Reported Allergen(s) Allergy Type Date of Onset Reaction(s) Facility (1 source) No Known Medication Allergies; 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: [No Known Medication Allergies] Propensity to adverse reactions (disorder) [facility] Repository Medications Current Medications Medication Drug Class(es) Dates Sig (Normalized) Sig (Original) Ascorbic Acid (6 sources) Vitamin C Start: 04-13-2024 take 1 g by mouth every six hours Ascorbic Acid (Vitamin C) Active 1 GM PO Every 6 hours April 13, 2024 12:00am take 1 tablet by mouth in the mo rning Ascorbic Acid (vitamin C) 1000 MG tablet Take 1,000 mg by mouth in the morning. 0 Active aspirin 81 mg delayed release oral tablet (7 sources) Platelet Aggregation Inhibitor, Nonsteroidal Anti-inflammatory Drug Start: 04-13-2024 take 81 mg by mouth once daily Aspirin Active 81 MG PO Daily April 13, 2024 12:00am Start: 11-14-2022 aspirin Refill s(s) 0 Start Date: 11/14/22 Status: Ordered take 1 tablet by alba th in the morning aspirin 81 MG EC tablet Take 81 mg by mouth in the morning. 0 Active atorvastatin 80 mg oral tablet (7 sources) HMG-CoA Reductase Inhibitor Start: 04-13-2024 take 80 mg by mouth once daily Atorvastatin Active 80 MG PO Daily April 13, 2024 12:00am Start: 11-14-2022 atorvastatin 8 0 mg Tab Refills(s) 0 Start Date: 11/14/22 Status: Ordered carvedilol 25 mg oral tablet (9 sources) alpha-Adrenergic Sada, beta-Adrenergic Sada Start: 04-13-2024 take 6.25 mg by mouth twice daily Carvedilol Active 6.25 MG PO Twice daily April 13, 2024 12:00am Start: 04-13-2024 take 25 mg by mouth twice alexsandra y Carvedilol Active 25 MG PO Twice daily April 13, 2024 12:00am in addition to 6.25mg Start: 11-14-2022 carvedilol 25 mg Tab Refills(s) 0 Start Date: 11/14/22 Status: Ordered cholecalciferol 0.025 mg oral capsule (6 sources) Vitamin D Start: 04-13-2024 take 25 ug by mouth once daily Cholecalciferol (Vitamin D3) Active 25 MCG PO Daily April 13, 2024 12:00am take 1 tablet by mouth in the mo rning cholecalciferol (Vitamin D3) 25 MCG (1000 UT) tablet Take 1,000 Units by mouth in the morning. 0 Active digoxin 0.125 mg oral tablet (2 sources) Cardiac Glycoside Start: 04-13-2024 take 0.125 mg by mouth once daily Digoxin Active 0.125 MG PO Daily April 13, 2024 12:00am empagliflozin 25 mg oral tablet (7 sources) Sodium-Glucose Cotransporter 2 Inhibitor Start: 04-13-2024 take 1 tablet by mouth once daily Empagliflozin (Jardiance) 25 mg tablet Active 25 MG PO Daily April 13, 2024 12:00am Start: 08-22-2023 End: 11-20-2023 take 1 tablet [...] Status: Ordered ezetimibe 10 mg oral tablet (7 sources) Dietary Cholesterol Absorption Inhibitor Start: 04-13-2024 take 10 mg by mouth once daily Ezetimibe Active 10 MG PO Daily April 13, 2024 12:00am Start: 11-14-2022 ezetimibe 10 m g Tab Refills(s) 0 Start Date: 11/14/22 Status: Ordered glipiZIDE 5 mg oral tablet (6 sources) Sulfonylurea Start: 04-13-2024 take 5 mg by mouth once daily Glipizide Active 5 MG PO Daily April 13, 2024 12:00am Start: 09-04-2023 End: 12-03-2023 take 1 tablet by mouth in the morning glipiZIDE (Glucotrol) 5 MG tablet Indications: Type 2 diabetes mellitus without complication, without long-term current use of insulin (CMS/HCC) Take 1 tablet (5 mg) by mouth in the morning. 90 tablet 0 09/04/2023 12/03/2023 Active metFORMIN hydrochloride 1000 mg oral tablet (7 sources) Biguanide Start: 04-13-2024 take 1000 mg by mouth twice daily Metformin Active 1000 MG PO Twice daily April 13, 2024 12:00am Start: 11-14-2022 metformin 500 mg Tab Refills(s) [...] and 1 tablet before bedtime. 0 Active Semaglutide (2 sources) Start: 04-13-2024 inject 1 mg by subcutaneous injection every week Semaglutide (Ozempic) 1 mg/dose (4 mg/3 mL) pen injector Active 1 MG SUBCUT every week April 13, 2024 12:00am Spironolactone (7 sources) Aldosterone Antagonist Start: 04-13-2024 take 12.5 mg by mouth once daily Spironolactone Active 12.5 MG PO Daily April 13, 2024 12:00am Start: 11-14-2022 spironolactone 25 mg Tab Refills(s) [...] disease (12 sources) Atherosclerotic heart disease of [place] coronary artery without angina pectoris; 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: [Old myocardial infarction] Onset: 07-17-2012 Chronic Diabetes mellitus with complications (1 source) Type 2 diabetes mellitus with hyperglycemia; 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: [TYPE 2 DM W/HYPERGLYCEMIA] Onset: 07-04-2022 Chronic Diabetes mellitus without complication (15 sources) Type 2 diabetes mellitus; 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: [Type 2 diabetes mellitus without complications] Onset: 03-21-2022 11-10-2022 Chronic Disorders of lipid metabolism (7 sources) Mixed hyperlipidemia; 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: [Hyperlipidemia] Onset: 07-18-2012 11-10-2022 Chronic Diverticulosis and diverticulitis (1 source) Diverticulosis of large intestine without perforation or abscess without bleeding; 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: [DVRTCLOS LG INT NO PERF/ABSC W/O BL] Onset: 10-07-2022 Chronic Essential hypertension (10 sources) Essential hypertension; 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: [Essential (primary) hypertension] [...] disease with heart failure] Onset: 02-27-2024 Chronic Open wounds of head; neck; and trunk (4 sources) Scalp laceration; 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: [Laceration without foreign body of scalp, initial encounter] 04-13-2024 Episodic Other diseases of kidney and ureters (1 [...] up operator (current) use of aspirin; 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: [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] Onset: 07-04-2022 Episodic Other aftercare (1 source) USP (current) use of oral hypoglycemic drugs; 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: [SNF USE ORAL HYPOGLYCEMIC DX] Onset: 07-04-2022 Episodic Other aftercare (1 source) 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; 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: [OTH PIPE PROCESSOR CURRENT DRUG THERAPY] Onset: 07-04-2022 Episodic Other upper respiratory infections (1 source) Acute sinusitis, unspecified; 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: [ACUTE SINUSITIS UNSPECIFIED] Onset: 07-04-2022 Episodic Screening and history of mental health and substance abuse codes (1 source) Personal history of nicotine dependence; 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: [PERSONAL HISTORY OF NICOTINE DEPEND] Onset: 07-04-2022 Episodic Results Test Name Value Interpretation Reference Range Facility Office Visiton 03-27-2024 Follow-up visit [id number] Evaristo Lowery 1965 M [facility] Provider Department Center 03/27/2024 CHACHO MALDONADO MARY Barajas Family History Problem Relation Age of Onset Diabetes Maternal Grandmother Heart attack Maternal Grandfather Diabetes Paternal Grandmother Heart disease Paternal Grandfather Family Status - Relation Status Age at Maternal Grandmother Maternal Grandfather Paternal Grandmother Paternal Grandfather Level of Service:56439 DE OFFICE/OUTPATIENT ESTABLISHED MOD MDM 30 MIN Normal [facility] 36on 03-18-2024 36 I think that's ok, how does he feel? Normal [facility] Orders Onlyon 03-06-2024 Orders Only [id number] Evaristo Lowery 1965 Provider Department Center 03/06/2024 MIRTHA SEBASTIAN MARY Barajas Family History Problem Relation Age of Onset Diabetes Maternal Grandmother Heart attack Maternal Grandfather Diabetes Paternal Grandmother Heart disease Paternal Grandfather Family Status - Relation Status Age at Maternal Grandmother Maternal Grandfather Paternal Grandmother Paternal Grandfather Normal [facility] 37on 02-27-2024 37 Start digoxin 1 tab/ day Monitor heart rate- goal is between 60-80 HR Have labs/blood drawn in 1-2 weeks to check kidney function and digoxin level Call office for any concerns Normal [facility] Office Visiton 02-27-2024 Follow-up visit [id number] Evaristo Lowery 1965 M Date Provider Department Center 02/27/2024 DARIAN [facility] Family History Problem Relation Age of Onset Diabetes Maternal Grandmother Heart attack Maternal Grandfather Diabetes Paternal Grandmother Heart disease Paternal Grandfather Family Status - Relation Status Age at Maternal Grandmother Maternal Grandfather Paternal Grandmother Paternal Grandfather Level of Service:66630 DE OFFICE/OUTPATIENT ESTABLISHED MOD MDM 30 MIN Normal [facility] MLR HEMOGLOBIN A1Con 024 Glucose [Mass/Vol] 180 mg/dL [facility] HbA1c (Bld) [Mass fraction] 7.9 % High 4.5 - 6.2 % [facility] Comment on above: ADA RECOMMENDED LIMI T 4.0 - 6.0 ADA THERAPEUTIC TARGET < 7.0 ACTION SUGGESTED > 7.0 Interpretation and review of laboratory results Abnormal [facility] MICROALB CREAT RATIO RAN DOMon 09-23-2023 CREATININE URINE RANDOM 80.70 mg/dL 20.00 - 300.00 mg/dL [facility] MICROALBUM CREATININE RATIO UR 16.1 mg/g 0.0 - 29.9 mg/g [facility] Comment on above: NO MICROALBUMINURIA 0-29 MG/G CLINICAL MICROALBUMINURIA 30-300 MG/G MACROALBUMINURIA >300 MG/G MICROALBUMIN URINE RANDOM <1.3 NINF - 30.0 mg/dL [facility] Office Visiton 08-01-2023 Follow-up visit [id number] Evaristo Lowery 1965 M Date Provider Department Center 08/01/2023 CHACHO MALDONADO [facility] Family History Problem Relation Age of Onset Diabetes Maternal Grandmother Heart attack Maternal Grandfather Diabetes Paternal Grandmother Heart disease Paternal Grandfather Family Status - Relation Status Age at Maternal Grandmother Maternal Grandfather Paternal Grandmother Paternal Grandfather Level of Service:80217 DE OFFICE/OUTPATIENT ESTABLISHED LOW MDM 20-29 MIN Normal [facility] ECHOCARDIO M/2D COMPLETEon 0 01-03-2023 ECHOCARDIO M/2D COMPLETE Patient: EVARISTO LOWERY Exam Date: 01/03/2023 : 1965 Gender:M 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 on 01/03/2023 at 20:26 Approved by: Chacho Rodriguez M.D. on 01/03/2023 at 20:32 [facility] XR knee LT 4V*on 10-19-2022 XR knee LT 4V* [facility] Main [place] [address] [place] [address] XRay Report Signed Patient: Evaristo Lowery MR#: [id number] : 1965 Acct:[id number] Age/Sex: 57 / M ADM Date: 10/19/22 Loc: XDCLY Room: Type: [facility] Attending Dr: Justin Smallwood PASTE MIXING SUPERVISOR-C Copies to: Justin Smallwood CNP Ordering Provider: Justin Smallwood CNP Date of Service: 10/19/22 XR/XR knee LT 4V*: LEFT KNEE PAIN ([id number]) XR/XR elbow LT min 3V*: LEFT ELBOW [...] Cheri Castaneda M.D.10/19/2022 10:21 AM Dictation Location: [place] [address] Transcribed By: [facility] 10/19/22 1021 Dictated By: Cheri Castaneda MD 10/19/22 1012 Signed By: 10/19/22 1021 Normal [facility] CREATININEon 10-01-2022 Creatinine [Mass/Vol] 0.75 mg/dL Normal 0.70-1.30 [facility] Comment on above: Performed By: #### C #### [facility] [address] [place] [address] Dr. Mily Parra EGFR-AF SAMMARINESE >60 Normal >=60 [facility] Comment on above: Performed By: #### C MP #### [facility] [address] [address] [address] Mily Parra EGFR-NON AF SAMMARINESE >60 Normal >=60 [facility] Comment on above: Performed By: #### C MP #### [facility] [address] ABDOMEN WO/W CONon [...] by: ISIAH JUAREZ Date: 2022-10-01 11:49 Normal [facility] CT ABD/PELVIS WO CONon 09-14 CT [...] BLAYNE CHEN Date: 2022-09-14 15:18 Normal [facility] CBC AUTO DIFFon 06-24-2022 BASO # 0.1 103/ul Normal 0.0-0.1 [facility] Comment on above: Performed By: #### C BC #### [facility] [address] [address] [address] Mily Parra Basophils/100 WBC (Bld) 0.9 % Normal 0.2-2.0 [facility] Comment on above: Performed By: #### C BC #### [facility] [address] [address] [address] Mily Parra EO # 0.6 103/ul Normal 0.0-0.7 [facility] Comment on above: Performed By: #### C BC #### [facility] [address] [address] [address] Mily Parra Eosinophils/100 WBC (Bld) 6.0 % Normal 0.9-7.0 [facility] Comment on above: Performed By: #### C BC #### [facility] [address] [place] [address] Dr. Mily Parra Erythrocyte distribution width (RBC) [Ratio] 13.4 % Normal 11.0-15.0 [facility] Comment on above: Performed By: #### C BC #### [facility] [address] [place] [address] Dr. Mily Parra Hematocrit (Bld) [Volume fraction] 46.7 % Normal 42.0-54.0 [facility] Comment on above: Performed By: #### C BC #### [facility] [address] [place] [address] Dr. Mily Parra Hemoglobin (Bld) [Mass/Vol] 15.6 g/dL Normal 14.0-18.0 [facility] Comment on above: Performed By: #### C BC #### [facility] [address] [place] [address] Dr. Mily Parra IG # 0.03 10e3/ul Normal 0.00-0.03 [facility] Comment on above: Performed By: #### C BC #### [facility] [address] [place] [address] Dr. Mily Parra IG % 0.3 % Normal 0.0-0.5 [facility] Comment on above: Performed By: #### C BC #### [facility] [address] [place] [address] Dr. Mily Parra LYMPH # 3.0 103/ul Normal 1.2-3.8 [facility] Comment on above: Performed By: #### C BC #### [facility] [address] [place] [address] Dr. Mily Parra Lymphocytes/100 WBC (Bld) 28.1 % Normal 20.5-60.0 [facility] Comment on above: Performed By: #### C BC #### [facility] [address] [place] [address] Dr. Mily Parra MANUAL DIFF REQ NO Normal [facility] Comment on above: Performed By: #### C BC #### [facility] [address] [place] [address] Dr. Mily Parra MCH (RBC) [Entitic mass] 29.5 pg Normal 25.9-34.0 [facility] Comment on above: Performed By: #### C BC #### [facility] [address] [place] [address] Dr. Mily Parra MCHC (RBC) [Mass/Vol] 33.4 g/dL Normal 29.9-35.2 [facility] Comment on above: Performed By: #### C BC #### [facility] [address] [address] [address] Mily Parra MCV (RBC) [Entitic vol] 88.4 fL Normal 80.0-94.0 [facility] Comment on above: Performed By: #### C BC #### [facility] [address] [place] [address] Dr. Mily Parra MONO # 0.8 103/ul Normal 0.3-0.8 [facility] Comment on above: Performed By: #### C BC #### [facility] [address] [place] [address] Dr. Mily Parra Monocytes/100 WBC (Bld) 7.8 % Normal 1.7-12.0 [facility] Comment on above: Performed By: #### C BC #### [facility] [address] [place] [address] Dr. Mily Parra NEUT # 6.0 103/ul Normal 1.4-6.5 [facility] Comment on above: Performed By: #### C BC #### [facility] [address] [place] [address] Dr. Mily Parra Neutrophils/100 WBC (Bld) 56.9 % Normal 43.0-75.0 [facility] Comment on above: Performed By: #### C BC #### [facility] [address] [place] [address] Dr. Mily Parra Platelet mean volume (Bld) [Entitic vol] 8.8 fL Critically low 9.5-13.5 [facility] Comment on above: Performed By: #### C BC #### [facility] [address] [place] [address] Dr. Mily Parra PLT 233 103/ul Normal 150-450 [facility] Comment on above: Performed By: #### C BC #### [facility] [address] [place] [address] Dr. Mily Parra RBC 5.28 106/ul Normal 4.70-6.10 [facility] Comment on above: Performed By: #### C BC #### [facility] [address] [place] [address] Dr. Mily Parra WBC 10.5 103/ul Normal 4.0-11.0 [facility] Comment on above: Performed By: #### C BC #### [facility] [address] [place] [address] Dr. Mily Parra PROF CHEM 8 (BAS METB)on Anion gap [Moles/Vol] 8.9 mmol/L Normal [facility] Comment on above: Performed By: #### L IPID #### [facility] [address] [place] [address] Dr. Mily Parra Calcium [Mass/Vol] 8.6 mg/dL Normal 8.5-10.1 [facility] Comment on above: Performed By: #### L IPID #### [facility] [address] [place] [address] Dr. Mily Parra Chloride [Moles/Vol] 107 mmol/L Normal 98-107 [facility] Comment on above: Performed By: #### L IPID #### [facility] [address] [place] [address] Dr. Mily Parra CO2 [Moles/Vol] 27.2 mmol/L Normal 21.0-32.0 [facility] Comment on above: Performed By: #### L IPID #### [facility] [address] [place] [address] Dr. Mily Parra Creatinine [Mass/Vol] 0.76 mg/dL Normal 0.70-1.30 [facility] Comment on above: Performed By: #### L IPID #### [facility] [address] [place] [address] Dr. Mily Parra EGFR-AF SAMMARINESE >60 Normal >=60 [facility] Comment on above: Performed By: #### L IPID #### [facility] [address] [place] [address] Dr. Mily Parra EGFR-NON AF SAMMARINESE >60 Normal >=60 [facility] Comment on above: Performed By: #### L IPID #### [facility] [address] [address] [address] Mily Parra Glucose [Mass/Vol] 118 mg/dL Critically high 74-106 [facility] Comment on above: Performed By: #### L IPID #### [facility] [address] [place] [address] Dr. Mily Parra Potassium [Moles/Vol] 4.1 mmol/L Normal 3.5-5.1 [facility] Comment on above: Performed By: #### L IPID #### [facility] [address] [place] [address] Dr. Mily Parra Sodium [Moles/Vol] 139 mmol/L Normal 136-145 [facility] Comment on above: Performed By: #### L IPID #### [facility] [address] [place] [address] Dr. Mily Parra Urea nitrogen [Mass/Vol] 20.0 mg/dL Critically high 7.0-18.0 [facility] Comment on above: Performed By: #### L IPID #### [facility] [address] [place] [address] Dr. Mily Parra Urea nitrogen/Creatinine [Mass ratio] 26.3 mg/mg Normal [facility] Comment on above: Performed By: #### L IPID #### [facility] [address] [place] [address] Dr. Mily Parra ACETONE SERUMon 06-23-2022 ACETONE Negative Normal NEGATIVE [facility] Comment on above: Performed By: #### A CETON #### [facility] [address] [place] [address] Dr. Mily Parra BNPon 06-23-2022 Natriuretic peptide B (Bld) [Mass/Vol] 129.0 pg/mL Normal <=900.0 [facility] Comment on above: Performed By: #### L IPID #### [facility] [address] [place] [address] Dr. Mily Parra CARDIAC CARLOS 3-6on 2 CK [Catalytic activity/Vol] 52 U/L Normal 39-308 [facility] Comment on above: Performed By: #### C MREP #### [facility] [address] [place] [address] Dr. Mily Parra CK.MB [Mass/Vol] 0.69 ng/mL Normal <=3.60 [facility] Comment on above: Performed By: #### C MREP #### [facility] [address] [place] [address] Dr. Mily Parra HSTROP 11.6 pg/mL Normal 4.0-76.1 [facility] Comment on above: Result Comment: CUT- OFF POINTS HAVE BEEN ESTABLISHED BASED ON THE FOURTH UNIVERSAL DEFINITIONS OF MYOCARDIAL INFARCTION. THE UPPER REFERENCE LIMIT (URL) OF TROPONIN, DEFINED THE 99TH PERCENTILE OF cTnI DISTRIBUTION IN A REFERENCE POPULATION, HAS BEEN CONFIRMED THE DECISION THRESHOLD FOR OR DIAGNOSIS. Performed By: #### C MREP #### [facility] [address] [place] [address] Dr. Mily Parra CK [Catalytic activity/Vol] 48 U/L Normal 39-308 [facility] Comment on above: Performed By: #### C MREP #### [facility] [address] [place] [address] Dr. Mily Parra CK.MB [Mass/Vol] 0.58 ng/mL Normal <=3.60 [facility] Comment on above: Performed By: #### C MREP #### [facility] [address] [place] [address] Dr. Mily Parra HSTROP 6.1 pg/mL Normal 4.0-76.1 [facility] Comment on above: Result Comment: CUT- OFF POINTS HAVE BEEN ESTABLISHED BASED ON THE FOURTH UNIVERSAL DEFINITIONS OF MYOCARDIAL INFARCTION. THE UPPER REFERENCE LIMIT (URL) OF TROPONIN, DEFINED THE 99TH PERCENTILE OF cTnI DISTRIBUTION IN A REFERENCE POPULATION, HAS BEEN CONFIRMED THE DECISION THRESHOLD FOR OR DIAGNOSIS. Performed By: #### C MREP #### [facility] [address] [place] [address] Dr. Mily Parra CBC AUTO DIFFon 06-23-2022 BASO # 0.1 103/ul Normal 0.0-0.1 [facility] Comment on above: Performed By: #### C BC #### [facility] [address] [place] [address] Dr. Mily Parra Basophils/100 WBC (Bld) 0.7 % Normal 0.2-2.0 [facility] Comment on above: Performed By: #### C BC #### [facility] [address] [place] [address] Dr. Mily Parra EO # 0.5 103/ul Normal 0.0-0.7 [facility] Comment on above: Performed By: #### C BC #### [facility] [address] [place] [address] Dr. Mily Parra Eosinophils/100 WBC (Bld) 3.6 % Normal 0.9-7.0 [facility] Comment on above: Performed By: #### C BC #### [facility] [address] [place] [address] Dr. Mily Parra Erythrocyte distribution width (RBC) [Ratio] 13.4 % Normal 11.0-15.0 [facility] Comment on above: Performed By: #### C BC #### [facility] [address] [place] [address] Dr. Mily Parra Hematocrit (Bld) [Volume fraction] 51.6 % Normal 42.0-54.0 [facility] Comment on above: Performed By: #### C BC #### [facility] [address] [place] [address] Dr. Mily Parra Hemoglobin (Bld) [Mass/Vol] 17.4 g/dL Normal 14.0-18.0 [facility] Comment on above: Performed By: #### C BC #### [facility] [address] [place] [address] Dr. Mily Parra IG # 0.06 10e3/ul Critically high 0.00-0.03 [facility] Comment on above: Performed By: #### C BC #### [facility] [address] [place] [address] Dr. Mily Parra IG % 0.4 % Normal 0.0-0.5 [facility] Comment on above: Performed By: #### C BC #### [facility] [address] [place] [address] Dr. Mily Parra LYMPH # 2.7 103/ul Normal 1.2-3.8 [facility] Comment on above: Performed By: #### C BC #### [facility] [address] [place] [address] Dr. Mily Parra Lymphocytes/100 WBC (Bld) 18.3 % Critically low 20.5-60.0 [facility] Comment on above: Performed By: #### C BC #### [facility] [address] [place] [address] Dr. Mily Parra MANUAL DIFF REQ NO Normal [facility] Comment on above: Performed By: #### C BC #### [facility] [address] [place] [address] Dr. Mily Parra MCH (RBC) [Entitic mass] 29.7 pg Normal 25.9-34.0 [facility] Comment on above: Performed By: #### C BC #### [facility] [address] [place] [address] Dr. Mily Parra MCHC (RBC) [Mass/Vol] 33.7 g/dL Normal 29.9-35.2 [facility] Comment on above: Performed By: #### C BC #### [facility] [address] [place] [address] Dr. Mily Parra MCV (RBC) [Entitic vol] 88.1 fL Normal 80.0-94.0 [facility] Comment on above: Performed By: #### C BC #### [facility] [address] [place] [address] Dr. Mily Parra MONO # 0.9 103/ul Critically high 0.3-0.8 [facility] Comment on above: Performed By: #### C BC #### [facility] [address] [address] [address] Mily Parra Monocytes/100 WBC (Bld) 6.2 % Normal 1.7-12.0 [facility] Comment on above: Performed By: #### C BC #### [facility] [address] [address] [address] Mily Parra NEUT # 10.3 103/ul Critically high 1.4-6.5 [facility] Comment on above: Performed By: #### C BC #### [facility] [address] [address] [address] Mily Parra Neutrophils/100 WBC (Bld) 70.8 % Normal 43.0-75.0 [facility] Comment on above: Performed By: #### C BC #### [facility] [address] [address] [address] Mily Parra Platelet mean volume (Bld) [Entitic vol] 9.0 fL Critically low 9.5-13.5 [facility] Comment on above: Performed By: #### C BC #### [facility] [address] [address] [address] Mily Parra PLT 278 103/ul Normal 150-450 [facility] Comment on above: Performed By: #### C BC #### [facility] [address] [address] [address] Mily Parra RBC 5.86 106/ul Normal 4.70-6.10 [facility] Comment on above: Performed By: #### C BC #### [facility] [address] [address] [address] Mily Parra WBC 14.6 103/ul Critically high 4.0-11.0 [facility] Comment on above: Performed By: #### C BC #### [facility] [address] HEAD WO CONon [...] by: BHASKAR ANTUNEZ Date: 2022-06-23 14:21 Normal [facility] CTA NECK WO W CONon 06-23-20 [...] stenosis. LEFT VERTEBRAL ARTERY: No significant stenosis. [place]: The bilateral intracranial internal carotid [...] JT MIMS Date: 2022-06-23 15:58 Normal [facility] CULTURE BLOODon 06-23-2022 Microscopic examination of blood, culture Culture Observations: NO GROWTH AT 5 DAYS. Normal [facility] Comment on above: Performed By: #### C BC #### [facility] [address] [address] [address] Mily Parra Microscopic examination of blood, culture Culture Observations: NO GROWTH AT 5 DAYS. Normal [facility] Comment on above: Performed By: #### C BC #### [facility] [address] [address] [address] Mily Parra Covid-19 PCR ([facility])on SARS-CoV-2 (COVID-19) RNA RUBY+probe Ql (Unsp spec) Not detected Normal NOT DETECTED [facility] Comment on above: Result Comment: When [...] for this test is supported by the Payment Analyst of Health and Human Service's declaration that [...] used). Performed By: #### C BC #### [facility] [address] [place] [address] Dr. Mily Parra D-DIMERon 06-23-2022 D-DIMER 0.31 mg/L FEU Normal <=0.59 [facility] Comment on above: Performed By: #### C MP #### [facility] [address] [place] [address] Dr. Mily Parra D-DIMER COMMENTS SEE BELOW Normal [facility] Comment on above: Result Comment: Incr [...] hospitalization. Performed By: #### C MP #### [facility] [address] [place] [address] Dr. Mily Parra ER URINE PROFILEon 2 Bilirubin Ql (U) Negative Normal NEGATIVE [facility] Comment on above: Performed By: #### E RUR #### [facility] [address] [place] [address] Dr. Mily Parra Clarity (U) CLEAR Normal CLEAR [facility] Comment on above: Performed By: #### E RUR #### [facility] [address] [place] [address] Dr. Mily Parra Color (U) LT. YELLOW Normal YELLOW [facility] Comment on above: Performed By: #### E RUR #### [facility] [address] [place] [address] Dr. Mily Parra ERUAHD A micrscopic examination will be performed if indicated. Normal [facility] Comment on above: Performed By: #### E RUR #### [facility] [address] [place] [address] Dr. Mily Parra Glucose Ql (U) >1000 Abnormal NEGATIVE [facility] Comment on above: Performed By: #### E RUR #### [facility] [address] [place] [address] Dr. Mily Parra Hemoglobin Ql (U) Negative Normal NEGATIVE [facility] Comment on above: Performed By: #### E RUR #### [facility] [address] [place] [address] Dr. Mily Parra Ketones Ql (U) TRACE Abnormal NEGATIVE [facility] Comment on above: Performed By: #### E RUR #### [facility] [address] [place] [address] Dr. Mily Parra LEUKOCYTES Negative Normal NEGATIVE [facility] Comment on above: Performed By: #### E RUR #### [facility] [address] [place] [address] Dr. Mily Parra Nitrite Ql (U) Negative Normal NEGATIVE [facility] Comment on above: Performed By: #### E RUR #### [facility] [address] [place] [address] Dr. Mily Parra pH (U) 6.0 [pH] Normal 5-9 [facility] Comment on above: Performed By: #### E RUR #### [facility] [address] [place] [address] Dr. Mily Parra SPEC GRAVITY 1.020 Normal 1.005-<=1.025 [facility] Comment on above: Performed By: #### E RUR #### [facility] [address] [place] [address] Dr. Mily Parra UA PROTEIN Negative Normal NEGATIVE/ TRACE [facility] Comment on above: Performed By: #### E RUR #### [facility] [address] [place] [address] Dr. Mily Parra UR MICRO IND NOT INDICATED Normal [facility] Comment on above: Performed By: #### E RUR #### [facility] [address] [place] [address] Dr. Mily Parra Urobilinogen Qn (U) 0.2 {[place]'U}/dL Normal 0.2 - 1. 0 [facility] Comment on above: Performed By: #### E RUR #### [facility] [address] [place] [address] Dr. Mily Parra LACTATE/LACTIC ACIDon 2021 Lactate [Moles/Vol] 1.2 mmol/L Normal 0.4-1.9 [facility] Comment on above: Performed By: #### C BC #### [facility] [address] [place] [address] Dr. Mily Parra Lactate [Moles/Vol] 2.9 mmol/L Critically high 0.4-1.9 [facility] Comment on above: Performed By: #### C MP #### [facility] [address] [place] [address] Dr. Mily Parra PH VENOUS BLOODon 06-23-2022 PCO2 VENOUS 36.9 mmHg Critically low 40.0-52.0 [facility] Comment on above: Performed By: #### C MP #### [facility] [address] [place] [address] Dr. Mily Parra pH VENOUS 7.399 Normal 7.330-7.430 [facility] Comment on above: Performed By: #### C MP #### [facility] [address] [place] [address] Dr. Mily Parra PROF 14(COMP METB)on 022 Albumin [Mass/Vol] 4.1 g/dL Normal 3.4-5.0 [facility] Comment on above: Performed By: #### C MP #### [facility] [address] [place] [address] Dr. Mily Parra Albumin/Globulin [Mass ratio] 1.1 {ratio} Normal [facility] Comment on above: Performed By: #### C MP #### [facility] [address] [place] [address] Dr. Mily Parra ALP [Catalytic activity/Vol] 56 U/L Normal 46-116 [facility] Comment on above: Performed By: #### C MP #### [facility] [address] [address] [address] Mily Parra ALT [Catalytic activity/Vol] 35 U/L Normal 16-63 [facility] Comment on above: Performed By: #### C MP #### [facility] [address] [address] [address] Mily Parra Anion gap [Moles/Vol] 11.1 mmol/L Normal [facility] Comment on above: Performed By: #### C MP #### [facility] [address] [address] [address] Mily Parra AST [Catalytic activity/Vol] 16 U/L Normal 15-37 [facility] Comment on above: Performed By: #### C MP #### [facility] [address] [place] [address] Dr. Mily Parra Bilirubin [Mass/Vol] 0.5 mg/dL Normal 0.2-1.0 [facility] Comment on above: Performed By: #### C MP #### [facility] [address] [address] [address] Mily Parra Calcium [Mass/Vol] 9.8 mg/dL Normal 8.5-10.1 [facility] Comment on above: Performed By: #### C MP #### [facility] [address] [address] [address] Mily Parra Chloride [Moles/Vol] 102 mmol/L Normal 98-107 [facility] Comment on above: Performed By: #### C MP #### [facility] [address] [address] [address] Mily Parra CO2 [Moles/Vol] 27.3 mmol/L Normal 21.0-32.0 [facility] Comment on above: Performed By: #### C MP #### [facility] [address] [address] [address] Mily Parra Creatinine [Mass/Vol] 0.86 mg/dL Normal 0.70-1.30 [facility] Comment on above: Performed By: #### C MP #### [facility] [address] [address] [address] Mily Parra EGFR-AF SAMMARINESE >60 Normal >=60 [facility] Comment on above: Performed By: #### C MP #### [facility] [address] [address] [address] Mily Parra EGFR-NON AF SAMMARINESE >60 Normal >=60 [facility] Comment on above: Performed By: #### C MP #### [facility] [address] [address] [address] Mily Parra Globulin (S) [Mass/Vol] 3.6 g/dL Normal [facility] Comment on above: Performed By: #### C MP #### [facility] [address] [place] [address] Dr. Mily Parra Glucose [Mass/Vol] 148 mg/dL Critically high 74-106 [facility] Comment on above: Performed By: #### C MP #### [facility] [address] [address] [address] Mily Parra Potassium [Moles/Vol] 4.4 mmol/L Normal 3.5-5.1 [facility] Comment on above: Performed By: #### C MP #### [facility] [address] [place] [address] Dr. Mily Parra Protein [Mass/Vol] 7.7 g/dL Normal 6.4-8.2 [facility] Comment on above: Performed By: #### C MP #### [facility] [address] [address] [address] Mily Parra Sodium [Moles/Vol] 136 mmol/L Normal 136-145 [facility] Comment on above: Performed By: #### C MP #### [facility] [address] [address] [address] Mily Parra Urea nitrogen [Mass/Vol] 25.0 mg/dL Critically high 7.0-18.0 [facility] Comment on above: Performed By: #### C MP #### [facility] [address] [address] [address] Mily Parra Urea nitrogen/Creatinine [Mass ratio] 29.1 mg/mg Normal [facility] Comment on above: Performed By: #### C MP #### [facility] [address] [place] [address] Dr. Mily Parra PROTIMEon 06-23-2022 INR Coag (PPP) [Relative time] 0.97 {INR} Normal [facility] Comment on above: Performed By: #### C MP #### [facility] [address] [place] [address] Dr. Mily Parra INR GUIDELINES SEE BELOW Normal [facility] Comment on above: Result Comment: MARIA RED INR: 2.0 - 3.0 CONDITIONS NOT LISTED BELOW 2.5 - 3.5 FOR PROSTHETIC HEART VALVE REPLACEMENT 2.5 - 3.5 RECURRENT THROMBOSIS Performed By: #### C MP #### [facility] [address] [place] [address] Dr. Mily Parra PT Coag (PPP) [Time] 10.5 s Normal 9.0-11.6 [facility] Comment on above: Performed By: #### C MP #### [facility] [address] [place] [address] Dr. Mily Parra PTTon 06-23-2022 aPTT Coag (Bld) [Time] 26.7 s Normal 22.3-36.2 [facility] Comment on above: Performed By: #### C MP #### [facility] [address] [place] [address] Dr. Mily Parra TROPONIN, HIGH SENSITIVITYon 06-23-2022 HSTROP 12.1 pg/mL Normal 4.0-76.1 [facility] Comment on above: Result Comment: CUT- OFF POINTS HAVE BEEN ESTABLISHED BASED ON THE FOURTH UNIVERSAL DEFINITIONS OF MYOCARDIAL INFARCTION. THE UPPER REFERENCE LIMIT (URL) OF TROPONIN, DEFINED THE 99TH PERCENTILE OF cTnI DISTRIBUTION IN A REFERENCE POPULATION, HAS BEEN CONFIRMED THE DECISION THRESHOLD FOR OR DIAGNOSIS. Performed By: #### C MP #### [facility] [address] [place] [address] Dr. Mily Parra HSTROP 5.5 pg/mL Normal 4.0-76.1 [facility] Comment on above: Result Comment: CUT- OFF POINTS HAVE BEEN ESTABLISHED BASED ON THE FOURTH UNIVERSAL DEFINITIONS OF MYOCARDIAL INFARCTION. THE UPPER REFERENCE LIMIT (URL) OF TROPONIN, DEFINED THE 99TH PERCENTILE OF cTnI DISTRIBUTION IN A REFERENCE POPULATION, HAS BEEN CONFIRMED THE DECISION THRESHOLD FOR OR DIAGNOSIS. Performed By: #### L IPID #### [facility] [address] [place] [address] Dr. Mily Parra TSHon 06-23-2022 TSH 0.875 uIU/mL Normal 0.358-3.740 [facility] Comment on above: Performed By: #### L IPID #### [facility] [address] [place] [address] Dr. Mily Parra XR CHEST 1 Von [...] BHASKAR ANTUNEZ Date: 2022-06-23 14:07 Normal [facility] CBC AUTO DIFFon 03-21-2022 BASO # 0.1 103/ul Normal 0.0-0.1 [facility] Comment on above: Performed By: #### C BC #### [facility] [address] [place] [address] Dr. Mily Parra Basophils/100 WBC (Bld) 0.8 % Normal 0.2-2.0 [facility] Comment on above: Performed By: #### C BC #### [facility] [address] [place] [address] Dr. Mily Parra EO # 0.3 103/ul Normal 0.0-0.7 [facility] Comment on above: Performed By: #### C BC #### [facility] [address] [place] [address] Dr. Mily Parra Eosinophils/100 WBC (Bld) 2.8 % Normal 0.9-7.0 [facility] Comment on above: Performed By: #### C BC #### [facility] [address] [place] [address] Dr. Mily Parra Erythrocyte distribution width (RBC) [Ratio] 13.8 % Normal 11.0-15.0 [facility] Comment on above: Performed By: #### C BC #### [facility] [address] [place] [address] Dr. Mily Parra Hematocrit (Bld) [Volume fraction] 49.4 % Normal 42.0-54.0 [facility] Comment on above: Performed By: #### C BC #### [facility] [address] [place] [address] Dr. Mily Parra Hemoglobin (Bld) [Mass/Vol] 16.2 g/dL Normal 14.0-18.0 [facility] Comment on above: Performed By: #### C BC #### [facility] [address] [place] [address] Dr. Mily Parra IG # 0.03 10e3/ul Normal 0.00-0.03 [facility] Comment on above: Performed By: #### C BC #### [facility] [address] [place] [address] Dr. Mily Parra IG % 0.3 % Normal 0.0-0.5 [facility] Comment on above: Performed By: #### C BC #### [facility] [address] [place] [address] Dr. Mily Parra LYMPH # 2.0 103/ul Normal 1.2-3.8 [facility] Comment on above: Performed By: #### C BC #### [facility] [address] [place] [address] Dr. Mily Parra Lymphocytes/100 WBC (Bld) 20.3 % Critically low 20.5-60.0 [facility] Comment on above: Performed By: #### C BC #### [facility] [address] [place] [address] Dr. Mily Parra MANUAL DIFF REQ NO Normal [facility] Comment on above: Performed By: #### C BC #### [facility] [address] [place] [address] Dr. Mily Parra MCH (RBC) [Entitic mass] 29.0 pg Normal 25.9-34.0 [facility] Comment on above: Performed By: #### C BC #### [facility] [address] [place] [address] Dr. Mily Parra MCHC (RBC) [Mass/Vol] 32.8 g/dL Normal 29.9-35.2 [facility] Comment on above: Performed By: #### C BC #### [facility] [address] [place] [address] Dr. Mily Parra MCV (RBC) [Entitic vol] 88.4 fL Normal 80.0-94.0 [facility] Comment on above: Performed By: #### C BC #### [facility] [address] [place] [address] Dr. Mily Parra MONO # 0.7 103/ul Normal 0.3-0.8 [facility] Comment on above: Performed By: #### C BC #### [facility] [address] [place] [address] Dr. Mily Parra Monocytes/100 WBC (Bld) 7.2 % Normal 1.7-12.0 [facility] Comment on above: Performed By: #### C BC #### [facility] [address] [place] [address] Dr. Mily Parra NEUT # 6.6 103/ul Critically high 1.4-6.5 [facility] Comment on above: Performed By: #### C BC #### [facility] [address] [place] [address] Dr. Mily Parra Neutrophils/100 WBC (Bld) 68.6 % Normal 43.0-75.0 [facility] Comment on above: Performed By: #### C BC #### [facility] [address] [place] [address] Dr. Mily Parra Platelet mean volume (Bld) [Entitic vol] 8.6 fL Critically low 9.5-13.5 [facility] Comment on above: Performed By: #### C BC #### [facility] [address] [place] [address] Dr. Mily Parra PLT 289 103/ul Normal 150-450 [facility] Comment on above: Performed By: #### C BC #### [facility] [address] [place] [address] Dr. Mily Parra RBC 5.59 106/ul Normal 4.70-6.10 [facility] Comment on above: Performed By: #### C BC #### [facility] [address] [place] [address] Dr. Mily Parra WBC 9.6 103/ul Normal 4.0-11.0 [facility] Comment on above: Performed By: #### C BC #### [facility] [address] [place] [address] Dr. Mily Parra GLYCOHEMOGLOBIN A1Con 2021 ADA RECOMMENDATION SEE BELOW Normal [facility] Comment on above: Result Comment: ADA RECOMMENDED LIMIT 4.0 - 6.0 ADA THERAPEUTIC TARGET < 7.0 ACTION SUGGESTED > 7.0 Performed By: #### A 1C #### [facility] [facility] [address] [place] [address] Dr. Mily Parra Glucose [Mass/Vol] 171 mg/dL Normal [facility] Comment on above: Performed By: #### A 1C #### [facility] [address] [place] [address] Dr. Mily Parra HbA1c (Bld) [Mass fraction] 7.6 % Critically high 4.5-6.2 [facility] Comment on above: Performed By: #### A 1C #### [facility] [address] [place] [address] Dr. Mily Parra PROF 14(COMP METB)on 022 Albumin [Mass/Vol] 4.0 g/dL Normal 3.4-5.0 [facility] Comment on above: Performed By: #### C MP #### [facility] [address] [place] [address] Dr. Mily Parra Albumin/Globulin [Mass ratio] 1.1 {ratio} Normal [facility] Comment on above: Performed By: #### C MP #### [facility] [address] [place] [address] Dr. Mily Parra ALP [Catalytic activity/Vol] 53 U/L Normal 46-116 [facility] Comment on above: Performed By: #### C MP #### [facility] [address] [place] [address] Dr. Mily Parra ALT [Catalytic activity/Vol] 32 U/L Normal 16-63 [facility] Comment on above: Performed By: #### C MP #### [facility] [address] [place] [address] Dr. Mily Parra Anion gap [Moles/Vol] 16.4 mmol/L Normal [facility] Comment on above: Performed By: #### C MP #### [facility] [address] [place] [address] Dr. Mily Parra AST [Catalytic activity/Vol] 21 U/L Normal 15-37 [facility] Comment on above: Performed By: #### C MP #### [facility] [address] [place] [address] Dr. Mily Parra Bilirubin [Mass/Vol] 0.9 mg/dL Normal 0.2-1.0 [facility] Comment on above: Performed By: #### C MP #### [facility] [address] [place] [address] Dr. Mily Parra Calcium [Mass/Vol] 9.2 mg/dL Normal 8.5-10.1 [facility] Comment on above: Performed By: #### C MP #### [facility] [address] [place] [address] Dr. Mily Parra Chloride [Moles/Vol] 101 mmol/L Normal 98-107 [facility] Comment on above: Performed By: #### C MP #### [facility] [address] [place] [address] Dr. Mily Parra CO2 [Moles/Vol] 26.2 mmol/L Normal 21.0-32.0 [facility] Comment on above: Performed By: #### C MP #### [facility] [address] [address] [address] Mily Parra Creatinine [Mass/Vol] 0.74 mg/dL Normal 0.70-1.30 [facility] Comment on above: Performed By: #### C MP #### [facility] [address] [address] [address] Mily Parra EGFR-AF SAMMARINESE >60 Normal >=60 [facility] Comment on above: Performed By: #### C MP #### [facility] [address] [address] [address] Mily Parra EGFR-NON AF SAMMARINESE >60 Normal >=60 [facility] Comment on above: Performed By: #### C MP #### [facility] [address] [place] [address] Dr. Mily Parra Globulin (S) [Mass/Vol] 3.5 g/dL Normal [facility] Comment on above: Performed By: #### C MP #### [facility] [address] [place] [address] Dr. Mily Parra Glucose [Mass/Vol] 135 mg/dL Critically high 74-106 [facility] Comment on above: Performed By: #### C MP #### [facility] [address] [place] [address] Dr. Mily Parra Potassium [Moles/Vol] 4.6 mmol/L Normal 3.5-5.1 [facility] Comment on above: Performed By: #### C MP #### [facility] [address] [place] [address] Dr. Mily Parra Protein [Mass/Vol] 7.5 g/dL Normal 6.4-8.2 [facility] Comment on above: Performed By: #### C MP #### [facility] [address] [place] [address] Dr. Mily Parra Sodium [Moles/Vol] 139 mmol/L Normal 136-145 [facility] Comment on above: Performed By: #### C MP #### [facility] [address] [address] [address] Mily Parra Urea nitrogen [Mass/Vol] 16.0 mg/dL Normal 7.0-18.0 [facility] Comment on above: Performed By: #### C MP #### [facility] [address] [address] [address] Mily Parra Urea nitrogen/Creatinine [Mass ratio] 21.6 mg/mg Normal [facility] Comment on above: Performed By: #### C MP #### [facility] [address] [place] [address] Dr. Mily Parra LIPID PROFILEon 02-16-2022 CHOL-HDL RATIO NORM SEE BELOW Normal [facility] Comment on above: Result Comment: 3.3 - 4.4 LOW RISK 4.4 - 7.1 AVERAGE RISK 7.1 - 11.0 MODERATE RISK >11.0 HIGH RISK Performed By: #### L IPID #### [facility] [address] [place] [address] Dr. Mily Parra Cholesterol [Mass/Vol] 91 mg/dL Normal <=200 [facility] Comment on above: Performed By: #### L IPID #### [facility] [address] [place] [address] Dr. Mily Parra Cholesterol in HDL [Mass/Vol] 27 mg/dL Critically low 40-60 [facility] Comment on above: Performed By: #### L IPID #### [facility] [address] [place] [address] Dr. Mily Parra Cholesterol in LDL [Mass/Vol] 40.6 mg/dL Normal [facility] Comment on above: Performed By: #### L IPID #### [facility] [address] [place] [address] Dr. Mily Parra Cholesterol.total/Ch olesterol in HDL [Mass ratio] 3.4 {ratio} Normal [facility] Comment on above: Performed By: #### L IPID #### [facility] [address] [place] [address] Dr. Mily Parra HDL NORMAL > or = 60 mg/dl - LO W CARDIOVASCULAR RISK <40 mg/dl - HIGH CARDIOVASCULAR RISK Normal [facility] Comment on above: Performed By: #### L IPID #### [facility] [address] [address] [address] Mily Parra LDL CALC NORMAL SEE BELOW Normal [facility] Comment on above: Result Comment: <100 mg/dl OPTIMAL 100 - 129 mg/dl NEAR OR ABOVE OPTIMAL 130 - 159 mg/dl BORDERLINE HIGH 160 - 189 mg/dl HIGH >190 mg/dl VERY HIGH Performed By: #### L IPID #### [facility] [address] [address] [address] Mily Parra Triglyceride [Mass/Vol] 117 mg/dL Normal <=150 [facility] Comment on above: Performed By: #### L IPID #### [facility] [address] [address] [address] Mily Parra VLDL CALC 23.4 mg/dL Normal [facility] Comment on above: Performed By: #### L IPID #### [facility] [address] [address] [address] Mily Parra Vital Signs Date Time Vital Sign Value Performing Clinician Facility 04-13-2024 12:58-0400 Body height 157.48 cm [facility] 04-13-2024 12:58-0400 Body mass index (BMI) [Ratio] 38.4 kg/m2 [facility] 04-13-2024 12:58-0400 Body weight 95.25 kg [facility] 04-13-2024 12:58-0400 Diastolic blood pressure 78 mm[Hg] [facility] 04-13-2024 12:58-0400 Heart rate 103 /min [facility] 04-13-2024 12:58-0400 Respiratory rate 18 /min [facility] 04-13-2024 12:58-0400 SaO2% (BldA) [Mass fraction] 92 % [facility] 04-13-2024 12:58-0400 Systolic blood pressure 142 mm[Hg] [facility] 09-27-2023 14:57-0500 Body height 162.6 cm Shaikh Brad NOLASCO Work Phone: [facility] 09-27-2023 14:57-0500 Body mass index (BMI) [Ratio] 40.34 kg/m2 Shaikh Brad NOLASCO Work Phone: [facility] 09-27-2023 14:57-0500 Body temperature 98.4 [degF] Shaikh Brad NOLASCO Work Phone: [facility] 09-27-2023 14:57-0500 Body weight 106.59 kg Shaikh Brad NOLASCO Work Phone: [facility] 09-27-2023 14:57-0500 Diastolic blood pressure 84 mm[Hg] Shaikh Brad NOLASCO Work Phone: [facility] 09-27-2023 14:57-0500 Heart rate 104 /min Shaikh Brad NOLASCO Work Phone: [facility] 09-27-2023 14:57-0500 SaO2% (BldA) [Mass fraction] 97 % Shaikh Brad NOLASCO Work Phone: [facility] 09-27-2023 14:57-0500 Systolic blood pressure 130 mm[Hg] Shaikh Brad NOLASCO Work Phone: [facility] Encounters Encounter Date Encounter Type Care Provider Facility Start: 07-01-2024 ambulatory Cabrera Bowman ty:KENDRA Espinoza Start: 05-07-2024 End: 05-07-2024 ambulatory RAYMOND SANDERS Not Available Start: 04-30-2024 End: 04-30-2024 ambulatory [facility] Start: 04-23-2024 End: 04-23-2024 ambulatory [place] Work Phone: Start: 04-23-2024 End: 04-23-2024 Patient encounter procedure [facility] Work Phone: Start: 04-13-2024 End: 04-13-2024 ambulatory [place] Work Phone: Start: 04-13-2024 End: 04-13-2024 Patient encounter procedure [facility] Work Phone: Start: 03-27-2024 End: 03-27-2024 ambulatory [facility] Start: 03-20-2024 ambulatory [facility] Start: 02-27-2024 End: 02-27-2024 ambulatory DARIAN [facility] Start: 02-07-2024 Encounter for preprocedural cardiovascular examination [facility] Start: 02-07-2024 ambulatory [facility] Start: 02-05-2024 End: 02-05-2024 ambulatory SHAIKH BRAD Not Available Start: 12-20-2023 End: 12-20-2023 ambulatory SHAIKH BRAD Not Available Start: 11-07-2023 End: 11-07-2023 ambulatory SHAIKH BRAD Not Available Start: 10-03-2023 End: 10-03-2023 ambulatory [facility] Start: 09-27-2023 End: 09-27-2023 Periodic preventive med est patient 40-64yrs Shaikh Brad NOLASCO Work Phone: [facility] Comment on above: Essential hypertensi on (CMS/HCC) (Primary Dx); Chronic systolic heart failure (CMS/HCC); Type 2 diabetes mellitus without complication, without long-term current use of insulin (CMS/HCC); Hyperlipidemia, unspecified hyperlipidemia type (CMS/HCC); Wellness examination Start: 09-27-2023 End: 09-27-2023 ambulatory SHAIKH BRAD Not Available Start: 09-27-2023 Chart abstracting Shaikh Precious kessler MD Work Phone: [facility] Start: 09-27-2023 End: 09-27-2023 Patient encounter status Shaikh Brad NOLASCO Work Phone: [facility] Start: 09-23-2023 Clinisync Result Encounter Shaikh Brad NOLASCO Work Phone: [facility] Unsolicited Start: 09-23-2023 Clinisync Result Encounter Shaikh Brad NOLASCO Work Phone: [facility] Unsolicited Start: 08-01-2023 End: 08-01-2023 ambulatory [facility] Start: 01-03-2023 End: 01-04-[address] TONY WILSON Facility:[facility] Start: 11-14-2022 End: 11-14-2022 Patient encounter procedure Cabrera JAGN [facility] Start: 10-19-2022 End: 10-19-2022 ambulatory Justin Smallwood Facility:[facility] Start: 10-01-2022 End: 10-02-2022 ambulatory [...] above: Performed By: #### C MP #### [facility] [address] [place] [address] Dr. Mily Parra Aortic stent (physic al object) Caberra JANG Defibrillator, devic e (physical object) Cabrera JANG Knee region structur e (body structure) Cabrera JANG Shoulder region stru cture (body structure) Cabrera JANG Plan of Treatment Date Care Activity Detail Author Start: 09-25-2024 Urine screening for protein Diabetes: Urine Protein Screening [facility] Start: 08-21-2024 Glaucoma screening Diabetes: R etinopathy Screening [facility] Start: 02-18-2024 Influenza vaccination Influenza Vacc ine (#1) [facility] Comment on above: Postponed from 04/21 (Patient Refused) Start: 12-24-2023 Hemoglobin A1c measurement Diabetes: Hemoglobin A1C [facility] Start: 10-30-2023 End: 10-30-2023 Patient encounter procedure 10/30/2023 2:45 PM EDT Office Visit [facility] [address] [place] [phone] Shaikh Salinas MD [address] [place] [phone] [facility] Start: 09-27-2023 End: 09-27-2023 Patient encounter procedure 09/27/2023 2:15 PM EST Office Visit [facility] [address] [place] [phone] Shaikh Salinas MD [address] [place] [phone] [facility] Start: 08-27-2023 Hemoglobin A1c measurement Diabetes: Hemoglobin A1C [facility] Start: 1985 Urine screening for protein Diabetes: Urine Protein Screening [facility] Start: 1966 Screening for malign ant neoplasm of colon [facility] Immunizations Immunization Date Immunization Notes Care Provider Fa cililux 04-13-2024 tetanus toxoid, redu cedric diphtheria toxoid, and acellular pertussis vaccine, adsorbed [facility] 06-02-2021 SARS-CoV-2 (COVID-19 ) mRNA BNT-162b2 vax Cabrera JANG [facility] 05-12-2021 SARS-CoV-2 (COVID-19 ) mRNA BNT-162b2 vax Cabrera JANG [facility] 01-27-2016 tetanus toxoid, redu cedric diphtheria toxoid, and acellular pertussis vaccine, adsorbed Cabrera JANG [facility] Payers Date Payer Category Payer Self-pay 2022 Unknown [employer] [id number] 2022-Present [phone] [address] [address] [place] [address] [id number] 1966 Unknown [id number] 3 1966 Unknown [id number] 3 1966 Unknown [id number] 3 1966 Unknown [id number] 3 1966 Unknown [id number] 3 1966 Unknown [id number] 3 1966 Unknown [id number] 7 1966 Unknown [id number] 59 1966 Unknown [id number] [id number] 59 1966 Unknown [id number] 59 1966 Unknown [id number] 59 1966 Unknown [id number] [id number] 59 1959 Unknown [id number] 1959 Unknown [id number] Unknown [id number] 1 Social History Date Type Detail Facility Start: 11-14-2022 Tobacco smoking status Heavy tobacco smoker (finding) [facility] Start: 09-08-2023 End: 09-27-2023 Sex Assigned At Male [facility] Start: 09-08-2023 End: 09-27-2023 Tobacco smoking status NHIS Ex-smoker [facility] Start: 08-21-2009 History of tobacco use Current smoker [facility] Start: 08-21-2009 History of tobacco use Cigarette Smoker [facility] Start: 09-08-2023 End: 09-27-2023 History of Social function [facility] Start: 1965 Sex Assigned At Male [facility] Start: 08-31-2023 Gender identity Identifies as male gender (finding) [facility] Start: 08-31-2023 Sexual orientation Heterosexual (finding) [facility] Start: 09-27-2023 Alcohol intake Current drinker of alcohol (finding) [facility] Start: 09-27-2023 Alcohol Comment caffeine: more than 4 cups per day [facility] History of tobacco use Passive smoker [facility] Start: 09-27-2023 Tobacco use and exposure Smokeless tobacco non-user [facility] Medical Equipment Procedure Code Equipment Code Equipment Origin al Text Equipment Identifier Dates 1 each by Other route every 12 (twelve) hours Twice a day - whatever brand is covered under patients insurance. [id number] Start: 09-27-2023 End: 04-19-2027 1 each every 12 (twelve) hours [id number] Start: 09-27-2023 End: 12-26-2023 Blood Sugar Diagnostic (Onetouch Verio Test Strips) strip Start: 04-13-2024 Lancets (Onetouc h Delica Plus Lancet) 30 gauge misc Start: 04-13-2024 Blood Sugar Diagnostic (Onetouch Verio Test Strips) strip Start: 04-13-2024 Lancets (Onetouc h Delica Plus Lancet) 30 gauge misc Start: 04-13-2024 Functional Status Date Assessment Result Facility 11-14-2022 Functional Status N/A [facility] Clinical Notes 11-14-2022 to 03-27-2024 Shaikh Brad MD - 09/27/2023 3:48 PM Checo Salinas MD - 09/27/2023 3:46 PM Checo Salinas MD - 09/27/2023 3:46 PM Checo Salinas MD - 09/27/2023 3:42 PM EST Note Date & Type Note Facility 03-27-2024 Note [place] [facility] Subjective Evaristo Lowery is a 59 y.o. year old male patient being seen for follow up TBH and stress test. He was seen as inpatient consult by Saima Jacques CNP during admission. Says chest pain has resolved but his HR has been all over the place. Demetria Vera CNP started him on digoxin last month during routine follow up. Patient states this hasn't made a difference in his HR. He denies SOB, palpitations, and lightheadedness/syncope. Patient Active Problem List Diagnosis Bronchitis Chest pain Chronic systolic heart failure (CMS/HCC) Coronary atherosclerosis Diabetes mellitus (CMS/HCC) Disorder of lipid metabolism Dizziness Dyspnea Benign hypertensive cardiomyopathy with heart failure (CMS/HCC) Hyperhidrosis Hyperlipidemia Implantable cardioverter-defibrillator (ICD) in situ Primary cardiomyopathy (CMS/HCC) Well adult health check BPH (benign prostatic hyperplasia) Kidney mass Body mass index (BMI) 40.0-44.9, adult (CMS/HCC) Chronic allergic rhinitis Essential hypertension Morbid (severe) obesity due to excess calories (CMS/HCC) Respiratory illness Family History Problem Relation Name Age of Onset Diabetes Maternal Grandmother Heart attack Maternal Grandfather Diabetes Paternal Grandmother Heart disease Paternal Grandfather Social History Tobacco Use Smoking status: Former Types: Cigarettes Smokeless tobacco: Never HPI Mr. Lowery is seen in follow-up. He is a 59-year-old man with prior history of CAD s/p [...] jardiance 10 mg daily, Metformin and glipizide. Digoxin 125 mcg was added lately. In February 2024 he was admitted to the [facility] with episode of left-sided chest pain and arm pain. Troponin was negative. His echocardiogram showed stable ventricular systolic function. He underwent a stress test on 03/20/2024 that did not show evidence of ischemia. Today he reports that he has been doing well. He denies any shortness of breath, leg edema, any recurrence of chest pain, or dizziness or lightheadedness. Review of Systems All other systems reviewed and are negative. Objective Visit Vitals BP 122/82 (BP Location: Right arm, Patient Position: Sitting) Pulse 98 Ht 1.6 m (5' 3 ) Wt 97.5 kg (215 lb) SpO2 95% BMI 38.09 kg/m??? Smoking Status Former BSA 2.08 m??? Physical Exam Constitutional: Appearance: He is [...] , Rfl: atorvastatin (Lipitor) 80 mg tablet, TAKE 1 TABLET BY MOUTH EVERY DAY, Disp: 90 tablet, Rfl: 3 carvedilol (Coreg) 25 mg tablet, carvedilol 25 mg tablet TAKE 1 TABLET BY MOUTH TWICE DAILY, Disp: , Rfl: cholecalciferol (Vitamin D-3) 25 MCG (1000 units) tablet, Take 1,000 Units by mouth in the morning., Disp: , Rfl: digoxin (Lanoxin) 125 MCG tablet, TAKE 1 TABLET(125 MCG) BY MOUTH IN THE MORNING, Disp: 90 tablet, Rfl: 2 empagliflozin (Jardiance) 10 mg, Jardiance 10 mg tablet TAKE 1 TABLET BY MOUTH EVERY DAY, Disp: 90 tablet, Rfl: 3 ezetimibe (Zetia) 10 mg tablet, TAKE 1 TABLET BY MOUTH EVERY DAY, Disp: 90 tablet, Rfl: 3 glipiZIDE XL (Glucotrol XL) 5 mg 24 hr tablet, Take 5 mg by mouth in the morning. Do not crush, chew, or split., (more content not included)... [facility] 02-27-2024 Note Q 6months device int errogation Battery life 2.2 years, device working appropriately, leads stable, 1 episode of Sinus tach 155 bpm. [facility] 02-27-2024 Note HTN currently well c ontrolled Continue all meds- coreg, entresto, aldactone [facility] 02-27-2024 Note Heart failure is unc hanged. NYHA Class II. Medication changes per orders. Heart failure will be reassessed in 6 months. Continue GDMT- ASA, lipitor, coreg, jardiance, zetia, entresto aldactone and will add digoxin for better heart rate management- Reviewed device interrogation from Sep 2023 and average heart rate ranged from 80-100 bpm Repeat BMP and digoxin level in 1-2 weeks [facility] 02-27-2024 Note Patient here for 6 m o follow up chronic systolic heart failure, CAD, and hypertension. ICD was interrogated in Sep 2023. He had routine labs with lipid profile last month. Says his heart rate has been around 100 lately. He denies chest pain, SOB, palpitations, and lightheadedness/syncope. Review of Systems All other systems reviewed and are negative. [facility] 02-27-2024 Note [facility] CARDIOLOGY PROGR ESS [...] and are negative. Previous HPI per Dr Rodriguez HPI Mr. Lowery is seen in follow-up. [...] lasting 2 sec (more content not included)... [facility] 02-27-2024 Note Lipid abnormalities are unchanged/ well controlled. Pharmacotherapy as ordered. Continue lipitor and zetia [facility] 02-27-2024 Note Coronary artery dise ase is stable Continue GDMT continue risk factor modifications- heart healthy diet, regular exercise as tolerated and continue all medications. [facility] 02-27-2024 Note NYHC II- currently e uvolemic without exacerbation Heart rate 80-100 bpm Continue GDMT- add digoxin for heart rate management and goal is 60-80 bom and he voiced understanding. Continue all meds Diuretic therapy- jardiance and aldactone Monitor daily weights, I&O, fluid restriction 1.5-2L/day, renal function and electrolytes [facility] 09-27-2023 History of Present illness Narrative [...] office/hospital visit for CHF exacerbation. Following [facility] cardiology. Associated Problem(s): Essential hypertension [...] complication, without long-term current use of insulin ([facility]) Most recent labs: hemoglobin A1C 7.9 Average [...] hypoglycemia. Relevant Medications Lancets [facility]in [facility] glucose blood test strip Chronic systolic heart failure (CMS/HCC) Stable, on GDMT. No evidence of fluid overload. Does not require Loop diuretic. No recent office/hospital visit for CHF exacerbation. Following [facility] cardiology. Essential hypertension (CMS/HCC) - [...] weeks (around 10/25/2023). documented in this encounter [facility] 08-01-2023 Note [place] [facility] Subjective Evaristo Lowery is a [...] No pericardial effus (more content not included)... [facility] 11-14-2022 Hospital Discharge instructions Patient Education [...] provider gives to you. In general: Take bmlw-amp-oytxeii and prescription medicines only as told by [...] 03/04/2015 Document Revised: 09/13/2018 Document Reviewed: 09/13/2018 [employer] Patient Education 2020 [employer]. Follow Up Care 10/11/2022 10:10:39 With:Cabrera JANG MD, URL Address: [facility] [address] , [place] [address]- When: Unknown [facility] Evaluation + Plan note Future Appointments Appointment Date:03/13/2023 02:30:00 PM Scheduled Provider:Cabrera JANG MD Location:[facility] Appointment Type:URO Office Visit [facility] Evaluation note Diagnosis Essential hypertension (CMS/HCC)- Primary Unspecified essential hypertension Chronic systolic heart failure (CMS/HCC) Chronic systolic heart failure Type 2 diabetes mellitus without complication, without long-term current use of insulin (CMS/HCC) Hyperlipidemia, unspecified hyperlipidemia type (CMS/HCC) Wellness examination documented in this encounter [facility] Diagnosis Onset Date Resolution Status Scalp laceration acute [place] Work Phone: Hospital course Narrative No data available for this section [facility] progress note No data available for this section [facility] Summary Purpose Family History No Family History Records FoundNo Family History Records FoundNo Family History Records FoundNo Family History Records FoundNo Family History Records Found Advance Directives No Advanced Directives Records Found Advance Directive Response Recorded Date/ Time Advance Directives No February 13 11:58am Chief Complaint and Reason for Visit Chief Complaint Head laceration Reason for Visit Scalp laceration Chief Complaint Head laceration Staple removal Reason for Visit Scalp laceration Additional Source Comments (unrecognized sect ion and content) No Status Records FoundNo Status Records FoundNo Status Records FoundNo Status Records FoundNo Status Records Found INFORMATION SOURCE (unrecogn ized section and content) DATE CREATED AUTHOR 10/20/2022 [facility] DATE CREATED AUTHOR AUTHOR'S ORGANIZ ATION 01/04/2023 [facility] DATE CREATED AUTHOR AUTHOR'S ORGANIZ ATION 03/26/2024 [facility] DATE CREATED AUTHOR AUTHOR'S ORGANIZ ATION 05/01/2024 [facility] DATE CREATED AUTHOR AUTHOR'S ORGANIZ ATION 05/09/2024 [facility] EPIC Patient Care team informatio n (unrecognized section and content) Set And Exhibit Designer Relationship Specialty Start Date End Date Shaikh Salinas MD [address] [place] [address] PCP - General Internal Medicine 09/08/23 Set And Exhibit Designer Relationship Specialty Start Date End Date Shaikh Salinas MD [address] [place] [address] PCP - General Internal Medicine 09/08/23 Set And Exhibit Designer Relationship Specialty Start Date End Date Shaikh Salinas MD [address] [facility] [place] [address] PCP - General Internal Medicine 09/08/23 Team Status: Active Member Role Status Dates NON STAFF Primary Care Provider Active Team Status: Inactive Member Role Status Dates Catrachita Santo APRN Attending Provider Active Start: April 13, 2024 End: April 13, 2024 NON STAFF Primary Care Provider Active Start: April 13, 2024 End: April 13, 2024 Team Status: Inactive Member Role Status Dates NON STAFF Primary Care Provider Active Start: April 23, 2024 End: April 23, 2024 Shirley Larose APRN Attending Provider Active Start: April 23, 2024 End: April 23, 2024 Reason for Visit (unrecogniz ed section and content) Reason Comments Annual Exam Goals (unrecognized section and content) Goals may be documented in a n alternate section FOR RECORDS PERTAINING TO PATIENTS WHO ARE [...] BE BASED ON THE PRIMARY CLINICAL RECORDS. [employer] provides no warranty or guarantee of the accuracy or completeness of information in this document.
[2024-06-10 14:32] LABS: Estimated Average Glucose 131 mg/dL; Glycohemoglobin A1C 6.2 % (4.5-6.2)
[2024-06-10 14:34] LABS: Alanine Aminotransferase 34 U/L (16-63); Albumin Level 3.6 g/dL (3.4-5.0); Alkaline Phosphatase 53 U/L (46-116); Anion Gap 15.5; Aspartate Amino Transferase 22 U/L (15-37); Bilirubin Total 0.5 mg/dL (0.2-1.0); Calcium 9.3 mg/dL (8.5-10.1); Carbon Dioxide 26.9 mmol/L (21.0-32.0); Chloride 105 mmol/L (98-107); Estimated GFR (African America >60 (>=60 mL/min/1.73m^2); Estimated GFR (Non-African Ame >60 (>=60 mL/min/1.73m^2); Globulin 3.5 g/dL; Glucose 96 mg/dL (74-106); Potassium 4.4 mmol/L (3.5-5.1); Sodium 143 mmol/L (136-145); Total Protein 7.1 g/dL (6.4-8.2)
== END 2024-06-10 14:05 | disposition home or self-care (01) ==
LOC: LAB 14:05
DX: E11.9 Type 2 diabetes mellitus without complications (principal); I10 Essential (primary) hypertension
CPT/HCPCS: 36415; 80053; 83036; 85025

== ENCOUNTER 2024-07-04 16:00 | Outpatient (OUT) | payer OTHER, SELFPAY ==
--- OUTSIDE RECORDS SUMMARY | 2024-07-04 16:18 | XMS_ITS | CCD ---
Author Organization [facility]ini[facility] Care Team Providers Care Variety Saw Operator Name Role Phone Justin Smallwood Attending Unavailab kendra Smallwood, Justin Quiroz Admitting Unavailab kendra Wilson, Tony Ponce Primary Care Physician [phone] EDMONSON, DR MACDONALD Attending Unavailable HOUSE, DR MACDONALD Consulting Unavailable EDMONSON, DR MACDONALD Primary Care Unavailable EDMONSON, DR MACDONALD Admitting Unavailable LARRY, ISIAH Consulting Unavailable EDMONSON, DR MACDONALD Primary Care Unavailable MISC, DR PATRICK Admitting Unavailable MISC, DR PATRICK Attending Unavailable MISC, DR PATRICK Consulting Unavailable EDMONSON, DR MACDONALD Primary Care Unavailable QUINTON, SAIMA Admitting Unavailable QUINTON, SAIMA Attending Unavailable QUINTON, SAIMA Consulting Unavailable MILLINGTON, DR BHASKAR Zarate Consulting Unavailable NADERER, DR MIAH Schwarz Admitting Unavailable HOUSE, DR MACDONALD Primary Care Unavailable NADERER, DR MIAH Schwarz Attending Unavailable NADERER, DR MIAH Schwarz Consulting Unavailable SHANCHNY ., ROQUE AYALA Consulting Unavailabl e MIMS, JT Consulting Unavailable EDMONSON, DR MACDONALD Consulting Unavailable EDMONSON, DR MACDONALD Primary Care Unavailable EDMONSON, DR MACDONALD Admitting Unavailable HOUSE, DR MACDONALD Attending Unavailable HOUSE, DR MACDONALD Attending Unavailable HOUSE, DR MACDONALD Consulting Unavailable EDMONSON, DR MACDONALD Primary Care Unavailable EDMONSON, DR MACDONALD Admitting Unavailable ZIEBER, DR BLAYNE Núñez Consulting Unavailable Brad NOLASCO, Primary Care Provider AHSAN NEWMAN Referring Unavailable PATY, AHSAN Referring Unavailable MOUKARBELCHACHO Attending Unavailable PATYAHSAN Caruso Referring Unavailable MOUKARBEL, CHACHO Attending Unavailable PATY, AHSAN Referring Unavailable MARCYDARIAN Attending Unavailable AHSAN NEWMAN Referring Unavailable FAWWASHAIKH Kessler Attending Unavailable BRAD, Attending Unavailable BRAD, Attending Unavailable BRAD, Attending Unavailable RAYMOND STEARNS Attending UnavailMiah Stoner MD Primary Care Provider Daryn SKY, Raymond Unavailable [phone] Unallocattino NOLASCO, Noms Provider Primary Care Brenda bryant DARYN, MS. RAYMOND SHAW Primary Care P hysician RAYMOND STEARNS [facility] Cabrera Kramer Attending Unavailable Cabrera OJEDA Attending Unavailable RAYMOND STEARNS Primary [facility] Neelima russell Allergies Allergy Classification Reported Allergen(s) Allergy Type Date of Onset Reaction(s) Facility (1 source) No Known Medication Allergies; 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: [No Known Medication Allergies] Propensity to adverse reactions (disorder) [facility] Repository Medications Current Medications Medication Drug Class(es) Dates Sig (Normalized) Sig (Original) 3 ML semaglutide 1.34 MG/ML Pen Injector [Ozempic] (1 source) Start: 07-01-2024 Ozempic (1 mg dose) 4 mg/3 mL subcutaneous solution 1 mg, Refills(s) 0 Start Date: 07/01/24 Status: Ordered Ascorbic Acid (8 sources) Vitamin C Start: 04-13-2024 take 1 g by mouth every six hours Ascorbic Acid (Vitamin C) Active 1 GM PO Every 6 hours April 13, 2024 12:00am take 1 tablet by mouth in the mo rning Ascorbic Acid (vitamin C) 1000 MG tablet Take 1,000 mg by mouth in the morning. Active aspirin 81 mg delayed release oral tablet (10 sources) Platelet Aggregation Inhibitor, Nonsteroidal Anti-inflammatory Drug Start: 03-13-2023 take 81 mg by mouth once daily Aspirin Active 81 MG PO Daily April 13, 2024 12:00am Start: 11-14-2022 aspirin Refill s(s) 0 Start Date: 11/14/22 Status: Ordered atorvastatin 80 mg oral tablet (10 sources) HMG-CoA Reductase Inhibitor Start: 11-14-2022 atorvastatin 80 mg T ab Refills(s) 0 Start Date: 11/14/22 Status: Ordered carvedilol 6.25 mg oral tablet (16 sources) alpha-Adrenergic Sada, beta-Adrenergic Sada Start: 07-01-2024 carvedilol 6.25 mg T ab 6.25 mg = 1 tab(s), Refills(s) 0 Start Date: 07/01/24 Status: Ordered Start: 06-13-2024 take 1 tablet by alba th at mealtime carvedilol (Coreg) 25 MG tablet Indications: Chronic systolic heart failure (CMS/HCC) TAKE 1 TABLET(25 MG) BY MOUTH IN THE MORNING AND IN THE EVENING WITH MEALS 180 tablet 06/13/2024 Active Start: 03-27-2024 carvedilol (Co reg) 6.25 MG tablet 03/27/2024 Active Start: 11-14-2022 End: 07-10-2024 take 1 tablet by mouth in the morning carvedilol (Coreg) 25 MG tablet Indications: Chronic systolic heart failure (CMS/HCC) Take 1 tablet (25 mg) by mouth in the morning and 1 tablet (25 mg) in the evening. Take with meals. 180 tablet 04/11/2024 06/13/2024 Discontinued cholecalciferol 0.025 mg oral capsule (8 sources) Vitamin D Start: 04-13-2024 take 25 ug by mouth once daily Cholecalciferol (Vitamin D3) Active 25 MCG PO Daily April 13, 2024 12:00am take 1 tablet by mouth in the mo rning cholecalciferol (Vitamin D3) 25 MCG (1000 UT) tablet Take 1,000 Units by mouth in the morning. Active digoxin 0.125 mg oral tablet (3 sources) Cardiac Glycoside Start: 07-01-2024 digoxin 125 mcg (0.125 mg) Tab 125 mcg = 1 tab(s), Refills(s) 0 Start Date: 07/01/24 Status: Ordered Start: 04-13-2024 take 0.125 mg by mouth once da susanna Digoxin Active 0.125 MG PO Daily April 13, 2024 12:00am empagliflozin 25 mg oral tablet (10 sources) Sodium-Glucose Cotransporter 2 Inhibitor Start: 05-06-2024 End: 11-02-2024 Jardiance 25 mg oral tablet 25 mg = 1 tab(s), Refills(s) 0 Start Date: 07/01/24 Status: Ordered Start: 04-13-2024 take 1 tablet by alba th once daily Empagliflozin (Jardiance) 25 mg tablet Active 25 MG PO Daily April 13, 2024 12:00am Start: 08-22-2023 End: 11-20-2023 take 1 tablet by mouth in the morning empagliflozin (Jardiance) 25 MG Indications: Type 2 diabetes mellitus without complication, without long-term current use of insulin (CMS/FORMERLY [facility]) Take 1 tablet (25 mg) by mouth in the morning. 90 tablet 0 08/22/2023 11/20/2023 Active Start: 11-14-2022 Jardiance 10 m g oral tablet Refills(s) 0 Start Date: 11/14/22 Status: Ordered ezetimibe 10 mg oral tablet (10 sources) Dietary Cholesterol Absorption Inhibitor Start: 11-14-2022 ezetimibe 10 mg Tab Refills(s) 0 Start Date: 11/14/22 Status: Ordered fluticasone propionate 0.05 mg/actuat metered dose nasal spray (2 sources) Corticosteroid Start: 11-07-2023 End: 11-06-2024 take 2 spray(s) nasal route once daily fluticasone (Flonase) 50 MCG/ACT nasal spray Indications: Chronic allergic rhinitis Administer 2 sprays into each nostril Daily Shake gently. Before first use, prime pump. After use, clean tip and replace cap. 16 g 2 11/07/2023 11/06/2024 Active glipiZIDE 5 mg oral tablet (9 sources) Sulfonylurea Start: 06-10-2024 End: 12-07-2024 glipiZIDE 5 mg Tab 5 mg = 1 tab(s), Refills(s) 0 Start Date: 07/01/24 Status: Ordered Start: 09-04-2023 End: 12-03-2023 take 5 mg by mouth once daily Glipizide Active 5 MG PO Daily April 13, 2024 12:00am metFORMIN hydrochloride 1000 mg oral tablet (10 sources) Biguanide Start: 05-14-2024 End: 11-10-2024 metformin 1000 mg Tab 1,000 mg = 1 tab(s), Refills(s) 0 Start Date: 07/01/24 Status: Ordered Start: 04-13-2024 take 1000 mg by mouth twice da susanna Metformin Active 1000 MG PO Twice daily [...] or split.. 0 Active MULTIPLE VITAMINS PO (6 sources) MULTIPLE VITAMIN S PO Take by mouth Active MULTIPLE VITAMIN S PO Take by mouth 0 Active Ozempic, 0.25 or 0.5 MG/DOSE, 2 MG/3ML solution pen-injector (2 sources) Start: 02-08-2024 Ozempic, 0.25 or 0.5 MG/DOSE, 2 MG/3ML solution pen-injector 02/08/2024 Active sacubitril 24 mg / valsartan 26 mg oral tablet (10 sources) Angiotensin 2 Receptor Sada Start: 11-14-2022 take 1 tablet by mouth twice daily Entresto 24 mg-26 mg oral tablet tab(s), Oral, BID, Refill(s) 0 Start Date: 11/14/22 Status: Ordered take 1 tablet by alba th in the morning sacubitril-valsartan (Entresto) 24-26 MG tablet Take 1 tablet by mouth in the morning and 1 tablet before bedtime. Active Semaglutide (2 sources) Start: 04-13-2024 inject 1 mg by subcutaneous injection every week Semaglutide (Ozempic) 1 mg/dose (4 mg/3 mL) pen injector Active 1 MG SUBCUT every week April 13, 2024 12:00am 0.25 mg, 0.5 mg dose 1.5 ml semaglutide 1.34 mg/ml pen injector (1 source) Start: 02-05-2024 semaglutide (O zempic, 0.25 or 0.5 MG/DOSE,) 2 MG/1.5ML solution pen-injector Indications: Type 2 diabetes mellitus without complication, without long-term current use of insulin ([facility]) 0.25 mg once weekly for 4 weeks Then use 0.5 mg for 2 weeks 1 each 02/05/2024 Active semaglutide (Ozempic, 1 MG/DOSE,) 4 MG/3ML solution pen-injector (2 sources) Start: 06-10-2024 End: 09-08-2024 inject 1 mg by subcutaneous injection every week semaglutide (Ozempic, 1 MG/DOSE,) 4 MG/3ML solution pen-injector Indications: Type 2 diabetes mellitus without complication, without long-term current use of insulin (CMS/HCC) Inject 1 mg under the skin 1 (one) time per week 9 mL 06/10/2024 09/08/2024 Active Start: 02-05-2024 inject 1 mg by subcu taneous injection every week semaglutide (Ozempic, 1 MG/DOSE,) 4 MG/3ML solution pen-injector Indications: Type 2 diabetes mellitus without complication, without long-term current use of insulin (CMS/HCC) Inject 1 mg under the skin 1 (one) time per week 9 mL 02/05/2024 Active Spironolactone (10 sources) Aldosterone Antagonist Start: 04-13-2024 take 12.5 mg by mouth once daily Spironolactone Active 12.5 MG PO Daily April 13, 2024 12:00am Start: 11-14-2022 spironolactone 25 mg Tab Refills(s) 0 Start Date: 11/14/22 Status: Ordered spironolactone ( Aldactone) 25 MG tablet Take 12.5 mg by mouth in the morning. Active Problems Active Problems Problem Classification Problem Date Documented Date Episodic/Chronic Conduction disorders (8 sources) Automatic implantable cardiac defibrillator in situ; 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: [Presence of automatic (implantable) cardiac defibrillator] Onset: 07-31-2013 09-27-2023 Chronic Congestive heart failure; nonhypertensive (9 sources) Chronic systolic heart failure; 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: [Chronic systolic (congestive) heart failure] Onset: 04-28-2021 09-27-2023 Chronic Coronary atherosclerosis and other heart disease (14 sources) Atherosclerotic heart disease of [place] coronary artery without angina pectoris; 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: [Old myocardial infarction] Onset: 07-17-2012 Chronic Diabetes mellitus with complications (1 source) Type 2 diabetes mellitus with hyperglycemia; 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: [TYPE 2 DM W/HYPERGLYCEMIA] Onset: 07-04-2022 Chronic Diabetes mellitus without complication (20 sources) Type 2 diabetes mellitus; 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: [Type 2 diabetes mellitus without complications] Onset: 03-21-2022 11-10-2022 Chronic Disorders of lipid metabolism (10 sources) Mixed hyperlipidemia; 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: [Hyperlipidemia] Onset: 07-18-2012 11-10-2022 Chronic Diverticulosis and diverticulitis (1 source) Diverticulosis of large intestine without perforation or abscess without bleeding; 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: [DVRTCLOS LG INT NO PERF/ABSC W/O BL] Onset: 10-07-2022 Chronic Essential hypertension (13 sources) Essential hypertension; 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: [Essential (primary) hypertension] Onset: 07-17-2012 11-10-2022 Chronic Headache; including migraine (1 source) Headache; including migraine; 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: [HEADACHE UNSPECIFIED] Onset: 07-04-2022 Hyperplasia of prostate (7 sources) Benign prostatic hyperplasia; 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: [Benign prostatic [...] Episodic Other diseases of kidney and ureters (2 sources) Disorder of kidney and/or ureter; 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: [Other specified disorders of kidney and ureter] Onset: 11-14-2022 Chronic Other diseases of kidney and ureters (6 sources) Renal mass; 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: [Other specified disorders [...] DISEASES OF LIVER] Onset: 10-07-2022 Chronic Other nutritional; endocrine; and metabolic disorders (2 sources) Obesity caused by energy imbalance; 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: [Morbid (severe) obesity due to excess calories] Onset: 12-20-2023 12-20-2023 Chronic Other nutritional; endocrine; and metabolic disorders (2 sources) Body mass index 40+ - severely obese; 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: [Body mass index (BMI) 40.0-44.9, adult] Onset: 12-20-2023 12-20-2023 Chronic Other screening for suspected conditions (not mental disorders or infectious disease) (12 sources) Encounter for screening for malignant neoplasm of prostate; 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: [Screening for malignant neoplasm done] Onset: 11-14-2022 Episodic Other upper respiratory disease (2 sources) Allergic rhinitis; 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: [Allergic rhinitis, unspecified] Onset: 11-07-2023 11-07-2023 Chronic Madelyn-; endo-; and myocarditis; cardiomyopathy (except that caused by tuberculosis or sexually transmitted disease) (10 sources) Cardiomyopathy; 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: [Primary cardiomyopathy] Onset: 05-19-2014 11-10-2022 Chronic Residual codes; unclassified (1 source) Tobacco user 06-26-2024 Episodic Unclassified (2 sources) Patient encounter status 11-14-2022 Unclassified (1 source) [...] Onset: 06-23-2022 Episodic Other aftercare (1 source) emt intermediate (current) use of aspirin; 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: [[facility] CURRENT USE OF ASPIRIN] Onset: 07-04-2022 Episodic Other aftercare (1 source) emt intermediate (current) use of oral hypoglycemic drugs; 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: [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 ORAL HYPOGLYCEMIC DX] Onset: 07-04-2022 Episodic Other aftercare (1 source) Other fpc (current) drug therapy; 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: [OTH [facility] CURRENT DRUG THERAPY] Onset: 07-04-2022 Episodic Other lower respiratory disease (2 sources) Disorder of respiratory system; 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: [Respiratory disorder, unspecified] Onset: 12-20-2023 12-20-2023 Episodic Other upper respiratory infections (1 source) Acute sinusitis, unspecified; 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: [ACUTE SINUSITIS UNSPECIFIED] Onset: 07-04-2022 Episodic Screening and history of mental health and substance abuse codes (1 source) Personal history of nicotine dependence; 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: [PERSONAL HISTORY OF NICOTINE DEPEND] Onset: 07-04-2022 Episodic Results Test Name Value Interpretation Reference Range Facility Reminderson 07-01-2024 Reminders Reminders From: Lea Honeycutt To: EU - Recalls Ojeda; Sent: 07/01/2024 15:18:53 EST Show up: 04/21/2025 15:18:00 EDT Subject: Ct scan Due Date/Time: 05/19/2025 15:18:00 EDT Reminder/Recall Patient is due for Ct scan ABd/pelvis w/wo contrast prior to Jun 2025 appt/ [facility] Normal [facility] Urology Office/Clinic Noteon 07-01-2024 Urology Office/Clinic Note Urology Office/Clinic Note Chief Complaint f/u to review CT HPI Staff 59 yo male here for 1 year f/up with CT. Previous dx: kidney mass and prostate cancer screening. CT AP w/wo con 03/02/24 [facility]. No recent PSA on [facility]. Dysuria: denies Incomplete bladder emptying: denies Hematuria: denies Frequency: denies Urgency: denies Nocturia: 1x Stream: good no straining or intermittency Leaking: denies Post void dripping: denies Wearing pads/ Depends: denies Urge incontinence: denies Stress incontinence: denies Incontinence without Sensory Awareness: denies Abdominal pain: denies Flank pain: denies Sexual complaints: denies History of Present Illness Tests reviewed: reviewed CT scan I have reviewed the previous health record information and history for this patient from Dr. Ojeda. I have reviewed and verified the staff HPI to be accurate for this encounter. Review of Systems PHQ Score Initial Depression Screen Score: 0 SCORE ROS - Provider Constitutional: denies weight loss, denies hot flashes. Eyes: denies eye problems. Gastrointestinal: denies nausea, denies vomiting. Cardiovascular: denies chest pain or angina. Integumentary: no dryness Musculoskeletal: denies musculoskeletal symptoms. ENMT: denies otolaryngeal symptoms. Respiratory: no shortness of breath. Heme/Lymph: denies easy bleeding tendency, denies easy bruising tendency. Psychiatric: no confusion, no anxiety. Genitourinary: See HPI. Physical Exam Vitals & Measurements T: 37 ???C(Temporal Artery) HR: 79(Peripheral) RR: 16 BP: 124/86 HT: 63 in HT: 159 cm WT: 88.5 kg WT: 195.109 lb BMI: 35.01 General Appearance: alert, no distress, well nourished, well developed male. Assessment/Plan 1. Kidney mass (N28.89: Other specified [...] than 3 mm. Bosniak type II cyst. [1] CT AP w/wo con 03/06/23 - stable nonenhancing hyperdense 3.3cm left renal lesion with peripheral calcification measuring 3.[address] AP w/wo con 03/02/24 [facility] - A hyperdense nodule in LUP laterally which has some calcifications in it, measures 1.9 x 2.6 cm (measures 2.7 cm on the coronal reformatted images), 39 HU precontrast and postcontrast. A small parapelvic cyst slightly inferiorly on L, measures 1.1 cm, 1 HU precontrast and 0 HU postcontrast. An additional partially exophytic lesion anteriorly LIP measuring 3.7 cm with 9 HU precontrast and 7 HU postcontrast. No enhancing lesions in R kidney postcontrast. No bother with urination. No sample provided for UA today. Reviewed imaging results. Advised pt lesion remains overall stable in size. However does have calcifications so needs monitored annually. Pt understands and is willing to proceed. -F/u in 1 yr w/ CT scan 2. Prostate cancer screening (Z12.5: Encounter for screening for malignant neoplasm of prostate) PSA 03/21/22 - 0.97. No family hx of prostate cancer. No recent level. Recommended pt to update this. -PSA to be drawn IO today. Will call pt with results. Follow-up With When Contact Information SUHAIL NOLASCO, Cabrera Núñez, URL [facility] [address], [place] [address] [phone] Additional Instructions: 1 yr w/ CT scan Patient Education Prostate Cancer Screening I, Katherine Bear, personally scribed for Dr. Ojeda on 07/01/2024 15:17:30. . Documentation recorded by the scribe, Katherine Bear, accurately reflects the services(s) I performed and decisions made by me. Authenticated by Dr. Ojeda on 07/01/2024 15:23:28. Problem List/Past Medical History Ongoing BPH (benign prostatic hyperplasia) Cardiomyopathy, unspecified Essential hypertension Kidney mass Mixed hyperlipidemia Prostate cancer screening Type 2 diabetes mellitus Historical No qualifying data Procedure/Surgical History Aortic stent, Defibrillator, Knee, Shoulder. Medications aspirin 81 mg Oral EC Tab, Oral, Daily atorvastatin 80 mg Tab carvedilol 25 mg Tab carvedilol 6.25 mg Tab, 6.25 mg= 1 tab(s) digoxin 125 mcg (0.125 mg) Tab, 125 mcg= 1 tab(s) Entresto 24 mg-26 mg oral tablet, Oral, BID ezetimibe 10 mg Tab glipiZIDE 5 mg Tab, 5 mg= 1 tab(s) Jardiance 25 mg oral tablet, 25 mg= 1 tab(s) metformin 1000 mg Tab, 1000 mg= 1 tab(s) Ozempic (1 mg dose) 4 mg/3 mL subcutaneous solution, 1 mg spironolactone 25 mg Tab Allergies No Known Medication Allergies Social History Alcohol (more content not included)... Normal [facility] Comment on above: Result Comment: Elec tronically Signed By: Cabrera OJEDA MD\.br\Date and Time Signed: 07/01/24 15:23 EST\.br\Electronically Co-Signed By: Katherine Bear\.br\Date and Time Co-Signed: 07/01/24 15:18 EST ALL CBC WITH AUTO DIFFon BASOPHILS ABSOLUTE AUTO 0.1 [facility] Basophils/100 WBC (Bld) 0.6 % 0.2 - 2.0 % [facility] Eosinophils/100 WBC (Bld) 2 % 0.9 - 7.0 % [facility] Erythrocyte distribution width (RBC) [Ratio] 13.5 % 11.0 - 15.0 % [facility] Hematocrit (Bld) [Volume fraction] 46.1 % 42.0 - 54.0 % [facility] Hemoglobin (Bld) [Mass/Vol] 15.2 g/dL 14.0 - 18.0 g/dL [facility] IMMATURE GRANULOCYTES ABS AUTO 0.05 High [facility] Immature granulocytes/100 WBC (Bld) 0.5 % 0.0 - 0.5 % [facility] Interpretation and review of laboratory results Abnormal [facility] LYMPHOCYTES ABSOLUTE AUTO 1.9 [facility] Lymphocytes/100 WBC (Bld) 20.5 % 20.5 - 60.0 % [facility] MCH (RBC) [Entitic mass] 29.7 pg 25.9 - 34.0 pg [facility] MCHC (RBC) [Mass/Vol] 33 g/dL 29.9 - 35.2 g/dL [facility] MCV (RBC) [Entitic vol] 90 fL 80.0 - 94.0 fL [facility] MONOCYTES ABSOLUTE AUTO 1 High [facility] Monocytes/100 WBC (Bld) 10.8 % 1.7 - 12.0 % [facility] NEUTROPHILS ABSOLUTE AUTO 6.1 [facility] Neutrophils/100 WBC (Bld) 65.6 % 43.0 - 75.0 % [facility] Platelet mean volume (Bld) [Entitic vol] 8.8 fL Low 9.5 - 13.5 fL [facility] EO # 0.2 [facility] PLT 277 [facility] RBC 5.12 [facility] WBC 9.3 [facility] Office Visiton 03-27-2024 Follow-up visit [id number] Evaristo Lowery Sammy 1965 M Date Provider Department Center 03/27/2024 CHACHO MALDONADO [facility] Family History Problem Relation Age of Onset Diabetes Maternal Grandmother Heart attack Maternal Grandfather Diabetes Paternal Grandmother Heart disease Paternal Grandfather Family Status - Relation Status Age at Maternal Grandmother Maternal Grandfather Paternal Grandmother Paternal Grandfather Level of Service:63467 SC OFFICE/OUTPATIENT ESTABLISHED MOD MDM 30 MIN Normal [facility] 36on 03-18-2024 37 I think that's ok, how does he feel? Normal [facility] Orders Onlyon 03-06-2024 Orders Only [id number] MarisaEvaristo Sammy 1965 [facility] Provider Department Center 03/06/2024 MIRTHA SEBASTIAN [facility] Family History Problem Relation Age of Onset Diabetes Maternal Grandmother Heart attack Maternal Grandfather Diabetes Paternal Grandmother Heart disease Paternal Grandfather Family Status - Relation Status Age at Maternal Grandmother Maternal Grandfather Paternal Grandmother Paternal Grandfather [facility] 37on 02-27-2024 38 Start digoxin 1 tab/ day Monitor heart rate- goal is between 60-80 HR Have labs/blood drawn in 1-2 weeks to check kidney function and digoxin level Call office for any concerns Normal [facility] Office Visiton 02-27-2024 Follow-up visit [id number] MarisaEvaristo Christianson 1965 M Count Includes [facility] Provider Department Center 02/27/2024 DARIAN LAWRENCE [facility] Family History Problem Relation Age of Onset Diabetes Maternal Grandmother Heart attack Maternal Grandfather Diabetes Paternal Grandmother Heart disease Paternal Grandfather Family Status - Relation Status Age at Maternal Grandmother Maternal Grandfather Paternal Grandmother Paternal Grandfather Level of Service:28064 SC OFFICE/OUTPATIENT ESTABLISHED MOD MDM 30 MIN Normal [facility] MLR HEMOGLOBIN A1Con 024 Glucose [Mass/Vol] 180 mg/dL [facility] HbA1c (Bld) [Mass fraction] 7.9 % High 4.5 - 6.2 % [facility] Comment on above: ADA RECOMMENDED LIMI T 4.0 - 6.0 ADA THERAPEUTIC TARGET < 7.0 ACTION SUGGESTED > 7.0 Interpretation and review of laboratory results Abnormal [facility] MICROALB CREAT RATIO RAN DOMon 09-23-2023 CREATININE URINE RANDOM 80.70 mg/dL 20.00 - 300.00 mg/dL [facility] MICROALBUM CREATININE RATIO UR 16.1 mg/g 0.0 - 29.9 mg/g [facility] Comment on above: NO MICROALBUMINURIA 0-29 MG/G CLINICAL MICROALBUMINURIA 30-300 MG/G MACROALBUMINURIA >300 MG/G MICROALBUMIN URINE RANDOM <1.3 NINF - 30.0 mg/dL [facility] Office Visiton 08-01-2023 Follow-up visit [id number] Evaristo Lowery 1965 M Date Provider Department Center 08/01/2023 CHACHO MALDONADO [facility] Family History Problem Relation Age of Onset Diabetes Maternal Grandmother Heart attack Maternal Grandfather Diabetes Paternal Grandmother Heart disease Paternal Grandfather Family Status - Relation Status Age at Maternal Grandmother Maternal Grandfather Paternal Grandmother Paternal Grandfather Level of Service:82358 SC OFFICE/OUTPATIENT ESTABLISHED LOW MDM 20-29 MIN Normal [facility] ECHOCARDIO M/2D COMPLETEon 0 01-03-2023 ECHOCARDIO M/2D COMPLETE Patient: EVARISTO LOWERY. 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 on 01/03/2023 at 20:32 Normal [facility] XR knee LT 4V*on 10-19-2022 XR knee LT 4V* [facility] [place] [address] XRay Report Signed Patient: Evaristo Lowery MR#: [id number] : 1965 Acct:[id number] Age/Sex: 57 / M ADM Date: 10/19/22 Loc: XDCLY Room: Type: [facility] REF Attending Dr: Justin Smallwood DEPARTMENT EDITOR-C Copies to: Justin Smallwood CNP Ordering Provider: Justin Smallwood CNP Date of Service: 10/19/22 XR/XR knee LT 4V*: LEFT KNEE PAIN ([id number]) XR/XR elbow LT min 3V*: LEFT ELBOW [...] M.D.10/19/2022 10:21 AM Dictation Location: [place] [address] Transcribed By: [facility] 10/19/22 1021 Dictated By: Cheri Castaneda MD 10/19/22 1012 Signed By: 10/19/22 1021 [facility] CREATININEon 10-01-2022 Creatinine [Mass/Vol] 0.75 mg/dL Normal 0.70-1.30 [facility] Comment on above: Performed By: #### C MP #### [facility] [address] [address] [address] Mily Parra EGFR-AF GUYANESE >60 Normal >=60 [facility] Comment on above: Performed By: #### C MP #### [facility] [address] [address] [address] Mily Parra EGFR-NON AF GUYANESE >60 Normal >=60 [facility] Comment on above: Performed By: #### C MP #### [facility] [address] ABDOMEN WO/W CONon [...] by: ISIAH JUAREZ Date: 2022-10-01 11:49 Normal [facility] CT ABD/PELVIS WO CONon 09-14 CT ABD/PELVIS [...] BLAYNE CHEN Date: 2022-09-14 15:18 Normal [facility] CBC AUTO DIFFon 06-24-2022 BASO # 0.1 103/ul Normal 0.0-0.1 [facility] Comment on above: Performed By: #### C BC #### [facility] [address] [place] [address] Dr. Mily Parra Basophils/100 WBC (Bld) 0.9 % Normal 0.2-2.0 [facility] Comment on above: Performed By: #### C BC #### [facility] [address] [address] [address] Mily Parra EO # 0.6 103/ul Normal 0.0-0.7 [facility] Comment on above: Performed By: #### C BC #### [facility] [address] [place] [address] Dr. Mily Parra Eosinophils/100 WBC (Bld) 6.0 % Normal 0.9-7.0 [facility] Comment on above: Performed By: #### C BC #### [facility] [address] [place] [address] Dr. Mily Parra Erythrocyte distribution width (RBC) [Ratio] 13.4 % Normal 11.0-15.0 [facility] Comment on above: Performed By: #### C BC #### [facility] [address] [place] [address] Dr. Mily Parra Hematocrit (Bld) [Volume fraction] 46.7 % Normal 42.0-54.0 [facility] Comment on above: Performed By: #### C BC #### [facility] [address] [place] [address] Dr. Mily Parra Hemoglobin (Bld) [Mass/Vol] 15.6 g/dL Normal 14.0-18.0 [facility] Comment on above: Performed By: #### C BC #### [facility] [address] [place] [address] Dr. Mily Parra IG # 0.03 10e3/ul Normal 0.00-0.03 [facility] Comment on above: Performed By: #### C BC #### [facility] [address] [place] [address] Dr. Mily Parra IG % 0.3 % Normal 0.0-0.5 [facility] Comment on above: Performed By: #### C BC #### [facility] [address] [place] [address] Dr. Mily Parra LYMPH # 3.0 103/ul Normal 1.2-3.8 [facility] Comment on above: Performed By: #### C BC #### [facility] [address] [place] [address] Dr. Mily Parra Lymphocytes/100 WBC (Bld) 28.1 % Normal 20.5-60.0 [facility] Comment on above: Performed By: #### C BC #### [facility] [address] [place] [address] Dr. Mily Parra MANUAL DIFF REQ NO Normal [facility] Comment on above: Performed By: #### C BC #### [facility] [address] [place] [address] Dr. Mily Parra MCH (RBC) [Entitic mass] 29.5 pg Normal 25.9-34.0 [facility] Comment on above: Performed By: #### C BC #### [facility] [address] [place] [address] Dr. Mily Parra MCHC (RBC) [Mass/Vol] 33.4 g/dL Normal 29.9-35.2 [facility] Comment on above: Performed By: #### C BC #### [facility] [id number] Mily Parra MCV (RBC) [Entitic vol] 88.4 fL Normal 80.0-94.0 [facility] Comment on above: Performed By: #### C BC #### [facility] [address] [address] [address] Mily Parra MONO # 0.8 103/ul Normal 0.3-0.8 [facility] Comment on above: Performed By: #### C BC #### [facility] [address] [place] [address] Dr. Mily Parra Monocytes/100 WBC (Bld) 7.8 % Normal 1.7-12.0 [facility] Comment on above: Performed By: #### C BC #### [facility] [address] [place] [address] Dr. Mily Parra NEUT # 6.0 103/ul Normal 1.4-6.5 [facility] Comment on above: Performed By: #### C BC #### [facility] [address] [place] [address] Dr. Mily Parra Neutrophils/100 WBC (Bld) 56.9 % Normal 43.0-75.0 [facility] Comment on above: Performed By: #### C BC #### [facility] [address] [place] [address] Dr. Mily Parra Platelet mean volume (Bld) [Entitic vol] 8.8 fL Critically low 9.5-13.5 [facility] Comment on above: Performed By: #### C BC #### [facility] [address] [place] [address] Dr. Mily Parra PLT 233 103/ul Normal 150-450 [facility] Comment on above: Performed By: #### C BC #### [facility] [address] [place] [address] Dr. Mily Parra RBC 5.28 106/ul Normal 4.70-6.10 [facility] Comment on above: Performed By: #### C BC #### [facility] [address] [place] [address] Dr. Mily Parra WBC 10.5 103/ul Normal 4.0-11.0 [facility] Comment on above: Performed By: #### C BC #### [facility] [address] [place] [address] Dr. Mily Parra PROF CHEM 8 (BAS METB)on Anion gap [Moles/Vol] 8.9 mmol/L Normal [facility] Comment on above: Performed By: #### L IPID #### [facility] [address] [place] [address] Dr. Mily Parra Calcium [Mass/Vol] 8.6 mg/dL Normal 8.5-10.1 [facility] Comment on above: Performed By: #### L IPID #### [facility] [address] [place] [address] Dr. Mily Parra Chloride [Moles/Vol] 107 mmol/L Normal 98-107 [facility] Comment on above: Performed By: #### L IPID #### [facility] [address] [place] [address] Dr. Mily Parra CO2 [Moles/Vol] 27.2 mmol/L Normal 21.0-32.0 [facility] Comment on above: Performed By: #### L IPID #### [facility] [address] [place] [address] Dr. Mily Parra Creatinine [Mass/Vol] 0.76 mg/dL Normal 0.70-1.30 [facility] Comment on above: Performed By: #### L IPID #### [facility] [address] [place] [address] Dr. Mily Parra EGFR-AF GUYANESE >60 Normal >=60 [facility] Comment on above: Performed By: #### L IPID #### [facility] [address] [place] [address] Dr. Mily Parra EGFR-NON AF GUYANESE >60 Normal >=60 [facility] Comment on above: Performed By: #### L IPID #### [facility] [address] [place] [address] Dr. Mily Parra Glucose [Mass/Vol] 118 mg/dL Critically high 74-106 [facility] Comment on above: Performed By: #### L IPID #### [facility] [address] [place] [address] Dr. Mily Parra Potassium [Moles/Vol] 4.1 mmol/L Normal 3.5-5.1 [facility] Comment on above: Performed By: #### L IPID #### [facility] [address] [place] [address] Dr. Mily Parra Sodium [Moles/Vol] 139 mmol/L Normal 136-145 [facility] Comment on above: Performed By: #### L IPID #### [facility] [address] [place] [address] Dr. Mily Parra Urea nitrogen [Mass/Vol] 20.0 mg/dL Critically high 7.0-18.0 [facility] Comment on above: Performed By: #### L IPID #### [facility] [address] [place] [address] Dr. Mily Parra Urea nitrogen/Creatinine [Mass ratio] 26.3 mg/mg Normal [facility] Comment on above: Performed By: #### L IPID #### [facility] [address] [place] [address] Dr. Mily Parra ACETONE SERUMon 06-23-2022 ACETONE Negative Normal NEGATIVE [facility] Comment on above: Performed By: #### A CETON #### [facility] [address] [place] [address] Dr. Mily Parra BNPon 06-23-2022 Natriuretic peptide B (Bld) [Mass/Vol] 129.0 pg/mL Normal <=900.0 [facility] Comment on above: Performed By: #### L IPID #### [facility] [address] [place], [place] [id number] Dr. Mily Parra CARDIAC CARLOS 3-6on 2 CK [Catalytic activity/Vol] 52 U/L Normal 39-308 [facility] Comment on above: Performed By: #### C MREP #### [facility] [address] [place] [address] Dr. Mily Parra CK.MB [Mass/Vol] 0.69 ng/mL Normal <=3.60 [facility] Comment on above: Performed By: #### C MREP #### [facility] [address] [place] [address] Dr. Mily Parra HSTROP 11.6 pg/mL Normal 4.0-76.1 [facility] Comment on above: Result Comment: CUT- OFF POINTS HAVE BEEN ESTABLISHED BASED ON THE FOURTH UNIVERSAL DEFINITIONS OF MYOCARDIAL INFARCTION. THE UPPER REFERENCE LIMIT (URL) OF TROPONIN, DEFINED THE 99TH PERCENTILE OF cTnI DISTRIBUTION IN A REFERENCE POPULATION, HAS BEEN CONFIRMED THE DECISION THRESHOLD FOR LA DIAGNOSIS. Performed By: #### C MREP #### [facility] [address] [place] [address] Dr. Mily Parra CK [Catalytic activity/Vol] 48 U/L Normal 39-308 [facility] Comment on above: Performed By: #### C MREP #### [facility] [address] [place] [address] Dr. Mily Parra CK.MB [Mass/Vol] 0.58 ng/mL Normal <=3.60 [facility] Comment on above: Performed By: #### C MREP #### [facility] [address] [place] [address] Dr. Mily Parra HSTROP 6.1 pg/mL Normal 4.0-76.1 [facility] Comment on above: Result Comment: CUT- OFF POINTS HAVE BEEN ESTABLISHED BASED ON THE FOURTH UNIVERSAL DEFINITIONS OF MYOCARDIAL INFARCTION. THE UPPER REFERENCE LIMIT (URL) OF TROPONIN, DEFINED THE 99TH PERCENTILE OF cTnI DISTRIBUTION IN A REFERENCE POPULATION, HAS BEEN CONFIRMED THE DECISION THRESHOLD FOR LA DIAGNOSIS. Performed By: #### C MREP #### [facility] [address] [place] [address] Dr. Mily Parra CBC AUTO DIFFon 06-23-2022 BASO # 0.1 103/ul Normal 0.0-0.1 [facility] Comment on above: Performed By: #### C BC #### [facility] [address] [place] [address] Dr. Mily Parra Basophils/100 WBC (Bld) 0.7 % Normal 0.2-2.0 [facility] Comment on above: Performed By: #### C BC #### [facility] [address] [place] [address] Dr. Mily Parra EO # 0.5 103/ul Normal 0.0-0.7 [facility] Comment on above: Performed By: #### C BC #### [facility] [address] [place] [address] Dr. Mily Parra Eosinophils/100 WBC (Bld) 3.6 % Normal 0.9-7.0 [facility] Comment on above: Performed By: #### C BC #### [facility] [address] [place] [address] Dr. Mily Parra Erythrocyte distribution width (RBC) [Ratio] 13.4 % Normal 11.0-15.0 [facility] Comment on above: Performed By: #### C BC #### [facility] [address] [place] [address] Dr. Mily Parra Hematocrit (Bld) [Volume fraction] 51.6 % Normal 42.0-54.0 [facility] Comment on above: Performed By: #### C BC #### [facility] [address] [place] [address] Dr. Mily Parra Hemoglobin (Bld) [Mass/Vol] 17.4 g/dL Normal 14.0-18.0 [facility] Comment on above: Performed By: #### C BC #### [facility] [address] [place] [address] Dr. Mily Parra IG # 0.06 10e3/ul Critically high 0.00-0.03 [facility] Comment on above: Performed By: #### C BC #### [facility] [address] [place] [address] Dr. Mily Parra IG % 0.4 % Normal 0.0-0.5 [facility] Comment on above: Performed By: #### C BC #### [facility] [address] [place] [address] Dr. Mily Parra LYMPH # 2.7 103/ul Normal 1.2-3.8 [facility] Comment on above: Performed By: #### C BC #### [facility] [address] [place] [address] Dr. Mily Parra Lymphocytes/100 WBC (Bld) 18.3 % Critically low 20.5-60.0 [facility] Comment on above: Performed By: #### C BC #### [facility] [address] [place] [address] Dr. Mily Parra MANUAL DIFF REQ NO Normal [facility] Comment on above: Performed By: #### C BC #### [facility] [address] [place] [address] Dr. Mily Parra MCH (RBC) [Entitic mass] 29.7 pg Normal 25.9-34.0 [facility] Comment on above: Performed By: #### C BC #### [facility] [address] [place] [address] Dr. Mily Parra MCHC (RBC) [Mass/Vol] 33.7 g/dL Normal 29.9-35.2 [facility] Comment on above: Performed By: #### C BC #### [facility] [address] [place] [address] Dr. Mily Parra MCV (RBC) [Entitic vol] 88.1 fL Normal 80.0-94.0 [facility] Comment on above: Performed By: #### C BC #### [facility] [address] [place] [address] Dr. Mily Parra MONO # 0.9 103/ul Critically high 0.3-0.8 [facility] Comment on above: Performed By: #### C BC #### [facility] [address] [place] [address] Dr. Mily Parra Monocytes/100 WBC (Bld) 6.2 % Normal 1.7-12.0 [facility] Comment on above: Performed By: #### C BC #### [facility] [address] [place] [address] Dr. Mily Parra NEUT # 10.3 103/ul Critically high 1.4-6.5 [facility] Comment on above: Performed By: #### C BC #### [facility] [address] [place] [address] Dr. Mily Parra Neutrophils/100 WBC (Bld) 70.8 % Normal 43.0-75.0 [facility] Comment on above: Performed By: #### C BC #### [facility] [address] [place] [address] Dr. Mily Parra Platelet mean volume (Bld) [Entitic vol] 9.0 fL Critically low 9.5-13.5 [facility] Comment on above: Performed By: #### C BC #### [facility] [address] [place] [address] Dr. Mily Parra PLT 278 103/ul Normal 150-450 [facility] Comment on above: Performed By: #### C BC #### [facility] [address] [place] [address] Dr. Mily Parra RBC 5.86 106/ul Normal 4.70-6.10 [facility] Comment on above: Performed By: #### C BC #### [facility] [address] [place] [address] Dr. Mily Parra WBC 14.6 103/ul Critically high 4.0-11.0 [facility] Comment on above: Performed By: #### C BC #### [facility] [address] [place] [address] HEAD WO CONon [...] stenosis. LEFT VERTEBRAL ARTERY: No significant stenosis. [place]: The bilateral intracranial internal carotid [...] JT MIMS Date: 2022-06-23 15:58 Normal [facility] CULTURE BLOODon 06-23-2022 Microscopic examination of blood, culture Culture Observations: NO GROWTH AT 5 DAYS. Normal [facility] Comment on above: Performed By: #### C BC #### [facility] [address] [address] [address] Mily Parra Microscopic examination of blood, culture Culture Observations: NO GROWTH AT 5 DAYS. Normal [facility] Comment on above: Performed By: #### C BC #### [facility] [address] [place] [address] Dr. Mily Parra [facility]on SARS-CoV-2 (COVID-19) RNA RUBY+probe Ql (Unsp spec) Not detected Normal NOT DETECTED [facility] Comment on above: Result Comment: [...] for this test is supported by the Medical Lead of Health and Human Service's declaration that [...] C BC #### [facility] [address] [place] [id number] Mily Parra D-DIMERon 06-23-2022 D-DIMER 0.31 mg/L FEU Normal <=0.59 [facility] Comment on above: Performed By: #### C MP #### [facility] [address] [place] [address] Dr. Mily Parra D-DIMER COMMENTS SEE BELOW Normal [facility] Comment on above: Result Comment: Incr eases [...] C MP #### [facility] [address] [place] [address] Dr. Mily Parra ER URINE PROFILEon 2 Bilirubin Ql (U) Negative Normal NEGATIVE [facility] Comment on above: Performed By: #### E RUR #### [facility] [address] [place] [address] Dr. Mily Parra Clarity (U) CLEAR Normal CLEAR [facility] Comment on above: Performed By: #### E RUR #### [facility] [address] [place] [address] Dr. Mily Parra Color (U) LT. YELLOW Normal YELLOW [facility] Comment on above: Performed By: #### E RUR #### [facility] [address] [place] [address] Dr. Mily QUINONESGeoffrey A micrscopic examination will be performed if indicated. Normal [facility] Comment on above: Performed By: #### E RUR #### [facility] [address] [place] [address] Dr. Mily Parra Glucose Ql (U) >1000 Abnormal NEGATIVE [facility] Comment on above: Performed By: #### E RUR #### [facility] [address] [place] [address] Dr. Mily Parra Hemoglobin Ql (U) Negative Normal NEGATIVE [facility] Comment on above: Performed By: #### E RUR #### [facility] [address] [place] [address] Dr. Mily Parra Ketones Ql (U) TRACE Abnormal NEGATIVE [facility] Comment on above: Performed By: #### E RUR #### [facility] [address] [place] [address] Dr. Mily Parra LEUKOCYTES Negative Normal NEGATIVE [facility] Comment on above: Performed By: #### E RUR #### [facility] [address] [place] [address] Dr. Mily Parra Nitrite Ql (U) Negative Normal NEGATIVE [facility] Comment on above: Performed By: #### E RUR #### [facility] [address] [place] [address] Dr. Mily Parra pH (U) 6.0 [pH] Normal 5-9 [facility] Comment on above: Performed By: #### E RUR #### [facility] [address] [place] [address] Dr. Mily Parra SPEC GRAVITY 1.020 Normal 1.005-<=1.025 [facility] Comment on above: Performed By: #### E RUR #### [facility] [address] [place] [address] Dr. Mily Parra UA PROTEIN Negative Normal NEGATIVE/ TRACE [facility] Comment on above: Performed By: #### E RUR #### [facility] [address] [place] [address] Dr. Mily Parra UR MICRO IND NOT INDICATED Normal [facility] Comment on above: Performed By: #### E RUR #### [facility] [address] [place] [address] Dr. Mily Parra Urobilinogen Qn (U) 0.2 {[place]'U}/dL Normal 0.2 - 1. 0 [facility] Comment on above: Performed By: #### E RUR #### [facility] [address] [place] [address] Dr. Mily Parra LACTATE/LACTIC ACIDon 2021 Lactate [Moles/Vol] 1.2 mmol/L Normal 0.4-1.9 [facility] Comment on above: Performed By: #### C BC #### [facility] [address] [place] [address] Dr. Mily Parra Lactate [Moles/Vol] 2.9 mmol/L Critically high 0.4-1.9 [facility] Comment on above: Performed By: #### C MP #### [facility] [address] [place] [address] Dr. Mily Parra PH VENOUS BLOODon 06-23-2022 PCO2 VENOUS 36.9 mmHg Critically low 40.0-52.0 [facility] Comment on above: Performed By: #### C MP #### [facility] [address] [place] [address] Dr. Mily Parra pH VENOUS 7.399 Normal 7.330-7.430 [facility] Comment on above: Performed By: #### C MP #### [facility] [address] [place] [address] Dr. Mily Parra PROF 14(COMP METB)on 022 Albumin [Mass/Vol] 4.1 g/dL Normal 3.4-5.0 [facility] Comment on above: Performed By: #### C MP #### [facility] [address] [place] [address] Dr. Mily Parra Albumin/Globulin [Mass ratio] 1.1 {ratio} Normal [facility] Comment on above: Performed By: #### C MP #### [facility] [address] [place] [address] Dr. Mily Parra ALP [Catalytic activity/Vol] 56 U/L Normal 46-116 [facility] Comment on above: Performed By: #### C MP #### [facility] [address] [place] [address] Dr. Mily Parra ALT [Catalytic activity/Vol] 35 U/L Normal 16-63 [facility] Comment on above: Performed By: #### C MP #### [facility] [address] [place] [address] Dr. Mily Parra Anion gap [Moles/Vol] 11.1 mmol/L Normal [facility] Comment on above: Performed By: #### C MP #### [facility] [address] [address] [address] Mily Parra AST [Catalytic activity/Vol] 16 U/L Normal 15-37 [facility] Comment on above: Performed By: #### C MP #### [facility] [address] [address] [address] Mily Parra Bilirubin [Mass/Vol] 0.5 mg/dL Normal 0.2-1.0 [facility] Comment on above: Performed By: #### C MP #### [facility] [address] [address] [address] Mily Parra Calcium [Mass/Vol] 9.8 mg/dL Normal 8.5-10.1 [facility] Comment on above: Performed By: #### C MP #### [facility] [address] [address] [address] Mily Parra Chloride [Moles/Vol] 102 mmol/L Normal 98-107 [facility] Comment on above: Performed By: #### C MP #### [facility] [address] [address] [address] Mily Parra CO2 [Moles/Vol] 27.3 mmol/L Normal 21.0-32.0 [facility] Comment on above: Performed By: #### C MP #### [facility] [address] [address] [address] Mily Parra Creatinine [Mass/Vol] 0.86 mg/dL Normal 0.70-1.30 [facility] Comment on above: Performed By: #### C MP #### [facility] [address] [address] [address] Mily Parra EGFR-AF GUYANESE >60 Normal >=60 [facility] Comment on above: Performed By: #### C MP #### [facility] [address] [address] [address] Mily Parra EGFR-NON AF GUYANESE >60 Normal >=60 [facility] Comment on above: Performed By: #### C MP #### [facility] [address] [address] [address] Mily Parra Globulin (S) [Mass/Vol] 3.6 g/dL Normal [facility] Comment on above: Performed By: #### C MP #### [facility] [address] [address] [address] Mily Parra Glucose [Mass/Vol] 148 mg/dL Critically high 74-106 [facility] Comment on above: Performed By: #### C MP #### [facility] [address] [address] [address] Mily Parra Potassium [Moles/Vol] 4.4 mmol/L Normal 3.5-5.1 [facility] Comment on above: Performed By: #### C MP #### [facility] [address] [address] [address] Mily Parra Protein [Mass/Vol] 7.7 g/dL Normal 6.4-8.2 [facility] Comment on above: Performed By: #### C MP #### [facility] [address] [address] [address] Mily Parra Sodium [Moles/Vol] 136 mmol/L Normal 136-145 [facility] Comment on above: Performed By: #### C MP #### [facility] [address] [address] [address] Mily Parra Urea nitrogen [Mass/Vol] 25.0 mg/dL Critically high 7.0-18.0 [facility] Comment on above: Performed By: #### C MP #### [facility] [address] [address] [address] Mily Parra Urea nitrogen/Creatinine [Mass ratio] 29.1 mg/mg Normal [facility] Comment on above: Performed By: #### C MP #### [facility] [address] [address] [address] Mily Parra PROTIMEon 06-23-2022 INR Coag (PPP) [Relative time] 0.97 {INR} Normal [facility] Comment on above: Performed By: #### C MP #### [facility] [address] [place] [address] Dr. Mily Parra INR GUIDELINES SEE BELOW Normal [facility] Comment on above: Result Comment: MARIA RED INR: 2.0 - 3.0 CONDITIONS NOT LISTED BELOW 2.5 - 3.5 FOR PROSTHETIC HEART VALVE REPLACEMENT 2.5 - 3.5 RECURRENT THROMBOSIS Performed By: #### C MP #### [facility] [address] [address] [address] Mily Parra PT Coag (PPP) [Time] 10.5 s Normal 9.0-11.6 [facility] Comment on above: Performed By: #### C MP #### [facility] [address] [place] [address] Dr. Mily Parra PTTon 06-23-2022 aPTT Coag (Bld) [Time] 26.7 s Normal 22.3-36.2 [facility] Comment on above: Performed By: #### C MP #### [facility] [address] [place] [address] Dr. Mily Parra TROPONIN, HIGH SENSITIVITYon 06-23-2022 HSTROP 12.1 pg/mL Normal 4.0-76.1 [facility] Comment on above: Result Comment: CUT- OFF POINTS HAVE BEEN ESTABLISHED BASED ON THE FOURTH UNIVERSAL DEFINITIONS OF MYOCARDIAL INFARCTION. THE UPPER REFERENCE LIMIT (URL) OF TROPONIN, DEFINED THE 99TH PERCENTILE OF cTnI DISTRIBUTION IN A REFERENCE POPULATION, HAS BEEN CONFIRMED THE DECISION THRESHOLD FOR LA DIAGNOSIS. Performed By: #### C MP #### [facility] [address] [place] [address] Dr. Mily Parra HSTROP 5.5 pg/mL Normal 4.0-76.1 [facility] Comment on above: Result Comment: CUT- OFF POINTS HAVE BEEN ESTABLISHED BASED ON THE FOURTH UNIVERSAL DEFINITIONS OF MYOCARDIAL INFARCTION. THE UPPER REFERENCE LIMIT (URL) OF TROPONIN, DEFINED THE 99TH PERCENTILE OF cTnI DISTRIBUTION IN A REFERENCE POPULATION, HAS BEEN CONFIRMED THE DECISION THRESHOLD FOR LA DIAGNOSIS. Performed By: #### L IPID #### [facility] [address] [place] [address] Dr. Mily Parra TSHon 06-23-2022 TSH 0.875 uIU/mL Normal 0.358-3.740 [facility] Comment on above: Performed By: #### L IPID #### [facility] [address] [place] [address] Dr. Mily Parra XR CHEST 1 Von [...] 03-21-2022 BASO # 0.1 103/ul Normal 0.0-0.1 [facility] Comment on above: Performed By: #### C BC #### [facility] [address] [place] [address] Dr. Mily Parra Basophils/100 WBC (Bld) 0.8 % Normal 0.2-2.0 [facility] Comment on above: Performed By: #### C BC #### [facility] [address] [place] [address] Dr. Mily Parra EO # 0.3 103/ul Normal 0.0-0.7 [facility] Comment on above: Performed By: #### C BC #### [facility] [address] [place] [address] Dr. Mily Parra Eosinophils/100 WBC (Bld) 2.8 % Normal 0.9-7.0 [facility] Comment on above: Performed By: #### C BC #### [facility] [address] [place] [address] Dr. Mily Parra Erythrocyte distribution width (RBC) [Ratio] 13.8 % Normal 11.0-15.0 [facility] Comment on above: Performed By: #### C BC #### [facility] [address] [place] [address] Dr. Mily Parra Hematocrit (Bld) [Volume fraction] 49.4 % Normal 42.0-54.0 [facility] Comment on above: Performed By: #### C BC #### [facility] [address] [place] [address] Dr. Mily Parra Hemoglobin (Bld) [Mass/Vol] 16.2 g/dL Normal 14.0-18.0 [facility] Comment on above: Performed By: #### C BC #### [facility] [address] [place] [address] Dr. Mily Parra IG # 0.03 10e3/ul Normal 0.00-0.03 [facility] Comment on above: Performed By: #### C BC #### [facility] [address] [place] [address] Dr. Mily Parra IG % 0.3 % Normal 0.0-0.5 [facility] Comment on above: Performed By: #### C BC #### [facility] [address] [place] [address] Dr. Mily Parra LYMPH # 2.0 103/ul Normal 1.2-3.8 [facility] Comment on above: Performed By: #### C BC #### [facility] [address] [place] [address] Dr. Mily Parra Lymphocytes/100 WBC (Bld) 20.3 % Critically low 20.5-60.0 [facility] Comment on above: Performed By: #### C BC #### [facility] [address] [place] [address] Dr. Mily Parra MANUAL DIFF REQ NO Normal [facility] Comment on above: Performed By: #### C BC #### [facility] [address] [place] [address] Dr. Mily Parra MCH (RBC) [Entitic mass] 29.0 pg Normal 25.9-34.0 [facility] Comment on above: Performed By: #### C BC #### [facility] [address] [place], [place] [id number] Dr. Mily Parra MCHC (RBC) [Mass/Vol] 32.8 g/dL Normal 29.9-35.2 [facility] Comment on above: Performed By: #### C BC #### [facility] [address] [place] [address] Dr. Mily Parra MCV (RBC) [Entitic vol] 88.4 fL Normal 80.0-94.0 [facility] Comment on above: Performed By: #### C BC #### [facility] [address] [place] [address] Dr. Mily Parra MONO # 0.7 103/ul Normal 0.3-0.8 [facility] Comment on above: Performed By: #### C BC #### [facility] [address] [place] [address] Dr. Mily Parra Monocytes/100 WBC (Bld) 7.2 % Normal 1.7-12.0 [facility] Comment on above: Performed By: #### C BC #### [facility] [address] [place] [address] Dr. Mily Parra NEUT # 6.6 103/ul Critically high 1.4-6.5 [facility] Comment on above: Performed By: #### C BC #### [facility] [address] [place] [address] Dr. Mily Parra Neutrophils/100 WBC (Bld) 68.6 % Normal 43.0-75.0 [facility] Comment on above: Performed By: #### C BC #### [facility] [address] [place] [address] Dr. Mily Parra Platelet mean volume (Bld) [Entitic vol] 8.6 fL Critically low 9.5-13.5 [facility] Comment on above: Performed By: #### C BC #### [facility] [address] [place] [address] Dr. Mily Parra PLT 289 103/ul Normal 150-450 [facility] Comment on above: Performed By: #### C BC #### [facility] [address] [place] [address] Dr. Mily aPrra RBC 5.59 106/ul Normal 4.70-6.10 [facility] Comment on above: Performed By: #### C BC #### [facility] [address] [address] [address] Mily Parra WBC 9.6 103/ul Normal 4.0-11.0 [facility] Comment on above: Performed By: #### C BC #### [facility] [address] [place] [address] Dr. Mily Parra GLYCOHEMOGLOBIN A1Con 2021 ADA RECOMMENDATION SEE BELOW Normal [facility] Comment on above: Result Comment: ADA RECOMMENDED LIMIT 4.0 - 6.0 ADA THERAPEUTIC TARGET < 7.0 ACTION SUGGESTED > 7.0 Performed By: #### A 1C #### [facility] [address] [place] [address] Dr. Mily Parra Glucose [Mass/Vol] 171 mg/dL Normal [facility] Comment on above: Performed By: #### A 1C #### [facility] [address] [place] [address] Dr. Mily Parra HbA1c (Bld) [Mass fraction] 7.6 % Critically high 4.5-6.2 [facility] Comment on above: Performed By: #### A 1C #### [facility] [address] [place] [address] Dr. Mily Parra PROF 14(COMP METB)on 022 Albumin [Mass/Vol] 4.0 g/dL Normal 3.4-5.0 [facility] Comment on above: Performed By: #### C MP #### [facility] [address] [place] [address] Dr. Mily Parra Albumin/Globulin [Mass ratio] 1.1 {ratio} Normal [facility] Comment on above: Performed By: #### C MP #### [facility] [address] [place] [address] Dr. Mily Parra ALP [Catalytic activity/Vol] 53 U/L Normal 46-116 [facility] Comment on above: Performed By: #### C MP #### [facility] [address] [address] [address] Mily Parra ALT [Catalytic activity/Vol] 32 U/L Normal 16-63 [facility] Comment on above: Performed By: #### C MP #### [facility] [address] [address] [address] Mily Parra Anion gap [Moles/Vol] 16.4 mmol/L Normal [facility] Comment on above: Performed By: #### C MP #### [facility] [address] [address] [address] Mily Parra AST [Catalytic activity/Vol] 21 U/L Normal 15-37 [facility] Comment on above: Performed By: #### C MP #### [facility] [address] [place] [address] Dr. Mily Parra Bilirubin [Mass/Vol] 0.9 mg/dL Normal 0.2-1.0 [facility] Comment on above: Performed By: #### C MP #### [facility] [address] [place] [address] Dr. Mily Parra Calcium [Mass/Vol] 9.2 mg/dL Normal 8.5-10.1 [facility] Comment on above: Performed By: #### C MP #### [facility] [address] [place] [address] Dr. Mily Parra Chloride [Moles/Vol] 101 mmol/L Normal 98-107 [facility] Comment on above: Performed By: #### C MP #### [facility] [address] [address] [address] Mily Parra CO2 [Moles/Vol] 26.2 mmol/L Normal 21.0-32.0 [facility] Comment on above: Performed By: #### C MP #### [facility] [address] [place] [address] Dr. Mily Parra Creatinine [Mass/Vol] 0.74 mg/dL Normal 0.70-1.30 [facility] Comment on above: Performed By: #### C MP #### [facility] [address] [address] [address] Mily Parra EGFR-AF GUYANESE >60 Normal >=60 [facility] Comment on above: Performed By: #### C MP #### [facility] [address] [address] [address] Mily Parra EGFR-NON AF GUYANESE >60 Normal >=60 [facility] Comment on above: Performed By: #### C MP #### [facility] [address] [address] [address] Mily Parra Globulin (S) [Mass/Vol] 3.5 g/dL Normal [facility] Comment on above: Performed By: #### C MP #### [facility] [address] [address] [address] Mily Parra Glucose [Mass/Vol] 135 mg/dL Critically high 74-106 [facility] Comment on above: Performed By: #### C MP #### [facility] [address] [address] [address] Mily Parra Potassium [Moles/Vol] 4.6 mmol/L Normal 3.5-5.1 [facility] Comment on above: Performed By: #### C MP #### [facility] [address] [address] [address] Mily Parra Protein [Mass/Vol] 7.5 g/dL Normal 6.4-8.2 [facility] Comment on above: Performed By: #### C MP #### [facility] [address] [address] [address] Mily Parra Sodium [Moles/Vol] 139 mmol/L Normal 136-145 [facility] Comment on above: Performed By: #### C MP #### [facility] [address] [address] [address] Mily Parra Urea nitrogen [Mass/Vol] 16.0 mg/dL Normal 7.0-18.0 [facility] Comment on above: Performed By: #### C MP #### [facility] [address] [address] [address] Mily Parra Urea nitrogen/Creatinine [Mass ratio] 21.6 mg/mg Normal [facility] Comment on above: Performed By: #### C MP #### [facility] [address] [address] [address] Mily Parra LIPID PROFILEon 02-16-2022 CHOL-HDL RATIO NORM SEE BELOW Normal [facility] Comment on above: Result Comment: 3.3 - 4.4 LOW RISK 4.4 - 7.1 AVERAGE RISK 7.1 - 11.0 MODERATE RISK >11.0 HIGH RISK Performed By: #### L IPID #### [facility] [address] [address] [address] Mily Parra Cholesterol [Mass/Vol] 91 mg/dL Normal <=200 [facility] Comment on above: Performed By: #### L IPID #### [facility] [address] [address] [address] Mily Parra Cholesterol in HDL [Mass/Vol] 27 mg/dL Critically low 40-60 [facility] Comment on above: Performed By: #### L IPID #### [facility] [address] [address] [address] Mily Parra Cholesterol in LDL [Mass/Vol] 40.6 mg/dL Normal [facility] Comment on above: Performed By: #### L IPID #### [facility] [address] [address] [address] Mily Parra Cholesterol.total/Ch olesterol in HDL [Mass ratio] 3.4 {ratio} Normal [facility] Comment on above: Performed By: #### L IPID #### [facility] [address] [address] [address] Mily Parra HDL NORMAL > or = 60 mg/dl - LO W CARDIOVASCULAR RISK <40 mg/dl - HIGH CARDIOVASCULAR RISK Normal [facility] Comment on above: Performed By: #### L IPID #### [facility] [address] [address] [address] Mily Parra LDL CALC NORMAL SEE BELOW Normal [facility] Comment on above: Result Comment: <100 mg/dl OPTIMAL 100 - 129 mg/dl NEAR OR ABOVE OPTIMAL 130 - 159 mg/dl BORDERLINE HIGH 160 - 189 mg/dl HIGH >190 mg/dl VERY HIGH Performed By: #### L IPID #### [facility] [address] [place], [place] [address] Dr. Mily Parra Triglyceride [Mass/Vol] 117 mg/dL Normal <=150 [facility] Comment on above: Performed By: #### L IPID #### [facility] [address] [place], [place] [address] Dr. Mily Parra VLDL CALC 23.4 mg/dL Normal [facility] Comment on above: Performed By: #### L IPID #### [facility] [address] [place], [place] [address] Dr. Mily Parra Vital Signs Date Time Vital Sign Value Performing Clinician Facility 07-01-2024 14:34-0500 Blood Pressure Location Cabrera OJEDA [facility] 07-01-2024 14:34-0500 Body temperature 98.6 [degF] Cabrera OJED[facility] 07-01-2024 14:34-0500 Diastolic blood pressure 86 mm[Hg] Cabrera OJEDA [facility] 07-01-2024 14:34-0500 Heart rate 79 /min Cabrera OJED[facility] 07-01-2024 14:34-0500 Respiratory rate 16 /min Cabrera OJED[facility] 07-01-2024 14:34-0500 Systolic blood pressure 124 mm[Hg] Cabrera OJEDA [facility] 04-13-2024 12:58-0400 Body height 157.48 cm [facility] 04-13-2024 12:58-0400 Body mass index (BMI) [Ratio] 38.4 kg/m2 [facility] 04-13-2024 12:58-0400 Body weight 95.25 kg [facility] 04-13-2024 12:58-0400 Diastolic blood pressure 78 mm[Hg] [facility] 04-13-2024 12:58-0400 Heart rate 103 /min [facility] 04-13-2024 12:58-0400 Respiratory rate 18 /min [facility] 04-13-2024 12:58-0400 SaO2% (BldA) [Mass fraction] 92 % [facility] 04-13-2024 12:58-0400 Systolic blood pressure 142 mm[Hg] [facility] 09-27-2023 14:57-0500 Body height 162.6 cm Shaikh Brad NOLASCO Work Phone: [facility] 09-27-2023 14:57-0500 Body mass index (BMI) [Ratio] 40.34 kg/m2 Shaikh Brad NOLASCO Work Phone: [facility] 09-27-2023 14:57-0500 Body temperature 98.4 [degF] Shaikh Brad NOLASCO Work Phone: [facility] 09-27-2023 14:57-0500 Body weight 106.59 kg Shaikh Brad NOLASCO Work Phone: [facility] 09-27-2023 14:57-0500 Diastolic blood pressure 84 mm[Hg] Shaikh Brad NOLASCO Work Phone: [facility] 09-27-2023 14:57-0500 Heart rate 104 /min Shaikh Brad NOLASCO Work Phone: [facility] 09-27-2023 14:57-0500 SaO2% (BldA) [Mass fraction] 97 % Shaikh Brad NOLASCO Work Phone: [facility] 09-27-2023 14:57-0500 Systolic blood pressure 130 mm[Hg] Shaikh Brad NOLASCO Work Phone: [facility] Encounters Encounter Date Encounter Type Care Provider Facility Start: 07-07-2025 ambulatory RAYMOND STEARNS Fa cility:[facility] Start: 07-01-2024 End: 07-01-2024 ambulatory Cabrera OJEDA Facility: [facility] Start: 07-01-2024 End: 07-01-2024 Patient encounter procedure Cabrera OJ[facility] Start: 06-13-2024 End: 06-13-2024 Refill Raymond Stearns DEPARTMENT EDITOR Work Phone: [facility] Comment on above: Chronic systolic hea rt failure (CMS/HCC) Start: 06-10-2024 End: 06-10-2024 Clinisync Result Encounter Raymond Stearns DEPARTMENT EDITOR Work Phone: [facility] Unsolicited Start: 06-10-2024 End: 06-10-2024 Clinisync Result Encounter Raymond Velazcozpatrick DEPARTMENT EDITOR Work Phone: [facility] Unsolicited Start: 05-16-2024 Patient encounter status Sheila andreia Stearns DEPARTMENT EDITOR Work Phone: [facility] Start: 05-07-2024 End: 05-07-2024 ambulatory RAYMOND STEARNS Not Available Start: 04-30-2024 End: 04-30-2024 ambulatory [facility] Start: 04-23-2024 End: 04-23-2024 ambulatory [facility] Work Phone: Start: 04-23-2024 End: 04-23-2024 Patient encounter procedure [facility] Physician [facility] Work Phone: Start: 04-13-2024 End: 04-13-2024 ambulatory [facility] Work Phone: Start: 04-13-2024 End: 04-13-2024 Patient encounter procedure [facility] Physician [facility] Work Phone: Start: 03-27-2024 End: 03-27-2024 [facility] Start: 03-20-2024 ambulatory [facility] Start: 02-27-2024 End: 02-27-2024 ambulatory DARIAN VIDAL [facility] Start: 02-07-2024 Encounter for preprocedural cardiovascular examination [facility] Start: 02-07-2024 ambulatory [facility] Start: 02-05-2024 End: 02-05-2024 ambulatory SHAIKH BRAD Not Available Start: 12-20-2023 End: 12-20-2023 ambulatory SHAIKH BRAD Not Available Start: 11-07-2023 End: 11-07-2023 ambulatory SHAIKH BRAD Not Available Start: 10-03-2023 End: 10-03-2023 ambulatory [facility] Start: 09-27-2023 End: 09-27-2023 Periodic [...] Department Unsolicited Start: 08-01-2023 End: 08-01-2023 ambulatory [facility] Start: 01-03-2023 End: 01-04-[address] TONY WILSON Facility:[facility] Start: 11-14-2022 End: 11-14-2022 Patient encounter procedure Cabrera OJ[facility] Start: 10-19-2022 End: 10-19-2022 ambulatory Justin Smallwood Facility:[facility] Start: 10-01-2022 End: 10-02-[address] TONY WILSON Facility:[facility] Start: 09-14-2022 End: 09-15-[address] TONY WILSON Facility:[facility] Start: 06-23-2022 End: 06-24-[address] BHASKAR ANTUNEZ Facility:[facility] Start: 03-21-2022 End: 03-22-[address] TONY WILSON Facility:[facility] Start: 02-16-2022 End: 02-17-[address] TONY WILSON Facility:[facility] Procedures Date Procedure Procedure Detail Performing Clinician Start: 06-10-2024 ALL CBC WITH AUTO DIFF Raymond Stearns DEPARTMENT EDITOR Work Phone: Start: 09-23-2023 MLR HEMOGLOBIN A1C Ga Salinas MD Work Phone: Start: 09-23-2023 TB[facility] MICROALB CREAT R ATIO RANDOM Shaikh Brad NOLASCO Work Phone: Start: 03-21-[address] EDNA WILSON Comment on above: Performed By: #### C MP #### [facility] [address] [place] [address] Dr. Mily Parra Aortic stent (physic al object) Cabrera OJEDA Defibrillator, devic e (physical object) [facility] Knee region structur e (body structure) [facility] OJ[facility]A Shoulder region stru cture (body structure) [facility] Plan of Treatment Date Care Activity Detail Author Start: 11-22-2026 Screening for malign ant neoplasm of colon [facility] Start: 09-25-2024 Urine screening for protein Diabetes: Urine Protein Screening [facility] Start: 09-03-2024 End: 09-03-2024 Patient encounter procedure 09/03/2024 3:00 PM EST Office Visit [facility] [address] [place] [phone] Raymond Stearns NP [address] [place] [phone] [facility] Start: 08-21-2024 Glaucoma screening Diabetes: R etinopathy Screening [facility] Start: 05-07-2024 Hemoglobin A1c measurement Diabetes: Hemoglobin A1C [facility] Start: 04-21-2024 Influenza vaccination Influenza Vacc ine (#1) [facility] Start: 02-18-2024 Influenza vaccination Influenza Vacc ine (#1) [facility] Comment on above: Postponed from 04/21 (Patient Refused) Start: 12-24-2023 Hemoglobin A1c measurement Diabetes: Hemoglobin A1C [facility] Start: 10-30-2023 End: 10-30-2023 Patient encounter procedure 10/30/2023 2:45 PM EDT [facility] [address] [place] [phone] Shaikh Salinas MD [address] [place] [phone] [facility] Start: 09-27-2023 End: 09-27-2023 Patient encounter procedure 09/27/2023 2:15 PM EST Office Visit [facility] [address] [place] [phone] Shaikh Salinas MD [address] [facility] [place] [address] [facility] Start: 08-27-2023 Hemoglobin A1c measurement Diabetes: Hemoglobin A1C [facility] Start: 1985 Urine screening for protein Diabetes: Urine Protein Screening [facility] Start: 1966 Screening for malign ant neoplasm of colon [facility] Immunizations Immunization Date Immunization Notes Care Provider Fa cility 04-13-2024 tetanus toxoid, redu cedric diphtheria toxoid, and acellular pertussis vaccine, adsorbed [facility] 06-02-2021 SARS-CoV-2 (COVID-19 ) mRNA BNT-162b2 vax Cabrera OJEDA [facility] 05-12-2021 SARS-CoV-2 (COVID-19 ) mRNA BNT-162b2 vax Cabrera OJEDA [facility] 01-27-2016 tetanus toxoid, redu cedric diphtheria toxoid, and acellular pertussis vaccine, adsorbed Cabrera OJEDA [facility] Payers Date Payer Category Payer Self-pay 2022 Private Health Insurance [facility] [id number] 2022 Unknown [employer] [id number] 2022-Present [phone] [address] [address] [place] [address] [id number] 1966 Unknown [id number] 2.16.840.1.599075.3.579. 2.593 1966 Unknown [id number] 2.16.840.1.605039.3.579. 2.593 1966 Unknown [id number] 2.16.840.1.195150.3.579. 2.593 1966 Unknown [id number] 2.16.840.1.999927.3.579. 2.593 1966 Unknown [id number] 2.16.840.1.728821.3.579. 2.593 1966 Unknown [id number] 2.16.840.1.130870.3.579. 2.593 1966 Unknown [id number] 2.16.840.1.533306.3.579. 2.1259 1966 Unknown [id number] 2.16.840.1.935013.3.579. 2.1259 1966 Unknown [id number] 2.16.840.1.009656.3.579. 2.1259 1966 Unknown [id number] 2.16.840.1.696360.3.579. 2.1259 1966 Unknown [id number] 2.16.840.1.227246.3.579. 2.1259 1966 Unknown [id number] 2.16.840.1.464861.3.579. 2.727 1966 Unknown [id number] 2.16.840.1.681957.3.579. 2.727 1959 Unknown [id number] 1959 Unknown [id number] Unknown [id number] 2.16.840.1.447854.3.579. 2.531 Social History Date Type Detail Facility Start: 11-14-2022 End: 07-01-2024 Tobacco smoking status Heavy tobacco smoker (finding) [facility] Start: 09-08-2023 End: 05-07-2024 Sex Assigned At Male [facility] Start: 09-08-2023 End: 09-27-2023 Tobacco smoking status NHIS Ex-smoker [facility] Start: 08-21-2009 History of tobacco use Current smoker [facility] Start: 08-21-2009 History of tobacco use Cigarette Smoker [facility] Start: 09-08-2023 End: 05-07-2024 History of Social function [facility] Start: 1965 Sex Assigned At Male [facility] Start: 08-31-2023 Gender identity Identifies as male gender (finding) [facility] Start: 08-31-2023 Sexual orientation Heterosexual (finding) [facility] Start: 09-27-2023 End: 05-07-2024 Alcohol intake Current drinker of alcohol (finding) [facility] Start: 09-27-2023 Alcohol Comment caffeine: more than 4 cups per day [facility] History of tobacco use Passive smoker [facility] Start: 09-27-2023 End: 02-05-2024 Tobacco use and exposure Smokeless tobacco non-user [facility] Start: 11-20-2023 Tobacco smoking status NHIS Smokes tobacco daily [facility] Medical Equipment Procedure Code Equipment Code Equipment Origin al Text Equipment Identifier Dates 1 each by Other route every 12 (twelve) hours Twice a day - whatever brand is covered under patients insurance. [id number] Start: 09-27-2023 End: 04-19-2027 1 each every 12 (twelve) hours [id number] Start: 09-27-2023 End: 12-26-2023 Blood Sugar Diagnostic (Onetouch Verio Test Strips) strip Start: 04-13-2024 Lancets (Onetouc h Delica Plus Lancet) 30 gauge misc Start: 04-13-2024 Blood Sugar Diagnostic (Onetouch Verio Test Strips) strip Start: 04-13-2024 Lancets (Onetouc h Delica Plus Lancet) 30 gauge misc Start: 04-13-2024 USE DIRECTED TWICE DAILY [id number] Start: 04-01-2024 Functional Status Date Assessment Result Facility 07-01-2024 Functional Status N/A [facility] 11-14-2022 Functional Status N/A [facility] Clinical Notes 11-14-2022 to 07-01-2024 Shaikh Brad MD - 09/27/2023 3:48 PM Checo Salinas MD - 09/27/2023 3:46 PM Checo Salinas MD - 09/27/2023 3:46 PM Checo Salinas MD - 09/27/2023 3:42 PM EST Note Date & Type Note Facility 07-01-2024 Hospital Discharge instructions Patient Education 07/01/2024 15:14:29 Prostate Cancer Screening Prostate Cancer Screening Prostate cancer screening is testing that is done to check for the presence of prostate cancer in men. The prostate gland is a walnut-sized gland that is located below the bladder and in front of the rectum in males. The function of the prostate is to add fluid to semen during ejaculation. Prostate cancer is one of the most common types of cancer in men. Who should have prostate cancer screening? Screening recommendations vary based on age and other risk factors, as well as between the professional organizations who make the recommendations. In general, screening is recommended if: You are age 50 to 70 and have an average risk for prostate cancer. You should talk with your health care provider about your need for screening and how often screening should be done. Because most prostate cancers are slow growing and will not cause , screening in this age group is generally reserved for men who have a 10- to 15-year life expectancy. You are younger than age 50, and you have these risk factors: ?Having a father, brother, or uncle who has been diagnosed with prostate cancer. The risk is higher if your family member's cancer occurred at an early age or if you have multiple family members with prostate cancer at an early age. ?Being a male who is Black or is of Shant or sub-Saharan descent. In general, screening is not recommended if: You are younger than age 40. You are between the ages of 40 and 49 and you have no risk factors. You are 70 years of age or older. At this age, the risks that screening can cause are greater than the benefits that it may provide. If you are at high risk for prostate cancer, your health care provider may recommend that you have screenings more often or that you start screening at a younger age. How is screening for prostate cancer done? The recommended prostate cancer screening test is a blood test called the prostate-specific antigen (PSA) test. PSA is a protein that is made in the prostate. As you age, your prostate naturally produces more PSA. Abnormally high PSA levels may be caused by: Prostate cancer. An enlarged prostate that is not caused by cancer (benign prostatic hyperplasia, or BPH). This condition is very common in older men. A prostate gland infection (prostatitis) or urinary tract infection. Certain medicines such as male hormones (like testosterone) or other medicines that raise testosterone levels. A rectal exam may be done as part of prostate cancer screening to help provide information about the size of your prostate gland. When a rectal exam is performed, it should be done after the PSA level is drawn to avoid any effect on the results. Depending on the PSA results, you may need more tests, such as: A physical exam to check the size of your prostate gland, if not done as part of screening. Blood and imaging tests. A procedure to remove tissue samples from your prostate gland for testing (biopsy). This is the only way to know for certain if you have prostate cancer. What are the benefits of prostate cancer screening? Screening can help to identify cancer at an early stage, before symptoms start and when the cancer can be treated more easily. There is a small chance that screening may lower your risk of dying from prostate cancer. The chance is small because prostate cancer is a slow-growing cancer, and most men with prostate cancer from a different cause. What are the risks of prostate cancer screening? The main risk of prostate cancer screening is diagnosing and treating prostate cancer that would never have caused any symptoms or problems. This is called overdiagnosisand overtreatment. PSA screening cannot tell you if your PSA is high due to cancer or a different cause. A prostate biopsy is the only procedure to diagnose prostate cancer. Even the results of a biopsy may not tell you if your cancer needs to be treated. Slow-growing prostate cancer may not need any treatment other than monitoring, so diagnosing and treating it may cause unnecessary stress or other side effects. Questions to ask your health care provider When should I start prostate cancer screening? What is my risk for prostate cancer? How often do I need screening? What type of screening tests do I need? How do I get my test results? What do my results mean? Do I need treatment? Where to find more information The [place] [employer]: www.cancer.org [place] [employer]: www.auanet.org Contact a health care provider if: You have difficulty urinating. You have pain when you urinate or ejaculate. You have blood in your urine or semen. You have pain in your back or in the area of your prostate. Summary Prostate cancer is a common type of cancer in men. The prostate gland is located below the bladder and in front of the rectum. This gland adds fluid to semen during ejaculation. Prostate cancer screening may identify cancer at an early stage, when the cancer can be treated more easily and is less likely to have spread to other areas of the body. The prostate-specific antigen (PSA) test is the recommended screening test for prostate cancer, but it has associated risks. Discuss the risks and benefits of prostate cancer screening with your health care provider. If you are age 70 or older, the risks that screening can cause are greater than the benefits that it may provide. This information is not intended to replace advice given to you by your health care provider. Make sure you discuss any questions you have with your health care provider. Document Revised: 01/31/2022 Document Reviewed: 01/31/2022 [email or web address] Patient Education 2023 [employer]. Follow Up Care 03/13/2023 16:49:14 With:SUHAIL NOLASCO, Cabrera Núñez, URL Address: [facility] [address] , [place] [phone]- [phone] When: Unknown Comments:1 yr w/ CT scan [facility] 07-01-2024 Note Patient Education Oncology Prostate Cancer Screening Prostate cancer screening is testing that is done to check for the presence of prostate cancer in men. The prostate gland is a walnut-sized gland that is located below the bladder and in front of the rectum in males. The function of the prostate is to add fluid to semen during ejaculation. Prostate cancer is one of the most common types of cancer in men. Who should have prostate cancer screening? Screening recommendations vary based on age and other risk factors, as well as between the professional organizations who make the recommendations. In general, screening is recommended if: ??? You are age 50 to 70 and have an average risk for prostate cancer. You should talk with your health care provider about your need for screening and how often screening should be done. Because most prostate cancers are slow growing and will not cause , screening in this age group is generally reserved for men who have a 10- to 15-year life expectancy. ??? You are younger than age 50, and you have these risk factors: ? Having a father, brother, or uncle who has been diagnosed with prostate cancer. The risk is higher if your family member's cancer occurred at an early age or if you have multiple family members with prostate cancer at an early age. ? Being a male who is Black or is of Shant or sub-Saharan descent. In general, screening is not recommended if: ??? You are younger than age 40. ??? You are between the ages of 40 and 49 and you have no risk factors. ??? You are 70 years of age or older. At this age, the risks that screening can cause are greater than the benefits that it may provide. If you are at high risk for prostate cancer, your health care provider may recommend that you have screenings more often or that you start screening at a younger age. How is screening for prostate cancer done? The recommended prostate cancer screening test is a blood test called the prostate-specific antigen (PSA) test. PSA is a protein that is made in the prostate. As you age, your prostate naturally produces more PSA. Abnormally high PSA levels may be caused by: ??? Prostate cancer. ??? An enlarged prostate that is not caused by cancer (benign prostatic hyperplasia, or BPH). This condition is very common in older men. ??? A prostate gland infection (prostatitis) or urinary tract infection. ??? Certain medicines such as male hormones (like testosterone) or other medicines that raise testosterone levels. A rectal exam may be done as part of prostate cancer screening to help provide information about the size of your prostate gland. When a rectal exam is performed, it should be done after the PSA level is drawn to avoid any effect on the results. Depending on the PSA results, you may need more tests, such as: ??? A physical exam to check the size of your prostate gland, if not done as part of screening. ??? Blood and imaging tests. ??? A procedure to remove tissue samples from your prostate gland for testing (biopsy). This is the only way to know for certain if you have prostate cancer. What are the benefits of prostate cancer screening? Screening can help to identify cancer at an early stage, before symptoms start and when the cancer can be treated more easily. ??? There is a small chance that screening may lower your risk of dying from prostate cancer. The chance is small because prostate cancer is a slow-growing cancer, and most men with prostate cancer from a different cause. What are the risks of prostate cancer screening? The main risk of prostate cancer screening is diagnosing and treating prostate cancer that would never have caused any symptoms or problems. This is called overdiagnosisand overtreatment. PSA screening cannot tell you if your PSA is high due to cancer or a different cause. A prostate biopsy is the only procedure to diagnose prostate cancer. Even the results of a biopsy may not tell you if your cancer needs to be treated. Slow-growing prostate cancer may not need any treatment other than monitoring, so diagnosing and treating it may cause unnecessary stress or other side effects. Questions to ask your health care provider ??? When should I start prostate cancer screening? What is my risk for prostate cancer? How often do I need screening? What type of screening tests do I need? How do I get my test results? What do my results mean? Do I need treatment? Where to find more information ??? The [place] [employer]: www.cancer.org ??? [place] [employer]: www.auanet.org Contact a health care provider if: ??? You have difficulty urinating. ??? You have pain when you urinate or ejaculate. ??? You have blood in your urine or semen. ??? You have pain in your back or in the area of your prostate. Summary ??? Prostate cancer is a common type of cancer in men. The prostate gland (more content not included)... [facility] 03-27-2024 Note [place] [facility] Subjective Evaristo Lowery is a 59 y.o. year old male patient being seen for follow up TBH and stress test. He was seen as inpatient consult by Saima Jacques CNP during admission. Says chest pain has resolved but his HR has been all over the place. Demetria Vidal CNP started him on digoxin last month [...] February 2024 he was admitted to the [facility] with episode of left-sided chest pain [...] chew, or split., (more content not included)... [facility] 02-27-2024 Note Q 6months device int errogation Battery life 2.2 years, device working appropriately, leads stable, 1 episode of Sinus tach 155 bpm. [facility] 02-27-2024 Note HTN currently well c ontrolled Continue all meds- coreg, entresto, aldactone [facility] 02-27-2024 Note Heart failure is unc hanged. NYHA Class II. Medication changes per orders. Heart failure will be reassessed in 6 months. Continue GDMT- ASA, lipitor, coreg, jardiance, zetia, entresto aldactone and will add digoxin for better heart rate management- Reviewed device interrogation from Sep 2023 and average heart rate ranged from 80-100 bpm Repeat BMP and digoxin level in 1-2 weeks [facility] 02-27-2024 Note Patient here for 6 m o follow up chronic systolic heart failure, CAD, and hypertension. ICD was interrogated in Sep 2023. He had routine labs with lipid profile last month. Says his heart rate has been around 100 lately. He denies chest pain, SOB, palpitations, and lightheadedness/syncope. Review of Systems All other systems reviewed and are negative. [facility] 02-27-2024 Note [facility] C[facility] PROGR ESS NOTE [...] lasting 2 sec (more content not included)... [facility] 02-27-2024 Note Lipid abnormalities are unchanged/ well controlled. Pharmacotherapy as ordered. Continue lipitor and zetia [facility] 02-27-2024 Note Coronary artery dise ase is stable Continue GDMT continue risk factor modifications- heart healthy diet, regular exercise as tolerated and continue all medications. [facility] 02-27-2024 Note NYHC II- currently e uvolemic without exacerbation Heart rate 80-100 bpm Continue GDMT- add digoxin for heart rate management and goal is 60-80 bom and he voiced understanding. Continue all meds Diuretic therapy- jardiance and aldactone Monitor daily weights, I&O, fluid restriction 1.5-2L/day, renal function and electrolytes [facility] 09-27-2023 History of Present illness Narrative Associated [...] hypoglycemia. Associated Problem(s): Chronic systolic heart failure ([facility]) Stable, on GDMT. No evidence of fluid overload. Does not require Loop diuretic. No recent office/hospital visit for CHF exacerbation. Following [facility] cardiology. Associated Problem(s): Essential hypertension ([facility]) BP well controlled. On average less than [...] weeks (around 10/25/2023). documented in this encounter [facility] 08-01-2023 Note [place] [facility] Subjective Evaristo Lowery is a 58 [...] No pericardial effus (more content not included)... [facility] 11-14-2022 Hospital Discharge instructions Patient Education 11/14/2022 [...] provider gives to you. In general: Take brag-ieq-hezppun and prescription medicines only as told by [...] 03/04/2015 Document Revised: 09/13/2018 Document Reviewed: 09/13/2018 Elsevier Patient Education 2020 [employer] Inc. Follow Up Care 10/11/2022 10:10:39 With:Cabrera OJEDA MD, URL Address: [facility] [address], [place] [address]- When: Unknown [facility] Evaluation + Plan note Future Appointments Appointment Date:03/13/2023 02:30:00 PM Scheduled Provider:Cabrera OJEDA MD Location:[facility] Appointment Type:URO Office Visit [facility] Evaluation + Plan note Future Appointments Appointment Date:07/07/2025 02:45:00 PM Scheduled Provider:Cabrera OJEDA MD Location:[facility] Appointment Type:URO Office Visit [facility] Evaluation note Diagnosis Essential hypertension (CMS/HCC)- Primary Unspecified essential hypertension Chronic systolic heart failure (CMS/HCC) Chronic systolic heart failure Type 2 diabetes mellitus without complication, without long-term current use of insulin (CMS/HCC) Hyperlipidemia, unspecified hyperlipidemia type (CMS/HCC) Wellness examination [facility] Diagnosis Onset Date Resolution Status Scalp laceration acute [facility] Work Phone: Evaluation note* Diagnosis Essential hypertension (CMS/HCC)- Primary Unspecified essential hypertension Chronic systolic heart failure (CMS/HCC) Chronic systolic heart failure Type 2 diabetes mellitus without complication, without long-term current use of insulin (CMS/HCC) Hyperlipidemia, unspecified hyperlipidemia type (CMS/HCC) Wellness examination Essential hypertension (CMS/HCC)- Primary Unspecified essential hypertension Chronic systolic heart failure (CMS/HCC) Chronic systolic heart failure Type 2 diabetes mellitus without complication, without long-term current use of insulin (CMS/HCC) Hyperlipidemia, unspecified hyperlipidemia type (CMS/HCC) Chronic allergic rhinitis Encounter for screening for malignant neoplasm of colon Morbid (severe) obesity due to excess calories (E66.01)- Primary Body mass index [BMI] 40.0-44.9, adult (Z68.41) Respiratory illness Essential hypertension (CMS/HCC)- Primary Unspecified essential hypertension Type 2 diabetes mellitus without complication, without long-term current use of insulin (CMS/HCC) Morbid (severe) obesity due to excess calories (E66.01) Type 2 diabetes mellitus without complication, without long-term current use of insulin (CMS/HCC)- Primary Essential hypertension (CMS/HCC) Unspecified essential hypertension Morbid (severe) obesity due to excess calories (E66.01) Hyperlipidemia, unspecified hyperlipidemia type (CMS/HCC) Chronic systolic heart failure (CMS/HCC) Chronic systolic heart failure [facility] Narrative No data available for this section [facility] progress note No data available for this section [facility] Summary Purpose Family History No Family History Records FoundNo Family History Records FoundNo Family History Records FoundNo Family History Records Found No data available for this section No Family History Records Found Advance Directives No [...] and content) DATE CREATED AUTHOR 10/20/2022 [facility] DATE CREATED AUTHOR AUTHOR'S ORGANIZ ATION 01/04/2023 [facility] DATE CREATED AUTHOR AUTHOR'S ORGANIZ ATION 05/01/2024 [facility] DATE CREATED AUTHOR AUTHOR'S ORGANIZ ATION 05/09/2024 [facility] DATE CREATED AUTHOR AUTHOR'S ORGANIZ ATION 07/03/2024 [facility] Patient Care team informatio n (unrecognized section and content) Variety Saw Operator Relationship Specialty Start Date End Date Shaikh Salinas MD [address] [place] [address] PCP - General Internal Medicine 09/08/23 Variety Saw Operator Relationship Specialty Start Date End Date Shaikh Salinas MD [address] [place] [phone] PCP - General Internal Medicine 09/08/23 Variety Saw Operator Relationship Specialty Start Date End Date Shaikh Salinas MD [address] [place] [phone] PCP - General Internal Medicine 09/08/23 Team Status: Active Member Role Status Dates NON STAFF Primary Care Provider Active Team Status: Inactive Member Role Status Dates Catrahcita Santo APRN Attending Provider Active Start: April 13, 2024 End: April 13, 2024 NON STAFF Primary Care Provider Active Start: April 13, 2024 End: April 13, 2024 Team Status: Inactive Member Role Status Dates NON STAFF Primary Care Provider Active Start: April 23, 2024 End: April 23, 2024 Shirley Larose APRN Attending Provider Active Start: April 23, 2024 End: April 23, 2024 Variety Saw Operator Relationship Specialty Start Date End Date Miah Saenz MD [address] [place] [phone] PCP - General Family Medicine 03/28/24 Raymond Stearns NP [address] [place] [address] Nurse Practitioner Family Medicine 03/28/24 Variety Saw Operator Relationship Specialty Start Date End Date Unallocated, Blair Watt MD [address] [place] [address] PCP - General Family Medicine 06/10/24 Raymond Stearns NP [address] [place] [address] Nurse Practitioner Family Medicine 03/28/24 Reason for Visit (unrecogniz ed section and content) Reason Comments Annual Exam Reason Comments Med Refill Goals (unrecognized section and content) Goals may [...] BE BASED ON THE PRIMARY CLINICAL RECORDS. [employer] provides no warranty or guarantee of the accuracy or completeness of information in this document.
[2024-07-04 17:07] LABS: Prostate Specific Antigen Scrn 0.88 ng/mL (<=4.00)
== END 2024-07-04 16:01 | disposition home or self-care (01) ==
PROVIDERS: Visit Provider Urology
DX: Z12.5 Encounter for screening for malignant neoplasm of prostate (principal)
CPT/HCPCS: 36415; G0103

== ENCOUNTER 2025-05-13 13:16 | Outpatient (OUT) | payer OTHER, SELFPAY ==
--- OUTSIDE RECORDS SUMMARY | 2025-05-13 13:20 | XMS_ITS | Encounter Summary ---
Author Organization [facility] Address [address] [place] [address] Care Team Providers Care Vocational Training Director Name Role Phone Mariella Stearns RUBBER VULCANIZING MACHINE OPERATOR Unavailable [phone] Miah Saenz MD Primary Care Provider [phone] Encounter Details Date Type Department Care Team (Late st Contact Info) Description 02/03/2025 Abstract [facility] [address] [place] [address] Miah Saenz MD [address] [place] [address] Social History Tobacco Use Types Packs/Day Years Used Date Smoking Tobacco: Every Day Cigarettes 0.5 1.5 Started: 11/20/2023 Passive Smoke Exposure: Past Smokeless Tobacco: Never Alcohol Use Standard Drinks/Week Comments Yes 0 (1 standard drink = 0.6 oz pure alcohol) caffeine: more than 4 cups per day B1300 Health Literacy Answer Date Recor ded How often do you need to hav e someone help you when you read instructions, pamphlets, or other written material from your doctor or pharmacy? Never 08/31/2024 Social Connection and Isolat ion Panel [NHANES] Answer Date Recorded In a typical week, how many times do you talk on the phone with family, friends, or neighbors? More than three times a week 08/31/2024 How often do you get togethe r with friends or relatives? More than three times a week 08/31/2024 How often do you attend [facility] or confucianist services? 1 to 4 times per year 08/31/2024 Do you belong to any clubs o r organizations such as mu-ism groups, unions, fraternal or athletic groups, or school groups? No 08/31/2024 How often do you attend meet ings of the clubs or organizations you belong to? Never 08/31/2024 Are you , , di vorced, , never , or living with a partner? 08/31/2024 AUDIT-C Answer Date Recorded Q1: How often do you have a drink containing alc ohol? 2-4 times a month 08/31/2024 Q2: How many drinks containi ng alcohol do you have on a typical day when you are drinking? 1 or 2 08/31/2024 Q3: How often do you have si x or more drinks on one occasion? Less than monthly 08/31/2024 Overall Financial Resource Strain (CARDIA) Answe r Date Recorded How hard is it for you to pa y for the very basics like food, housing, medical care, and heating? Not hard at all 08/31/2024 PHQ-2 Answer Date Recorded Patient Health Questionnaire-2 Score 0 02/05/2024 [facility] - Occupational Stress Questionnaire Answer Date Recorded Do you feel stress - tense, restless, nervous, or anxious, or unable to sleep at night because your mind is troubled all the time - these days? Not at all 08/31/2024 Exercise Vital Sign Answer Date Recorde d On average, how many days pe r week do you engage in moderate to strenuous exercise (like a brisk walk)? 3 days 08/31/2024 On average, how many minutes do you engage in exercise at this level? 30 min 08/31/2024 Hunger Vital Sign Answer Date Recorded Within the past 12 months, y ou worried that your food would run out before you got the money to buy more. Never true 08/31/19 25 Within the past 12 months, t he food you bought just didn't last and you didn't have money to get more. Never true 08/31/2024 PRAPARE - Transportation Answer Date Re corded In the past 12 months, has l ack of transportation kept you from medical appointments or from getting medications? No 08/21 In the past 12 months, has l ack of transportation kept you from meetings, work, or from getting things needed for daily living? No 08/31/2024 Housing Stability Vital Sign Answer Gaudencio e Recorded In the last 12 months, was t here a time when you were not able to pay the mortgage or rent on time? No 08/31/2024 In the past 12 months, how m any times have you moved where you were living? 0 08/31/2024 At any time in the past 12 m [facility], were you homeless or living in a [place] (including now)? No 08/31/2024 Sex and Gender Information Value Date Recorded Sex Assigned at Male 08/31/2023 3:11 PM EST Legal Sex Male 6:48 PM EDT Gender Identity Male 08/31/2023 3:11 PM EST Sexual Orientation Straight 08/31/2023 3: 13 PM EST documented as of this encounter Plan of Treatment Not on file documented as of this encounter Visit Diagnoses Not on filedocumented in this encounter Care Teams Vocational Training Director Relationship Specialty Start Date End Date Miah Saenz MD PCP - General Family Medicine 06/20/24 Mariella Stearns NP Nurse Practitioner Family Medicine 03/28/24 documented as of this encounter
--- OUTSIDE RECORDS SUMMARY | 2025-05-13 13:20 | XMS_ITS | Encounter Summary ---
Author Organization [facility] Address [address] [place] [address] Care Team Providers Care Slate Cutter Name Role Phone Shaikh GAURAV Salinas Primary Care Provider Miah Saenz MD Primary Care Provider [phone] Mariella Stearns DRUG SAFETY PHYSICIAN Unavailable [phone] Unallocated, [facility] Provider Primary Care Provi annette Miah Saenz MD Primary Care Provider [phone] Encounter Details Date Type Department Care Team (Late st Contact Info) Description 03/12/2024 Orders Only [facility] [address] [facility] [place] [phone] Juan David Mtz MD [address] [place] [address] Social History Tobacco Use Types Packs/Day Years Used Date Smoking Tobacco: Every Day Cigarettes 0.5 1.5 Started: 11/20/2023 Passive Smoke Exposure: Past Smokeless Tobacco: Never Alcohol Use Standard Drinks/Week Comments Yes 0 (1 standard drink = 0.6 oz pure alcohol) caffeine: more than 4 cups per day PHQ-2 Answer Date Recorded Patient Health Questionnaire-2 Score 0 02/05/2024 Sex and Gender Information Value Date Recorded Sex Assigned at Male 08/31/2023 3:11 PM EST Legal Sex Male 6:48 PM EDT Gender Identity Male 08/31/2023 3:11 PM EST Sexual Orientation Straight 08/31/2023 3: 13 PM EST documented as of this encounter Plan of Treatment Not on file documented as of this encounter Procedures Procedure Name Priority Date/Time Associated Diagnosis Comments ECHO TRANSTHORACIC W/ DOPPLER Routine 03/05/2024 1:38 PM EDT documented in this encounter Results * ECHO TRANSTHORACIC W/ DOPPLER (03/05/2024 1:38 PM EDT) Anatomical Region Laterality Modality Radiographic Irene ging us Juan David Mtz MD IMG XR PROCEDURES Final Result documented in this encounter Visit Diagnoses Not on filedocumented in this encounter Care Teams Slate Cutter Relationship Specialty Start Date End Date Shaikh Salinas MD [address] [place] [phone] PCP - General Internal Medicine 09/08/23 03/27/24 Miah Saenz MD [address] [place] [phone] PCP - General Family Medicine 03/28/24 06/09/24 Unallocated, [facility] Provider, [address] [place] [address] PCP - General Family Medicine 06/10/24 06/19/24 Miah Saenz MD [address] [place] [address] PCP - General Family Medicine 06/20/24 Mariella Stearns NP [address] [place] [address] Nurse Practitioner Family Medicine 03/28/24 documented as of this encounter
--- OUTSIDE RECORDS SUMMARY | 2025-05-13 13:20 | XMS_ITS | Encounter Summary ---
Author Organization [facility] Address [address] [place] [address] Care Team Providers Care Top Lift Compressor Name Role Phone Mariella Stearns PRESSER AND BLOCKER [employer]ED GOODS Unavailable [phone] Miah Saenz MD Primary Care Provider [phone] Encounter Details Date Type Department Care Team (Late st Contact Info) Description 01/27/2025 Abstract [facility] [address] [place] [address] Miah Saenz MD [address] [place] [address] Social History Tobacco Use Types Packs/Day Years [...] week 08/31/2024 How often do you attend [facility] or rastafarian services? 1 to 4 times per year 08/31/2024 Do you belong to any clubs o r organizations such as mandaen groups, unions, fraternal or athletic groups, or [...] Recorded Patient Health Questionnaire-2 Score 0 02/05/2024 [facility] - Occupational Stress [...] any time in the past 12 m [facility], were you homeless or living in a fdc (including now)? No 08/31/2024 Sex and Gender [...] on filedocumented in this encounter Care Teams Top Lift Compressor Relationship Specialty Start Date End Date Miah Saenz MD PCP - General Family Medicine 06/20/24 Mariella Stearns NP Nurse Practitioner Family Medicine 03/28/24 documented as of this encounter
--- OUTSIDE RECORDS SUMMARY | 2025-05-13 13:20 | XMS_ITS | Encounter Summary ---
Author Organization [facility] Address [address] [place] [address] Care Team Providers Care Cab Starter Name Role Phone Miah Saenz MD Primary Care Provider [phone] Mariella Stearns NURSING FACULTY Unavailable [phone] Unallocated, [facility] Provider Primary Care Provi annette Miah Saenz MD Primary Care Provider [phone] Reason for Visit * Reason Comments Med Refill Encounter Details Date Type Department Care Team (Late st Contact Info) Description 04/07/2024 Refill [facility] [address] [place] [address] Shaikh Salinas MD [address] [place] [address] Chronic systolic heart failure (HCC) Social History Tobacco Use Types Packs/Day Years [...] documented as of this encounter Visit Diagnoses Diagnosis Chronic systolic heart failure (HCC) Chronic systolic heart failure documented in this encounter Care Teams Cab Starter Relationship Specialty Start Date End Date Miah Saenz MD PCP - General Family Medicine 03/28/24 06/09/24 Unallocated, [place] [address] [place] [address] PCP - General Family Medicine 06/10/24 06/19/24 Miah Saenz MD PCP - General Family Medicine 06/20/24 Mariella Stearns NP Nurse Practitioner Family Medicine 03/28/24 documented as of this encounter
--- OUTSIDE RECORDS SUMMARY | 2025-05-13 13:20 | XMS_ITS | Encounter Summary ---
Author Organization [facility] Address [address] [place] [address] Care Team Providers Care Sponge Clipper Name Role Phone Mariella Stearns STACK CLERK Unavailable [phone] Miah Saenz MD Primary Care Provider [phone] Encounter Details Date Type Department Care Team (Late st Contact Info) Description 02/03/2025 Abstract [facility] [address] [place] [address] Carolina Kenney NP [address] [place] [address] Social History Tobacco Use Types Packs/Day Years [...] week 08/31/2024 How often do you attend chur ch or restoration services? 1 to 4 times per year 08/31/2024 Do you belong to any clubs o r organizations such as episcopalian groups, unions, fraternal or athletic groups, or [...] Recorded Patient Health Questionnaire-2 Score 0 02/05/2024 [facility] - Occupational [...] any time in the past 12 m [facility], were you homeless or living in a half-way (including now)? No 08/31/2024 Sex and Gender [...] on filedocumented in this encounter Care Teams Sponge Clipper Relationship Specialty Start Date End Date Miah Saenz MD PCP - General Family Medicine 06/20/24 Mariella Stearns NP Nurse Practitioner Family Medicine 03/28/24 documented as of this encounter
--- OUTSIDE RECORDS SUMMARY | 2025-05-13 13:20 | XMS_ITS | Encounter Summary ---
Author Organization [facility] Address [address] [place] [address] Care Team Providers Care Document Clerk Name Role Phone Mariella Stearns ENVIRONMENTAL TECHNICIAN Unavailable [phone] Unallocated, [facility] Provider Primary Care Provi annette Miah Saenz MD Primary Care Provider [phone] Reason for Visit * Reason Onset Date Comments Med Refill 06/10/2024 Encounter Details Date Type Department Care Team (Late st Contact Info) Description 06/10/2024 [facility]ill [facility] [address] [facility] [place] [address] Shaikh Salinas MD [address] [facility] [address] [address] Type 2 diabetes mellitus without complication, without long-term current use of insulin (HCC) Social History Tobacco Use Types Packs/Day [...] PM EST documented as of this encounter Miscellaneous Notes * Telephone Encounter - Nicole Donato MA - 06/11/2024 2:02 PM EDT Pt is taking the Ozempic 1mg now. documented in this encounter Plan of Treatment Not on file documented as of this encounter Visit Diagnoses Diagnosis Type 2 diabetes mellitus without complication, without long-term current use of insulin (HCC) documented in this encounter Care Teams Document Clerk Relationship Specialty Start Date End Date Unallocated, Noms Shukri, [address] [place] [address] PCP - General Family Medicine 06/10/24 06/19/24 Miah Saenz MD [address] [place] [address] PCP - General Family Medicine 06/20/24 Mariella Stearns NP Nurse Practitioner Family Medicine 03/28/24 documented as of this encounter
--- OUTSIDE RECORDS SUMMARY | 2025-05-13 13:20 | XMS_ITS | Encounter Summary ---
Author Organization [facility] Address [address] [place] [address] Care Team Providers Care Product Support Manager Name Role Phone Shaikh GAURAV Salinas Primary Care Provider [phone] Miah Saenz MD Primary Care Provider [phone] Mariella Stearns SEROLOGY TEACHER Unavailable [phone] Unallocated, [facility] Provider Primary Care Provi annette Miah Saenz MD Primary Care Provider [phone] Encounter Details Date Type Department Care Team (Late st Contact Info) Description 03/06/2024 Orders Only [facility] [address] [place] [address] Shaikh Salinas MD [address] [place] [address] Social History Tobacco Use Types Packs/Day Years [...] Procedure Name Priority Date/Time Associated Diagnosis Comments XR CHEST 1 VIEW Routine 03/06/2024 10:26 AM EDT documented in this encounter Results * XR chest 1 view (03/06/2024 10:26 AM EDT) Anatomical Region Laterality Modality Chest Radiographic Irene ging Shaikh Brad NOLASCO IMG XR PROCEDURES Final Result documented in this encounter Visit Diagnoses Not on filedocumented in this encounter Care Teams Product Support Manager Relationship Specialty Start Date End Date Shaikh Salinas MD [address] [place] [address] PCP - General Internal Medicine 09/08/23 03/27/24 Miah Saenz MD [address] [place] [address] PCP - General Family Medicine 03/28/24 06/09/24 Unallocated, Blair Watt MD [facility] [place] [address] PCP - General Family Medicine 06/10/24 06/19/24 Miah Saenz MD [address] [place] [address] PCP - General Family Medicine 06/20/24 Mariella Stearns NP [address] [place] [address] Nurse Practitioner Family Medicine 03/28/24 documented as of this encounter
--- OUTSIDE RECORDS SUMMARY | 2025-05-13 13:20 | XMS_ITS | Clinical Summary ---
Author Organization [facility] Address [address] [place] [address] Care Team Providers Care Director Counseling Bureau Name Role Phone Shaikh GAURAV Salinas Primary Care Provider [phone] Allergies No known active allergies Medications aspirin 81 mg EC tablet in the morning. Acti ve carvedilol (Coreg) 25 mg tablet Take 25 mg by mouth with breakfast and with evening meal. In addition to 6.25mg tablets BID Active metFORMIN (Glucophage) 500 mg tablet Take 1,000 mg by mouth with breakfast and with evening meal. Active sacubitriL-valsa rtan (Entresto) 49-51 mg tablet Take 0.5 tablets by mouth in the morning and at bedtime. Active empagliflozin (Jardiance) 10 mgIndications:Ch ronic systolic congestive heart failure (CMS/HCC) Jardiance 10 mg tablet TAKE 1 TABLET BY MOUTH EVERY DAY 90 tablet 3 3 Active Additional Information Patient taking differently: 25 mg oral Once Daily, TAKE 1 TABLET BY MOUTH EVERY DAY, Reported on 10/10/2024 semaglutide (Ozempic) 1 mg/dose (4 mg/3 mL) pen injector Inject 1 mg under the skin. 4 Active cholecalciferol (Vitamin D-3) 25 MCG (1000 units) tablet Take 1,000 Units by mouth in the morning. Active spironolactone (Aldactone) 25 mg tabletIndication s:Congestive heart failure, unspecified HF chronicity, unspecified heart failure type (CMS/HCC) TAKE 1/2 TABLET BY MOUTH EVERY DAY 45 tablet 3 5 Active ezetimibe (Zetia) 10 mg tabletIndication s:Congestive heart failure, unspecified HF chronicity, unspecified heart failure type (CMS/HCC) TAKE 1 TABLET BY MOUTH EVERY DAY 90 tablet 3 5 Active carvedilol (Coreg) 12.5 mg tabletIndication s:Chronic systolic congestive heart failure (CMS/HCC) Take 1 tablet (12.5 mg) by mouth with breakfast and with evening meal. 180 tablet 3 5 10/10/19 26 Active digoxin (Lanoxin) 250 MCG tab;etIndication s:Chronic systolic congestive heart failure (CMS/HCC) Take 1 tablet (250 mcg) by mouth in the morning. 90 tablet 3 5 10/10/19 26 Active atorvastatin (Lipitor) 80 mg tabletIndication s:Coronary artery disease due to lipid rich plaque TAKE 1 TABLET BY MOUTH EVERY DAY 90 tablet 3 5 Active Active Problems Problem Noted Date Diagnosed Date Acute non-recurrent pansinusitis 12/30/2024 Tobacco user 10/10/2024 Body mass index (BMI) 40.0-44.9, adult 4 Overview (02/27/2024): Last Assessment & Plan: Recommended weight loss. Will address in detail next appt. Morbid (severe) obesity due to excess calories 0 12/20/2023 Overview (02/27/2024): Last Assessment & Plan: Recommended weight loss. Started on Ozempic to help with weight loss Counseled on lifestyle measures and dietary modifications Respiratory illness 12/20/2023 Overview (02/27/2024): Last Assessment & Plan: Has chronic allergies - but now complaining of chest congestion and tightness. Rales on exam in RLL. C/w Zyrtec-D along with mucinex. Will call in oral azithromycin for possible bacterial PNA due based on abnormal lung exam. No need for CXR as no evidence of resp distresss. If persistent symptoms, or no improvement, will reassess and order an XR. Chronic allergic rhinitis 11/07/2023 Overview (02/27/2024): Last Assessment & Plan: Reports nasal/sinus congestion. No fever, chills, cough. Has chronic post nasal drip. Likely chronic rhinitis. Will start on flonase and daily antihistamine with decongestant. Kidney mass 08/01/2023 08/01/2023 Diabetes mellitus 07/26/2022 Dizziness 07/26/2022 BPH (benign prostatic hyperplasia) 03/25/2022 08/01/2023 Chronic systolic heart failure 04/28/2021 Overview (07/27/2022): Images from the original note were not included. 11/16/20 Echo Assessment & Plan (02/27/2024 2:40 PM EDT): [place] II- currently euvolemic without exacerbation Heart rate 80-100 bpm Continue GDMT- add digoxin for heart rate management and goal is 60-80 bom and he voiced understanding. Continue all meds Diuretic therapy- jardiance and aldactone Monitor daily weights, I&O, fluid restriction 1.5-2L/day, renal function and electrolytes Assessment & Plan (07/27/2022 10:41 AM EST): Images from the original note were not included. [facility] II Euvolemic without exacerbation I feel [...] fluid restriction 1.5-2L/day, renal function and electrolytes- Dyspnea 07/31/2014 Hyperhidrosis 07/31/2014 Disorder of lipid metabolism 07/30/2014 Primary cardiomyopathy 05/19/2014 Assessment & Plan (02/27/2024 2:38 PM EDT): Heart failure is unchanged. NYHA Class II. Medication changes per orders. Heart failure will be reassessed in 6 months. Continue GDMT- ASA, lipitor, coreg, jardiance, zetia, entresto aldactone and will add digoxin for better heart rate management- Reviewed device interrogation from Sep 2023 and average heart rate ranged from 80-100 bpm Repeat BMP and digoxin level in 1-2 weeks Assessment & Plan (07/27/2022 9:47 AM EST): As above Implantable cardioverter-defibrillator (ICD) in situ 07/31/2013 Assessment & Plan (02/27/2024 2:42 PM EDT): Q 6months device interrogation Battery life 2.2 years, device working appropriately, leads stable, 1 episode of Sinus tach 155 bpm. Bronchitis 07/18/2012 Hyperlipidemia 07/18/2012 Assessment & Plan (02/27/2024 2:38 PM EDT): Lipid abnormalities are unchanged/ well controlled. Pharmacotherapy as ordered. Continue lipitor and zetia Assessment & Plan (07/27/2022 9:46 AM EST): Continue lipitor Well adult health check 07/18/2012 Chest pain 07/17/2012 Coronary atherosclerosis 07/17/2012 Assessment & Plan (02/27/2024 2:39 PM EDT): Coronary artery disease is stable Continue GDMT continue risk factor modifications- heart healthy diet, regular exercise as tolerated and continue all medications. Assessment & Plan (07/27/2022 10:39 AM EST): Coronary artery disease is Continue GDMT- ASA, lipitor and zetia continue risk factor modifications- heart healthy diet, regular exercise as tolerated and continue all medications. Benign hypertensive cardiomyopathy with heart fa ilure 07/17/2012 Assessment & Plan (02/27/2024 2:40 PM EDT): HTN currently well controlled Continue all meds- coreg, entresto, aldactone Assessment & Plan (07/27/2022 10:39 AM EST): Hypertension is well controlled 123/80 Continue all meds Essential hypertension 07/17/2012 Overview (02/27/2024): Last Assessment & Plan: Hypertension is well controlled 123/80 Continue all meds Last Assessment & Plan: BP well controlled. On average less than 130/90. Tolerating Anti hypertensive w/o adverse effects. C/w Coreg, Entresto, Aldactone. Encounters Date Type Department Care Team Description 03/01/2025 Refill [facility] [address] [place] [phone] Flower Vera, DAPHNEY Coronary artery disease due to lipid rich plaque (Primary Dx) from Last 3 Months Family History Medical History Relation Name Comments Heart attack Maternal Grandfather Diabetes Maternal Grandmother Heart disease Paternal Grandfather Diabetes Paternal Grandmother Relation Name Status Comments Maternal Grandfather Maternal Grandmother Paternal Grandfather Paternal Grandmother Social History Tobacco Use Types Packs/Day Years Used Date Smoking Tobacco: Former Cigarettes Smokeless Tobacco: Never Tobacco Cessation:Counseling Given: Not Answered [place] Safety & Environment Answer Date Rec orded Fear of Current or Ex-Partner Not on file Emotionally Abused Not on file 10/12/2023 Physically Abused Not on file 10/12/2023 Sexually Abused Not on file 10/12/2023 Physically or Sexually Abused Not on file Sex and Gender Information Value Date Recorded Sex Assigned at Male 05/09/2025 3:13 PM EDT Legal Sex Male 9:33 PM EDT Gender Identity Male 05/09/2025 3:13 PM EDT Sexual Orientation Heterosexual or Straight 04/21 3:13 PM EDT Last Filed Vital Signs Vital Sign Reading Time Taken Comments Blood Pressure 112/74 10/10/2024 3:49 PM EST Pulse 94 10/10/2024 3:49 PM EST Temperature - - Respiratory Rate - - Oxygen Saturation 97% 10/10/2024 3:49 PM EST Inhaled Oxygen Concentration - - Weight 85.7 kg (189 lb) 10/10/2024 3:49 PM EST Height 160 cm (5' 3 ) 10/10/2024 3:49 PM EST Body Mass Index 33.48 10/10/2024 3:49 PM EST Plan of Treatment Upcoming Encounters Date Type Department Care Team (Late st Contact Info) Description 05/13/2025 1:45 PM EDT Ancillary Procedure [facility] [address] [place] [phone] 05/13/2025 2:15 PM EDT Office Visit [facility] [address] [place] [phone] Colten Tatum MD [address] [place] [address] Health Maintenance Due Date Last Done Comments CT Colonography 1966 Colonoscopy 1966 Diabetes: Hemoglobin A1C 1966 FOBT 1966 Sigmoidoscopy 1966 Diabetes: Retinopathy Screening 1976 Depression Screening 1978 Diabetes: Urine Protein Screening 1985 Hepatitis B Vaccines (1 of 3 - 19+ 3-dose series) 1985 Pneumococcal Vaccine: Pediatrics (0 to 5 Years) and At-Risk Patients (6 to 64 Years) (1 of 2 - PCV) 1985 Zoster Vaccines (1 of 2) 2016 FIT 11/22/2024 11/23/2023 COVID-19 Vaccine (3 - 2024-2 6 season) 2025 06/02/2021, 05/12/2021 Influenza Vaccine (#1) 2025 Colorectal Cancer Screening 11/22/2026 FIT-DNA 11/22/2026 11/23/2023 Adult Tetanus 04/13/2034 04/13/2024, 01/27/2016 HIB Vaccines Aged Out No longer eligi ble based on patient's age to complete this topic HPV Vaccines Aged Out No longer eligi ble based on patient's age to complete this topic IPV Vaccines Aged Out No longer eligi ble based on patient's age to complete this topic Meningococcal B Vaccine Aged Out No l onger eligible based on patient's age to complete this topic Meningococcal Vaccine Aged Out No hanna darwin eligible based on patient's age to complete this topic Rotavirus Vaccines Aged Out No longer eligible based on patient's age to complete this topic Insurance [facility] Care Teams Director Counseling Bureau Relationship Specialty Start Date End Date Shaikh Salinas MD PCP - General Family Medicine 02/27/24
--- OUTSIDE RECORDS SUMMARY | 2025-05-13 13:20 | XMS_ITS | Encounter Summary ---
Author Organization [facility] Address [address] [place] [address] Care Team Providers Care Liquid Chlorine Operator Name Role Phone Shaikh GAURAV Salinas Primary Care Provider [phone] Miah Saenz MD Primary Care Provider Mariella Stearns PROJECT TECHNICIAN Unavailable [phone] Unallocated, Noms Provider Primary Care Provi annette Miah Saenz MD Primary Care Provider [phone] Encounter Details Date Type Department Care Team (Late st Contact Info) Description 03/20/2024 Clinisync Result Encounter [facility] External Department Unsolicited Provider, Generic External Data Social History Tobacco Use Types Packs/Day Years [...] Procedure Name Priority Date/Time Associated Diagnosis Comments NM EZ PERF SPECT REST STR 03/20/2024 3:03 PM EDT documented in this encounter Results * NM EZ PERF SPECT REST STR (03/20/2024 3:03 PM EDT) Anatomical Region Laterality Modality Other 03/20/2024 3:03 PM EDT Narrative 03/20/2024 3:04 [place] [address] Nuclear Medicine Report Signed Patient: EVARISTO CUNNINGHAM MR#: [id number] : 1965 Acct:[id number] Age/Sex: 58 / M ADM Date: 03/20/24 Loc: [place] Attending Dr: SAIMA ALCANTARA APRN Ordering Physician: SAIMA ALCANTARA APRN Date of Service: 03/20/24 Procedure(s): NM ez perf SPECT rest str Accession Number(s): [id number] cc: Shaikh Reji Salinas; SAIMA ALCANTARA APRN Patient Name: EVARISTO CUNNINGHAM MR#: [id number] : 1965 Exam Date: 03/20/2024 Ordering Doctor: SAIMA ALCANTARA CNP RADIOLOGY REPORT PROCEDURE: NM EZ PERF SPECT REST STR COMPARISON: None. INDICATIONS: CHEST PAIN TECHNIQUE: Exam Description: Stress/Rest one day protocol gated SPECT Rest Imagin.0 mCi Tc-99m Cardiolite IV on 03/20/2024 Stress Imaging 31.0 mCi Tc-99m Cardiolite IV on 03/20/2024 Exercise Protocol: 0.4 mg Lexiscan given IV Heart Rate (bpm): Rest: 82 Max: 110 PMHR: 67 Blood Pressure: Rest: 112/74 Max: 118/68 Symptoms: Rest and peak stress ECG findings were pending and the exercise portion of the study was pending per attending physician Dr. MERRILL . For more details please see separate cardiac stress test report. FINDINGS: QUALITY OF STUDY: Good. PERFUSION DEFECT: LOCATION: Basal anterior. Basal anterolateral. Mid-anterior. Mid-anteroseptal. Apical anterior. [place]. SIZE: Large (5 or more segments). SEVERITY: Severe. TYPE: Persistent. WALL MOTION: Severe hypokinesis: LV SIZE: 215 mL. TID / TCD: None; 0.9 LVEF: Abnormal. Calculated EF 31%. SUMMARY: Myocardial perfusion imaging study has ABNORMAL findings. CONCLUSION: 1. Large transmural infarct in the anterior wall, LAD distribution 2. No reversible ischemia 3. Dilated left ventricle, end-diastolic volume 2 in 15 milliliters 4. Low left ventricular ejection fraction of 31% Dictated by: Castillo Ron MD on 03/20/2024 at 15:01 Approved by: Castillo Ron MD on 03/20/2024 at 15:03 Dictated By: Castillo Ron M.D. Signed By: 03/20/24 1504 DD/ 1503 TD/TT: Tying Machine Operator Lumber: Procedure Note Radiology, Radiologist, - 03/20/2024 [place] [address] Nuclear Medicine Report Signed Patient: EVARISTO CUNNINGHAM WMR#: [id number] : 1965Acct:[id number] Age/Sex: 58 / MADM Date: 03/20/24 Loc: [place] Attending Dr: SAIMA ALCANTARA APRN Ordering Physician: SAIMA ALCANTARA APRN Date of Service: 03/20/24 Procedure(s): NM ez perf SPECT rest str Accession Number(s): [id number] cc: Shaikh Reji Salinas; SAIMA ALCANTARA APRN Patient Name: EVARISTO CUNNINGHAM MR#: [id number] : 1965 Exam Date: 03/20/2024 Ordering Doctor: SAIMA ALCANTARA CNP RADIOLOGY REPORT PROCEDURE: NM EZ PERF SPECT REST STR COMPARISON: None. INDICATIONS: CHEST PAIN TECHNIQUE: Exam Description: Stress/Rest one day protocol gated SPECT Rest Imagin.0 mCi Tc-99m Cardiolite IV on 03/20/2024 Stress Imaging 31.0 mCi Tc-99m Cardiolite IV on 03/20/2024 Exercise Protocol: 0.4 mg Lexiscan given IV Heart Rate (bpm): Rest: 82 Max: 110 PMHR: 67 Blood Pressure: Rest: 112/74 Max: 118/68 Symptoms: Rest and peak stress ECG findings were pending and the exercise portion ofthe study was pending per attending physician Dr. MERRILL . For more detailsplease see separate cardiac stress test report. FINDINGS: QUALITY OF STUDY: Good. PERFUSION DEFECT: LOCATION: Basal anterior. Basal anterolateral. Mid-anterior. Mid-anteroseptal. Apical anterior. [place]. SIZE: Large (5 or more segments). SEVERITY: Severe. TYPE: Persistent. WALL MOTION: Severe hypokinesis: LV SIZE: 215 mL. TID / TCD: None; 0.9 LVEF: Abnormal. Calculated EF 31%. SUMMARY: Myocardial perfusion imaging study has ABNORMAL findings. CONCLUSION: 1. Large transmural infarct in the anterior wall, LAD distribution 2. No reversible ischemia 3. Dilated left ventricle, end-diastolic volume 2 in 15 milliliters 4. Low left ventricular ejection fraction of 31% Dictated by: Castillo Ron MD on 03/20/2024 at 15:01 Approved by: Castillo Ron MD on 03/20/2024 at 15:03 Dictated By: Castillo Ron M.D. Signed By:03/20/24 1504 DD/ 1503 TD/TT: Tying Machine Operator Lumber: us Generic External Data Provider [facility] Final Result documented in this encounter Visit Diagnoses Not on filedocumented in this encounter Care Teams Liquid Chlorine Operator Relationship Specialty Start Date End Date Shaikh Salinas MD [address] [place] [phone] PCP - General Internal Medicine 09/08/23 03/27/24 Miah Saenz MD [address] [place] [address] PCP - General Family Medicine 03/28/24 06/09/24 Unallocated, Blair Watt MD [address] [place] [address] PCP - General Family Medicine 06/10/24 06/19/24 Miah Saenz MD [address] [place] [address] PCP - General Family Medicine 06/20/24 Mariella Stearns NP [address] [place] [address] Nurse Practitioner Family Medicine 03/28/24 documented as of this encounter
--- OUTSIDE RECORDS SUMMARY | 2025-05-13 13:20 | XMS_ITS | Encounter Summary ---
Author Organization [facility] Address [address] [place] [address] Care Team Providers Care Potato Chip Cooker Machine Name Role Phone Miah Saenz MD Primary Care Provider [phone] Mariella Stearns ACCOUNTS PAYABLE COORDINATOR Unavailable [phone] Unallocated, Noms Provider Primary Care Provi annette Miah Saenz MD Primary Care Provider [phone] Encounter Details Date Type Department Care Team (Late st Contact Info) Description 05/16/2024 Orders Only [facility] [address] [facility] [place] [address] Mariella Stearns NP Encounter for wellness examination in adult (Primary Dx) Social History Tobacco Use Types Packs/Day Years [...] as of this encounter Plan of Treatment Scheduled Orders Name Type Priority Associated Diagnoses Orde r Schedule TSH W/REFLEX TO FT4 Lab Routine Encounter for wellness examination in adult Expected: 08/15/2024 (Approximate), Expires: 05/16/2025 Lipid panel Lab Routine Encounter for wellness examination in adult Expected: 08/15/2024 (Approximate), Expires: 05/16/2025 Hemoglobin A1c Lab Routine Encounter for wellness examination in adult Expected: 08/15/2024 (Approximate), Expires: 05/16/2025 Comprehensive metabolic panel Lab Routine Encounter for wellness examination in adult Expected: 05/16/2024 (Approximate), Expires: 05/16/2025 CBC and differential Lab Routine Encounter for wellness examination in adult Expected: 08/15/2024 (Approximate), Expires: 05/16/2025 documented as of this encounter Visit Diagnoses Diagnosis Encounter for wellness examination in adult- Primary documented in this encounter Care Teams Potato Chip Cooker Machine Relationship Specialty Start Date End Date Miah Saenz MD PCP - General Family Medicine 03/28/24 06/09/24 Unallocated, Blair Watt MD [address] [place] [address] PCP - General Family Medicine 06/10/24 06/19/24 Miah Saenz MD PCP - General Family Medicine 06/20/24 Mariella Stearns NP Nurse Practitioner Family Medicine 03/28/24 documented as of this encounter
--- OUTSIDE RECORDS SUMMARY | 2025-05-13 13:20 | XMS_ITS | Encounter Summary ---
Author Organization [facility] Address [address] [place] [address] Care Team Providers Care Lace Inspector Name Role Phone Shaikh GAURAV Salinas Primary Care Provider [phone] Miah Saenz MD Primary Care Provider [phone] Mariella Stearns ENFORCEMENT OFFICER Unavailable [phone] Unallocated, Noms Provider Primary Care Provi annette Miah Saenz MD Primary Care Provider [phone] Encounter Details Date Type Department Care Team (Late st Contact Info) Description 09/25/2023 Orders Only [facility] [address] [place] [address] Shaikh Salinas MD [address] [place] [phone] Social History Tobacco Use Types Packs/Day Years Used Date Smoking Tobacco: Former Cigarettes Sex and Gender Information Value Date Recorded Sex Assigned at Male 08/31/2023 3:11 PM EST Legal Sex Male 6:48 PM EDT Gender Identity Male 08/31/2023 3:11 PM EST Sexual Orientation Straight 08/31/2023 3: 13 PM EST documented as of this encounter Functional Status * Over the past 2 weeks, how often have you been bothered by any of the following problems? Question Answer Date of Assessment Author Little interest or pleasure in doing things Not at all 09/27/2023 3:03 PM Curt Prieto M A documented as of this encounter Plan of Treatment Not on file documented as of this encounter Procedures Procedure Name Priority Date/Time Associated Diagnosis Comments MISCELLANEOUS LAB TEST Routine 05/27/2023 3:07 PM EDT documented in this encounter Results * - Miscellaneous Test (05/27/2023 3:07 PM EDT) Shaikh Brad [facility] LAB BLOOD ORDERABLES Final Resu lt documented in this encounter Visit Diagnoses Not on filedocumented in this encounter Care Teams Lace Inspector Relationship Specialty Start Date End Date Shaikh Salinas MD [address] [place] [phone] PCP - General Internal Medicine 09/08/23 03/27/24 Miah Saenz MD [address] [place] [phone] PCP - General Family Medicine 03/28/24 06/09/24 Unallocated, Noms MD Shukri [address] [place] [address] PCP - General Family Medicine 06/10/24 06/19/24 Miah Saenz MD [address] [place] [address] PCP - General Family Medicine 06/20/24 Mariella Stearns NP [address] [place] [address] Nurse Practitioner Family Medicine 03/28/24 documented as of this encounter
--- OUTSIDE RECORDS SUMMARY | 2025-05-13 13:20 | XMS_ITS | Encounter Summary ---
Author Organization [facility] Address [address] [place] [address] Care Team Providers Care Director Digital Sales Name Role Phone Shaikh GAURAV Salinas Primary Care Provider Miah Saenz MD Primary Care Provider [phone] Mariella Stearns [employer] Unavailable [phone] Unallocated, Noms Provider Primary Care Provi annette Miah Saenz MD Primary Care Provider [phone] Encounter Details Date Type Department Care Team (Late st Contact Info) Description 03/03/2024 Clinisync Result Encounter [facility] External Department Unsolicited [...] Procedure Name Priority Date/Time Associated Diagnosis Comments CT ABDOMEN PELVIS WO/W CON 03/03/2024 11:02 AM EDT documented in this encounter Results * CT ABDOMEN PELVIS WO/W CON (03/03/2024 11:02 AM EDT) Anatomical Region Laterality Modality Other 03/03/2024 11:0 2 AM EDT Narrative 03/03/2024 11:05 [place] [address] CT Scan Report Signed Patient: EVARISTO CUNNINGHAM MR#: [id number] : 1965 Acct:[id number] Age/Sex: 58 / M ADM Date: 03/02/24 Loc: CT Attending Dr: Joseph Jang M.D. Ordering Physician: Joseph Jang M.D. Date of Service: 03/02/24 Procedure(s): CT abdomen pelvis wo/w con Accession Number(s): [id number] cc: Shaikh Reji Salinas [place] [address] Patient Name: EVARISTO CUNNINGHAM MRN: [id number] date: 1965 Sex: M Assigned Patient Location: CT Current Patient Location: CT Accession/Order Number: [id number] Exam Date: 03/02/2024 08:23 Report Date: 03/03/2024 11:02 At the request of: JOSEPH JANG Procedure: CT abdomen pelvis wo/w con CLINICAL HISTORY: Renal MAss/Cyst. Follow-up evaluation. EXAMINATION: Unenhanced, enhanced scan of the abdomen and pelvis: 03/02/2024. COMPARISON: Unenhanced, enhanced CT scan of the abdomen and pelvis 03/06/2023. TECHNIQUE: 3 mm axial images from lung bases through ischial tuberosities without and following administration of intravenous contrast were obtained. Sagittal, coronal reconstructions were also performed. No oral contrast was utilized. FINDINGS: There is a single lead pacemaker device with electrode leads in the right ventricle. 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 The heart size otherwise seems normal. There are no filling defects in the cardiac chambers postcontrast. The visualized lung bases are normal. CT ABDOMEN: The liver, gallbladder, spleen appears normal. There are multiple punctate calcified granulomas within the spleen. The pancreas seems normal. The adrenal glands appear normal. The abdominal aorta has mild atherosclerotic changes. There is no aneurysm. There is no retroperitoneal or mesenteric adenopathy. The bowel loops are of normal caliber. Appendix appears normal. There are scattered diverticula in the colon with a diverticulitis of one of the diverticula of the proximal sigmoid colon with induration of surrounding fat, as well as thickening of the underlying colon but no perforation or abscess formation. Right kidney: There is no hydronephrosis, nephrolithiasis, perinephric fat stranding or ureterolithiasis. Postcontrast there are no suspiciously enhancing lesions in the right kidney. Left kidney: There is no hydronephrosis or nephrolithiasis. There is no perinephric fat stranding or ureterolithiasis. In the upper pole laterally there is a hyperdense nodule, which seem to have some calcifications within it. This nodule overall measures approximately 1.9 x 2.6 cm, and on the coronal reformatted images measures approximately 2.7 cm, with precontrast Hounsfield units of approximately 39 while on the postcontrast images the Hounsfield units for this lesion are approximately 39 therefore no significant enhancement. This seemed to have some calcifications. There is a small parapelvic cyst slightly inferiorly, which measures approximately 1.1 cm, precontrast Hounsfield units of 1. Postcontrast the Hounsfield units for this lesion are approximately 0. There is an additional partially exophytic lesion anteriorly, inferior pole of the kidney, measuring 3.7 cm in AP dimension with precontrast Hounsfield units of 9. Postcontrast the Hounsfield units for this lesion are approximately 7. The remaining left kidney is normal. CT PELVIS: The bladder, prostate, seminal vesicles appeared normal. There is no pelvic adenopathy. There are no focal fluid collections. Images on bone windows demonstrate no discrete lytic or sclerotic lesions except for vacuum disc phenomena and degenerative disc disease at L5-S1. CT/CT abdomen pelvis wo/w con IMPRESSION: 1. The hypodense nodule in the upper pole of the left kidney essentially unchanged to minimally smaller, however, there is no significant enhancement of this lesion. Most likely this represents a proteinaceous or hemorrhagic cyst however, low-grade papillary type renal cell carcinoma is in the differential consideration. Continued surveillance is advised if tissue biopsy is not considered. 2. No nephro or ureterolithiasis either on the right or the left side. 3. Several simple appearing cysts in the left kidney besides the above-mentioned lesion. 4. Normal appendix. 5. There is acute diverticulitis of the sigmoid colon without perforation or abscess formation. There is diverticular disease elsewhere in the colon. Electronically authenticated by: EVARISTO KENNEDY Date: 03/03/2024 11:02 Dictated By: Evaristo Kennedy M.D. Signed By: 03/03/24 1105 DD/ 1102 TD/TT: Control Panel Tester: Procedure Note Radiology, Radiologist, MD - 03/03/2024 [place] [address] CT Scan Report Signed Patient: EVARISTO CUNNINGHAM WMR#: [id number] : 1965Acct:[id number] Age/Sex: 58 / MADM Date: 03/02/24 Loc: CT Attending Dr: Joseph Jang M.D. Ordering Physician: Joseph Jang M.D. Date of Service: 03/02/24 Procedure(s): CT abdomen pelvis wo/w con Accession Number(s): [id number] cc: Shaikh Reji Salinas [place] [address] Patient Name: EVARISTO CUNNINGHAM MRN: [id number] date: 1965 Sex: M Assigned Patient Location: CT Current Patient Location: CT Accession/Order Number: [id number] Exam Date: 03/02/2024 08:23 Report Date: 03/03/2024 11:02 At the request of: JOSEPH JANG Procedure: CT abdomen pelvis wo/w con CLINICAL HISTORY: Renal MAss/Cyst. Follow-up evaluation. EXAMINATION: Unenhanced, enhanced scan of the abdomen and pelvis:03/02/2024. COMPARISON: Unenhanced, enhanced CT scan of the abdomen and pelvis03/06/2023. TECHNIQUE: 3 mm axial images from lung bases through ischial tuberosities without and following administration of intravenous contrast wereobtained. Sagittal, coronal reconstructions were also performed. No oral contrastwas utilized. FINDINGS: There is a single lead pacemaker device with electrode leads inthe right ventricle. There are some hypodensity involving the distal septum,apex of the left ventricle, with some thinning of the overlying wall,concerning for subendocardial infarct. The heart size otherwise seems normal. There areno filling defects in the cardiac chambers postcontrast. The visualized lung bases are normal. CT ABDOMEN: The liver, gallbladder, spleen appears normal. There aremultiple punctate calcified granulomas within the spleen. The pancreas seemsnormal. The adrenal glands appear normal. The abdominal aorta has mild atherosclerotic changes. There is no aneurysm. There is no retroperitoneal or mesenteric adenopathy. The bowel loops are of normal caliber. Appendix appearsnormal. There are scattered diverticula in the colon with a diverticulitis of one of the diverticula ofthe proximal sigmoid colon with induration of surrounding fat, as well as thickening of the underlying colon but no perforation or abscessformation. Right kidney: There is no hydronephrosis, nephrolithiasis, perinephric fat stranding or ureterolithiasis. Postcontrast there are no suspiciously enhancing lesions in the right kidney. Left kidney: There is no hydronephrosis or nephrolithiasis. There is no perinephric fat stranding or ureterolithiasis. In the upper pole laterally there is a hyperdense nodule, which seem to have some calcificationswithin it. This nodule overall measures approximately 1.9 x 2.6 cm, and on thecoronal reformatted images measures approximately 2.7 cm, with precontrastHounsfield units of approximately 39 while on the postcontrast images the Hounsfield units for this lesion are approximately 39 therefore no significant enhancement. This seemed to have some calcifications. There is a small parapelvic cystslightly inferiorly, which measures approximately 1.1 cm, precontrast Hounsfieldunits of 1. Postcontrast the Hounsfield units for this lesion are approximately0. There is an additional partially exophytic lesion anteriorly, inferiorpole of the kidney, measuring 3.7 cm in AP dimension with precontrast Hounsfieldunits of 9. Postcontrast the Hounsfield units for this lesion are approximately7. The remaining left kidney is normal. CT PELVIS: The bladder, prostate, seminal vesicles appeared normal. Thereis no pelvic adenopathy. There are no focal fluid collections. Images on bone windows demonstrate no discrete lytic or sclerotic lesions except for vacuum disc phenomena and degenerative disc disease at L5-S1. CT/CT abdomen pelvis wo/w con IMPRESSION: 1. The hypodense nodule in the upper pole of the left kidney essentially unchanged to minimally smaller, however, there is no significantenhancement of this lesion. Most likely this represents a proteinaceous or hemorrhagiccyst however, low-grade papillary type renal cell carcinoma is in thedifferential consideration. Continued surveillance is advised if tissue biopsy is not considered. 2. No nephro or ureterolithiasis either on the right or the left side. 3. Several simple appearing cysts in the left kidney besides the above-mentioned lesion. 4. Normal appendix. 5. There is acute diverticulitis of the sigmoid colon without perforationor abscess formation. There is diverticular disease elsewhere in the colon. Electronically authenticated by: EVARISTO KENNEDY Date: 03/03/2024 11:02 Dictated By: Evaristo Kennedy M.D. Signed By:03/03/24 1105 DD/ 1102 TD/TT: Control Panel Tester: Generic External Data Provider [facility] Final Result documented in this encounter Visit Diagnoses Not on filedocumented in this encounter Care Teams Director Digital Sales Relationship Specialty Start Date End Date Shaikh Salinas MD [address] [place] [address] PCP - General Internal Medicine 09/08/23 03/27/24 Miah Saenz MD [address] [place] [address] PCP - General Family Medicine 03/28/24 06/09/24 Unallocated, Blair Watt MD [address] [place] [address] PCP - General Family Medicine 06/10/24 06/19/24 Miah Saenz MD [address] [place] [address] PCP - General Family Medicine 06/20/24 Mariella Stearns NP [address] [place] [id number] Nurse Practitioner Family Medicine 03/28/24 documented as of this encounter
--- OUTSIDE RECORDS SUMMARY | 2025-05-13 13:23 | XMS_ITS | CCD ---
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 Name Role Phone Justin Smallwood Attending Unavailab kendra Smallwood, Justin Quiroz Admitting Unavailab Tony Malave Primary Care Physician KATIE, DR MACDONALD Attending Unavailable HOUSE, DR MACDONALD Consulting Unavailable WEEHAWKEN, DR MACDONALD Primary Care Unavailable WEEHAWKEN, DR MACDONALD Admitting Unavailable LARRY, ISIAH Consulting Unavailable WEEHAWKEN, DR MACDONALD Primary Care Unavailable MISC, DR PATRICK Admitting Unavailable MISC, DR PATRICK Attending Unavailable MISC, DR PATRICK Consulting Unavailable WEEHAWKEN, DR MACDONALD Primary Care Unavailable QUINTON, SAIMA Admitting Unavailable QUINTON, SAIMA Attending Unavailable QUINTON, SAIMA Consulting Unavailable STATESVILLE, DR BHASKAR Zarate Consulting Unavailable MARIUSZ, DR MIAH Schwarz Admitting Unavailable HOUSE, DR MACDONALD Primary Care Unavailable WENDYR, DR MIAH Schwarz Attending Unavailable WENDYR, DR MIAH Schwarz Consulting Unavailable GRECHNY ., ROQUE AYALA Consulting Unavailabl e MIMS, JT Consulting Unavailable WEEHAWKEN, DR MACDONALD Consulting Unavailable WEEHAWKEN, DR MACDONALD Primary Care Unavailable HOUSE, DR MACDONALD Admitting Unavailable HOUSE, DR MACDONALD Attending Unavailable HOUSE, DR MACDONALD Attending Unavailable HOUSE, DR MACDONALD Consulting Unavailable WEEHAWKEN, DR MACDONALD Primary Care Unavailable WEEHAWKEN, DR MACDONALD Admitting Unavailable ZIEBER, DR BLAYNE Núñez Consulting Unavailable Brad NOLASCO, Primary Care Provider Miah Vee MD Primary Care Provider [phone] Daryn SKY, Raymond Stewart Majolocattino NOLASCO, Noms Provider Primary Care Provi annette DARYN, MSDebo SHAW Primary Care P hysician Miah Vee MD Primary Care Provider AHSAN NEWMAN Referring Unavailable AHSAN NEWMAN Referring Unavailable CHACHO SMITH Attending Unavailable DARIAN VIDAL Attending Unavailable AHSAN NEWMAN Referring Unavailable CHACHO SMITH Attending Unavailable AHSAN NEWMAN Referring Unavailable AHSAN NEWMAN Referring Unavailable StearnsRaymond ha NP Unavailable MIAH VEE Attending Unavailable SHAIKH SALINAS Attending Unavailable STEARNSRAYMOND SCHMITT Attending Unavailabl e STEARNSRAYMOND SCHMITT Attending Unavailabl e BARBARA [facility] Attending Unavailable Cabrera OJEDA Attending Unavailable BARBARA STEARNSTANY Primary Care Marianabl e Allergies Allergy Classification Reported Allergen(s) Allergy Type Date of Onset Reaction(s) Facility (1 source) No Known Medication Allergies; 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: [No Known Medication Allergies] Propensity to adverse reactions (disorder) [facility] Repository Medications Current Medications Medication Drug Class(es) Dates Sig (Normalized) Sig (Original) 3 ML semaglutide 1.34 MG/ML Pen Injector [Ozempic] (1 source) Start: 07-01-2024 Ozempic (1 mg dose) 4 mg/3 mL subcutaneous solution 1 mg, Refills(s) 0 Start Date: 07/01/24 Status: Ordered [id number] 200 actuat albuterol 0.09 mg/actuat metered dose inhaler (6 sources) beta2-Adrenergic Agonist Start: 09-03-2024 End: 09-03-2025 take 2 puff(s) by inhalation every four hours for wheezing albuterol HFA (Ventolin HFA) 90 mcg/act inhaler Indications: Chronic allergic rhinitis Inhale 2 puffs every 4 (four) hours if needed for wheezing 18 g 11 09/03/2024 09/03/2025 Active Ascorbic Acid (20 sources) Vitamin C Start: 04-13-2024 take 1 g by mouth every six hours Ascorbic Acid (Vitamin C) Active 1 GM PO Every 6 hours April 13, 2024 12:00am take 1 tablet by mouth in the mo rning Ascorbic Acid (vitamin C) 1000 MG tablet Take 1,000 mg by mouth in the morning. Active aspirin 81 mg delayed release oral tablet (20 sources) Platelet Aggregation Inhibitor, Nonsteroidal Anti-inflammatory Drug Start: 03-13-2023 End: 05-07-2024 take 81 mg by mouth once daily Aspirin Active 81 MG PO Daily April 13, 2024 12:00am Start: 11-14-2022 aspirin Refill s(s) 0 Start Date: 11/14/22 Status: Ordered atorvastatin 80 mg oral tablet (20 sources) HMG-CoA Reductase Inhibitor Start: 11-14-2022 atorvastatin 80 mg Tab Refills(s) 0 Start Date: 11/14/22 Status: Ordered carvedilol 25 mg oral tablet (20 sources) alpha-Adrenergic Sada, beta-Adrenergic Sada Start: 03-27-2024 End: 09-03-2024 take 1 tablet by mouth in the morning carvedilol (Coreg) 6.25 MG tablet Indications: Essential hypertension Take 1 tablet (6.25 mg) by mouth in the morning and 1 tablet (6.25 mg) in the evening. Take with meals. 180 tablet 09/03/2024 Active Start: 11-14-2022 End: 09-03-2024 take 1 tablet by mouth in the morning carvedilol (Coreg) 25 MG tablet Indications: Chronic systolic heart failure (HCC) Take 1 tablet (25 mg) by mouth in the morning and 1 tablet (25 mg) in the evening. Take with meals. 180 tablet 09/03/2024 Active cholecalciferol 0.025 mg oral capsule (20 sources) Vitamin D Start: 04-13-2024 take 25 [...] 2024 12:00am empagliflozin 25 mg oral tablet (20 sources) Sodium-Glucose Cotransporter 2 Inhibitor Start: 08-22-2023 End: 03-02-2025 take 1 tablet by mouth once daily empagliflozin (Jardiance) 25 MG Indications: Type 2 diabetes mellitus without complication, without long-term current use of insulin (HCC) Take 1 tablet (25 mg) by mouth Daily 90 tablet 1 09/03/2024 03/02/2025 Active Start: 07-27-2023 End: 05-07-2024 Jardiance 10 MG 07/27/2023 0 05/07/2024 Discontinued (Duplicate order) Start: 11-14-2022 Jardiance 10 m g oral tablet Refills(s) 0 Start Date: 11/14/22 Status: Ordered ezetimibe 10 mg oral tablet (20 sources) Dietary Cholesterol Absorption Inhibitor Start: 11-14-2022 End: 02-04-2025 take 1 tablet by mouth once daily ezetimibe (Zetia) 10 MG tablet Indications: Hyperlipidemia, unspecified hyperlipidemia type Take 1 tablet (10 mg) by mouth Daily 90 tablet 3 02/04/2025 Active levoFLOXacin 750 mg oral tablet (2 sources) Quinolone Antimicrobial Start: 12-30-2024 End: 01-06-2025 take 1 tablet by mouth once daily levoFLOXacin (Levaquin) 750 MG tablet Indications: Acute non-recurrent pansinusitis Take 1 tablet (750 mg) by mouth Daily for 7 days 7 tablet 12/30/2024 01/06/2025 Active metFORMIN hydrochloride 1000 mg oral tablet (20 sources) Biguanide Start: 11-25-2024 End: 05-24-2025 take 1 tablet by mouth in the morning metFORMIN (Glucophage) 1000 MG tablet Indications: Type 2 diabetes mellitus without complication, without long-term current use of insulin (HCC) Take 1 tablet (1,000 mg) by mouth in the morning and 1 tablet (1,000 mg) in the evening. Take with meals. 180 tablet 1 11/25/2024 05/24/2025 Active Start: 11-07-2023 End: 11-10-2024 take 1 tablet by mouth in the morning metFORMIN (Glucophage) 1000 MG tablet Indications: Type 2 diabetes mellitus without complication, without long-term current use of insulin (CMS/HCC) Take 1 tablet (1,000 mg) by mouth in the morning and 1 tablet (1,000 mg) in the evening. Take with meals. 180 tablet 1 05/14/2024 11/10/2024 Active Start: 11-14-2022 metformin 500 mg Tab Refills(s) [...] or split.. 0 Active MULTIPLE VITAMINS PO (20 sources) MULTIPLE VITAMIN S PO Take by mouth Active MULTIPLE VITAMIN S PO Take by mouth 0 Active Ozempic, 0.25 or 0.5 MG/DOSE , 2 MG/3ML solution pen-injector (12 sources) Start: 02-08-2024 End: 12-30-2024 Ozempic, 0.25 or 0.5 MG/DOSE , 2 MG/3ML solution pen-injector 02/08/2024 12/30/2024 Discontinued Start: 02-08-2024 Ozempic, 0.25 or 0.5 MG/DOSE, 2 MG/3ML solution pen-injector 02/08/2024 Active predniSONE 50 mg oral tablet (2 sources) Start: 12-30-2024 End: 01-05-2025 take 1 tablet by mouth once daily predniSONE (Deltasone) 50 MG tablet Indications: Acute non-recurrent pansinusitis Take 1 tablet (50 mg) by mouth Daily for 6 days 6 tablet 12/30/2024 01/05/2025 Active sacubitril 24 mg / valsartan 26 mg oral tablet (20 sources) Angiotensin 2 Receptor Sada Start: 11-14-2022 take 1 tablet by mouth twice daily Entresto 24 mg-26 mg oral tablet tab(s), Oral, BID, Refill(s) 0 Start Date: 11/14/22 Status: Ordered End: 12-30-2024 take 1 tablet by mouth in the morning sacubitril-valsartan (Entresto) 24-26 MG [...] 1.5 ml semaglutide 1.34 mg/ml pen injector (7 sources) Start: 02-05-2024 semaglutide (O zempic, 0.25 or 0.5 MG/DOSE,) 2 MG/1.5ML solution pen-injector Indications: Type 2 diabetes mellitus without complication, without long-term current use of insulin (CMS/HCC) 0.25 mg once weekly for 4 weeks Then use 0.5 mg for 2 weeks 1 each 02/05/2024 Active semaglutide (Ozempic, 1 MG/DOSE,) 4 MG/3ML solution pen-injector (19 sources) Start: 02-04-2025 inject 1 mg by subcutaneous injection every week semaglutide (Ozempic, 1 MG/DOSE,) 4 MG/3ML solution pen-injector Indications: Type 2 diabetes mellitus without complication, without long-term current use of insulin (HCC) Inject 1 mg under the skin 1 (one) time per week 9 mL 3 02/04/2025 Active Start: 09-03-2024 End: 02-04-2025 inject 1 mg by subcutaneous injection every week semaglutide (Ozempic, 1 MG/DOSE,) 4 MG/3ML solution pen-injector Indications: Type 2 diabetes mellitus without complication, without long-term current use of insulin (HCC) Inject 1 mg under the skin 1 (one) time per week 9 mL 1 09/03/2024 02/04/2025 Discontinued (Reorder) Start: 09-03-2024 End: 02-18-2025 inject 1 mg by subcutaneous injection every week semaglutide (Ozempic, 1 MG/DOSE,) 4 MG/3ML solution pen-injector Indications: Type 2 diabetes mellitus without complication, without long-term current use of insulin Inject 1 mg under the skin 1 (one) time per week 9 mL 1 09/03/2024 02/18/2025 Active Start: 09-03-2024 End: 02-18-2025 inject 1 mg by subcutaneous injection every week semaglutide (Ozempic, 1 MG/DOSE,) 4 MG/3ML solution pen-injector Indications: Type 2 diabetes mellitus without complication, without long-term current use of insulin (CMS/HCC) Inject 1 mg under the skin 1 (one) time per week 9 mL 1 09/03/2024 02/18/2025 Active Start: 06-10-2024 End: 09-03-2024 inject 1 mg by subcutaneous injection every week semaglutide (Ozempic, 1 MG/DOSE,) 4 MG/3ML solution pen-injector Indications: Type 2 diabetes mellitus without complication, without long-term current use of insulin (CMS/HCC) Inject 1 mg under the skin 1 (one) time per week 9 mL 06/10/2024 09/03/2024 Discontinued (Reorder) Start: 06-10-2024 End: 09-08-2024 inject 1 mg [...] time per week 9 mL 02/05/2024 Active Start: 02-05-2024 End: 05-05-2024 inject 1 mg by subcutaneous injection every week semaglutide (Ozempic, 1 MG/DOSE,) 4 MG/3ML solution pen-injector Indications: Type 2 diabetes mellitus without complication, without long-term current use of insulin (CMS/HCC) Inject 1 mg under the skin 1 (one) time per week 9 mL 02/05/2024 05/05/2024 Active spironolactone 25 mg oral tablet (20 sources) Aldosterone Antagonist Start: 09-03-2024 take 0.5 tablet by mouth once daily spironolactone (Aldactone) 25 MG tablet Indications: Essential hypertension Take 0.5 tablets (12.5 mg) by mouth Daily 90 tablet 09/03/2024 Active Start: 04-13-2024 take 12.5 mg by mout h once daily Spironolactone Active 12.5 MG PO Daily April 13, 2024 12:00am Start: 11-14-2022 spironolactone 25 mg Tab Refills(s) 0 Start Date: 11/14/22 Status: Ordered End: 09-03-2024 spironolactone (Aldactone) 2 5 MG tablet Take 12.5 mg by mouth in the morning. 09/03/2024 Discontinued (Reorder) Completed/Discontinued Medications Medication Drug Class(es) Dates Sig (Normalized) Sig (Original) 12 hr cetirizine hydrochloride 5 mg / pseudoephedrine hydrochloride 120 mg extended release oral tablet (5 sources) alpha-Adrenergic Agonist, Histamine-1 Receptor Antagonist Start: 11-07-2023 End: 05-07-2024 take 1 tablet by mouth once in the morning, then take 1 tablet by mouth every twelve hours at bedtime cetirizine-pseudo ephedrine (ZyrTEC-D) 5-120 MG 12 hr tablet Indications: Chronic allergic rhinitis Take 1 tablet by mouth in the morning and 1 tablet before bedtime. 180 tablet 11/07/2023 05/07/2024 Discontinued (Therapy completed) fluticasone propionate 0.05 mg/actuat metered dose nasal spray (12 sources) Corticosteroid Start: 11-07-2023 End: 11-06-2024 take 2 spray(s) nasal route once daily fluticasone (Flonase) 50 MCG/ACT nasal spray Indications: Chronic allergic rhinitis Administer 2 sprays into each nostril Daily Shake gently. Before first use, prime pump. After use, clean tip and replace cap. 16 g 2 11/07/2023 09/03/2024 Discontinued glipiZIDE 5 mg oral tablet (19 sources) Sulfonylurea Start: 06-10-2024 End: 12-07-2024 take 1 tablet by mouth once daily glipiZIDE (Glucotrol) 5 MG tablet Indications: Type 2 diabetes mellitus without complication, without long-term current use of insulin ([facility]) Take 1 tablet (5 mg) by mouth Daily 90 tablet 1 06/10/2024 09/03/2024 Discontinued (Side effects) Start: 09-04-2023 End: 05-05-2024 take 1 tablet by mouth once daily glipiZIDE (Glucotrol) 5 MG tablet Indications: Type 2 diabetes mellitus without complication, without long-term current use of insulin (CMS/HCC) Take 1 tablet (5 mg) by mouth Daily 90 tablet 1 11/07/2023 Active Problems Active Problems Problem Classification Problem Date Documented Date Episodic/Chronic Conduction disorders (20 sources) Automatic implantable cardiac defibrillator in situ; 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: [Presence of automatic (implantable) cardiac defibrillator] Onset: 07-31-2013 09-27-2023 Chronic Congestive heart failure; nonhypertensive (20 sources) Chronic systolic heart failure; 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: [Chronic systolic (congestive) heart failure] Onset: 04-28-2021 09-27-2023 Chronic Coronary atherosclerosis and other heart disease (20 sources) Atherosclerotic heart disease of [place] coronary artery without angina pectoris; 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: [Old myocardial infarction] Onset: 07-17-2012 Chronic Diabetes mellitus with complications (1 source) Type 2 diabetes mellitus with hyperglycemia; 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: [TYPE 2 DM W/HYPERGLYCEMIA] Onset: 07-04-2022 Chronic Diabetes mellitus without complication (20 sources) Type 2 diabetes mellitus; 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: [Type 2 diabetes mellitus without complications] Onset: 03-21-2022 11-10-2022 Chronic Disorders of lipid metabolism (20 sources) Mixed hyperlipidemia; 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: [Hyperlipidemia] Onset: 07-18-2012 11-10-2022 Chronic Diverticulosis and diverticulitis (1 source) Diverticulosis of large intestine without perforation or abscess without bleeding; 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: [DVRTCLOS LG INT NO PERF/ABSC W/O BL] Onset: 10-07-2022 Chronic Essential hypertension (20 sources) Essential hypertension; 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: [Essential (primary) hypertension] Onset: 07-17-2012 11-10-2022 Chronic Headache; including migraine (1 source) Headache; including migraine; 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: [HEADACHE UNSPECIFIED] Onset: 07-04-2022 Hyperplasia of prostate (20 sources) Benign prostatic hyperplasia; 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: [Benign prostatic [...] Chronic Other diseases of kidney and ureters (20 sources) Renal mass; 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: [Other specified disorders [...] Chronic Other nutritional; endocrine; and metabolic disorders (18 sources) Obesity caused by energy imbalance; 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: [Morbid (severe) obesity due to excess calories] Onset: 12-20-2023 12-20-2023 Chronic Other nutritional; endocrine; and metabolic disorders (16 sources) Body mass index 40+ - severely obese; 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: [Body mass index (BMI) 40.0-44.9, adult] Onset: 12-20-2023 12-20-2023 Chronic Other nutritional; endocrine; and metabolic disorders (8 sources) Body mass index 30+ - obesity; 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: [Body mass index (BMI) 34.0-34.9, adult] Onset: 09-03-2024 09-03-2024 Chronic Other upper respiratory disease (18 sources) Allergic rhinitis; 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: [Allergic rhinitis, unspecified] Onset: 11-07-2023 11-07-2023 Chronic Other upper respiratory infections (6 sources) Acute sinusitis, unspecified; 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: [Acute pansinusitis] Onset: 07-04-2022 12-30-2024 Episodic Madelyn-; endo-; and myocarditis; cardiomyopathy (except that caused by tuberculosis or sexually transmitted disease) (20 sources) Cardiomyopathy; 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: [Primary cardiomyopathy] Onset: 05-19-2014 [...] Onset: 06-23-2022 Episodic Other aftercare (1 source) manager terminal (current) use of aspirin; 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: [SKILLED NURSING CURRENT USE OF ASPIRIN] Onset: 07-04-2022 Episodic Other aftercare (1 source) manager terminal (current) use of oral hypoglycemic drugs; 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: [AMERICAN SIGN LANGUAGE TEACHER USE ORAL HYPOGLYCEMIC DX] Onset: 07-04-2022 Episodic Other aftercare (1 source) Other skilled nursing (current) drug therapy; 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: [OTH AMERICAN SIGN LANGUAGE TEACHER CURRENT DRUG THERAPY] Onset: 07-04-2022 Episodic Other lower respiratory disease (16 sources) Disorder of respiratory system; 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: [Respiratory disorder, unspecified] Onset: 12-20-2023 12-20-2023 Episodic Other screening for suspected conditions (not mental disorders or infectious disease) (20 sources) Encounter for screening for malignant neoplasm of prostate; 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: [Screening for malignant neoplasm done] Onset: 11-14-2022 Episodic Screening and history of mental health and substance abuse codes (1 source) Personal history of nicotine dependence; 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: [PERSONAL HISTORY OF NICOTINE DEPEND] Onset: 07-04-2022 Episodic Results Test Name Value Interpretation Reference Range Facility Reminderson 05-12-2025 Reminders Reminders From: Lea Honeycutt To: EU - Recalls Ojeda; Sent: 07/01/2024 15:18:53 EST Show up: 04/21/2025 15:18:00 EDT Subject: Ct scan Due Date/Time: 05/19/2025 15:18:00 EDT Reminder/Recall Patient is due for Ct scan ABd/pelvis w/wo contrast prior to Jun 2025 appt[facility] Order faxed to [facility]. Will monitor for results. Normal [facility] Office Visiton 10-10-2024 Follow-up visit [id number] Evaristo Lowery 1965 M Date Provider Department Center 10/10/2024 CHACHO MALDONADO MARY Barajas Family History Problem Relation Age of Onset Diabetes Maternal Grandmother Heart attack Maternal Grandfather Diabetes Paternal Grandmother Heart disease Paternal Grandfather Family Status - Relation Status Age at Maternal Grandmother Maternal Grandfather Paternal Grandmother Paternal Grandfather Level of Service:83364 [place] OFFICE/OUTPATIENT ESTABLISHED MOD MDM 30 MIN Normal [facility] [place] SRMCOH PROSTATE SPECIFIC ANT IGEN SCRNon 07-04-2024 PROSTATE SPECIFIC ANTIGEN SCRN 0.88 ng/mL NINF - 4.00 ng/mL [facility] Urology Office/Clinic Noteon 07-01-2024 Urology Office/Clinic Note Urology Office/Clinic Note Chief Complaint f/u to review CT HPI Staff 59 yo male here for 1 year f/up with CT. Previous dx: kidney mass and prostate cancer screening. CT AP w/wo con 03/02/24 [facility]. No recent PSA on [facility]. Dysuria: denies [...] [facility] [address], [place] [address] [phone] Additional Instructions: 1 yr w/ CT scan [...] History Alcohol (more content not included)... Normal [facility] Comment on above: Result Comment: Elec tronically Signed By: Cabrera OJEDA MD\.br\Date and Time Signed: 07/01/24 15:23 EST\.br\Electronically Co-Signed By: Katherine Bear\.br\Date and Time Co-Signed: 07/01/24 15:18 EST ALL CBC WITH AUTO DIFFon BASOPHILS ABSOLUTE AUTO 0.1 [facility] Basophils/100 WBC (Bld) 0.6 % 0.2 - 2.0 % [facility] Eosinophils/100 WBC (Bld) 2 % 0.9 - 7.0 % [facility] Erythrocyte distribution width (RBC) [Ratio] 13.5 % 11.0 - 15.0 % [facility] Hematocrit (Bld) [Volume fraction] 46.1 % 42.0 - 54.0 % [facility] Hemoglobin (Bld) [Mass/Vol] 15.2 g/dL 14.0 - 18.0 g/dL [facility] IMMATURE GRANULOCYTES ABS AUTO 0.05 High [facility] Immature granulocytes/100 WBC (Bld) 0.5 % 0.0 - 0.5 % [facility] Interpretation and review of laboratory results Abnormal [facility] LYMPHOCYTES ABSOLUTE AUTO 1.9 [facility] Lymphocytes/100 WBC (Bld) 20.5 % 20.5 - 60.0 % [facility] MCH (RBC) [Entitic mass] 29.7 pg 25.9 - 34.0 pg [facility] MCHC (RBC) [Mass/Vol] 33 g/dL 29.9 - 35.2 g/dL [facility] MCV (RBC) [Entitic vol] 90 fL 80.0 - 94.0 fL [facility] MONOCYTES ABSOLUTE AUTO 1 High [facility] Monocytes/100 WBC (Bld) 10.8 % 1.7 - 12.0 % [facility] NEUTROPHILS ABSOLUTE AUTO 6.1 [facility] Neutrophils/100 WBC (Bld) 65.6 % 43.0 - 75.0 % [facility] Platelet mean volume (Bld) [Entitic vol] 8.8 fL Low 9.5 - 13.5 fL [facility] EO # 0.2 [facility] PLT 277 [facility] TB RBC 5.12 [facility] TB WBC 9.3 [facility] Office Visiton 03-27-2024 Follow-up visit [id number] Evaristo Lowery 1965 [facility] Provider Department Center 03/27/2024 CHACHO MALDONADO MARY Barajas Family History Problem Relation Age of Onset Diabetes Maternal Grandmother Heart attack Maternal Grandfather Diabetes Paternal Grandmother Heart disease Paternal Grandfather Family Status - Relation Status Age at Maternal Grandmother Maternal Grandfather Paternal Grandmother Paternal Grandfather Level of Service:19097 [place] OFFICE/OUTPATIENT ESTABLISHED MOD MDM 30 MIN Normal [facility] [place] 36on 03-18-2024 37 I think that's ok, how does he feel? Normal [facility] [place] Orders Onlyon 03-06-2024 Orders Only [id number] Evaristo Lowery [address] [facility] Provider Department Center 03/06/2024 MIRTHA SEBASTIAN MARY Barajas Family History Problem Relation Age of Onset Diabetes Maternal Grandmother Heart attack Maternal Grandfather Diabetes Paternal Grandmother Heart disease Paternal Grandfather Family Status - Relation Status Age at Maternal Grandmother Maternal Grandfather Paternal Grandmother Paternal Grandfather Normal [facility] [place] 37on 02-27-2024 38 Start digoxin 1 tab/ day Monitor heart rate- goal is between 60-80 HR Have labs/blood drawn in 1-2 weeks to check kidney function and digoxin level Call office for any concerns Normal [facility] [place] Office Visiton 02-27-2024 Follow-up visit [id number] Evaristo Lowery [address] [facility] Provider Department Center 02/27/2024 DARIAN LAWRENCE MARY Barajas Family History Problem Relation Age of Onset Diabetes Maternal Grandmother Heart attack Maternal Grandfather Diabetes Paternal Grandmother Heart disease Paternal Grandfather Family Status - Relation Status Age at Maternal Grandmother Maternal Grandfather Paternal Grandmother Paternal Grandfather Level of Service:72189 [place] OFFICE/OUTPATIENT ESTABLISHED MOD MDM 30 MIN Normal [facility] [place] MLR HEMOGLOBIN A1Con 024 Glucose [Mass/Vol] 180 mg/dL [facility] HbA1c (Bld) [Mass fraction] 7.9 % High 4.5 - 6.2 % [facility] Comment on above: ADA RECOMMENDED LIMI T 4.0 - 6.0 ADA THERAPEUTIC TARGET < 7.0 ACTION SUGGESTED > 7.0 Interpretation and review of laboratory results Abnormal [facility] MICROALB CREAT RATIO RAN DOMon 09-23-2023 CREATININE URINE RANDOM 80.70 mg/dL 20.00 - 300.00 mg/dL [facility] MICROALBUM CREATININE RATIO UR 16.1 mg/g 0.0 - 29.9 mg/g [facility] Comment on above: NO MICROALBUMINURIA 0-29 MG/G CLINICAL MICROALBUMINURIA 30-300 MG/G MACROALBUMINURIA >300 MG/G MICROALBUMIN URINE RANDOM <1.3 NINF - 30.0 mg/dL [facility]TE[facility] 0 01-03-2023 ECHOCARDIO M/2D COMPLETE Patient: EVARISTO LOWERY Exam Date: 01/03/2023 : 1965 Gender:M Ordering : MRS[employer] MERRY [employer] Admission #: [id number] Family : Order #: [id number] CLICK HERE TO VIEW EXAM ECHOCARDIOGRAM REPORT [...] Smith M.D. on 01/03/2023 at 20:32 Normal [facility] XR knee LT 4V*on 10-19-2022 XR knee LT 4V* [facility] [place] [address] XRay Report Signed Patient: Evaristo Lowery MR#: [id number] : 1965 Acct:[id number] Age/Sex: 57 / M ADM Date: 10/19/22 Loc: XDCLY Room: Type: [facility] Attending Dr: Justin Smallwood SACK MAKER-C Copies to: Justin Smallwood CNP Ordering Provider: Justin Smallwood CNP Date of Service: 10/19/22 XR/XR knee LT 4V*: LEFT KNEE PAIN ([id number]) XR/XR elbow LT min 3V*: LEFT ELBOW [...] Cheri Castaneda M.D.10/19/2022 10:21 AM Dictation Location: [place] [address] Transcribed By: [facility] 10/19/22 1021 Dictated By: Cheri Castaneda MD 10/19/22 1012 Signed By: 10/19/22 1021 [facility] [place] [facility] CREATININEon 10-01-2022 Creatinine [Mass/Vol] 0.75 mg/dL Normal 0.70-1.30 [facility] Comment on above: Performed By: #### C MP #### [facility] [address] [place] [address] Dr. Mily Parra EGFR-AF PALAUAN >60 Normal >=60 [facility] Comment on above: Performed By: #### C MP #### [facility] [address] [place] [address] [address] Mily Parra EGFR-NON AF PALAUAN >60 Normal >=60 [facility] Comment on above: Performed By: #### C MP #### [facility] [address] [place] [address] ABDOMEN WO/W CONon [...] by: ISIAH JUAREZ Date: 2022-10-01 11:49 Normal [facility] CT ABD/PELVIS WO CONon 09-14 CT [...] BLAYNE CHEN Date: 2022-09-14 15:18 Normal [facility] CBC AUTO DIFFon 06-24-2022 BASO # 0.1 103/ul Normal 0.0-0.1 [facility] Comment on above: Performed By: #### C BC #### [facility] [address] [place] [address] [address] Mily Parra Basophils/100 WBC (Bld) 0.9 % Normal 0.2-2.0 [facility] Comment on above: Performed By: #### C BC #### [facility] [address] [place] [address] Dr. Mily Parra EO # 0.6 103/ul Normal 0.0-0.7 [facility] Comment on above: Performed By: #### C BC #### [facility] [address] [place] [address] [address] Mily Parra Eosinophils/100 WBC (Bld) 6.0 % Normal 0.9-7.0 [facility] Comment on above: Performed By: #### C BC #### [facility] [address] [place] [address] Dr. Mily Parra Erythrocyte distribution width (RBC) [Ratio] 13.4 % Normal 11.0-15.0 [facility] Comment on above: Performed By: #### C BC #### [facility] [address] [place] [address] Dr. Mily Parra Hematocrit (Bld) [Volume fraction] 46.7 % Normal 42.0-54.0 [facility] Comment on above: Performed By: #### C BC #### [facility] [address] [place] [address] Dr. Mily Parra Hemoglobin (Bld) [Mass/Vol] 15.6 g/dL Normal 14.0-18.0 [facility] Comment on above: Performed By: #### C BC #### [facility] [address] [place] [address] Dr. Mily Parra IG # 0.03 10e3/ul Normal 0.00-0.03 [facility] Comment on above: Performed By: #### C BC #### [facility] [address] [place] [address] Dr. Mily Parra IG % 0.3 % Normal 0.0-0.5 [facility] Comment on above: Performed By: #### C BC #### [facility] [address] [place] [address] Dr. Mily Parra LYMPH # 3.0 103/ul Normal 1.2-3.8 [facility] Comment on above: Performed By: #### C BC #### [facility] [address] [place] [address] Dr. Mily Parar Lymphocytes/100 WBC (Bld) 28.1 % Normal 20.5-60.0 [facility] Comment on above: Performed By: #### C BC #### [facility] [address] [place] [address] Dr. Mily Parra MANUAL DIFF REQ NO Normal [facility] Comment on above: Performed By: #### C BC #### [facility] [address] [place] [address] Dr. Mily Parra MCH (RBC) [Entitic mass] 29.5 pg Normal 25.9-34.0 [facility] Comment on above: Performed By: #### C BC #### [facility] [address] [place] [address] Dr. Mily Parra MCHC (RBC) [Mass/Vol] 33.4 g/dL Normal 29.9-35.2 [facility] Comment on above: Performed By: #### C BC #### [facility] [address] [place] [address] Dr. Mily Parra MCV (RBC) [Entitic vol] 88.4 fL Normal 80.0-94.0 [facility] Comment on above: Performed By: #### C BC #### [facility] [address] [place] [address] Dr. Mily Parra MONO # 0.8 103/ul Normal 0.3-0.8 [facility] Comment on above: Performed By: #### C BC #### [facility] [address] [place] [address] Dr. Mily Parra Monocytes/100 WBC (Bld) 7.8 % Normal 1.7-12.0 [facility] Comment on above: Performed By: #### C BC #### [facility] [address] [place] [address] Dr. Mily Parra NEUT # 6.0 103/ul Normal 1.4-6.5 [facility] Comment on above: Performed By: #### C BC #### [facility] [address] [place] [address] Dr. Mily Parra Neutrophils/100 WBC (Bld) 56.9 % Normal 43.0-75.0 [facility] Comment on above: Performed By: #### C BC #### [facility] [address] [place] [address] Dr. Mily Parra Platelet mean volume (Bld) [Entitic vol] 8.8 fL Critically low 9.5-13.5 [facility] Comment on above: Performed By: #### C BC #### [facility] [address] [place] [address] Dr. Mily Parra PLT 233 103/ul Normal 150-450 [facility] Comment on above: Performed By: #### C BC #### [facility] [address] [place] [address] Dr. Mily Parra RBC 5.28 106/ul Normal 4.70-6.10 [facility] Comment on above: Performed By: #### C BC #### [facility] [address] [place] [address] Dr. Mily Parra WBC 10.5 103/ul Normal 4.0-11.0 [facility] Comment on above: Performed By: #### C BC #### [facility] [address] [place] [address] Dr. Mily Parra PROF CHEM 8 (BAS METB)on Anion gap [Moles/Vol] 8.9 mmol/L Normal [facility] Comment on above: Performed By: #### L IPID #### [facility] [address] [place] [address] Dr. Mily Parra Calcium [Mass/Vol] 8.6 mg/dL Normal 8.5-10.1 [facility] Comment on above: Performed By: #### L IPID #### [facility] [address] [place] [address] Dr. Mily Parra Chloride [Moles/Vol] 107 mmol/L Normal 98-107 [facility] Comment on above: Performed By: #### L IPID #### [facility] [address] [place] [address] Dr. Mily Parra CO2 [Moles/Vol] 27.2 mmol/L Normal 21.0-32.0 [facility] Comment on above: Performed By: #### L IPID #### [facility] [address] [place] [address] Dr. Mily Parra Creatinine [Mass/Vol] 0.76 mg/dL Normal 0.70-1.30 [facility] Comment on above: Performed By: #### L IPID #### [facility] [address] [place] [address] Dr. Mily Parra EGFR-AF PALAUAN >60 Normal >=60 [facility] Comment on above: Performed By: #### L IPID #### [facility] [address] [place] [address] Dr. Mily Parra EGFR-NON AF PALAUAN >60 Normal >=60 [facility] Comment on above: Performed By: #### L IPID #### [facility] [address] [place] [address] Dr. Mily Parra Glucose [Mass/Vol] 118 mg/dL Critically high 74-106 [facility] Comment on above: Performed By: #### L IPID #### [facility] [address] [place] [address] Dr. Mily Parra Potassium [Moles/Vol] 4.1 mmol/L Normal 3.5-5.1 [facility] Comment on above: Performed By: #### L IPID #### [facility] [address] [place] [address] [address] Mily Parra Sodium [Moles/Vol] 139 mmol/L Normal 136-145 [facility] Comment on above: Performed By: #### L IPID #### [facility] [address] [place] [address] [address] Mily Parra Urea nitrogen [Mass/Vol] 20.0 mg/dL Critically high 7.0-18.0 [facility] Comment on above: Performed By: #### L IPID #### [facility] [address] [place] [address] [address] Mily Parra Urea nitrogen/Creatinine [Mass ratio] 26.3 mg/mg Normal [facility] Comment on above: Performed By: #### L IPID #### [facility] [address] [place] [address] Dr. Mily Parra ACETONE SERUMon 06-23-2022 ACETONE Negative Normal NEGATIVE [facility] Comment on above: Performed By: #### A CETON #### [facility] [address] [place] [address] Dr. Mily Parra BNPon 06-23-2022 Natriuretic peptide B (Bld) [Mass/Vol] 129.0 pg/mL Normal <=900.0 [facility] Comment on above: Performed By: #### L IPID #### [facility] [address] [address] [address] Mily Parra CARDIAC CARLOS 3-6on 2 CK [Catalytic activity/Vol] 52 U/L Normal 39-308 [facility] Comment on above: Performed By: #### C MREP #### [facility] [address] [place] [address] [address] Mily Parra CK.MB [Mass/Vol] 0.69 ng/mL Normal <=3.60 [facility] Comment on above: Performed By: #### C MREP #### [facility] [address] [place] [address] Dr. Mily Parra HSTROP 11.6 pg/mL Normal 4.0-76.1 [facility] Comment on above: Result Comment: CUT- OFF POINTS HAVE BEEN ESTABLISHED BASED ON THE FOURTH UNIVERSAL DEFINITIONS OF MYOCARDIAL INFARCTION. THE UPPER REFERENCE LIMIT (URL) OF TROPONIN, DEFINED THE 99TH PERCENTILE OF cTnI DISTRIBUTION IN A REFERENCE POPULATION, HAS BEEN CONFIRMED THE DECISION THRESHOLD FOR MT DIAGNOSIS. Performed By: #### C MREP #### [facility] [address] [place] [address] Dr. Mily Parra CK [Catalytic activity/Vol] 48 U/L Normal 39-308 [facility] Comment on above: Performed By: #### C MREP #### [facility] [address] [place] [address] Dr. Mily WESTON.MB [Mass/Vol] 0.58 ng/mL Normal <=3.60 [facility] Comment on above: Performed By: #### C MREP #### [facility] [address] [place] [address] Dr. Mily Parra HSTROP 6.1 pg/mL Normal 4.0-76.1 [facility] Comment on above: Result Comment: CUT- OFF POINTS HAVE BEEN ESTABLISHED BASED ON THE FOURTH UNIVERSAL DEFINITIONS OF MYOCARDIAL INFARCTION. THE UPPER REFERENCE LIMIT (URL) OF TROPONIN, DEFINED THE 99TH PERCENTILE OF cTnI DISTRIBUTION IN A REFERENCE POPULATION, HAS BEEN CONFIRMED THE DECISION THRESHOLD FOR MT DIAGNOSIS. Performed By: #### C MREP #### [facility] [address] [place] [address] Dr. Mily Parra CBC AUTO DIFFon 06-23-2022 BASO # 0.1 103/ul Normal 0.0-0.1 [facility] Comment on above: Performed By: #### C BC #### [facility] [address] [place] [address] Dr. Mily Parra Basophils/100 WBC (Bld) 0.7 % Normal 0.2-2.0 [facility] Comment on above: Performed By: #### C BC #### [facility] [address] [place] [address] Dr. Mily Parra EO # 0.5 103/ul Normal 0.0-0.7 [facility] Comment on above: Performed By: #### C BC #### [facility] [address] [place] [address] Dr. Mily Parra Eosinophils/100 WBC (Bld) 3.6 % Normal 0.9-7.0 [facility] Comment on above: Performed By: #### C BC #### [facility] [address] [place] [address] Dr. Mily Parra Erythrocyte distribution width (RBC) [Ratio] 13.4 % Normal 11.0-15.0 [facility] Comment on above: Performed By: #### C BC #### [facility] [address] [place] [address] Dr. Mily Parra Hematocrit (Bld) [Volume fraction] 51.6 % Normal 42.0-54.0 [facility] Comment on above: Performed By: #### C BC #### [facility] [address] [place] [address] Dr. Mily Parra Hemoglobin (Bld) [Mass/Vol] 17.4 g/dL Normal 14.0-18.0 [facility] Comment on above: Performed By: #### C BC #### [facility] [address] [place] [address] Dr. Mily Parra IG # 0.06 10e3/ul Critically high 0.00-0.03 [facility] Comment on above: Performed By: #### C BC #### [facility] [address] [place] [address] Dr. Mily Parra IG % 0.4 % Normal 0.0-0.5 [facility] Comment on above: Performed By: #### C BC #### [facility] [address] [place] [address] Dr. Mily Parra LYMPH # 2.7 103/ul Normal 1.2-3.8 [facility] Comment on above: Performed By: #### C BC #### [facility] [address] [place] [address] Dr. Mily Parra Lymphocytes/100 WBC (Bld) 18.3 % Critically low 20.5-60.0 [facility] Comment on above: Performed By: #### C BC #### [facility] [address] [place] [address] Dr. Mily Parra MANUAL DIFF REQ NO Normal [facility] Comment on above: Performed By: #### C BC #### [facility] [address] [place] [address] Dr. Mily Parra MCH (RBC) [Entitic mass] 29.7 pg Normal 25.9-34.0 [facility] Comment on above: Performed By: #### C BC #### [facility] [address] [place] [address] Dr. Mily Parra MCHC (RBC) [Mass/Vol] 33.7 g/dL Normal 29.9-35.2 [facility] Comment on above: Performed By: #### C BC #### [facility] [address] [place] [address] Dr. Mily Parra MCV (RBC) [Entitic vol] 88.1 fL Normal 80.0-94.0 [facility] Comment on above: Performed By: #### C BC #### [facility] [address] [place] [address] Dr. Mily Parra MONO # 0.9 103/ul Critically high 0.3-0.8 [facility] Comment on above: Performed By: #### C BC #### [facility] [address] [place] [address] Dr. Mily Parra Monocytes/100 WBC (Bld) 6.2 % Normal 1.7-12.0 [facility] Comment on above: Performed By: #### C BC #### [facility] [address] [place] [address] Dr. Mily Parra NEUT # 10.3 103/ul Critically high 1.4-6.5 [facility] Comment on above: Performed By: #### C BC #### [facility] [address] [place] [address] Dr. Mily Parra Neutrophils/100 WBC (Bld) 70.8 % Normal 43.0-75.0 [facility] Comment on above: Performed By: #### C BC #### [facility] [address] [place], [place] [address] Dr. Mily Parra Platelet mean volume (Bld) [Entitic vol] 9.0 fL Critically low 9.5-13.5 [facility] Comment on above: Performed By: #### C BC #### [facility] [address] [place], [place] [address] Dr. Mily Parra PLT 278 103/ul Normal 150-450 [facility] Comment on above: Performed By: #### C BC #### [facility] [address] [place], [place] [address] Dr. Mily Parra RBC 5.86 106/ul Normal 4.70-6.10 [facility] Comment on above: Performed By: #### C BC #### [facility] [address] [address] [address] Mily Parra WBC 14.6 103/ul Critically high 4.0-11.0 [facility] Comment on above: Performed By: #### C BC #### [facility] [address] [place] [address] HEAD WO CONon [...] BHASKAR ANTUNEZ Date: 2022-06-23 14:21 Normal [facility] CTA NECK WO W CONon 06-23-20 CTA NECK WO W CON CTA HEAD/NECK. [...] stenosis. LEFT VERTEBRAL ARTERY: No significant stenosis. [place]: The bilateral intracranial internal carotid [...] JT MIMS Date: 2022-06-23 15:58 Normal [facility] CULTURE BLOODon 06-23-2022 Microscopic examination of blood, culture Culture Observations: NO GROWTH AT 5 DAYS. Normal [facility] Comment on above: Performed By: #### C BC #### [facility] [address] [address] [address] Mily Parra Microscopic examination of blood, culture Culture Observations: NO GROWTH AT 5 DAYS. Normal [facility] Comment on above: Performed By: #### C BC #### [facility] [address] [address] [address] Mily Parra Covid-19 PCR ([facility])on SARS-CoV-2 (COVID-19) RNA RUBY+probe Ql (Unsp spec) Not detected Normal NOT DETECTED [facility] Comment on above: Result Comment: When [...] for this test is supported by the [place] of Health and Human Service's declaration that [...] used). Performed By: #### C BC #### [facility] [address] [place] [address] Dr. Mily Parra D-DIMERon 06-23-2022 D-DIMER 0.31 mg/L FEU Normal <=0.59 [facility] Comment on above: Performed By: #### C MP #### [facility] [address] [address] [address] Mily Parra D-DIMER COMMENTS SEE BELOW Normal [facility] Comment on above: Result Comment: Incr [...] hospitalization. Performed By: #### C MP #### [facility] [address] [place] [address] Dr. Mily Parra ER URINE PROFILEon 2 Bilirubin Ql (U) Negative Normal NEGATIVE [facility] Comment on above: Performed By: #### E RUR #### [facility] [address] [place] [address] Dr. Mily Parra Clarity (U) CLEAR Normal CLEAR [facility] Comment on above: Performed By: #### E RUR #### [facility] [address] [place] [address] Dr. Mily Parra Color (U) LT. YELLOW Normal YELLOW [facility] Comment on above: Performed By: #### E RUR #### [facility] [address] [place] [address] Dr. Mily QUINONESGeoffrey A micrscopic examination will be performed if indicated. Normal [facility] Comment on above: Performed By: #### E RUR #### [facility] [address] [place] [address] Dr. Mily Parra Glucose Ql (U) >1000 Abnormal NEGATIVE [facility] Comment on above: Performed By: #### E RUR #### [facility] [address] [place] [address] Dr. Mily Parra Hemoglobin Ql (U) Negative Normal NEGATIVE [facility] Comment on above: Performed By: #### E RUR #### [facility] [address] [place] [address] Dr. Mily Parra Ketones Ql (U) TRACE Abnormal NEGATIVE [facility] Comment on above: Performed By: #### E RUR #### [facility] [address] [place] [address] Dr. Mily Parra LEUKOCYTES Negative Normal NEGATIVE [facility] Comment on above: Performed By: #### E RUR #### [facility] [address] [place] [address] Dr. Mily Parra Nitrite Ql (U) Negative Normal NEGATIVE [facility] Comment on above: Performed By: #### E RUR #### [facility] [address] [place] [address] Dr. Mily Parra pH (U) 6.0 [pH] Normal 5-9 [facility] Comment on above: Performed By: #### E RUR #### [facility] [address] [place] [address] Dr. Mily Parra SPEC GRAVITY 1.020 Normal 1.005-<=1.025 [facility] Comment on above: Performed By: #### E RUR #### [facility] [address] [place] [address] Dr. Mily Parra UA PROTEIN Negative Normal NEGATIVE/ TRACE [facility] Comment on above: Performed By: #### E RUR #### [facility] [address] [place] [address] Dr. Mily Parra UR MICRO IND NOT INDICATED Normal [facility] Comment on above: Performed By: #### E RUR #### [facility] [address] [place] [address] Dr. Mily Parra Urobilinogen Qn (U) 0.2 {[place]'U}/dL Normal 0.2 - 1. 0 [facility] Comment on above: Performed By: #### E RUR #### [facility] [address] [place] [address] Dr. Mily Parra LACTATE/LACTIC ACIDon 2021 Lactate [Moles/Vol] 1.2 mmol/L Normal 0.4-1.9 [facility] Comment on above: Performed By: #### C BC #### [facility] [address] [place] [address] Dr. Mily Parra Lactate [Moles/Vol] 2.9 mmol/L Critically high 0.4-1.9 [facility] Comment on above: Performed By: #### C MP #### [facility] [address] [address] [address] Mily Parra PH VENOUS BLOODon 06-23-2022 PCO2 VENOUS 36.9 mmHg Critically low 40.0-52.0 [facility] Comment on above: Performed By: #### C MP #### [facility] [address] [address] [address] Mily Parra pH VENOUS 7.399 Normal 7.330-7.430 [facility] Comment on above: Performed By: #### C MP #### [facility] [address] [address] [address] Mily Parra PROF 14(COMP METB)on 022 Albumin [Mass/Vol] 4.1 g/dL Normal 3.4-5.0 [facility] Comment on above: Performed By: #### C MP #### [facility] [address] [place] [address] Dr. Mily Parra Albumin/Globulin [Mass ratio] 1.1 {ratio} Normal [facility] Comment on above: Performed By: #### C MP #### [facility] [address] [address] [address] Mily Parra ALP [Catalytic activity/Vol] 56 U/L Normal 46-116 [facility] Comment on above: Performed By: #### C MP #### [facility] [address] [place] [address] Dr. Mily Parra ALT [Catalytic activity/Vol] 35 U/L Normal 16-63 [facility] Comment on above: Performed By: #### C MP #### [facility] [address] [address] [address] Mily Parra Anion gap [Moles/Vol] 11.1 mmol/L Normal [facility] Comment on above: Performed By: #### C MP #### [facility] [address] [address] [address] Mily Parra AST [Catalytic activity/Vol] 16 U/L Normal 15-37 [facility] Comment on above: Performed By: #### C MP #### [facility] [address] [address] [address] Mily Parra Bilirubin [Mass/Vol] 0.5 mg/dL Normal 0.2-1.0 [facility] Comment on above: Performed By: #### C MP #### [facility] [address] [address] [address] Mily Parra Calcium [Mass/Vol] 9.8 mg/dL Normal 8.5-10.1 [facility] Comment on above: Performed By: #### C MP #### [facility] [address] [address] [address] Mily Parra Chloride [Moles/Vol] 102 mmol/L Normal 98-107 [facility] Comment on above: Performed By: #### C MP #### [facility] [address] [place] [address] Dr. Mily Parra CO2 [Moles/Vol] 27.3 mmol/L Normal 21.0-32.0 [facility] Comment on above: Performed By: #### C MP #### [facility] [address] [address] [address] Mily Parra Creatinine [Mass/Vol] 0.86 mg/dL Normal 0.70-1.30 [facility] Comment on above: Performed By: #### C MP #### [facility] [address] [place] [address] Dr. Mily Parra EGFR-AF PALAUAN >60 Normal >=60 [facility] Comment on above: Performed By: #### C MP #### [facility] [address] [address] [address] Mily Parra EGFR-NON AF PALAUAN >60 Normal >=60 [facility] Comment on above: Performed By: #### C MP #### [facility] [address] [place] [address] Dr. Mily Parra Globulin (S) [Mass/Vol] 3.6 g/dL Normal [facility] Comment on above: Performed By: #### C MP #### [facility] [address] [address] [address] Mily Parra Glucose [Mass/Vol] 148 mg/dL Critically high 74-106 T [facility] Comment on above: Performed By: #### C MP #### [facility] [address] [address] [address] Mily Parra Potassium [Moles/Vol] 4.4 mmol/L Normal 3.5-5.1 [facility] Comment on above: Performed By: #### C MP #### [facility] [address] [address] [address] Mily Parra Protein [Mass/Vol] 7.7 g/dL Normal 6.4-8.2 [facility] Comment on above: Performed By: #### C MP #### [facility] [address] [address] [address] Mily Parra Sodium [Moles/Vol] 136 mmol/L Normal 136-145 [facility] Comment on above: Performed By: #### C MP #### [facility] [address] [address] [address] Mily Parra Urea nitrogen [Mass/Vol] 25.0 mg/dL Critically high 7.0-18.0 [facility] Comment on above: Performed By: #### C MP #### [facility] [address] [place] [address] Dr. Mily Parra Urea nitrogen/Creatinine [Mass ratio] 29.1 mg/mg Normal [facility] Comment on above: Performed By: #### C MP #### [facility] [address] [address] [address] Mily Parra PROTIMEon 06-23-2022 INR Coag (PPP) [Relative time] 0.97 {INR} Normal [facility] Comment on above: Performed By: #### C MP #### [facility] [address] [place] [address] Dr. Mily Parra INR GUIDELINES SEE BELOW Normal [facility] Comment on above: Result Comment: MARIA RED INR: 2.0 - 3.0 CONDITIONS NOT LISTED BELOW 2.5 - 3.5 FOR PROSTHETIC HEART VALVE REPLACEMENT 2.5 - 3.5 RECURRENT THROMBOSIS Performed By: #### C MP #### [facility] [address] [address] [address] Mily Parra PT Coag (PPP) [Time] 10.5 s Normal 9.0-11.6 [facility] Comment on above: Performed By: #### C MP #### [facility] [address] [place] [address] Dr. Mily Parra PTTon 06-23-2022 aPTT Coag (Bld) [Time] 26.7 s Normal 22.3-36.2 [facility] Comment on above: Performed By: #### C MP #### [facility] [address] [address] [address] Mily Parra TROPONIN, HIGH SENSITIVITYon 06-23-2022 HSTROP 12.1 pg/mL Normal 4.0-76.1 [facility] Comment on above: Result Comment: CUT- OFF POINTS HAVE BEEN ESTABLISHED BASED ON THE FOURTH UNIVERSAL DEFINITIONS OF MYOCARDIAL INFARCTION. THE UPPER REFERENCE LIMIT (URL) OF TROPONIN, DEFINED THE 99TH PERCENTILE OF cTnI DISTRIBUTION IN A REFERENCE POPULATION, HAS BEEN CONFIRMED THE DECISION THRESHOLD FOR MT DIAGNOSIS. Performed By: #### C MP #### [facility] [address] [place] [address] Dr. Mily Parra HSTROP 5.5 pg/mL Normal 4.0-76.1 [facility] Comment on above: Result Comment: CUT- OFF POINTS HAVE BEEN ESTABLISHED BASED ON THE FOURTH UNIVERSAL DEFINITIONS OF MYOCARDIAL INFARCTION. THE UPPER REFERENCE LIMIT (URL) OF TROPONIN, DEFINED THE 99TH PERCENTILE OF cTnI DISTRIBUTION IN A REFERENCE POPULATION, HAS BEEN CONFIRMED THE DECISION THRESHOLD FOR MT DIAGNOSIS. Performed By: #### L IPID #### [facility] [address] [place] [address] Dr. Mily Parra TSHon 06-23-2022 TSH 0.875 uIU/mL Normal 0.358-3.740 [facility] Comment on above: Performed By: #### L IPID #### [facility] [address] [place] [address] Dr. Mily Parra XR CHEST 1 Von [...] BHASKAR ANTUNEZ Date: 2022-06-23 14:07 Normal [facility] CBC AUTO DIFFon 03-21-2022 BASO # 0.1 103/ul Normal 0.0-0.1 [facility] Comment on above: Performed By: #### C BC #### [facility] [address] [place] [address] Dr. Mily Parar Basophils/100 WBC (Bld) 0.8 % Normal 0.2-2.0 [facility] Comment on above: Performed By: #### C BC #### [facility] [address] [place] [address] Dr. Mily Parra EO # 0.3 103/ul Normal 0.0-0.7 [facility] Comment on above: Performed By: #### C BC #### [facility] [address] [place] [address] Dr. Mily Parra Eosinophils/100 WBC (Bld) 2.8 % Normal 0.9-7.0 [facility] Comment on above: Performed By: #### C BC #### [facility] [address] [place] [address] Dr. Mily Parra Erythrocyte distribution width (RBC) [Ratio] 13.8 % Normal 11.0-15.0 [facility] Comment on above: Performed By: #### C BC #### [facility] [address] [place] [address] Dr. Mily Parra Hematocrit (Bld) [Volume fraction] 49.4 % Normal 42.0-54.0 [facility] Comment on above: Performed By: #### C BC #### [facility] [address] [place] [address] Dr. Mily Parra Hemoglobin (Bld) [Mass/Vol] 16.2 g/dL Normal 14.0-18.0 [facility] Comment on above: Performed By: #### C BC #### [facility] [address] [place] [address] Dr. Mily Parra IG # 0.03 10e3/ul Normal 0.00-0.03 [facility] Comment on above: Performed By: #### C BC #### [facility] [address] [place] [address] Dr. Mily Parra IG % 0.3 % Normal 0.0-0.5 [facility] Comment on above: Performed By: #### C BC #### [facility] [address] [place] [address] Dr. Mily Parra LYMPH # 2.0 103/ul Normal 1.2-3.8 [facility] Comment on above: Performed By: #### C BC #### [facility] [address] [place] [address] Dr. Mily Parra Lymphocytes/100 WBC (Bld) 20.3 % Critically low 20.5-60.0 [facility] Comment on above: Performed By: #### C BC #### [facility] [address] [place] [address] Dr. Mily Parra MANUAL DIFF REQ NO Normal [facility] Comment on above: Performed By: #### C BC #### [facility] [address] [place] [address] Dr. Mily Parra MCH (RBC) [Entitic mass] 29.0 pg Normal 25.9-34.0 [facility] Comment on above: Performed By: #### C BC #### [facility] [address] [place] [address] Dr. Mily Parra MCHC (RBC) [Mass/Vol] 32.8 g/dL Normal 29.9-35.2 [facility] Comment on above: Performed By: #### C BC #### [facility] [address] [place] [address] Dr. Mily Parra MCV (RBC) [Entitic vol] 88.4 fL Normal 80.0-94.0 [facility] Comment on above: Performed By: #### C BC #### [facility] [address] [place] [address] Dr. Mily Parra MONO # 0.7 103/ul Normal 0.3-0.8 [facility] Comment on above: Performed By: #### C BC #### [facility] [address] [place] [address] Dr. Mily Parra Monocytes/100 WBC (Bld) 7.2 % Normal 1.7-12.0 [facility] Comment on above: Performed By: #### C BC #### [facility] [address] [place] [address] Dr. Mily Parra NEUT # 6.6 103/ul Critically high 1.4-6.5 [facility] Comment on above: Performed By: #### C BC #### [facility] [address] [place] [address] Dr. Mily Parra Neutrophils/100 WBC (Bld) 68.6 % Normal 43.0-75.0 [facility] Comment on above: Performed By: #### C BC #### [facility] [address] [place] [address] Dr. Mily Parra Platelet mean volume (Bld) [Entitic vol] 8.6 fL Critically low 9.5-13.5 [facility] Comment on above: Performed By: #### C BC #### [facility] [address] [place] [address] Dr. Mily Parra PLT 289 103/ul Normal 150-450 [facility] Comment on above: Performed By: #### C BC #### [facility] [address] [place] [address] Dr. Mily Parra RBC 5.59 106/ul Normal 4.70-6.10 [facility] Comment on above: Performed By: #### C BC #### [facility] [address] [place] [address] Dr. Mily Parra WBC 9.6 103/ul Normal 4.0-11.0 [facility] Comment on above: Performed By: #### C BC #### [facility] [address] [place] [address] Dr. Mily Parra GLYCOHEMOGLOBIN A1Con 2021 ADA RECOMMENDATION SEE BELOW Normal [facility] Comment on above: Result Comment: ADA RECOMMENDED LIMIT 4.0 - 6.0 ADA THERAPEUTIC TARGET < 7.0 ACTION SUGGESTED > 7.0 Performed By: #### A 1C #### [facility] [address] [place] [address] Dr. Mily Parra Glucose [Mass/Vol] 171 mg/dL Normal [facility] Comment on above: Performed By: #### A 1C #### [facility] [address] [place] [address] Dr. Mily Parra HbA1c (Bld) [Mass fraction] 7.6 % Critically high 4.5-6.2 [facility] Comment on above: Performed By: #### A 1C #### [facility] [address] [place] [address] Dr. Mily Parra PROF 14(COMP METB)on 022 Albumin [Mass/Vol] 4.0 g/dL Normal 3.4-5.0 [facility] Comment on above: Performed By: #### C MP #### [facility] [address] [place] [address] Dr. Mily Parra Albumin/Globulin [Mass ratio] 1.1 {ratio} Normal [facility] Comment on above: Performed By: #### C MP #### [facility] [address] [place] [address] Dr. Mily Parra ALP [Catalytic activity/Vol] 53 U/L Normal 46-116 [facility] Comment on above: Performed By: #### C MP #### [facility] [address] [place] [address] Dr. Mily Parra ALT [Catalytic activity/Vol] 32 U/L Normal 16-63 [facility] Comment on above: Performed By: #### C MP #### [facility] [address] [place] [address] Dr. Mily Parra Anion gap [Moles/Vol] 16.4 mmol/L Normal [facility] Comment on above: Performed By: #### C MP #### [facility] [address] [place] [address] Dr. Mily Parra AST [Catalytic activity/Vol] 21 U/L Normal 15-37 [facility] Comment on above: Performed By: #### C MP #### [facility] [address] [address] [address] Mily Parra Bilirubin [Mass/Vol] 0.9 mg/dL Normal 0.2-1.0 [facility] Comment on above: Performed By: #### C MP #### [facility] [address] [address] [address] Mily Parra Calcium [Mass/Vol] 9.2 mg/dL Normal 8.5-10.1 [facility] Comment on above: Performed By: #### C MP #### [facility] [address] [place] [address] Dr. Mily Parra Chloride [Moles/Vol] 101 mmol/L Normal 98-107 [facility] Comment on above: Performed By: #### C MP #### [facility] [address] [address] [address] Mily Parra CO2 [Moles/Vol] 26.2 mmol/L Normal 21.0-32.0 [facility] Comment on above: Performed By: #### C MP #### [facility] [address] [place] [address] Dr. Mily Parra Creatinine [Mass/Vol] 0.74 mg/dL Normal 0.70-1.30 [facility] Comment on above: Performed By: #### C MP #### [facility] [address] [address] [address] Mily Parra EGFR-AF PALAUAN >60 Normal >=60 [facility] Comment on above: Performed By: #### C MP #### [facility] [address] [place] [address] Dr. Mily Parra EGFR-NON AF PALAUAN >60 Normal >=60 [facility] Comment on above: Performed By: #### C MP #### [facility] [address] [address] [address] Mily Parra Globulin (S) [Mass/Vol] 3.5 g/dL Normal [facility] Comment on above: Performed By: #### C MP #### [facility] [address] [address] [address] Mily Parra Glucose [Mass/Vol] 135 mg/dL Critically high 74-106 T [facility] Comment on above: Performed By: #### C MP #### [facility] [address] [address] [address] Mily Parra Potassium [Moles/Vol] 4.6 mmol/L Normal 3.5-5.1 [facility] Comment on above: Performed By: #### C MP #### [facility] [address] [place] [address] Dr. Mily Parra Protein [Mass/Vol] 7.5 g/dL Normal 6.4-8.2 [facility] Comment on above: Performed By: #### C MP #### [facility] [address] [address] [address] Mily Parra Sodium [Moles/Vol] 139 mmol/L Normal 136-145 [facility] Comment on above: Performed By: #### C MP #### [facility] [address] [address] [address] Mily Parra Urea nitrogen [Mass/Vol] 16.0 mg/dL Normal 7.0-18.0 [facility] Comment on above: Performed By: #### C MP #### [facility] [address] [address] [address] Mily Parra Urea nitrogen/Creatinine [Mass ratio] 21.6 mg/mg Normal [facility] Comment on above: Performed By: #### C MP #### [facility] [address] [place] [address] Dr. Mliy Parra LIPID PROFILEon 02-16-2022 CHOL-HDL RATIO NORM SEE BELOW Normal [facility] Comment on above: Result Comment: 3.3 - 4.4 LOW RISK 4.4 - 7.1 AVERAGE RISK 7.1 - 11.0 MODERATE RISK >11.0 HIGH RISK Performed By: #### L IPID #### [facility] [address] [address] [address] Mily Parra Cholesterol [Mass/Vol] 91 mg/dL Normal <=200 [facility] Comment on above: Performed By: #### L IPID #### [facility] [address] [address] [address] Mily Parra Cholesterol in HDL [Mass/Vol] 27 mg/dL Critically low 40-60 [facility] Comment on above: Performed By: #### L IPID #### [facility] [address] [address] [address] Mily Parra Cholesterol in LDL [Mass/Vol] 40.6 mg/dL Normal [facility] Comment on above: Performed By: #### L IPID #### [facility] [address] [place] [address] Dr. Mily Parra Cholesterol.total/Ch olesterol in HDL [Mass ratio] 3.4 {ratio} Normal [facility] Comment on above: Performed By: #### L IPID #### [facility] [address] [place] [address] Dr. Mily Parra HDL NORMAL > or = 60 mg/dl - LO W CARDIOVASCULAR RISK <40 mg/dl - HIGH CARDIOVASCULAR RISK Normal [facility] Comment on above: Performed By: #### L IPID #### [facility] [address] [place] [address] Dr. Mily Parra LDL CALC NORMAL SEE BELOW Normal [facility] Comment on above: Result Comment: <100 mg/dl OPTIMAL 100 - 129 mg/dl NEAR OR ABOVE OPTIMAL 130 - 159 mg/dl BORDERLINE HIGH 160 - 189 mg/dl HIGH >190 mg/dl VERY HIGH Performed By: #### L IPID #### [facility] [address] [place] [address] Dr. Mily Parra Triglyceride [Mass/Vol] 117 mg/dL Normal <=150 [facility] Comment on above: Performed By: #### L IPID #### [facility] [address] [address] [address] Mily Parra VLDL CALC 23.4 mg/dL Normal [facility] Comment on above: Performed By: #### L IPID #### [facility] [address] [place], [place] [id number] Dr. Mily Parra Vital Signs Date Time Vital Sign Value Performing Clinician Facility 12-30-2024 10:43-0400 Body height 157.5 cm Miah Vee MD Work Phone: [facility] 12-30-2024 10:43-0400 Body mass index (BMI) [Ratio] 33.11 kg/m2 Miah Vee MD Work Phone: [facility] 12-30-2024 10:43-0400 Body temperature 97.5 [degF] Miah Vee MD Work Phone: [facility] 12-30-2024 10:43-0400 Body weight 82.1 kg Miah Vee MD Work Phone: [facility] 12-30-2024 10:43-0400 Diastolic blood pressure 66 mm[Hg] Miah Vee MD Work Phone: [facility] 12-30-2024 10:43-0400 Heart rate 91 /min Miah Vee MD Work Phone: [facility] 12-30-2024 10:43-0400 Respiratory rate 20 /min Miah Vee MD Work Phone: [facility] 12-30-2024 10:43-0400 SaO2% (BldA) [Mass fraction] 97 % Miah Vee MD Work Phone: [facility] 12-30-2024 10:43-0400 Systolic blood pressure 110 mm[Hg] Miah Vee MD Work Phone: [facility] 09-03-2024 15:01-0500 Body height 157.5 cm Raymond Stearns NP Work Phone: [facility] 09-03-2024 15:01-0500 Body mass index (BMI) [Ratio] 34.75 kg/m2 Raymond Stearns [employer] Work Phone: [facility] 09-03-2024 15:01-0500 Body temperature 97.2 [degF] Raymond Stearns [employer] Work Phone: [facility] 09-03-2024 15:01-0500 Body weight 86.18 kg Raymond Stearns [employer] Work Phone: [facility] 09-03-2024 15:01-0500 Diastolic blood pressure 70 mm[Hg] Raymond Stearns [employer] Work Phone: [facility] 09-03-2024 15:01-0500 Heart rate 100 /min Raymond Stearns [employer] Work Phone: [facility] 09-03-2024 15:01-0500 Respiratory rate 16 /min Raymond Stearns [employer] Work Phone: [facility] 09-03-2024 15:01-0500 SaO2% (BldA) [Mass fraction] 97 % Raymond Stearns [employer] Work Phone: [facility] 09-03-2024 15:01-0500 Systolic blood pressure 120 mm[Hg] Raymond Stearns [employer] Work Phone: [facility] 07-01-2024 14:34-0500 Blood Pressure Location Cabrera OJEDA [facility] 07-01-2024 14:34-0500 Body temperature 98.6 [degF] Cabrera OJEDA [facility] 07-01-2024 14:34-0500 Diastolic blood pressure 86 mm[Hg] Cabrera OJEDA [facility] 07-01-2024 14:34-0500 Heart rate 79 /min Cabrera OJEDA [facility] 07-01-2024 14:34-0500 Respiratory rate 16 /min Cabrera OJEDA [facility] 07-01-2024 14:34-0500 Systolic blood pressure 124 mm[Hg] Cabrera OJEDA [facility] 05-07-2024 14:26-0400 Body height 160 cm Raymond Stearns [employer] Work Phone: [facility] 05-07-2024 14:26-0400 Body mass index (BMI) [Ratio] 37.55 kg/m2 Raymond Stearns [employer] Work Phone: [facility] 05-07-2024 14:26-0400 Body temperature 98.49 [degF] Raymond Stearns [employer] Work Phone: [facility] 05-07-2024 14:26-0400 Body weight 96.16 kg Raymond Stearns [employer] Work Phone: [facility] 05-07-2024 14:26-0400 Diastolic blood pressure 70 mm[Hg] Raymond Stearns [employer] Work Phone: [facility] 05-07-2024 14:26-0400 Heart rate 101 /min Raymond Stearns [employer] Work Phone: [facility] Comment on above: 96% O2 05-07-2024 14:26-0400 Systolic blood pressure 114 mm[Hg] Raymond Stearns [employer] Work Phone: [facility] 04-13-2024 12:58-0400 Body height 157.48 cm [facility] 04-13-2024 12:58-0400 Body mass index (BMI) [Ratio] 38.4 kg/m2 [place] 04-13-2024 12:58-0400 Body weight 95.25 kg [facility] 04-13-2024 12:58-0400 Diastolic blood pressure 78 mm[Hg] [place] 04-13-2024 12:58-0400 Heart rate 103 /min [facility] 04-13-2024 12:58-0400 Respiratory rate 18 /min [facility] 04-13-2024 12:58-0400 SaO2% (BldA) [Mass fraction] 92 % [place] 04-13-2024 12:58-0400 Systolic blood pressure 142 mm[Hg] [place] 09-27-2023 14:57-0500 Body height 162.6 cm Shaikh Brad NOLASCO Work Phone: [facility] 09-27-2023 14:57-0500 Body mass index (BMI) [Ratio] 40.34 kg/m2 Shaikh Brad NOLASCO Work Phone: [facility] 09-27-2023 14:57-0500 Body temperature 98.4 [degF] Shaikh Brad NOLASCO Work Phone: [facility] 09-27-2023 14:57-0500 Body weight 106.59 kg Shaikh Brad NOLASCO Work Phone: [facility] 09-27-2023 14:57-0500 Diastolic blood pressure 84 mm[Hg] Shaikh Brad NOLASCO Work Phone: [facility] 09-27-2023 14:57-0500 Heart rate 104 /min Shaikh Brad NOLASCO Work Phone: [facility] 09-27-2023 14:57-0500 SaO2% (BldA) [Mass fraction] 97 % Shaikh Brad NOLASCO Work Phone: [facility] 09-27-2023 14:57-0500 Systolic blood pressure 130 mm[Hg] Shaikh Brad NOLASCO Work Phone: [facility] Healthcare Encounters Encounter Date Encounter Type Care Provider Facility Start: 07-07-2025 ambulatory RAYMOND STEARNS Fa cility:[facility] Start: 02-04-2025 End: 02-04-2025 Orders Only Miah Vee MD Work Phone: [facility] Comment on above: Hyperlipidemia, unsp ecified hyperlipidemia type ; Type 2 diabetes mellitus without complication, without long-term current use of insulin (HCC) Start: 12-30-2024 End: 12-30-2024 Bamboo flowsheet Miah Vee MD Work Phone: [facility] Start: 12-30-2024 End: 12-30-2024 Bamboo flowsheet Miah Vee MD Work Phone: [facility] Start: 12-30-2024 End: 12-30-2024 Office outpatient visit 15 minutes Miah Vee MD Work Phone: [facility] Comment on above: Acute non-recurrent pansinusitis (Primary Dx) Start: 12-30-2024 End: 12-30-2024 ambulatory MIAH VEE Not Available Start: 11-06-2024 End: 11-06-2024 ambulatory [facility] Start: 10-10-2024 End: 10-10-2024 ambulatory [facility] Start: 09-03-2024 End: 09-03-2024 Periodic preventive med est patient 40-64yrs Raymond Stearns [employer] Work Phone: [facility] Comment on above: Type 2 diabetes roel itus without complication, without long- term current use of insulin (CMS/HCC) (Primary Dx); Essential hypertension (CMS/HCC); Hyperlipidemia, unspecified hyperlipidemia type (CMS/HCC); Chronic systolic heart failure (CMS/HCC); BMI 34.0-34.9,adult; Chronic allergic rhinitis Start: 09-03-2024 End: 09-03-2024 ambulatory RAYMOND STEARNS Not Available Start: 09-03-2024 End: 09-03-2024 Bamboo flowsheet Raymond Stearns [employer] Work Phone: [facility] Start: 09-03-2024 End: 09-03-2024 Bamboo flowsheet Raymond Stearns [employer] Work Phone: [facility] Start: 07-04-2024 End: 07-04-2024 Clinisync Result Encounter Generic External Data Provider [facility] Unsolicited Start: 07-04-2024 End: 07-04-2024 Clinisync Result Encounter Generic External Data Provider [facility] External [facility] Unsolicited Start: 07-01-2024 End: 07-01-2024 ambulatory Cabrera OJEDA Facility:[facility] Start: 07-01-2024 End: 07-01-2024 Patient encounter procedure Cabrera OJEDA [facility] Start: 06-13-2024 End: 06-13-2024 Refill Raymond Stearns [employer] Work Phone: [facility] Comment on above: Chronic systolic hea rt failure (CMS/HCC) Start: 06-10-2024 End: 06-10-2024 Clinisync Result Encounter Raymond Stearns [employer] Work Phone: [facility] Unsolicited Start: 06-10-2024 End: 06-10-2024 Clinisync Result Encounter Raymond Stearns [employer] Work Phone: [facility] Unsolicited Start: 05-16-2024 Patient encounter status Sheila Stearns [employer] Work Phone: [facility] Start: 05-13-2024 End: 05-14-2024 Refill Shaikh Brad NOLASCO Work Phone: [facility] Comment on above: Type 2 diabetes roel itus without complication, without long- term current use of insulin (CMS/HCC) Start: 05-07-2024 End: 05-07-2024 Office outpatient visit 15 minutes Raymond Stearns [employer] Work Phone: [facility] Comment on above: Type 2 diabetes roel itus without complication, without long- term current use of insulin (CMS/HCC) (Primary Dx); Essential hypertension (CMS/HCC); Morbid (severe) obesity due to excess calories (E66.01); Hyperlipidemia, unspecified hyperlipidemia type (CMS/HCC) Start: 05-07-2024 End: 05-07-2024 ambulatory RAYMOND STEARNS Not Available Start: 05-07-2024 End: 05-07-2024 Bamboo flowsheet Raymond Stearns [employer] Work Phone: [facility] Start: 05-07-2024 End: 05-07-2024 Bamboo flowsheet Raymond Stearns [employer] Work Phone: [facility] Start: 05-06-2024 End: 05-06-2024 Refill Raymond Stearns [employer] Work Phone: [facility] Comment on above: Type 2 diabetes roel itus without complication, without long- term current use of insulin (CMS/HCC) Start: 04-30-2024 End: 04-30-2024 ambulatory [facility] Start: 04-23-2024 End: 04-23-2024 ambulatory [facility] Work Phone: Start: 04-23-2024 End: 04-23-2024 Patient encounter procedure [facility] Work Phone: Start: 04-13-2024 End: 04-13-2024 ambulatory [facility] Work Phone: Start: 04-13-2024 End: 04-13-2024 Patient encounter procedure [facility] Work Phone: Start: 04-11-2024 End: 04-11-2024 Orders Only Raymond Stearns [employer] Work Phone: [facility] Comment on above: Chronic systolic hea rt failure (CMS/HCC) Start: 03-27-2024 End: 03-27-2024 ambulatory CHACHO SMITH [facility] Start: 03-20-2024 ambulatory [facility] Start: 03-20-2024 Encounter for preprocedural cardiovascular examination [facility] Start: 02-27-2024 End: 02-27-2024 ambulatory DARIAN VIDAL [facility] Start: 02-07-2024 ambulatory [facility] Start: 02-05-2024 End: 02-05-2024 ambulatory SHAIKH BRAD Not Available Start: 09-27-2023 [...] Work Phone: [facility] External Department Unsolicited Start: 01-03-2023 End: 01-04-[address] TONY WILSON Facility: Start: 11-14-2022 End: 11-14-2022 Patient encounter procedure Cabrera OJEDA [facility] Start: 10-19-2022 End: 10-19-2022 ambulatory Justin Smallwood Facility:[place] Start: 10-01-2022 End: 10-02-[address] TONY WILSON Facility:[facility] Start: 09-14-2022 End: 09-15-[address] TONY WILSON Facility:[facility] Start: 06-23-2022 End: 06-24-[address] BHASKAR ANTUNEZ Facility:[facility] Start: 03-21-2022 End: 03-22-[address] TONY WILSON Facility:[facility] Start: 02-16-2022 End: 02-17-[address] TONY WILSON Facility:[facility] Procedures Date Procedure Procedure Detail Performing Clinician Start: 07-04-2024 SRMCOH PROSTATE SPEC IFIC ANTIGEN SCRN Generic External Data Provider Start: 06-10-2024 ALL CBC WITH AUTO DIFF Raymond Stearns [employer] Work Phone: Start: 09-23-2023 MLR HEMOGLOBIN A1C Ga Salinas MD Work Phone: Start: 09-23-2023 TBH MICROALB CREAT R ATIO RANDOM Shaikh Brad NOLASCO Work Phone: Start: 03-21-[address] EDNA WILSON Comment on above: Performed By: #### C MP #### [facility] [address] [place] [address] Dr. Mily Parra Aortic stent (physic al object) Cabrera OJEDA Defibrillator, devic e (physical object) Cabrera OJEDA Knee region structur e (body structure) Cabrera OJEDA Shoulder region stru cture (body structure) Cabrera OJEDA Plan of Treatment Date Care Activity Detail Author Start: 11-22-2026 Screening for malign ant neoplasm of colon [facility] Start: 04-21-2025 Influenza vaccination Influenz a Vaccine (Season Ended) [facility] Start: 03-06-2025 End: 03-06-2025 Patient encounter procedure [facility] Start: 12-30-2024 End: 12-30-2024 Patient encounter procedure 12/30/2024 10:15 AM EDT Office Visit [facility] [address] [place] [address] Miah Vee MD [address] [place] [address] Arrived [facility] Comment on above: Arrived Start: 09-25-2024 Urine screening for protein Diabetes: Urine Protein Screening [facility] Start: 09-03-2024 End: 09-03-2024 Patient encounter procedure [facility] Comment on above: Arrived Start: 09-03-2024 End: 09-03-2025 Hemoglobin A1c/Hemoglobin.total in Blood Hemoglobin A1c Lab Routine Type 2 diabetes mellitus without complication, without long-term current use of insulin (CMS/HCC) Expected: 09/03/2024 (Approximate), Expires: 09/03/2025 [facility] Work Phone: Comment on above: Expected: 09/03/2024 (Approximate), Expires: 09/03/2025 Start: 08-21-2024 Glaucoma screening Diabetes: R etinopathy Screening [facility] Start: 05-07-2024 End: 05-07-2024 Patient encounter procedure [facility] Comment on above: Arrived Start: 05-07-2024 End: 05-07-2025 CBC W Auto Differential panel - Blood CBC and differential Lab Routine Type 2 diabetes mellitus without complication, without long-term current use of insulin (CMS/HCC) Essential hypertension (CMS/HCC) Expected: 05/07/2024 (Approximate), Expires: 05/07/2025 [facility] Comment on above: Expected: 05/07/2024 (Approximate), Expires: 05/07/2025 Start: 05-07-2024 End: 05-07-2025 Comprehensive metabolic 2000 panel - Serum or Plasma Comprehensive metabolic panel Lab Routine Type 2 diabetes mellitus without complication, without long-term current use of insulin (CMS/HCC) Essential hypertension (CMS/HCC) Expected: 05/07/2024 (Approximate), Expires: 05/07/2025 [facility] Comment on above: Expected: 05/07/2024 (Approximate), Expires: 05/07/2025 Start: 05-07-2024 Hemoglobin A1c measurement Diabetes: Hemoglobin A1C [facility] Start: 05-07-2024 End: 05-07-2025 Hemoglobin A1c/Hemoglobin.total in Blood Hemoglobin A1c Lab Routine Type 2 diabetes mellitus without complication, without long-term current use of insulin ([facility]) Expected: 05/07/2024 (Approximate), Expires: 05/07/2025 [facility] Work Phone: Comment on above: Expected: 05/07/2024 (Approximate), Expires: 05/07/2025 Start: 04-21-2024 Influenza vaccination Influenza Vacc ine (#1) [facility] Start: 02-18-2024 Influenza vaccination Influenza Vacc ine (#1) [facility] Comment on above: Postponed from 04/21 (Patient Refused) Start: 12-24-2023 Hemoglobin A1c measurement Diabetes: Hemoglobin A1C [facility] Start: 10-30-2023 End: 10-30-2023 Patient encounter procedure 10/30/2023 2:45 PM EDT Office Visit [facility] [address] [place] [phone] Shaikh Salinas MD [address] [place] [phone] [facility] Start: 09-27-2023 End: 09-27-2023 Patient encounter procedure 09/27/2023 2:15 PM EST Office Visit [facility] [address] [place] [phone] Shaikh Salinas MD [address] [place] [phone] [facility] Start: 08-27-2023 Hemoglobin A1c measurement Diabetes: Hemoglobin A1C [facility] Start: 1985 Urine screening for protein Diabetes: Urine Protein Screening [facility] Start: 1966 Screening for malign ant neoplasm of colon [facility] Immunizations Immunization Date Immunization Notes Care Provider Erin castillo 04-13-2024 tetanus toxoid, redu cedric diphtheria toxoid, and acellular pertussis vaccine, adsorbed [place] 06-02-2021 SARS-CoV-2 (COVID-19 ) mRNA BNT-162b2 vax Cabrera OJEDA [facility] 05-12-2021 SARS-CoV-2 (COVID-19 ) mRNA BNT-162b2 vax Cabrera OJEDA [facility] 01-27-2016 tetanus toxoid, redu cedric diphtheria toxoid, and acellular pertussis vaccine, adsorbed Cabrera OJEDA [facility] Payers Date Payer Category Payer Self-pay 2022 Private Health Insurance [facility] [id number] 2022 Unknown [employer] [id number] 2022-Present [phone] [address] [address] [place] [address] [id number] 1966 Unknown [id number] [id number]. 2.593 1966 Unknown [id number] 2.16.840.1.817903.3.579. 2.593 1966 Unknown [id number] 2.16.840.1.915648.3.579. 2.593 1966 Unknown [id number] 2.16.840.1.685069.3.579. 2.593 1966 Unknown [id number] 2.16.840.1.786946.3.579. 2.593 1966 Unknown [id number] 2.16.840.1.162534.3.579. 2.593 1966 Unknown [id number] 2.16.840.1.686334.3.579. 2.1259 1966 Unknown [id number] 2.16.840.1.502272.3.579. 2.1259 1966 Unknown [id number] 2.16.840.1.229379.3.579. 2.1259 1966 Unknown [id number] 2.16.840.1.364996.3.579. 2.1259 1966 Unknown [id number] 2.16.840.1.648168.3.579. 2.727 1966 Unknown [id number] 2.16.840.1.653038.3.579. 2.727 1959 Unknown [id number] 1959 Unknown [id number] Unknown [id number] [id number]. 2.531 Social History Date Type Detail Facility Start: 11-14-2022 End: 07-01-2024 Tobacco smoking status Heavy tobacco smoker (finding) [facility] Start: 09-08-2023 End: 08-31-2024 Sex Assigned At Male [facility] Start: 09-08-2023 End: 09-27-2023 Tobacco smoking status CTIS Ex-smoker [facility] Start: 08-21-2009 History of tobacco use Current smoker [facility] Start: 08-21-2009 History of tobacco use Cigarette Smoker [facility] Start: 09-08-2023 End: 08-31-2024 History of Social function [facility] Start: 1965 Sex Assigned At Male [facility] Start: 08-31-2023 Gender identity Identifies as male gender (finding) [facility] Start: 08-31-2023 Sexual orientation Heterosexual (finding) [facility] Start: 09-27-2023 End: 12-30-2024 Alcohol intake Current drinker of alcohol (finding) [facility] Start: 09-27-2023 Alcohol Comment caffeine: more than 4 cups per day [facility] History of tobacco use Passive smoker [facility] Start: 09-27-2023 End: 02-05-2024 Tobacco use and exposure Smokeless tobacco non-user [facility] Start: 11-20-2023 Tobacco smoking status NHIS Smokes tobacco daily [facility] How often do you nee d to have someone help you when you read instructions, pamphlets, or other written material from your doctor or pharmacy [SILS] Never [facility] Do you belong to any clubs or organizations such as confucianist groups, unions, fraternal or athletic groups, or school groups? No [facility] Are you now , , , , never or living with a partner? [facility] How often to you hav e a drink containing alcohol? 2-4 times a month [facility] How many standard dr inks containing alcohol do you have on a typical day? 1 or 2 [facility] How often do you hav e 6 or more drinks on 1 occasion? Less than monthly [facility] Do you feel stress - tense, restless, nervous, or anxious, or unable to sleep at night because your mind is troubled all the time - these days [OSQ] Not at all [facility] (I/We) worried wheth er (my/our) food would run out before (I/we) got money to buy more. Never true [facility] How often do you nee d to have someone help you when you read instructions, pamphlets, or other written material from your doctor or pharmacy [SILS] Never [facility] Medical Equipment Procedure Code Equipment Code Equipment Origin al Text Equipment Identifier Dates 1 each by Other route every 12 (twelve) hours Twice a day - whatever brand is covered under patients insurance. [id number] Start: 09-27-2023 End: 04-19-2027 1 each every 12 (twelve) hours [id number] Start: 09-27-2023 End: 12-26-2023 Blood Sugar Diagnostic (Onetouch Verio Test Strips) strip Start: 04-13-2024 Lancets (Onetouc h Delica Plus Lancet) 30 gauge misc Start: 04-13-2024 Blood Sugar Diagnostic (Onetouch Verio Test Strips) strip Start: 04-13-2024 Lancets (Onetouc h Delica Plus Lancet) 30 gauge misc Start: 04-13-2024 USE DIRECTED TWICE DAILY [id number] Start: 04-01-2024 Functional Status Date Assessment Result Facility 07-01-2024 Functional Status N/A [facility] 11-14-2022 Functional Status N/A [facility] Clinical Notes 11-14-2022 to 12-30-2024 Miah Vee MD - 12/30/2024 11:24 AM Jeffery Vee MD - 12/30/2024 10:15 AM Rocky Stearns NP - 09/03/2024 3:34 PM Denisse Stearns NP - 09/03/2024 3:25 PM EST Note Date & Type Note Facility 12-30-2024 History of Present illness Narrative Associated Problem(s): Acute non-recurrent pansinusitis Take antibiotics for 7 days. Use prednisone for inflammation. Use sudafed or other decongestants as needed. Use Robitussin or Robitussin-DM for cough. Can use afrin for congestion but no longer than 3 days. Can use Mucinex to bring up phlegm. Use Motrin or Tylenol as needed for fever, aches, or pains. Increase fluid intake and rest. Should improve over next 5-7 days and if no better or worse call for re-evaluation. Images from the original note were not included. Subjective Patient ID: Ron Lowery is a 59 y.o. male who presents for Follow-up (Bronchitus/) and Ear Fullness (Right ear, causing lightheadedness). C/o cough, congestion, and rhinorrhea x several weeks. Afebrile. Severe fatigue and no energy. Mild cough dry and nonproductive. Denies chest tightness or SOB. MARTE and sinus pressure in forehead and cheeks along with postnasal drip. Ears plugged and popping. Sore throat and pain to swallow. Mild nausea. Denies recent sick contacts. Using OTC medication and mild relief. No improvement in symptoms since onset. Given amoxicillin 12/05 and no change. Review of Systems Constitutional: Negative for fatigue. Respiratory: Negative for cough, shortness of breath and wheezing. Cardiovascular: Negative for chest pain and palpitations. Gastrointestinal: Negative for abdominal pain, diarrhea, nausea and vomiting. Genitourinary: Negative for dysuria. Objective Physical Exam Constitutional: General: He is not in acute distress. Appearance: Normal appearance. HENT: Head: Normocephalic. Right Ear: Tympanic membrane and ear canal normal. Left Ear: Tympanic membrane and ear canal normal. Eyes: Extraocular Movements: Extraocular movements intact. Pupils: Pupils are equal, round, and reactive to light. Cardiovascular: Rate and Rhythm: Normal rate and regular rhythm. Heart sounds: No murmur heard. No friction rub. No gallop. Pulmonary: Breath sounds: Normal breath sounds. No wheezing, rhonchi or rales. Abdominal: General: Bowel sounds are normal. There is no distension. Palpations: Abdomen is soft. Tenderness: There is no abdominal tenderness. There is no guarding or rebound. Musculoskeletal: Left lower leg: No edema. Neurological: Mental Status: He is alert. Assessment/Plan Problem List Items Addressed This Visit Acute non-recurrent pansinusitis - Primary Take antibiotics for 7 days. Use prednisone for inflammation. Use sudafed or other decongestants as needed. Use Robitussin or Robitussin-DM for cough. Can use afrin for congestion but no longer than 3 days. Can use Mucinex to bring up phlegm. Use Motrin or Tylenol as needed for fever, aches, or pains. Increase fluid intake and rest. Should improve over next 5-7 days and if no better or worse call for re-evaluation. Relevant Medications levoFLOXacin (Levaquin) 750 MG tablet predniSONE (Deltasone) 50 MG tablet documented in this encounter [facility] 10-10-2024 Note [place] [facility] Subjective Evaristo Lowery is a 59 y.o. year old male patient being seen for 6 mo follow up chronic systolic heart failure, CAD, and hypertension. Due for routine device interrogation next month. Denies chest pain, SOB, and palpitations. Says HR is still close to 100 after increase in carvedilol. Patient Active Problem List Diagnosis Bronchitis Chest [...] due to excess calories (CMS/HCC) Respiratory illness Tobacco user Family History Problem Relation Name Age of [...] replaced in 2014, ICM, HTN, HLD, DM. Current medical therapy includes aspirin 81 mg daily, atorvastatin 80 mg daily, carvedilol 25 mg twice daily, ezetimibe 10 mg daily, Entresto 24-26 mg twice daily, spironolactone 12.5 mg daily, jardiance 25 mg daily, Metformin. Digoxin 125 mcg was added previously. In February 2024 he was admitted to the [facility] with episode of left-sided chest pain and arm pain. Troponin was negative. His echocardiogram showed stable ventricular systolic function. He underwent a stress test on 03/20/2024 that did not show evidence of ischemia. At visit of 03/27/2024 I increased carvedilol to 31.25 mg twice daily. This was due to elevated heart rate. Today he reports that he has been doing well. He denies any shortness of breath, leg edema, any recurrence of chest pain, or dizziness or lightheadedness. He reports that his heart rate continues to be elevated despite increasing carvedilol dosage. Review of Systems Constitutional: Positive for weight loss (26# since Mar 2024). All other systems reviewed and are negative. Objective Visit Vitals BP 112/74 (BP Location: Left arm, Patient Position: Sitting) Pulse 94 Ht 1.6 m (5' 3 ) Wt 85.7 kg (189 lb) SpO2 97% BMI 33.48 kg/m??? Smoking Status Former BSA 1.95 m??? Physical Exam Constitutional: Appearance: He is [...] Rfl: 3 carvedilol (Coreg) 25 mg tablet, Take 25 mg by mouth with breakfast and with evening meal. In addition to 6.25mg tablets BID, Disp: , Rfl: cholecalciferol (Vitamin D-3) 25 MCG (1000 units) tablet, Take 1,000 Units by mouth in the morning., Disp: , Rfl: empagliflozin (Jardiance) 10 mg, Jardiance 10 mg tablet TAKE 1 TABLET BY MOUTH EVERY DAY (Patient taking differently: Take 25 mg by mouth once daily as directed. TAKE 1 TABLET BY MOUTH EVERY DAY), Disp: 90 tablet, Rfl: 3 ezetimibe (Zetia) 10 mg tablet, TAKE 1 TABLET BY MOUTH EVERY DAY, Disp: 90 tablet, Rfl: 3 metFORMIN (Glucophage) 500 mg tablet, Take 1,000 mg by mouth with breakfast and with evening meal., Disp: , Rfl: sacubitriL-valsartan (En (more content not included)... [facility] 09-03-2024 History of Present illness Narrative Associated Problem(s): BMI 34.0-34.9,adult Weight was 217 in May Is 190 today! Has been drinking protein shake every morning Eating 2 meals per day. Discussed with patient their BMI (actual, verses recommended). We have also discussed lifestyle modifications: attempts to perform physical activity as chronic conditions allow, also to monitor dietary intake: increasing protein/fruits/veggies and lowering carb intake (unless contraindicated). Limit sodas, juices, and sugary drinks. Also discussed oral medications that can be utilized for weight loss, as well as surgical options for weight loss. Associated Problem(s): Essential hypertension (CMS/HCC) Currently taking Coreg, Entresto, Aldactone Does not check BP at home; Denies orthostatic changes, dizziness, cough, shortness of breath, swelling in extremities. Continue current regimen. Given BP log, advised pt to record BP and bring log back with them to next visit. Associated Problem(s): Hyperlipidemia (CMS/HCC) Currently taking Atorvastatin 80mg Zetia 10mg Denies any myalgias. Continue current regimen. Associated Problem(s): Type 2 diabetes mellitus without complication, without long-term current use of insulin (CMS/HCC) Currently taking Metformin, glipizide and Jardiance Most recent labs: hemoglobin A1C 6.2 Average FSBS range from BGs range between 70 and 150 Checks BG levels using: standard meter- would like to upgrade to Freestyle or Dexcom. Several episodes of hypoglycemia. Will discontinue Glipizide today. No medication adverse effects reported by the patient. Patient educated on lifestyle modifications, dietary restrictions, signs and symptoms of hypoglycemia/hyperglycemia and importance of eating regular consistent meals. Stressed upon importance of checking blood glucose at home and bring blood glucose log to appointments. All questions, concerns answered and addressed. Encouraged to call office if persistent hypoglycemia/hyperglycemia on home glucose monitoring noted. Images from the original note were not included. Subjective Patient ID: Ron Lowery is a 59 y.o. male who presents for Annual Exam. HPI Specialists: Urology- Dr. Ojeda Cardiology- [facility] Weight was 217 in May Is 190 today! Has been drinking protein shake every morning Eating 2 meals per day. HTN: Currently taking Coreg, Entresto, Aldactone Does not check BP at home; Denies orthostatic changes, dizziness, cough, shortness of breath, swelling in extremities. Continue current regimen. Given BP log, advised pt to record BP and bring log back with them to next visit. HLD: Currently taking Atorvastatin 80mg Zetia 10mg Denies any myalgias. Continue current regimen. DMII: Currently taking Metformin, glipizide and Jardiance Most recent labs: hemoglobin A1C 6.2 Average FSBS range from BGs range between 70 and 150 Checks BG levels using: standard meter- would like to upgrade to Freestyle or Dexcom. Several episodes of hypoglycemia. Will discontinue Glipizide today. No medication adverse effects reported by the patient. Patient educated on lifestyle modifications, dietary restrictions, signs and symptoms of hypoglycemia/hyperglycemia and importance of eating regular consistent meals. Stressed upon importance of checking blood glucose at home and bring blood glucose log to appointments. All questions, concerns answered and addressed. Encouraged to call office if persistent hypoglycemia/hyperglycemia on home glucose monitoring noted. Education: Check blood sugars daily, notify if <70 or >200. Take medications (pills or insulin) as directed. Monitor for s/s of hypoglycemia (sweaty, dizziness, nausea, vomiting, or shakiness). Watch for increase in thirst, urination, or appetite. Inspect feet frequently monitoring for open wounds , and also recommend yearly eye exam. Pt should attempt to remain as physically active as chronic conditions allow, as well as trying to follow a diet low in carbohydrates, and simple sugars. Review of Systems Constitutional: Negative for activity change, appetite change, chills, diaphoresis, fatigue, fever and unexpected weight change. HENT: Negative for congestion, ear pain, rhinorrhea, sinus pressure, sinus pain, sneezing, sore throat, trouble swallowing and voice change. Eyes: Negative for visual disturbance. Respiratory: Negative for cough, chest tightness, shortness of breath and wheezing. Cardiovascular: Negative for chest pain, palpitations and leg swelling. Gastrointestinal: Negative for abdominal distention, abdominal pain, blood in stool, constipation, diarrhea and vomiting. Genitourinary: Negative for decreased urine volume, dysuria, flank pain, frequency, hematuria and urgency. Musculoskeletal: Negative for arthralgias, gait problem, joint swelling and myalgias. Skin: Negative for rash. Neurological: Negative for dizziness, tremors, syncope, weakness, light-headedness and headaches. Psychiatric/Behavioral: Negative for decreased concentration and suicidal ideas. The patient is not nervous/anxious. Hematological: Does not bruise/bleed easily. Endocrine: Negative for cold intolerance, heat intolerance, polydipsia, polyphagia and polyuria. Objective Physical Exam Vitals reviewed. Constitutional: Appearance: Normal appearance. HENT: Right Ear: Tympanic membrane normal. Left Ear: Tympanic membrane normal. Nose: Nose normal. Mouth/Throat: Mouth: Mucous membranes are moist. Pharynx: Oropharynx is clear. Eyes: Pupils: Pupils are equal, round, and reactive to light. Cardiovascular: Rate and Rhythm: Normal rate and regular rhythm. Pulses: Normal pulses. Heart sounds: Normal heart sounds. Pulmonary: Effort: Pulmonary effort is normal. Breath sounds: Normal breath sounds. Abdominal: General: Abdomen is flat. Bowel sounds are normal. Palpations: Abdomen is soft. Skin: Capillary Refill: Capillary refill takes less than 2 seconds. Neurological: Mental Status: He is alert and oriented to person, place, and time. Assessment/Plan Problem List Items Addressed This Visit Type 2 diabetes mellitus without complication, without long-term current use of insulin ([facility]) - Primary Currently taking Metformin, glipizide and Jardiance Most recent labs: hemoglobin A1C 6.2 Average FSBS range from BGs range between 70 and 150 Checks BG levels using: standard meter- would like to upgrade to Freestyle or Dexcom. Several episodes of hypoglycemia. Will discontinue Glipizide today. No medication adverse effects reported by the patient. Patient educated on lifestyle modifications, dietary restrictions, signs and symptoms of hypoglycemia/hyperglycemia and importance of eating regular consistent meals. Stressed upon importance of checking blood glucose at home and bring blood glucose log to appointments. All questions, concerns answered and addressed. Encouraged to call office if persistent hypoglycemia/hyperglycemia on home glucose monitoring noted. Relevant Medications semaglutide (Ozempic, 1 MG/DOSE,) 4 MG/3ML solution pen-injector empagliflozin (Jardiance) 25 MG Other Relevant Orders Hemoglobin A1c Chronic systolic heart failure (CMS/HCC) Relevant Medications carvedilol (Coreg) 25 MG tablet Essential hypertension (CMS/HCC) Currently taking Coreg, Entresto, Aldactone Does not check BP at home; Denies orthostatic changes, dizziness, cough, shortness of breath, swelling in extremities. Continue current regimen. Given BP log, advised pt to record BP and bring log back with them to next visit. Relevant Medications spironolactone (Aldactone) 25 MG tablet carvedilol (Coreg) 6.25 MG tablet Hyperlipidemia (CMS/HCC) Currently taking Atorvastatin 80mg Zetia 10mg Denies any myalgias. Continue current regimen. Relevant Medications ezetimibe (Zetia) 10 MG tablet BMI 34.0-34.9,adult Weight was 217 in May Is 190 today! Has been drinking protein shake every morning Eating 2 meals per day. Discussed with patient their BMI (actual, verses recommended). We have also discussed lifestyle modifications: attempts to perform physical activity as chronic conditions allow, also to monitor dietary intake: increasing protein/fruits/veggies and lowering carb intake (unless contraindicated). Limit sodas, juices, and sugary drinks. Also discussed oral medications that can be utilized for weight loss, as well as surgical options for weight loss. documented in this encounter [facility] 09-03-2024 Instructions Raymond Stearns NP - 09/03/2024 3:00 PM EST Keep up the good work!!! documented in this encounter [facility] 07-01-2024 Hospital Discharge instructions Patient Education 07/01/2024 [...] treatment? Where to find more information [employer]: www.cancer.org [employer] [employer]: www.auanet.org Contact a health care [...] provider. Document Revised: 01/31/2022 Document Reviewed: 01/31/2022 [employer] Patient Education 2023 [employer]. Follow Up Care 03/13/2023 16:49:14 With:SUHAIL NOLASCO, Cabrera Núñez, URL Address: [facility] [address] [place] [phone] When: Unknown Comments:1 yr w/ CT scan [facility] 07-01-2024 Note Patient Education Oncology Prostate Cancer [...] Where to find more information ??? [employer] [employer]: www.cancer.org ??? [employer]: www.auanet.org Contact a health care [...] The prostate gland (more content not included)... [facility] 05-07-2024 History of Present illness Narrative Associated Problem(s): Morbid (severe) obesity due to excess calories (E66.01) Has lost 20 pounds in the past 3 months. Continue lifestyle and dietary modifications. Continue Ozempic as directed. Associated Problem(s): Essential hypertension (CMS/HCC) Currently taking Coreg, Entresto, Aldactone Does not check BP at home; Denies orthostatic changes, dizziness, cough, shortness of breath, swelling in extremities. Continue current regimen. Given BP log, advised pt to record BP and bring log back with them to next visit. Associated Problem(s): Type 2 diabetes mellitus without complication, without long-term current use of insulin (CMS/HCC) Currently taking Metformin, glipizide and Jardiance Most recent labs: hemoglobin A1C 7.7% Does not check BG at home; No episode of hypoglycemia No medication adverse effects reported by the patient. Patient educated on lifestyle modifications, dietary restrictions, signs and symptoms of hypoglycemia/hyperglycemia and importance of eating regular consistent meals. Stressed upon importance of checking blood glucose at home and bring blood glucose log to appointments. All questions, concerns answered and addressed. Encouraged to call office if persistent hypoglycemia/hyperglycemia on home glucose monitoring noted. Weight in September:237 Today: 217 Associated Problem(s): Hyperlipidemia (CMS/HCC) Currently taking Atorvastatin 80mg Zetia 10mg Denies any myalgias. Most recent Lipid Panel 01/2024- WNL Continue current regimen. Images from the original note were not included. Subjective Patient ID: Ron Lowery is a 59 y.o. male who presents for Follow-up (3mo). HPI Specialists: Urology- Dr. Ojeda Cardiology- Meet HTN: Currently taking Coreg, Entresto, Aldactone Does not check BP at home; Denies orthostatic changes, dizziness, cough, shortness of breath, swelling in extremities. Continue current regimen. Given BP log, advised pt to record BP and bring log back with them to next visit. HLD: Currently taking Atorvastatin 80mg Zetia 10mg Denies any myalgias. Continue current regimen. Component Ref Range & Units 3 mo ago (02/03/24) 3 mo ago (02/03/24) 3 mo ago (02/03/24) 7 mo ago (09/23/23) TRIGLYCERIDES <=150 mg/dL 96 141 R 19.5 Low R 80.70 R CHOLESTEROL <=200 mg/dL 96 4.8 R 0.3 R HDL CHOLESTEROL 40 - 60 mg/dL 33 Low 12.3 R 6.4 R Comment: > or =60 mg/dl - LOW CARDIOVASCULAR RISK <40 mg/dl - HIGH CARDIOVASCULAR RISK LDL CHOLESTEROL CALCULATED mg/dL 44.0 136 High R 1.8 R Comment: <100 mg/dl OPTIMAL 100-129 mg/dl NEAR OR ABOVE OPTIMAL 130-159 mg/dl BORDERLINE HIGH 160-189 mg/dl HIGH >190 mg/dl VERY HIGH VLDL CHOLESTEROL mg/dL 19.2 0.8 R 0.7 R CHOL HDL RATIO 2.9 17 R 0.03 R Comment: 3.3 - 4.4 LOW RISK 4.4 - 7.1 AVERAGE RISK 7.1 - 11.0 MODERATE RISK >11.0 HIGH RISK ALANINE AMINOTRANSFERASE 33 R ALKALINE PHOSPHATASE 50 R TOTAL PROTEIN 7.1 R ALBUMIN LEVEL 3.6 R ALBUMIN GLOBULIN RATIO 1.[address] [facility] DMII: Currently taking Metformin, glipizide and Jardiance Most recent labs: hemoglobin A1C 7.7% Does not check BG at home; No episode of hypoglycemia No medication adverse effects reported by the patient. Patient educated on lifestyle modifications, dietary restrictions, signs and symptoms of hypoglycemia/hyperglycemia and importance of eating regular consistent meals. Stressed upon importance of checking blood glucose at home and bring blood glucose log to appointments. All questions, concerns answered and addressed. Encouraged to call office if persistent hypoglycemia/hyperglycemia on home glucose monitoring noted. Weight in September:237 Today: 217 DM Eye Exam: [facility] 08/2022 Diabetic foot exam: Left: Reflexes 2+ Vibratory sensation normal Proprioception normal Sharp/dull discrimination normal Filament test present Right: Reflexes 2+ Vibratory sensation normal Proprioception normal Sharp/dull discrimination normal Filament test present Review of Systems Constitutional: Negative for activity change, appetite change, chills, diaphoresis, fatigue, fever and unexpected weight change. HENT: Negative for congestion, ear pain, rhinorrhea, sinus pressure, sinus pain, sneezing, sore throat, trouble swallowing and voice change. Eyes: Negative for visual disturbance. Respiratory: Negative for cough, chest tightness, shortness of breath and wheezing. Cardiovascular: Negative for chest pain, palpitations and leg swelling. Gastrointestinal: Negative for abdominal distention, abdominal pain, blood in stool, constipation, diarrhea and vomiting. Genitourinary: Negative for decreased urine volume, dysuria, flank pain, frequency, hematuria and urgency. Musculoskeletal: Negative for arthralgias, gait problem, joint swelling and myalgias. Skin: Negative for rash. Neurological: Negative for dizziness, tremors, syncope, weakness, light-headedness and headaches. Psychiatric/Behavioral: Negative for decreased concentration and suicidal ideas. The patient is not nervous/anxious. Hematological: Does not bruise/bleed easily. Endocrine: Negative for cold intolerance, heat intolerance, polydipsia, polyphagia and polyuria. Objective Physical Exam Vitals reviewed. Constitutional: Appearance: Normal appearance. HENT: Head: Normocephalic and atraumatic. Right Ear: Tympanic membrane normal. Left Ear: Tympanic membrane normal. Nose: Nose normal. Mouth/Throat: Mouth: Mucous membranes are moist. Pharynx: Oropharynx is clear. Eyes: Pupils: Pupils are equal, round, and reactive to light. Cardiovascular: Rate and Rhythm: Normal rate and regular rhythm. Pulses: Normal pulses. Heart sounds: Normal heart sounds. Pulmonary: Effort: Pulmonary effort is normal. Breath sounds: Normal breath sounds. Abdominal: General: Abdomen is flat. Bowel sounds are normal. Palpations: Abdomen is soft. Musculoskeletal: General: Normal range of motion. Cervical back: Normal range of motion. Skin: General: Skin is warm and dry. Capillary Refill: Capillary refill takes less than 2 seconds. Neurological: General: No focal deficit present. Mental Status: He is alert and oriented to person, place, and time. Psychiatric: Mood and Affect: Mood normal. Behavior: Behavior normal. Assessment/Plan Problem List Items Addressed This Visit Type 2 diabetes mellitus without complication, without long-term current use of insulin (CMS/HCC) - Primary Currently taking Metformin, glipizide and Jardiance Most recent labs: hemoglobin A1C 7.7% Does not check BG at home; No episode of hypoglycemia No medication adverse effects reported by the patient. Patient educated on lifestyle modifications, dietary restrictions, signs and symptoms of hypoglycemia/hyperglycemia and importance of eating regular consistent meals. Stressed upon importance of checking blood glucose at home and bring blood glucose log to appointments. All questions, concerns answered and addressed. Encouraged to call office if persistent hypoglycemia/hyperglycemia on home glucose monitoring noted. Weight in September:237 Today: 217 Relevant Orders Hemoglobin A1c Comprehensive metabolic panel CBC and differential Essential hypertension (CMS/HCC) Currently taking Coreg, Entresto, Aldactone Does not check BP at home; Denies orthostatic changes, dizziness, cough, shortness of breath, swelling in extremities. Continue current regimen. Given BP log, advised pt to record BP and bring log back with them to next visit. Relevant Orders Comprehensive metabolic panel CBC and differential Hyperlipidemia (CMS/HCC) Currently taking Atorvastatin 80mg Zetia 10mg Denies any myalgias. Most recent Lipid Panel 01/2024- WNL Continue current regimen. Morbid (severe) obesity due to excess calories (E66.01) Has lost 20 pounds in the past 3 months. Continue lifestyle and dietary modifications. Continue Ozempic as directed. documented in this encounter [facility] 05-07-2024 Instructions Raymond Stearns NP - 05/07/2024 2:30 PM EDT Labs ordered NON- FASTING!!! Keep up all of the good work!! documented in this encounter [facility] 03-27-2024 Note [place] [facility] - [facility] Subjective Evaristo Lowery is a 59 [...] February 2024 he was admitted to the [facility] with episode of left-sided chest pain and [...] chew, or split., (more content not included)... [facility] 02-27-2024 Note Q 6months device int errogation Battery life 2.2 years, device working appropriately, leads stable, 1 episode of Sinus tach 155 bpm. [facility] 02-27-2024 Note HTN currently well c ontrolled Continue all meds- coreg, entresto, aldactone [facility] 02-27-2024 Note Heart failure is unc hanged. NYHA Class II. Medication changes per orders. Heart failure will be reassessed in 6 months. Continue GDMT- ASA, lipitor, coreg, jardiance, zetia, entresto aldactone and will add digoxin for better heart rate management- Reviewed device interrogation from Sep 2023 and average heart rate ranged from 80-100 bpm Repeat BMP and digoxin level in 1-2 weeks [facility] 02-27-2024 Note [facility] CARDIOLOGY PROGR ESS NOTE [...] lasting 2 sec (more content not included)... [facility] 02-27-2024 Note Patient here for 6 m o follow up chronic systolic heart failure, CAD, and hypertension. ICD was interrogated in Sep 2023. He had routine labs with lipid profile last month. Says his heart rate has been around 100 lately. He denies chest pain, SOB, palpitations, and lightheadedness/syncope. Review of Systems All other systems reviewed and are negative. [facility] 02-27-2024 Note Lipid abnormalities are unchanged/ well controlled. Pharmacotherapy as ordered. Continue lipitor and zetia [facility] 02-27-2024 Note Coronary artery dise ase is stable Continue GDMT continue risk factor modifications- heart healthy diet, regular exercise as tolerated and continue all medications. [facility] 02-27-2024 Note NYHC II- currently e uvolemic without exacerbation Heart rate 80-100 bpm Continue GDMT- add digoxin for heart rate management and goal is 60-80 bom and he voiced understanding. Continue all meds Diuretic therapy- jardiance and aldactone Monitor daily weights, I&O, fluid restriction 1.5-2L/day, renal function and electrolytes [facility] 09-27-2023 History of Present illness Narrative Associated [...] recent office/hospital visit for CHF exacerbation. Following [facility] cardiology. Associated Problem(s): Essential hypertension [...] complication, without long-term current use of insulin ([facility]/HCC) Most recent labs: hemoglobin A1C 7.9 Average [...] recent office/hospital visit for CHF exacerbation. Following [facility] cardiology. Essential hypertension (CMS/HCC) - [...] weeks (around 10/25/2023). documented in this encounter [facility] 11-14-2022 Hospital Discharge instructions Patient Education [...] provider gives to you. In general: Take [id number] and prescription medicines only as told by [...] 03/04/2015 Document Revised: 09/13/2018 Document Reviewed: 09/13/2018 [employer] Patient Education 2020 [employer]. Follow Up Care 10/11/2022 10:10:39 With:Cabrera OJEDA MD, URL Address: [facility] [address] , [place] [address]- When: Unknown [facility] Evaluation + Plan note Future Appointments Appointment Date:03/13/2023 02:30:00 PM Scheduled Provider:Cabrera OJEDA MD Location:[facility] Appointment Type:URO Office Visit [facility] Evaluation + Plan note Future Appointments Appointment Date:07/07/2025 02:45:00 PM Scheduled Provider:Cabrera OJEDA MD Location:[facility] [place] Appointment Type:URO Office Visit [facility] Evaluation note Diagnosis Essential hypertension (CMS/HCC)- Primary Unspecified essential hypertension Chronic systolic heart failure (CMS/HCC) Chronic systolic heart failure Type 2 diabetes mellitus without complication, without long-term current use of insulin (CMS/HCC) Hyperlipidemia, unspecified hyperlipidemia type (CMS/HCC) Wellness examination documented in this encounter [facility] HealthcareEvaluation note* Diagnosis Onset Date Resolution Status Scalp laceration acute [facility] [place] Work Phone: Evaluation note* Diagnosis Essential hypertension [...] heart failure documented in [facility] encounter [facility]* Diagnosis Type 2 diabetes mellitus without complication, without long-term current use of insulin (CMS/HCC) documented in [facility] encounter [facility]* Diagnosis Type 2 diabetes mellitus without complication, without long-term current use of insulin (CMS/HCC)- Primary Essential hypertension (CMS/HCC) Unspecified essential hypertension Morbid (severe) obesity due to excess calories (E66.01) Hyperlipidemia, unspecified hyperlipidemia type (CMS/HCC) documented [facility]* Diagnosis Chronic systolic heart failure (CMS/HCC) Chronic systolic heart failure documented in [facility]* Diagnosis Type 2 diabetes mellitus without complication, without long-term current use of insulin (CMS/HCC) documented in this encounter [facility] HealthcareEvaluation note* Diagnosis Essential hypertension (CMS/HCC)- Primary Unspecified essential hypertension Chronic systolic heart failure (CMS/HCC) Chronic systolic heart failure Type 2 diabetes mellitus without complication, without long-term current use of insulin (CMS/HCC) Hyperlipidemia, unspecified hyperlipidemia type (CMS/HCC) Wellness examination Essential hypertension ([facility]/HCC)- Primary Unspecified essential hypertension Chronic systolic heart failure (CMS/HCC) Chronic systolic heart failure Type 2 diabetes mellitus without complication, without long-term current use of insulin ([facility]) Hyperlipidemia, unspecified hyperlipidemia type ([facility]/HCC) Chronic allergic rhinitis Encounter for screening for malignant neoplasm of colon Morbid (severe) obesity due to excess calories (E66.01)- Primary Body mass index [BMI] 40.0-44.9, adult (Z68.41) Respiratory illness Essential hypertension ([facility]/HCC)- Primary Unspecified essential hypertension Type 2 diabetes mellitus without complication, without long-term current use of insulin (CMS/HCC) Morbid (severe) obesity due to excess calories (E66.01) Type 2 diabetes mellitus without complication, without long-term current use of insulin ([facility]/HCC)- Primary Essential hypertension ([facility]/HCC) Unspecified essential hypertension Morbid (severe) obesity due to excess calories (E66.01) Hyperlipidemia, unspecified hyperlipidemia type (CMS/HCC) Type 2 diabetes mellitus without complication, without long-term current use of insulin ([facility]/HCC)- Primary Essential hypertension (CMS/HCC) Unspecified essential hypertension Hyperlipidemia, unspecified hyperlipidemia type (CMS/HCC) Chronic systolic heart failure (CMS/HCC) Chronic systolic heart failure BMI 34.0-34.9,adult Chronic allergic rhinitis documented in this encounter [facility] HealthcareEvaluation note* Diagnosis Essential hypertension (CMS/HCC)- Primary Unspecified essential hypertension Chronic systolic heart failure (CMS/HCC) Chronic systolic heart failure Type 2 diabetes mellitus without complication, without long-term current use of insulin Hyperlipidemia, unspecified hyperlipidemia type (CMS/HCC) Wellness examination Essential hypertension (CMS/HCC)- Primary Unspecified essential hypertension Chronic systolic heart failure (CMS/HCC) Chronic systolic heart failure Type 2 diabetes mellitus without complication, without long-term current use of insulin Hyperlipidemia, unspecified hyperlipidemia type (CMS/HCC) Chronic allergic rhinitis Encounter for screening for malignant neoplasm of colon Morbid (severe) obesity due to excess calories (E66.01)- Primary Body mass index [BMI] 40.0-44.9, adult (Z68.41) Respiratory illness Essential hypertension (CMS/HCC)- Primary Unspecified essential hypertension Type 2 diabetes mellitus without complication, without long-term current use of insulin Morbid (severe) obesity due to excess calories (E66.01) Type 2 diabetes mellitus without complication, without long-term current use of insulin- Primary Essential hypertension (CMS/HCC) Unspecified essential hypertension Morbid (severe) obesity due to excess calories (E66.01) Hyperlipidemia, unspecified hyperlipidemia type (CMS/HCC) Type 2 diabetes mellitus without complication, without long-term current use of insulin- Primary Essential hypertension (CMS/HCC) Unspecified essential hypertension Hyperlipidemia, unspecified hyperlipidemia type (CMS/HCC) Chronic systolic heart failure (CMS/HCC) Chronic systolic heart failure BMI 34.0-34.9,adult Chronic allergic rhinitis Acute non-recurrent pansinusitis- Primary documented in this encounter [facility] HealthcareEvaluation note* Diagnosis Essential hypertension- Primary Unspecified essential hypertension Chronic systolic heart failure (HCC) Chronic systolic heart failure Type 2 diabetes mellitus without complication, without long-term current use of insulin (HCC) Hyperlipidemia, unspecified hyperlipidemia type Wellness examination Essential hypertension- Primary Unspecified essential hypertension Chronic systolic heart failure (HCC) Chronic systolic heart failure Type 2 diabetes mellitus without complication, without long-term current use of insulin (HCC) Hyperlipidemia, unspecified hyperlipidemia type Chronic allergic rhinitis Encounter for screening for malignant neoplasm of colon Morbid (severe) obesity due to excess calories (E66.01)- Primary Body mass index [BMI] 40.0-44.9, adult (Z68.41) Respiratory illness Essential hypertension- Primary Unspecified essential hypertension Type 2 diabetes mellitus without complication, without long-term current use of insulin (HCC) Morbid (severe) obesity due to excess calories (E66.01) Type 2 diabetes mellitus without complication, without long-term current use of insulin (HCC)- Primary Essential hypertension Unspecified essential hypertension Morbid (severe) obesity due to excess calories (E66.01) Hyperlipidemia, unspecified hyperlipidemia type Type 2 diabetes mellitus without complication, without long-term current use of insulin (HCC)- Primary Essential hypertension Unspecified essential hypertension Hyperlipidemia, unspecified hyperlipidemia type Chronic systolic heart failure (HCC) Chronic systolic heart failure BMI 34.0-34.9,adult Chronic allergic rhinitis Acute non-recurrent pansinusitis- Primary Hyperlipidemia, unspecified hyperlipidemia type Type 2 diabetes mellitus without complication, without long-term current use of insulin (HCC) [facility] Narrative No data available for this section [facility] progress note No data available for this section [facility] Summary Purpose Family History No Family History Records FoundNo Family History Records Found No data available for this section No Family History Records FoundNo Family History [...] section and content) DATE CREATED AUTHOR 10/20/2022 [facility] DATE CREATED AUTHOR AUTHOR'S ORGANIZ ATION 01/04/2023 [facility] DATE CREATED AUTHOR AUTHOR'S ORGANIZ ATION 11/08/[address] [facility] DATE CREATED AUTHOR AUTHOR'S ORGANIZ ATION 12/30/2024 [facility] dical Specialists [facility] DATE CREATED AUTHOR AUTHOR'S ORGANIZ ATION 05/13/2025 [facility] Patient Care team informatio n (unrecognized section and content) 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 Start Date End Date Shaikh Salinas MD [address] [place] [address] PCP - General Internal Medicine 09/08/23 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 Start Date End Date Shaikh Salinas MD [address] [place] [phone] PCP - General Internal Medicine 09/08/23 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 Start Date End Date Shaikh Salinas MD [address] [place] [phone] PCP - General Internal Medicine 09/08/23 Team Status: Active Member Role Status Dates NON STAFF Primary Care Provider Active Team Status: Inactive Member Role Status Dates Catrachita Satno APRN Attending Provider Active Start: April 13, 2024 End: April 13, 2024 NON STAFF Primary Care Provider Active Start: April 13, 2024 End: April 13, 2024 Team Status: Inactive Member Role Status Dates NON STAFF Primary Care Provider Active Start: April 23, 2024 End: April 23, 2024 Shirley Larose APRN Attending Provider Active Start: April 23, 2024 End: April 23, 2024 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 Start Date End Date Miah Vee MD [address] [place] [address] PCP - General Family Medicine 03/28/24 Raymond Stearns NP [address] [place] [address] Nurse Practitioner Family Medicine 03/28/24 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 Start Date End Date Unallocated, Blair Watt MD [address] [place] [address] PCP - General Family Medicine 06/10/24 Raymond Stearns NP [address] [place] [address] Nurse Practitioner Family Medicine 03/28/24 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 Start Date End Date Miah Vee MD [address] [place] [address] PCP - General Family Medicine 06/20/24 Raymond Stearns NP [address] [place] [address] Nurse Practitioner Family Medicine 03/28/24 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 Start Date End Date Miah Vee MD [address] [place] [address] PCP - General Family Medicine 03/28/24 Raymond Stearns NP [address] [place] [address] Nurse Practitioner Family Medicine 03/28/24 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 Start Date End Date Miah Vee MD [address] [place] [address] PCP - General Family Medicine 03/28/24 Raymond Stearns NP [address] [place] [address] Nurse Practitioner Family Medicine 03/28/24 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 Start Date End Date Miah Vee MD [address] [place] [address] PCP - General Family Medicine 03/28/24 Raymond Stearns NP [address] [place] [address] Nurse Practitioner Family Medicine 03/28/24 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 Start Date End Date Miah Vee MD [address] [place] [address] PCP - General Family Medicine 03/28/24 Raymond Stearns NP [address] [place] [address] Nurse Practitioner Family Medicine 03/28/24 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 Start Date End Date Miah Vee MD [address] [place] [address] PCP - General Family Medicine 03/28/24 Raymond Stearns NP [address] [place] [address] Nurse Practitioner Family Medicine 03/28/24 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 Start Date End Date Miah Vee MD [address] [place] [address] PCP - General Family Medicine 06/20/24 Raymond Stearns NP [address] [place] [address] Nurse Practitioner Family Medicine 03/28/24 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 Start Date End Date Miah Vee MD [address] [place] [address] PCP - General Family Medicine 06/20/24 Raymond Stearns NP [address] [place] [address] Nurse Practitioner Family Medicine 03/28/24 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 Start Date End Date Miah Vee MD [address] [place] [address] PCP - General Family Medicine 06/20/24 Raymond Stearns NP Nurse Practitioner Family Medicine 03/28/24 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 Start Date End Date Miah Vee MD [address] [place] [address] PCP - General Family Medicine 06/20/24 Raymond Stearns NP Nurse Practitioner Family Medicine 03/28/24 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 Start Date End Date Miah Vee MD [address] [place] [address] PCP - General Family Medicine 06/20/24 Raymond Stearns NP Nurse Practitioner Family Medicine 03/28/24 Reason for Visit (unrecogniz ed section and content) Reason Comments Annual Exam Reason Comments Med Refill Reason Onset Date Comments Med Refill 05/06/2024 Reason Comments Follow-up 3mo Reason Onset Date Comments Med Refill 05/13/2024 Reason Comments Follow-up Bronchitus Ear Fullness Right ear, causing l ightheadedness Goals (unrecognized section and content) Goals may [...] BE BASED ON THE PRIMARY CLINICAL RECORDS. [facility]. provides no warranty or guarantee of the accuracy or completeness of information in this document.
[2025-05-13 15:12] LABS: Digoxin 0.7 ng/mL (0.9-2.0)
== END 2025-05-13 13:17 | disposition home or self-care (01) ==
LOC: LAB 13:17
PROVIDERS: Visit Provider Internal Medicine Interventional Cardiology
DX: I50.22 Chronic systolic (congestive) heart failure (principal)
CPT/HCPCS: 36415; 80162

== ENCOUNTER 2025-05-22 13:14 | Outpatient (OUT) | payer OTHER, SELFPAY ==
--- OUTSIDE RECORDS SUMMARY | 2025-05-13 13:45 | XMS_ITS | Encounter Summary ---
Author Organization [facility] Address [address] [place] [address] Care Team Providers Care Gun Numberer Name Role Phone Shaikh GAURAV Salinas Primary Care Provider [phone] Encounter Details Date Type Department Care Team (Latest Contact Info) Description 05/13/2025 1:45 PM EDT Ancillary Procedure [facility] Heart at [facility] [address] [place] [address] Encounter for implantable defibrillator reprogramming or check Social History Tobacco Use Types Packs/Day Years Used Date Smoking Tobacco: Former Cigarettes Smokeless Tobacco: Never [place] Safety & Environment Answer Date Rec [...] Heterosexual or Straight 04/21 3:13 PM EDT documented as of this encounter Functional Status * BP Answer Date of Assessment Author 104/69 05/13/2025 1:45 PM EDT Jackie Strauss MA * Pulse Answer Date of Assessment Author 99 05/13/2025 1:45 PM EDT Jackie Strauss MA * Patient Position Answer Date of Assessment Author Sitting 05/13/2025 1:45 PM EDT Jackie Strauss MA * BP Answer Date of Assessment Author 104/69 05/13/2025 1:45 PM EDT Jackie Strauss MA * Pulse Answer Date of Assessment Author 99 05/13/2025 1:45 PM EDT Carlos AJackie soto MA * SpO2 Answer Date of Assessment Author 98 05/13/2025 1:45 PM EDT Carlos AJackie soto MA * BP Location Answer Date of Assessment Author Left arm 05/13/2025 1:45 PM EDT Carlos AJackie soto MA * Patient Position Answer Date of Assessment Author Sitting 05/13/2025 1:45 PM EDT Jackie Strauss MA documented as of this encounter Plan of Treatment Not on file documented as of this encounter Procedures Procedure Name Priority Date/Time Associated Diagnosis Comments CARDIAC DEVICE CHECK - IN CLINIC - ICD SINGLE CHAMBER W/ PROG Routine 05/14/2025 12:19 PM EDT Encounter for implantable defibrillator reprogramming or check documented in this encounter Results * CARDIAC DEVICE CHECK - IN CLINIC - ICD SINGLE CHAMBER W/ PROG (05/14/2025 12:19 PM EDT) BSA 1.88 m2 Solarmass PACS CARDIO Anatomical Region Laterality Modality Other Narrative 05/20/2025 10:16 AM EDT By using the attestations below, the signing clinician agrees that I have read and verify that the documentation has been personally reviewed by me and ensure that the documentation accurately reflects the encounter. Routine EP device follow up as per schedule. Please see attached note us Colten Tatum MD CV IMPLANTABLE CARDIAC DEVICE [place] OCEDURES Final Result documented in this encounter Visit Diagnoses Diagnosis Encounter for implantable defibrillator reprogramming or check Fitting and adjustment of automatic implantable cardiac defibrillator documented in this encounter Care Teams Gun Numberer Relationship Specialty Start Date End Date Shaikh Salinas MD PCP - General Family Medicine 02/27/24 05/13/25 documented as of this encounter
--- OUTSIDE RECORDS SUMMARY | 2025-05-13 14:15 | XMS_ITS | Encounter Summary ---
Author Organization [facility] Address [address] [place] [address] Care Team Providers Care Detonator Maker Name Role Phone Shaikh GAURAV Salinas Primary Care Provider [phone] Encounter Details Date Type Department Care Team (Late st Contact Info) Description 05/13/2025 2:15 PM EDT Office Visit [facility] Heart at [facility] [address] [place] [address] Colten Tatum MD [address] [place] [phone] Chronic systolic congestive heart failure (CMS/HCC) (Primary Dx); ICD (implantable cardioverter-defibri llator), single, in situ Social History Tobacco Use Types Packs/Day Years [...] PM EDT documented as of this encounter Last Filed Vital Signs Vital Sign Reading Time Taken Comments Blood Pressure 104/69 05/13/2025 1:45 PM EDT Pulse 99 05/13/2025 1:45 PM EDT Temperature - - Respiratory Rate - - Oxygen Saturation 98% 05/13/2025 1:45 PM EDT Inhaled Oxygen Concentration - - Weight 79.4 kg (175 lb) 05/13/2025 1:45 PM EDT Height 160 cm (5' 3 ) 05/13/2025 1:45 PM EDT Body Mass Index 31 05/13/2025 1:45 PM EDT documented in this encounter Functional Status * BP Answer Date of Assessment Author 104/69 05/13/2025 1:45 PM EDT Carlos AJackie soto MA * Pulse Answer Date of Assessment Author 99 05/13/2025 1:45 PM EDT Jackie Strauss MA * Patient Position Answer Date of Assessment Author Sitting 05/13/2025 1:45 PM EDT Jackie Strauss MA * BP Answer Date of Assessment Author 104/69 05/13/2025 1:45 PM EDT Carlos AJackie soto MA * Pulse Answer Date of Assessment [...] Strauss MA documented as of this encounter Progress Notes * Colten Tatum MD - 05/13/2025 2:15 PM EDT Images from the original note were not included. [place] Electrophysiology Consult Note [place] Cardiology - [facility] Reason for visit: S/p ICD, nonsustained ventricular tachycardia HPI: Johny Cunningham is a 60 y.o. year old with past medical history of ischemic cardiomyopathy s/p single-chamber Medtronic ICD placed in 2014, CAD s/p stent in 02/22/2005, hypertension, diabetes mellitus type 2. He has been managed by general cardiology with GDMT for heart failure. Last device check that was performed on 11/06/2024 revealed good thresholds with occasional nonsustained VT episodes. Remote check done today shows estimated time for mother 8 months the device is only programmed in the VF zone with no VT treatment zones. There are episodes of nonsustained VT noted that last for 10 seconds seen on 04/15/2025 Patient here for 6 mo follow up and device check. He is taking 37.5mg bid of carvedilol. HR still around 100. Denies chest pain, SOB, palpitations, and lightheadedness/syncope. Had digoxin level drawn prior to apt today. PMH: Medical History[1] PSH: Surgical History[2] SH: Social Drivers of Health Tobacco Use: Medium Risk (05/13/2025) Patient History Smoking Tobacco Use: Former Smokeless Tobacco Use: Never Passive Exposure: Not on file Alcohol Use: Not At Risk (08/31/2024) Received from [facility] AUDIT-C Frequency of Alcohol Consumption: 2-4 times a month Average Number of Drinks: 1 or 2 Frequency of Binge Drinking: Less than monthly Financial Resource Strain: Low Risk (08/31/2024) Received from [facility] Overall Financial Resource Strain (CARDIA) Difficulty of Paying Living Expenses: Not hard at all Food Insecurity: No Food Insecurity (08/31/2024) Received from [facility] Hunger Vital Sign Worried About Running Out of Food in the Last Year: Never true Ran Out of Food in the Last Year: Never true Transportation Needs: No Transportation Needs (08/31/2024) Received from [facility] PRAPARE - Transportation Lack of Transportation (Medical): No Lack of Transportation (Non-Medical): No Physical Activity: Insufficiently Active (08/31/2024) Received from [facility] Exercise Vital Sign Days of Exercise per Week: 3 days Minutes of Exercise per Session: 30 min Stress: No Stress Concern Present (08/31/2024) Received from [facility] [employer] of Occupational Health - Occupational Stress Questionnaire Feeling of Stress : Not at all Social Connections: Moderately Integrated (08/31/2024) Received from [facility] Social Connection and Isolation Panel [NHANES] Frequency of Communication with Friends and Family: More than three times a week Frequency of Social Gatherings with Friends and Family: More than three times a week Attends Mandaen Services: 1 to 4 times per year Active Member of Clubs or Organizations: No Attends Club or Organization Meetings: Never Marital Status: Intimate Partner Violence: Unknown (10/12/2023) [place] Safety & Environment Fear of Current or Ex-Partner: Not on file Emotionally Abused: Not on file Physically Abused: Not on file Sexually Abused: Not on file Physically or Sexually Abused: Not on file Depression: Not at risk (05/07/2024) Received from [facility] PHQ-2 Patient Health Questionnaire-2 Score: 0 Housing Stability: Low Risk (08/31/2024) Received from [facility] Housing Stability Vital Sign Unable to Pay for Housing in the Last Year: No Number of Times Moved in the Last Year: 0 Homeless in the Last Year: No Utilities: Not on file Health Literacy: Adequate Health Literacy (08/31/2024) Received from [facility] Indelsul B1300 Health Literacy Frequency of need for help with medical instructions: Never Allergies: Allergies[3] Weight: 79.4kg Visit Vitals BP 104/69 (BP Location: Left arm, Patient Position: Sitting) Pulse 99 Ht 1.6 m (5' 3 ) Wt 79.4 kg (175 lb) SpO2 98% BMI 31.00 kg/m?? Smoking Status Former BSA 1.88 m?? Meds: Medications Ordered Prior to Encounter[4] ROS: Cardio Basic Cardiovascular Symptoms: no lightheadedness, no leg edema, no syncope, no orthopnea, no PND, no claudication, Constitutional Constitutional: no fever, no night sweats, no significant weight gain, no significant weight loss, no exercise intolerance Eyes Eyes: no dry eyes, no irritation, no vision change ENMT Ears: no difficulty hearing, no ear pain Nose: no frequent nosebleeds, Mouth/Throat: no sore throat, no bleeding gums, no snoring, no dry mouth, no mouth ulcers, no oral abnormalities, no teeth problems Respiratory Respiratory: no cough, no wheezing, no coughing up blood, no sleep apnea Musculoskeletal Musculoskeletal: no muscle aches, no muscle weakness, joint pain+, no back pain, no swelling in theextremities Integumentary Skin no rash, no ulcer, no varicosities, no discoloration, no pruritus Neurologic Neurologic: no loss of consciousness, no weakness, no numbness, no seizures, no dizziness, no headaches Psychiatric Psych: no depression, feeling safe in relationship, no alcohol abuse, Hematologic/Lymphatic Hematologic/Lymphatic no swollen glands, no bruising Physical Exam: Constitutional General Appearance: well-nourished, well-developed, appears stated age Level of Distress: comfortable Eyes CHUY Neck Neck: supple, trachea midline Carotid Arteries: bilateral normal upstroke, no bruits Jugular Veins: normal jugular venous pressure Thyroid: not enlarged Lungs Respiratory Effort: unlabored Chest Exam: normal curvature, no thoracic deformity Auscultation: clear, no wheezing, no rales, no rhonchi Cardiovascular Chest wall: Rate And Rhythm: regular Heart Sounds: normal S1, normal s2, no gallop Systolic Murmur: not heard Diastolic Murmur: not heard Extremities: no cyanosis, no edema, no peripheral signs of emboli Peripheral Pulses Radial Pulse: normal Abdomen Inspection and Palpation: soft, non distended, no bruit, non tender Neurologic Gait: normal gait Labs: @LABRESULTS@ No results found for: CHOLESTEROL TOTAL , HDL , LDL CALC , LDL DIRECT , TRIGLYCERIDES , TSH , T3 TOTAL , T4 TOTAL , THYROID PEROXIDASE AB , BNP EKG: No results found for this or any previous visit (from the past 4464 hours). Echo: 03/06/2024 Stress test: 03/20/2024 Coronary angiogram: @CATH@ Diagnostic Imaging: No images are attached to the encounter. Assessment and Plan: - S/p ICD: He has got a single-chamber ICD device and will consider adding atrial lead during GEN change. Given the fact that the patient had nonsustained VT and he had previously been only been programmed on the VF at 188 bpm, I taken the liberty to add on VT zone as well as a monitor zone in addition to the existing VF zone. I have increased the rate of VF detection to be closer to 240 beats and added ATP therapy in the VT zone. - Cardiomyopathy s/p single-chamber ICD: Continue GDMT Colten Tatum MD Cardiac Electrophysiology [facility] [1] Past Medical History: Diagnosis Date Abnormal ECG Cardiomyopathy (CMS/HCC) Coronary artery disease Hyperlipidemia Hypertension Pacemaker [2] Past Surgical History: Procedure Laterality Date INSERT / REPLACE / REMOVE PACEMAKER 01/28/2015 KNEE SURGERY SHOULDER SURGERY [3] No Known Allergies [4] Current Outpatient Medications on File Prior to Visit Medication Sig Dispense Refill aspirin 81 mg EC tablet in the morning. atorvastatin (Lipitor) 80 mg tablet TAKE 1 TABLET BY MOUTH EVERY DAY 90 tablet 3 carvedilol (Coreg) 12.5 mg tablet Take 1 tablet (12.5 mg) by mouth with breakfast and with evening meal. 180 tablet 3 carvedilol (Coreg) 25 mg tablet Take 25 mg by mouth with breakfast and with evening meal. In addition to 6.25mg tablets BID cholecalciferol (Vitamin D-3) 25 MCG (1000 units) tablet Take 1,000 Units by mouth in the morning. digoxin (Lanoxin) 250 MCG tab;et Take 1 tablet (250 mcg) by mouth in the morning. 90 tablet 3 empagliflozin (Jardiance) 10 mg Jardiance 10 mg tablet TAKE 1 TABLET BY MOUTH EVERY DAY (Patient taking differently: Take 25 tablets by mouth once daily as directed. TAKE 1 TABLET BY MOUTH EVERY DAY) 90 tablet 3 ezetimibe (Zetia) 10 mg tablet TAKE 1 TABLET BY MOUTH EVERY DAY 90 tablet 3 metFORMIN (Glucophage) 500 mg tablet Take 1,000 mg by mouth with breakfast and with evening meal. sacubitriL-valsartan (Entresto) 49-51 mg tablet Take 0.5 tablets by mouth in the morning and at bedtime. semaglutide (Ozempic) 1 mg/dose (4 mg/3 mL) pen injector Inject 1 mg under the skin. spironolactone (Aldactone) 25 mg tablet TAKE 1/2 TABLET BY MOUTH EVERY DAY (Patient taking differently: Take 12.5 mg by mouth in the morning. TAKE 1/2 TABLET BY MOUTH EVERY DAY) 45 tablet 3 No current facility-administered medications on file prior to visit. documented in this encounter Plan of Treatment Not on file documented as of this encounter Visit Diagnoses Diagnosis Chronic systolic congestive heart failure (CMS/HCC)- Primary ICD (implantable cardioverter-defibrillator), single, in situ documented in this encounter Care Teams Detonator Maker Relationship Specialty Start Date End Date Shaikh Salinas MD PCP - General Family Medicine 02/27/24 05/13/25 documented as of this encounter
--- OUTSIDE RECORDS SUMMARY | 2025-05-22 13:16 | XMS_ITS | Encounter Summary ---
Author Organization [facility] Address [address] [place] [address] Care Team Providers Care Requirements Manager Name Role Phone Mariella Stearns RESIDENTIAL SERVICE TECHNICIAN Unavailable [phone] Miah Saenz MD Primary Care Provider [phone] Encounter Details Date Type Department Care Team (Late st Contact Info) Description 05/13/2025 Clinisync Result Encounter [facility] External Department Unsolicited [...] often do you attend chur ch or yazidi services? 1 to 4 times per year 08/31/2024 Do you belong to any clubs o r organizations such as voodoo groups, unions, fraternal or athletic groups, or [...] Recorded Patient Health Questionnaire-2 Score 0 02/05/2024 [facility] ional [facility] - [...] any time in the past 12 m [facility], were you homeless or living in a longterm (including now)? No 08/31/2024 Sex and Gender [...] Procedure Name Priority Date/Time Associated Diagnosis Comments ALL DIGOXIN Routine 05/13/2025 1:25 PM EDT documented in this encounter Results * (ABNORMAL) ALL DIGOXIN (05/13/2025 1:25 PM EDT) DIGOXIN 0.7(L) 0.9 - 2.0 ng/mL [facility] 05/13/2025 1:25 PM EDT 05/13/2025 1:27 PM EDT Narrative [facility] - 05/13/2025 3:13 PM EDT us Generic External Data Provider [facility] F inal Result [facility] documented in this encounter Visit Diagnoses Not on filedocumented in this encounter Care Teams Requirements Manager Relationship Specialty Start Date End Date Miah Saenz MD PCP - General Family Medicine 06/20/24 Mariella Stearns NP Nurse Practitioner Family Medicine 03/28/24 documented as of this encounter
--- OUTSIDE RECORDS SUMMARY | 2025-05-22 13:16 | XMS_ITS | Encounter Summary ---
Author Organization [facility] Address [address] [place] [address] Care Team Providers Care Instrument Maker Apprentice Name Role Phone StearnsMariella alvarez ASPHALT SURFACE HEATER OPERATOR Unavailable [phone] Unallocated, Noms Provider Primary Care Provi annette Miah Saenz MD Primary Care Provider [phone] Reason for Visit * Reason Onset Date Comments Med Refill 06/10/2024 Encounter Details Date Type Department Care Team (Late st Contact Info) Description 06/10/2024 Refill [facility] [address] [place] [address] Shaikh Salinas MD [address] [place] [address] Type 2 diabetes mellitus without complication, without [...] (HCC) documented in this encounter Care Teams Instrument Maker Apprentice Relationship Specialty Start Date End Date Unallocated, Noms Shukri, [address] [place] [address] PCP - General Family Medicine 06/10/24 06/19/24 Miah Saenz MD [address] [place] [address] PCP - General Family Medicine 06/20/24 Mariella Stearns NP Nurse Practitioner Family Medicine 03/28/24 documented as of this encounter
--- OUTSIDE RECORDS SUMMARY | 2025-05-22 13:16 | XMS_ITS | Encounter Summary ---
Author Organization [facility] Address [address] [place] [address] Care Team Providers Care Gold Leaf Layer Name Role Phone Mariella Stearns WICK TENDER Unavailable [phone] Miah Saenz MD Primary Care Provider [phone] Encounter Details Date Type Department Care Team (Late st Contact Info) Description 02/03/2025 Abstract [facility] [address] [place] [address] Carolina Kenney NP [address] [place] [address] Social History Tobacco Use Types Packs/Day Years [...] often do you attend chur ch or hoahaoism services? 1 to 4 times per year [...] Recorded Patient Health Questionnaire-2 Score 0 02/05/2024 [facility] Occupat ional Health - Occupational [...] any time in the past 12 m [facility], were you homeless or living in a penitentiary (including now)? No 08/31/2024 Sex and Gender [...] on filedocumented in this encounter Care Teams Gold Leaf Layer Relationship Specialty Start Date End Date Miah Saenz MD PCP - General Family Medicine 06/20/24 Mariella Stearns NP Nurse Practitioner Family Medicine 03/28/24 documented as of this encounter
--- OUTSIDE RECORDS SUMMARY | 2025-05-22 13:16 | XMS_ITS | Encounter Summary ---
Author Organization [facility] Address [address] [place] [address] Care Team Providers Care Condemnation Engineer Name Role Phone Mariella Stearns ASSEMBLY OPERATOR Unavailable [phone] Miah Saenz MD Primary Care Provider [phone] Encounter Details Date Type Department Care Team (Late st Contact Info) Description 01/27/2025 Abstract [facility] [address] [place] [address] Miah Saenz MD [address] [place] [address] Social History Tobacco Use Types Packs/Day Years [...] week 08/31/2024 How often do you attend [facility] or latter-day services? 1 to 4 times per year 08/31/2024 Do you belong to any clubs o r organizations such as quaker groups, unions, fraternal or athletic groups, or [...] Recorded Patient Health Questionnaire-2 Score 0 02/05/2024 [facility] Occupat ional Health - Occupational Stress [...] any time in the past 12 m [facility], were you homeless or living in a prison (including now)? No 08/31/2024 Sex and Gender [...] on filedocumented in this encounter Care Teams Condemnation Engineer Relationship Specialty Start Date End Date Miah Saenz MD PCP - General Family Medicine 06/20/24 Mariella Stearns NP Nurse Practitioner Family Medicine 03/28/24 documented as of this encounter
--- OUTSIDE RECORDS SUMMARY | 2025-05-22 13:16 | XMS_ITS | Encounter Summary ---
Author Organization [facility] Address [address] [place] [address] Care Team Providers Care Wildlife And Game Protector Name Role Phone Shaikh GAURAV Salinas Primary Care Provider [phone] Miah Saenz MD Primary Care Provider [phone] Mariella Stearns PERSONAL LOAN SPECIALIST Unavailable [phone] Unallocated, Noms Provider Primary Care Provi annette Miah Saenz MD Primary Care Provider [phone] Encounter Details Date Type Department Care Team (Late st Contact Info) Description 09/25/2023 Orders Only [facility] [address] [place] [address] Shaikh Salinas MD [address] [place] [address] Social History Tobacco Use Types Packs/Day Years [...] on filedocumented in this encounter Care Teams Wildlife And Game Protector Relationship Specialty Start Date End Date Shaikh Salinas MD PCP - General Internal Medicine 09/08/23 03/27/24 Miah Saenz MD PCP - General Family Medicine 03/28/24 06/09/24 Unallocated, Noms MD [address] [place] [address] PCP - General Family Medicine 06/10/24 06/19/24 Miah Saenz MD PCP - General Family Medicine 06/20/24 Mariella Stearns NP Nurse Practitioner Family Medicine 03/28/24 documented as of this encounter
--- OUTSIDE RECORDS SUMMARY | 2025-05-22 13:16 | XMS_ITS | Encounter Summary ---
Author Organization [facility] Address [address] [place] [address] Care Team Providers Care Gas Distribution Supervisor Name Role Phone Shaikh GAURAV Salinas Primary Care Provider [phone] Miah Saenz MD Primary Care Provider [phone] Mariella Stearns VOLUNTEER SERVICES SUPERVISOR Unavailable [phone] Unallocated, Noms Provider Primary Care Provi annette Miah Saenz MD Primary Care Provider [phone] Encounter Details Date Type Department Care Team [...] EDT Narrative 03/20/2024 3:04 [place] [address] Nuclear Medicine Report Signed Patient: EVARISTO CUNNINGHAM MR#: [id number] : 1965 Acct:[id number] Age/Sex: 58 / M ADM Date: 03/20/24 Loc: [place] Attending Dr: SAIMA ALCANTARA APRN Ordering Physician: SAIMA ALCANTARA APRN Date of Service: 03/20/24 Procedure(s): NM ez perf SPECT rest str Accession Number(s): [id number] cc: Shaikh Reji Salinas; SAIMA ALCANTARA APRN Patient Name: EVARISTO CUNNINGHAM MR#: [id number] : 1965 Exam Date: 03/20/2024 Ordering Doctor: [...] anterior. Basal anterolateral. Mid-anterior. Mid-anteroseptal. Apical anterior. [place]. SIZE: Large (5 or more segments). SEVERITY: [...] Signed By: 03/20/24 1504 DD/ 1503 TD/TT: Oil Mixer: Procedure Note Radiology, Radiologist, - 03/20/2024 [place] [address] Nuclear Medicine Report Signed Patient: EVARISTO CUNNINGHAM WMR#: [id number] : 1965Acct:[id number] Age/Sex: 58 / MADM Date: 03/20/24 Loc: [place] Attending Dr: SAIMA ALCANTARA APRN Ordering Physician: SAIMA ALCANTARA APRN Date of Service: 03/20/24 Procedure(s): NM ez perf SPECT rest str Accession Number(s): [id number] cc: Shaikh Reji Salinas; SAIMA ALCANTARA APRN Patient Name: EVARISTO CUNNINGHAM MR#: [id number] : 1965 Exam Date: 03/20/2024 Ordering Doctor: [...] anterior. Basal anterolateral. Mid-anterior. Mid-anteroseptal. Apical anterior. [place]. SIZE: Large (5 or more segments). SEVERITY: [...] M.D. Signed By:03/20/24 1504 DD/ 1503 TD/TT: Oil Mixer: us Generic External Data Provider [facility] Final Result documented in this encounter Visit Diagnoses Not on filedocumented in this encounter Care Teams Gas Distribution Supervisor Relationship Specialty Start Date End Date Shaikh Salinas MD PCP - General Internal Medicine 09/08/23 03/27/24 Miah Saenz MD PCP - General Family Medicine 03/28/24 06/09/24 Unallocated, Blair Watt MD [address] [place] [address] PCP - General Family Medicine 06/10/24 06/19/24 Miah Saenz MD PCP - General Family Medicine 06/20/24 Mariella Stearns NP Nurse Practitioner Family Medicine 03/28/24 documented as of this encounter
--- OUTSIDE RECORDS SUMMARY | 2025-05-22 13:16 | XMS_ITS | Encounter Summary ---
Author Organization [facility] Address [address] [place] [address] Care Team Providers Care Vehicle Technician Name Role Phone Shaikh GAURAV Salinas Primary Care Provider [phone] Miah Saenz MD Primary Care Provider [phone] Mariella Stearns HELPER MAINTENANCE CLEANING Unavailable [phone] Unallocated, Noms Provider Primary Care Provi annette Miah Saenz MD Primary Care Provider [phone] Encounter Details Date Type Department Care Team [...] EDT Narrative 03/03/2024 11:05 [place] [address] CT Scan Report Signed Patient: EVARISTO CUNNINGHAM MR#: [id number] : 1965 Acct:[id number] Age/Sex: 58 / M ADM Date: 03/02/24 Loc: CT Attending Dr: Joseph Jang M.D. Ordering Physician: Joseph Jang M.D. Date of Service: 03/02/24 Procedure(s): CT abdomen pelvis wo/w con Accession Number(s): [id number] cc: Shaikh Reji Salinas [place] [address] Patient Name: EVARISTO CUNNINGHAM MRN: [id number] date: 1965 Sex: M Assigned Patient Location: CT Current Patient Location: CT Accession/Order Number: [id number] Exam Date: 03/02/2024 08:23 Report Date: 03/03/2024 [...] Signed By: 03/03/24 1105 DD/ 1102 TD/TT: Pin Or Clip Fastener: Procedure Note Radiology, Radiologist, MD - 03/03/2024 [place] [address] CT Scan Report Signed Patient: EVARISTO CUNNINGHAM WMR#: [id number] : 1965Acct:[id number] Age/Sex: 58 / MADM Date: 03/02/24 Loc: CT Attending Dr: Joseph Jang M.D. Ordering Physician: Joseph Jang M.D. Date of Service: 03/02/24 Procedure(s): CT abdomen pelvis wo/w con Accession Number(s): [id number] cc: Shaikh Reji Salinas [place] [address] Patient Name: EVARISTO CUNNINGHAM MRN: [id number] date: 1965 Sex: M Assigned Patient Location: CT Current Patient Location: CT Accession/Order Number: [id number] Exam Date: 03/02/2024 08:23 Report Date: 03/03/2024 [...] M.D. Signed By:03/03/24 1105 DD/ 1102 TD/TT: Pin Or Clip Fastener: Generic External Data Provider [facility] Final Result documented in this encounter Visit Diagnoses Not on filedocumented in this encounter Care Teams Vehicle Technician Relationship Specialty Start Date End Date Shaikh Salinas MD PCP - General Internal Medicine 09/08/23 03/27/24 Miah Saenz MD PCP - General Family Medicine 03/28/24 06/09/24 Unallocated, Noms MD Shukri [address] [place] [address] PCP - General Family Medicine 06/10/24 06/19/24 Miah Saenz MD PCP - General Family Medicine 06/20/24 Mariella Stearns NP Nurse Practitioner Family Medicine 03/28/24 documented as of this encounter
--- OUTSIDE RECORDS SUMMARY | 2025-05-22 13:16 | XMS_ITS | Encounter Summary ---
Author Organization [facility] Address [address] [place] [address] Care Team Providers Care Arabic Professor Name Role Phone Miah Saenz MD Primary Care Provider [phone] Mariella Stearns ELECTRONIC WIRER Unavailable [phone] Unallocated, Noms Provider Primary Care Provi annette Miah Saenz MD Primary Care Provider [phone] Reason for Visit * Reason Comments Med Refill Encounter Details Date Type Department Care Team (Late st Contact Info) Description 04/07/2024 Refill [facility] [address] [place] [address] Shaikh Salinas MD [address] [place] [address] Chronic systolic heart failure (HCC) Social History [...] failure documented in this encounter Care Teams Arabic Professor Relationship Specialty Start Date End Date Miah Saenz MD PCP - General Family Medicine 03/28/24 06/09/24 Unallocated, [place] [address] [place] [address] PCP - General Family Medicine 06/10/24 06/19/24 Miah Saenz MD PCP - General Family Medicine 06/20/24 Mariella Stearns NP Nurse Practitioner Family Medicine 03/28/24 documented as of this encounter
--- OUTSIDE RECORDS SUMMARY | 2025-05-22 13:16 | XMS_ITS | Encounter Summary ---
Author Organization [facility] Address [address] [place] [address] Care Team Providers Care Women'S Basketball Coach Name Role Phone Shaikh GAURAV Salinas Primary Care Provider [phone] Miah Saenz MD Primary Care Provider [phone] Mariella Stearns SUPERVISOR POULTRY PROCESSING Unavailable Unallocated, Noms Provider Primary Care Provi annette Miah Saenz MD Primary Care Provider [phone] Encounter Details Date Type Department Care Team (Late st Contact Info) Description 03/06/2024 Orders Only [facility] [address] [place] [address] Shaikh Salinas MD [address] [place] [address] Social History Tobacco Use Types Packs/Day Years [...] on filedocumented in this encounter Care Teams Women'S Basketball Coach Relationship Specialty Start Date End Date Shaikh Salinas MD PCP - General Internal Medicine 09/08/23 03/27/24 Miah Saenz MD PCP - General Family Medicine 03/28/24 06/09/24 Unallocated, Noms MD Shukri [address] [place] [address] PCP - General Family Medicine 06/10/24 06/19/24 Miah Saenz MD PCP - General Family Medicine 06/20/24 Mariella Stearns NP Nurse Practitioner Family Medicine 03/28/24 documented as of this encounter
--- OUTSIDE RECORDS SUMMARY | 2025-05-22 13:16 | XMS_ITS | Encounter Summary ---
Author Organization [facility] Address [address] [place] [address] Care Team Providers Care Sales Service Supervisor Name Role Phone Shaikh GAURAV Salinas Primary Care Provider [phone] Miah Saenz MD Primary Care Provider [phone] Mariella Stearns CLINIC [facility] Unavailable [phone] Unallocated, Noms Provider Primary Care Provi annette Miah Saenz MD Primary Care Provider [phone] Encounter Details Date Type Department Care Team (Late st Contact Info) Description 03/12/2024 Orders Only [facility] [address] [facility] [place] [address] Juan David Mtz MD [address] [place] [address] Social History Tobacco Use Types [...] on filedocumented in this encounter Care Teams Sales Service Supervisor Relationship Specialty Start Date End Date Shaikh Salinas MD PCP - General Internal Medicine 09/08/23 03/27/24 Miah Saenz MD PCP - General Family Medicine 03/28/24 06/09/24 Unallocated, Noms MD Shukri [address] [place] [address] PCP - General Family Medicine 06/10/24 06/19/24 Miah Saenz MD PCP - General Family Medicine 06/20/24 Mariella Stearns NP Nurse Practitioner Family Medicine 03/28/24 documented as of this encounter
--- OUTSIDE RECORDS SUMMARY | 2025-05-22 13:16 | XMS_ITS | Encounter Summary ---
Author Organization [facility] Address [address] [place] [address] Care Team Providers Care Mail Handler Equipment Operator Name Role Phone Mariella Stearns MERCHANDISE CARRIER Unavailable [phone] Miah Saenz MD Primary Care Provider [phone] Encounter Details Date Type Department Care Team (Late st Contact Info) Description 02/03/2025 Abstract [facility] [address] [place] [address] Miah Saenz MD [address] [place] [address] Social History Tobacco Use Types Packs/Day Years [...] week 08/31/2024 How often do you attend [facility] or anabaptist services? 1 to 4 times per year 08/31/2024 Do you belong to any clubs o r organizations such as christianity groups, unions, fraternal or athletic groups, or [...] Recorded Patient Health Questionnaire-2 Score 0 02/05/2024 [facility] - [...] any time in the past 12 m [facility], were you homeless or living in a [...] on filedocumented in this encounter Care Teams Mail Handler Equipment Operator Relationship Specialty Start Date End Date Miah Saenz MD PCP - General Family Medicine 06/20/24 Mariella Stearns NP Nurse Practitioner Family Medicine 03/28/24 documented as of this encounter
--- OUTSIDE RECORDS SUMMARY | 2025-05-22 13:16 | XMS_ITS | Clinical Summary ---
Author Organization [facility] Address [address] [place] [address] Care Team Providers Care Deli Clerk Name Role Phone Miah Saenz MD Primary Care Provider [phone] Allergies No known active allergies Medications aspirin [...] Active Additional Information Patient taking differently: 25 tablet oral Once Daily, TAKE 1 TABLET BY MOUTH EVERY DAY, Reported on 05/13/2025 semaglutide (Ozempic) 1 mg/dose (4 mg/3 mL) pen injector Inject 1 mg under the skin. 4 Active cholecalciferol (Vitamin D-3) 25 MCG (1000 units) tablet Take 1,000 Units by mouth in the morning. Active spironolactone (Aldactone) 25 mg tabletIndication s:Congestive heart failure, unspecified HF chronicity, unspecified heart failure type (CMS/HCC) TAKE 1/2 TABLET BY MOUTH EVERY DAY 45 tablet 3 5 Active Additional Information Patient taking differently: 12.5 mg oral Daily, TAKE 1/2 TABLET BY MOUTH EVERY DAY, Reported on 05/13/2025 ezetimibe (Zetia) 10 mg tabletIndication s:Congestive heart [...] Assessment & Plan (02/27/2024 2:40 PM EDT): [facility] II- currently euvolemic without exacerbation Heart rate 80-100 bpm Continue GDMT- add digoxin for heart rate management and goal is 60-80 bom and he voiced understanding. Continue all meds Diuretic therapy- jardiance and aldactone Monitor daily weights, I&O, fluid restriction 1.5-2L/day, renal function and electrolytes Assessment & Plan (07/27/2022 10:41 AM EST): Images from the original note were not included. [facility] II Euvolemic without exacerbation I feel pt [...] Encounters Date Type Department Care Team Description 05/16/[address] [place] [address] Maude Marte MA 05/13/2025 2:15 PM EDT Office Visit [address] [place] [address] Colten Tatum MD Chronic systolic congestive heart failure (CMS/HCC) (Primary Dx); ICD (implantable cardioverter-defibrill ator), single, in situ 05/13/2025 1:45 PM EDT Ancillary Procedure [address] [place] [address] Encounter for implantable defibrillator reprogramming or check 03/01/[address] [place] [address] Flower Vera CNP Coronary artery disease due to lipid rich [...] Mass Index 31 05/13/2025 1:45 PM EDT Plan of Treatment Health Maintenance Due Date Last Done Comments [...] on patient's age to complete this topic Procedures Procedure Name Priority Date/Time Associated Diagnosis Comments CARDIAC DEVICE CHECK - IN CLINIC - ICD SINGLE CHAMBER W/ PROG Routine 05/14/2025 12:19 PM EDT Encounter for implantable defibrillator reprogramming or check from Last 3 Months Results * CARDIAC DEVICE CHECK - IN CLINIC - ICD SINGLE CHAMBER W/ PROG (05/14/2025 12:19 PM EDT) BSA 1.88 m2 [employer] PACS CARDIO Anatomical Region Laterality Modality Other [...] Colten Tatum MD CV IMPLANTABLE CARDIAC DEVICE GA OCEDURES Final Result from Last 3 Months Insurance [facility] Care Teams Deli Clerk Relationship Specialty Start Date End Date Miah Saenz MD [address] [place] [address] PCP - General Family Medicine 05/14/25
--- OUTSIDE RECORDS SUMMARY | 2025-05-22 13:16 | XMS_ITS | Clinical Summary ---
Author Organization [facility] Healthcare Address [address] [place] [address] Care Team Providers Care Director Of Teaching And Learning Name Role Phone Mariella Stearns RISK AND INSURANCE CONSULTANT Unavailable [phone] Miah Saenz MD Primary Care Provider [phone] Allergies No known active allergies Medications atorvastatin (Lipitor) 80 MG tablet Take 80 mg by mouth in the morning. Active cholecalciferol (Vitamin D3) 25 MCG (1000 UT) tablet Take 1,000 Units by mouth in the morning. Active Ascorbic Acid (vitamin C) 1000 MG tablet Take 1,000 mg by mouth in the morning. Active MULTIPLE VITAMINS PO Take by mouth Active glucose blood test stripIndications:Ty pe 2 diabetes mellitus without complication, without long-term current use of insulin (HCC) 1 each by Other route every 12 (twelve) hours Twice a day - whatever brand is covered under patients insurance. 200 each 12 4 04/19/20 27 Active aspirin 81 MG EC tablet Take 81 mg by mouth Daily Active Lancets (OneTouch Delica Plus [id number]) miscIndications:Typ e 2 diabetes mellitus without complication, without long-term current use of insulin (HCC) USE DIRECTED TWICE DAILY 200 each 1 4 Active sacubitril-valsarta n (Entresto) 24-26 MG tablet Take 1 tablet by mouth in the morning and 1 tablet before bedtime. Active carvedilol (Coreg) 6.25 MG tabletIndications:E ssential hypertension Take 1 tablet (6.25 mg) by mouth in the morning and 1 tablet (6.25 mg) in the evening. Take with meals. 180 tablet 5 Active empagliflozin (Jardiance) 25 MGIndications:Type 2 diabetes mellitus without complication, without long-term current use of insulin (HCC) Take 1 tablet (25 mg) by mouth Daily 90 tablet 1 5 Active albuterol HFA (Ventolin HFA) 90 mcg/act inhalerIndications: Chronic allergic rhinitis Inhale 2 puffs every 4 (four) hours if needed for wheezing 18 g 11 5 09/03/19 26 Active metFORMIN (Glucophage) 1000 MG tabletIndications:T ype 2 diabetes mellitus without complication, without long-term current use of insulin (HCC) Take 1 tablet (1,000 mg) by mouth in the morning and 1 tablet (1,000 mg) in the evening. Take with meals. 180 tablet 1 5 05/24/20 25 Active ezetimibe (Zetia) 10 MG tabletIndications:H yperlipidemia, unspecified hyperlipidemia type Take 1 tablet (10 mg) by mouth Daily 90 tablet 3 5 Active semaglutide (Ozempic, 1 MG/DOSE,) 4 MG/3ML solution pen-injectorIndicat ions:Type 2 diabetes mellitus without complication, without long-term current use of insulin (HCC) Inject 1 mg under the skin 1 (one) time per week 9 mL 3 5 Active carvedilol (Coreg) 25 MG tabletIndications:C hronic systolic heart failure (HCC) TAKE 1 TABLET(25 MG) BY MOUTH IN THE MORNING AND IN THE EVENING WITH MEALS 180 tablet 5 Active spironolactone (Aldactone) 25 MG tabletIndications:E ssential hypertension Take 0.5 tablets (12.5 mg) by mouth Daily 90 tablet 5 Active Active Problems Problem Noted Date Diagnosed Date Acute non-recurrent pansinusitis 12/30/2024 Assessment & Plan (12/30/2024 11:24 AM EDT): Take antibiotics for 7 days. Use prednisone [...] if no better or worse call for re- evaluation. BMI 34.0-34.9,adult 09/03/2024 Assessment & Plan (09/03/2024 3:34 PM EST): Weight was 217 in May Is 190 [...] well as surgical options for weight loss. Morbid (severe) obesity due to excess calories ( E66.01) 12/20/2023 Assessment & Plan (05/07/2024 4:33 PM EDT): Has lost 20 pounds in the past 3 months. Continue lifestyle and dietary modifications. Continue Ozempic as directed. Assessment & Plan (02/05/2024 3:29 PM EDT): Recommended weight loss. Started on Ozempic to help with weight loss Counseled on lifestyle measures and dietary modifications Assessment & Plan (12/20/2023 2:11 PM EDT): Recommended weight loss. Will address in detail next appt. Body mass index [BMI] 40.0-44.9, adult (Z68.41) 12/20/2023 Assessment & Plan (12/20/2023 2:11 PM EDT): Recommended weight loss. Will address in detail next appt. Respiratory illness 12/20/2023 Assessment & Plan (12/20/2023 2:13 PM EDT): Has chronic allergies - but now complaining of chest congestion and tightness. Rales on exam in RLL. C/w Zyrtec-D along with mucinex. Will call in oral azithromycin for possible bacterial PNA due based on abnormal lung exam. No need for CXR as no evidence of resp distresss. If persistent symptoms, or no improvement, will reassess and order an XR. Chronic allergic rhinitis 11/07/2023 Assessment & Plan (11/07/2023 2:52 PM EDT): Reports nasal/sinus congestion. No fever, chills, cough. Has chronic post nasal drip. Likely chronic rhinitis. Will start on flonase and daily antihistamine with decongestant. Prostate cancer screening 09/27/2023 Encounter for wellness examination in adult 02/2024 Assessment & Plan (09/27/2023 3:48 PM EST): Patient here for Annual Wellness Exam. Reviewed [...] screening - ordered cologuard for the patient. Type 2 diabetes mellitus wit hout complication, without long-term current use of insulin 08/22/2023 Assessment & Plan (09/03/2024 3:24 PM EST): Currently taking Metformin, glipizide and Jardiance Most [...] persistent hypoglycemia/hyperglycemia on home glucose monitoring noted. Assessment & Plan (05/07/2024 4:29 PM EDT): Currently taking Metformin, glipizide and Jardiance Most [...] monitoring noted. Weight in September:237 Today: 217 Assessment & Plan (02/05/2024 3:26 PM EDT): Most recent labs: hemoglobin A1C 7.7 02/11 On Metformin, glipizide and Jardiance. Denies hypoglycemia C/w metformin, glipizide and jardiance. Morbidly obese, A1C above goal - will start on ozempic. Patient counseled and educated on adverse effects, drug interactions and to reach out to office/pharmacy if questions or concerns related to new medications. Assessment & Plan (11/07/2023 2:51 PM EDT): Most recent labs: hemoglobin A1C 7.9 10/14 Last appointment, his glipizide was decreased to 2.5 mg, but he noted that his blood glucose was going up in the 170s so he increased his glipizide back to 5 mg. Denies hypoglycemia on the full dose. C/w metformin, glipizide and jardiance. Patient asked to maintain home blood glucose log and bring his readings next appointment Labs ordered before next visit. Assessment & Plan (09/27/2023 3:46 PM EST): Most recent labs: hemoglobin A1C 7.9 Average [...] reach out if continues to have hypoglycemia. Encounter for screening for malignant neoplasm o f colon 08/08/2023 Kidney mass 08/01/2023 Diabetes mellitus 07/04/2022 BPH (benign prostatic hyperplasia) 03/25/2022 Chronic systolic heart failure 04/28/2021 Overview (09/27/2023): Images from the original note were not included. 11/16/20 Echo Last Assessment & Plan: Images from the original note were not included. [place] II Euvolemic without exacerbation I feel pt [...] fluid restriction 1.5-2L/day, renal function and electrolytes- Assessment & Plan (11/07/2023 2:38 PM EDT): Stable, on GDMT. No evidence of fluid overload. Does not require Loop diuretic. No recent office/hospital visit for CHF exacerbation. Following [facility] cardiology. Assessment & Plan (09/27/2023 3:42 PM EST): Stable, on GDMT. No evidence of fluid overload. Does not require Loop diuretic. No recent office/hospital visit for CHF exacerbation. Following [facility] cardiology. Primary cardiomyopathy 05/19/2014 Overview (09/27/2023): Last Assessment & Plan: As above Implantable cardioverter-defibrillator (ICD) in situ 07/31/2013 Hyperlipidemia 07/18/2012 Overview (09/27/2023): Last Assessment & Plan: Continue lipitor Assessment & Plan (09/03/2024 3:25 PM EST): Currently taking Atorvastatin 80mg Zetia 10mg Denies any myalgias. Continue current regimen. Assessment & Plan (05/07/2024 4:30 PM EDT): Currently taking Atorvastatin 80mg Zetia 10mg Denies any myalgias. Most recent Lipid Panel 01/2024- WNL Continue current regimen. Assessment & Plan (11/07/2023 2:43 PM EDT): On lipitor and ezetimide. Check Lipid panel Assessment & Plan (09/27/2023 3:46 PM EST): On Lipitor and Zetia. Tolerating it well. No adverse effects. Well adult health check 07/18/2012 Coronary atherosclerosis 07/17/2012 Overview (09/27/2023): Last Assessment & Plan: Coronary artery disease is Continue GDMT- ASA, lipitor and zetia continue risk factor modifications- heart healthy diet, regular exercise as tolerated and continue all medications. EF 30-35 STENT 2004 Essential hypertension 07/17/2012 Overview (09/27/2023): Last Assessment & Plan: Hypertension is well controlled 123/80 Continue all meds Assessment & Plan (09/03/2024 3:25 PM EST): Currently taking Coreg, Entresto, Aldactone Does not check BP at home; Denies orthostatic changes, dizziness, cough, shortness of breath, swelling in extremities. Continue current regimen. Given BP log, advised pt to record BP and bring log back with them to next visit. Assessment & Plan (05/07/2024 4:31 PM EDT): Currently taking Coreg, Entresto, Aldactone Does not check BP at home; Denies orthostatic changes, dizziness, cough, shortness of breath, swelling in extremities. Continue current regimen. Given BP log, advised pt to record BP and bring log back with them to next visit. Assessment & Plan (02/05/2024 3:25 PM EDT): BP well controlled. On average less than 130/90. Tolerating Anti hypertensive w/o adverse effects. C/w Johnny, Entresto, Aldactone. Assessment & Plan (11/07/2023 2:37 PM EDT): BP well controlled. On average less than 130/90. Tolerating Anti hypertensive w/o adverse effects. Patient encouraged to continue with home BP monitoring and call office if he experiences orthostatic symptoms or persistently elevated BP. C/w Coreg, Entresto, Aldactone. Assessment & Plan (09/27/2023 3:41 PM EST): BP well controlled. On average less than 130/90. Tolerating Anti hypertensive w/o adverse effects. Denies lightheadedness, dizziness, syncope, presyncope. Patient encouraged to continue with home BP monitoring and call office if he experiences orthostatic symptoms or persistently elevated BP. C/w Coreg, Entresto, Aldactone. Encounters Date Type Department Care Team Description 05/13/2025 Clinisync Result Encounter [facility] External Department Unsolicited Provider, Generic External Data 03/31/2025 [facility] [address] [place] [id number] Miah Saenz MD Essential hypertension 03/10/2025 Refill [facility] [address] [place] [phone] Miah Saenz MD Chronic systolic heart failure (HCC) 03/05/2025 [facility] [address] [place] [id number] Miah Saenz MD Type 2 diabetes mellitus without complication, without long-term current use of insulin (HCC) from Last 3 Months Immunizations Immunization Administration Dates Next Due Tdap 01/27/2016 Family History Medical History Relation Name Comments Car accident Mother Relation Name Status Comments Father Alive Mother Social History Tobacco Use Types Packs/Day Years Used Date Smoking Tobacco: Every Day Cigarettes 0.5 1.5 Started: 11/20/2023 Passive Smoke Exposure: Past Smokeless Tobacco: Never Tobacco Cessation:Ready to Q uit: Not Asked; Counseling Given: Not Answered Alcohol Use Standard Drinks/Week Comments Yes 0 [...] often do you attend chur ch or pentecostalism services? 1 to 4 times per year 08/31/2024 Do you belong to any clubs o r organizations such as yazdanism groups, unions, fraternal or athletic groups, or [...] Recorded Patient Health Questionnaire-2 Score 0 02/05/2024 [facility]ational Stress Questionnaire Answer Date Recorded [...] any time in the past 12 m [facility], were you homeless or living in a senior care (including now)? No 08/31/2024 Sex and Gender Information Value Date Recorded Sex Assigned at Male 08/31/2023 3:11 PM EST Legal Sex Male 6:48 PM EDT Gender Identity Male 08/31/2023 3:11 PM EST Sexual Orientation Straight 08/31/2023 3: 13 PM EST Last Filed Vital Signs Vital Sign Reading Time Taken Comments Blood Pressure 110/66 12/30/2024 10:43 AM EDT Pulse 91 12/30/2024 10:43 AM EDT Temperature 36.4 C (97.5 F) 12/30/2024 10:43 AM EDT Respiratory Rate 20 12/30/2024 10:43 AM EDT Oxygen Saturation 97% 12/30/2024 10:43 AM EDT Inhaled Oxygen Concentration - - Weight 82.1 kg (181 lb) 12/30/2024 10:43 AM EDT Height 157.5 cm (5' 2 ) 12/30/2024 10:43 AM EDT Body Mass Index 33.11 12/30/2024 10:43 AM EDT Plan of Treatment Health Maintenance Due Date Last Done Comments CT Colonography 1965 Colonoscopy 1965 FIT 1965 FOBT 1965 Sigmoidoscopy 1965 Influenza Vaccine (#1) 2025 Colorectal Cancer Screening 11/22/2026 FIT-DNA 11/22/2026 11/23/2023 Procedures Procedure Name Priority Date/Time Associated Diagnosis Comments ALL DIGOXIN Routine 05/13/2025 1:25 PM EDT LAB COLOGUARD COLON CANCER SCREEN Routine 11/23/2023 4:05 PM EDT Encounter for screening for malignant neoplasm of colon from Last 3 Months or Most Recently Relevant to Health Maintenance Results * (ABNORMAL) ALL DIGOXIN (05/13/2025 1:25 PM EDT) DIGOXIN 0.7(L) 0.9 - 2.0 ng/mL [facility] 05/13/2025 1:25 PM EDT 05/13/2025 1:27 PM EDT Narrative [facility] - 05/13/2025 3:13 PM EDT us Generic External Data Provider CLINLUPE F inarajeev Result [facility] * Cologuard?? colon cancer screening (11/23/2023 4:05 PM EDT) NONINV COLON CA DNA+OCC BLD SCRN STL-IMP Negative Negative 11/30/2023 8:34 PM EDSalesforce [employer] (CLIA #:[id number]) Comment: NEGATIVE TEST RESULT. A negative Cologuard result indicates a low likelihood that a colorectal cancer (CRC) or advanced adenoma (adenomatous polyps with more advanced pre-malignant features) is present. The chance that a person with a negative Cologuard test has a colorectal cancer is less than 1 in 1500 (negative predictive value >99.9%) or has an advanced adenoma is less than 5.3% (negative predictive value 94.7%). These data are based on a prospective cross-sectional study of 10,000 individuals at average risk for colorectal cancer who were screened with both Cologuard and colonoscopy. (Layla Forte. et al, N Engl J Med 2014;370(14):6439-7303) The normal value (reference range) for this assay is negative. COLOGUARD RE-SCREENING RECOMMENDATION: Periodic colorectal cancer screening is an important part of preventive healthcare for asymptomatic individuals at average risk for colorectal cancer. Following a negative Cologuard result, the [place] Cancer Society and U.S. Multi-Society Task Force screening guidelines recommend a Cologuard re-screening interval of 3 years. References: [place] Cancer Society Guideline for Colorectal Cancer Screening: https://www.cancer.org/cancer/okxci-jujkzu-mntxlp/sksdpfvrt-inzfglmyv-otnrabs/ac s-rec ommendations.html.; Bridger AGRAWAL, Rashad PEDRO, Kylie SotoK, Colorectal Cancer Screening: Recommendations for Physicians and Patients from the U.S. Multi-Society Task Force on Colorectal Cancer Screening , Am J Gastroenterology 2017; 112:7292-1194. TEST DESCRIPTION: Composite algorithmic analysis of stool DNA-biomarkers with hemoglobin immunoassay. Quantitative values of individual biomarkers are not reportable and are not associated with individual biomarker result reference ranges. Cologuard is intended for colorectal cancer screening of adults of either sex, 45 years or older, who are at average-risk for colorectal cancer (CRC). Cologuard has been approved for use by the U.S. FDA. The performance of Cologuard was established in a cross sectional study of average-risk adults aged 50-84. Cologuard performance in patients ages 45 to 49 years was estimated by sub-group analysis of near-age groups. Colonoscopies performed for a positive result may find as the most clinically significant lesion: colorectal cancer [4.0%], advanced adenoma (including sessile serrated polyps greater than or equal to 1cm diameter) [20%] or non- advanced adenoma [31%]; or no colorectal neoplasia [45%]. These estimates are derived from a prospective cross-sectional screening study of 10,000 individuals at average risk for colorectal cancer who were screened with both Cologuard and colonoscopy. (Layla Mendosa et al, N Engl J Med 2014;370(14):4097-5886.) Cologuard may produce a false negative or false positive result (no colorectal cancer or precancerous polyp present at colonoscopy follow up). A negative Cologuard test result does not guarantee the absence of CRC or advanced adenoma (pre-cancer). The current Cologuard screening interval is every 3 years. ([place]izen [place] Cancer Society and U.S. Multi-Society Task Force). Cologuard performance data in a 10,000 patient pivotal study using colonoscopy as the reference method can be accessed at the following location: www.[employer]/results. Additional description of the Cologuard test process, warnings and precautions can be found at www.cologuard.com. Stool specimen (specimen) 11/23/2023 4:05 PM EDT 11/25/2023 7:37 AM EDT Shaikh Brad [facility] ORDER RASTA Final Result .[employer] (CLIA #:[id number]) [address] [id number], [employer] (CLIA #:[id number]) [address] [id number] from Last 3 Months or Most Recently Relevant to Health Maintenance Insurance [employer] Care Teams Director Of Teaching And Learning Relationship Specialty Start Date End Date Miah Saenz MD PCP - General Family Medicine 06/20/24 Mariella Stearns NP Nurse Practitioner Family Medicine 03/28/24
--- OUTSIDE RECORDS SUMMARY | 2025-05-22 13:16 | XMS_ITS | Encounter Summary ---
Author Organization [facility] Address [address] [place] [address] Care Team Providers Care Senior Counsel Name Role Phone Miah Saenz MD Primary Care Provider [phone] Mariella Stearns COAT PADDER Unavailable [phone] Unallocated, Noms Provider Primary Care Provi annette Miah Saenz MD Primary Care Provider [phone] Encounter Details Date Type Department Care Team (Late st Contact Info) Description 05/16/2024 Orders Only [facility] [address] [place] [address] Mariella Stearns NP Encounter for [...] Primary documented in this encounter Care Teams Senior Counsel Relationship Specialty Start Date End Date Miah Saenz MD PCP - General Family Medicine 03/28/24 06/09/24 Unallocated, Blair Watt MD [address] [place] [address] PCP - General Family Medicine 06/10/24 06/19/24 Miah Saenz MD PCP - General Family Medicine 06/20/24 Mariella Stearns NP Nurse Practitioner Family Medicine 03/28/24 documented as of this encounter
--- OUTSIDE RECORDS SUMMARY | 2025-05-22 13:16 | XMS_ITS | Encounter Summary ---
Author Organization [facility] Address [address] [place] [address] Care Team Providers Care Transfer And Pumphouse Operator Name Role Phone Miah Saenz MD Primary Care Provider [phone] Encounter Details Date Type Department Care Team (Late st Contact Info) Description 05/16/2025 Telephone [facility] [address] [place] [address] Maude Marte MA Social History Tobacco Use Types Packs/Day Years [...] PM EDT documented as of this encounter Miscellaneous Notes * Telephone Encounter - Maude Marte MA - 05/16/2025 2:43 PM EDT Images from the original note were not included. MD Maude Esparza MA Digoxin level is okay. Continue the same. LVM for patient to inform him of his lab results per Dr. Heart request. documented in this encounter Plan of Treatment Not on file documented as of this encounter Visit Diagnoses Not on filedocumented in this encounter Care Teams Transfer And Pumphouse Operator Relationship Specialty Start Date End Date Miah Saenz MD [address] [place] [address] PCP - General Family Medicine 05/14/25 documented as of this encounter
[2025-05-22 13:32] LABS: Estimated GFR (African America >60 (>=60 mL/min/1.73m^2); Estimated GFR (Non-African Ame >60 (>=60 mL/min/1.73m^2)
--- NOTE | 2025-05-22 14:31 | CT_ITS ---
The [address] [address] Patient Name: EVARISTO LOWERY MRN: [id number] date: 1965 Sex: M Assigned Patient Location: LAB Current Patient Location: LAB Accession/Order Number: [id number] Exam Date: 05/22/2025 14:18 Report Date: 05/23/2025 13:54 At the request of: JOSEPH JANG MD Procedure: CT abdomen pelvis wo/w con CT ABDOMEN AND PELVIS WITH AND WITHOUT INTRAVENOUS CONTRAST: CLINICAL HISTORY: kidney mass COMPARISON: CT abdomen and pelvis 03/02/2024 TECHNIQUE: Spiral images were obtained through the abdomen and pelvis before and after the administration of intravenous contrast. This CT exam was performed using one or more following dose reduction techniques: Automated exposure control, adjustment of the mA and/or kV according to patient size, or use of iterative reconstruction technique. FINDINGS: Lung Bases: [No acute findings.] Organs:Liver gallbladder portal vein spleen pancreas adrenal glands all appear marker. Aorta appears normal in caliber. Right kidney appears unremarkable. Cystic changes involving the kidneys one of which appears partially calcified similar configuration to the prior study. This cyst measures 2.9 cm, unchanged from prior study. No enhancing renal mass is seen. GI: Stomach is grossly unremarkable. Small bowel appears nondilated. No acute colonic abnormality. Colonic diverticulosis.[ Pelvis:[Urinary bladder is grossly unremarkable. Prostate gland normal in size.] Peritoneum/Retroperitoneum:No free air or free fluid or lymphadenopathy.[ Abd wall/Bones:Abdominal wall demonstrates no acute findings. Osseous structures demonstrate degenerative change.[ CT/CT abdomen pelvis wo/w con IMPRESSION: No CT evidence of enhancing renal mass. Cystic changes involving the left kidney, unchanged from prior study. Impression dictated by: Brian Mcrae Jr., D.O. 05/23/2025 1:54 PM Dictation Location: [place] [address] Electronically authenticated by: [id number] Y Date: 05/23/2025 13:54
== END 2025-05-22 13:15 | disposition home or self-care (01) ==
LOC: LAB 13:14
PROVIDERS: Pathology Anatomic Pathology & Clinical Pathology; Visit Provider Urology
DX: N28.89 Other specified disorders of kidney and ureter (principal)
CPT/HCPCS: 36415; 74178; 82565; Q9967